=== PATIENT | male | born 1970 ===

== ENCOUNTER 2020-06-25 08:12 | Outpatient (REF) | payer BC, SELFPAY ==
[2020-06-25 11:54] LABS: Alanine Aminotransferase 58 U/L (0-40); Aspartate Amino Transferase 31 U/L (5-37); Cholesterol 139 mg/dL; HDL Cholesterol 31 mg/dL; LDL Cholesterol Calculated 43 mg/dl; Triglycerides 328 mg/dL
== END 2020-06-25 08:13 | disposition home or self-care (01) ==
LOC: HO.HMGCLDS 08:12
PROVIDERS: PCP Nurse Practitioner Family; Visit Provider Internal Medicine Cardiovascular Disease
DX: E78.5 Hyperlipidemia, unspecified (principal)
CPT/HCPCS: 80061; 84450; 84460

== ENCOUNTER 2020-07-03 09:24 | Emergency (ER) | payer BC, SELFPAY ==
[2020-07-03 10:01] VITALS: BP 148/92; PULSE 80; RESP 18; TEMP 36.5; O2SAT 97; BMI 28.5
--- NOTE | 2020-07-03 10:49 | PC.NURSE ---
SWABBED FOR COVID
--- NOTE | 2020-07-03 11:56 | ED.URI ---
HPI - URI/Sore Throat General Chief Complaint: Upper Respiratory Symptoms Stated Complaint: HEADACHE Time Seen by Provider: 07/03/20 10:54 History of Present Illness HPI Narrative: Patient complains of 1 day of mild upper respiratory symptoms of runny nose, mild cough, body aches, no fever no chills no shortness of breath no sputum no nausea or vomiting Related Data Allergies Allergy/AdvReac Type Severity Reaction Status Date / Time fenofibrate [From TRICOR] Allergy Unknown ITCHING Verified 07/03/20 10:04 Review of Systems Review of Systems: There is no fever no chills no dizziness no weakness no headache no neck pain no chest pain no shortness of breath no abdomen pain no nausea no vomiting no diarrhea no rash Yes all other systems are reviewed and are negative [facility] Past Medical History Attestation statement: The following information was validated with the patient. [facility] Narrative: Hypertension and hypercholesterolemia Source: nursing notes reviewed Medical History (Updated 07/03/20 @ 11:18 by SILVIA Moseley) Myocardial infarction Social History Social History Advance Directives: No Advance Directives Information Provided: Yes Physical Exam Vital Signs: Vital Signs: Last Vital Signs Temp 97.7 F 07/03/20 10:01 Pulse 80 07/03/20 10:01 Resp 18 07/03/20 10:01 BP 148/92 H 07/03/20 10:01 Pulse Ox 97 07/03/20 10:01 Body Mass Index 28.5 Patient is A&O x3, comfortable, no acute distress The eyes are clear no discharge no redness The pharynx is clear no redness no exudate no swelling, mucous membranes are moist and voice is normal The neck is supple no lymphadenopathy The chest is clear with full equal symmetrical breath sounds Abdomen soft nontender Extremities full range of motion x4 skin no rash Course Course Course Narrative: Comfortable well-appearing patient with mild upper respiratory symptoms is tested for COVID and discharged Discharge Plan Discharge Clinical Impression: Acute viral syndrome Patient Disposition: Home, Self-Care Additional Instructions: COVID test results will be back in 2-3 days But because the test miss is some cases the advice is do not return to work until symptoms are better and COVID test is negative Return any concerns or any worse condition Stand Alone Forms: Work/School Release Interventions: ED Discharge Assessment Last Done: 07/03/20 11:37 Discharge Date/Time: 07/03/20 11:39
== END 2020-07-03 11:39 | disposition home or self-care (01) ==
PROVIDERS: Physician Assistant Medical; Emergency Provider Emergency Medicine; PCP Nurse Practitioner Family
DX: B34.9 Viral infection, unspecified (principal); R51.9 Headache, unspecified; Z20.828 Contact with and (suspected) exposure to other viral communicable diseases
CPT/HCPCS: 99283; U0003

== ENCOUNTER 2020-10-04 09:27 | Outpatient (REF) | payer BC, SELFPAY ==
--- NOTE | ~2020-10-04 | CT_ITS ---
EXAMINATION: CT ABDOMEN AND PELVIS WITH CONTRAST CLINICAL INFORMATION: Left lower quadrant pain COMPARISON: Previous abdominal ultrasound November 2018, pelvic ultrasound November [address] February 2020 TECHNIQUE: Multidetector volumetric images were obtained from the superior aspect of the liver through the pubic symphysis following administration 85 mL of Omnipaque 350 intravenous contrast. Sagittal and coronal reformatted images were obtained on the technologist's workstation. Oral contrast: Yes This CT examination was performed using dose optimization techniques as appropriate, variously including the following: *Automated exposure control *Adjustment of mA and/or kV according to patient size (this includes techniques or standardized protocols for targeted exams where dose is matched to indication/reason for exam; i.e. extremities or head) *Use of iterative reconstruction technique DLP: 499 mGy-cm FINDINGS: LUNG BASES: The visualized lung bases are unremarkable. LIVER, GALLBLADDER, AND BILIARY TREE: The liver is slightly enlarged, right lobe measuring 20 cm in length. The liver is normal in shape and attenuation. No focal hepatic lesion or biliary ductal dilatation is present. The gallbladder is unremarkable with no evidence of radiopaque gallstones, gallbladder wall thickening, or obvious pericholecystic inflammatory changes. PANCREAS: Unremarkable. SPLEEN: The spleen is enlarged and measures 15.4 cm in length. ADRENAL GLANDS: Unremarkable. KIDNEYS AND URETERS: The kidneys are normal in size, shape, and attenuation. No hydronephrosis, hydroureter, or calculi seen. No perinephric stranding. BLADDER: Unremarkable. GASTROINTESTINAL TRACT: The small and large bowel are unremarkable. The appendix is unremarkable. ABDOMINAL WALL: There is a small right inguinal hernia containing fat. LYMPH NODES: Normal. VASCULAR: Unremarkable. PELVIC VISCERA: Unremarkable. OSSEOUS STRUCTURES: There are degenerative changes of the spine. CT/CT abdomen pelvis w con IMPRESSION: Mild hepatosplenomegaly otherwise unremarkable exam.
[2020-10-04] MEDS: iohexoL 350 MG/ML 100 ML INFUS..BTL 85 ML IV (09:51)
== END 2020-10-04 09:28 | disposition home or self-care (01) ==
LOC: HO.CT 09:27
PROVIDERS: PCP Nurse Practitioner Family; Visit Provider Nurse Practitioner Family
DX: R10.32 Left lower quadrant pain (principal)
CPT/HCPCS: 74177; Q9967

== ENCOUNTER 2020-10-05 09:11 | Outpatient (REF) | payer BC, SELFPAY ==
[2020-10-05 11:24] LABS: MANUAL DIFF FLAG NO
[2020-10-05 11:37] LABS: Basophils Percent Auto 0.5 % (0-2); Eosinophils Absolute Auto 0.1 X10*3/uL (0.0-0.4); Eosinophils Percent Auto 2.9 % (0-4); Hematocrit 44.3 % (42-52); Imm Gran Abs Auto 0.01 X10*3/uL (0.00-0.03); Imm Gran Pct Auto 0.2 % (0.0-0.4); Lymphocytes Absolute Auto 1.2 X10*3/uL (1.2-4.9); Lymphocytes Percent Auto 28.1 % (20-40); Mean Corpuscular HGB Conc 33.9 g/dl (31.0-36.0); Mean Corpuscular Hemoglobin 29.3 pg (27.0-33.0); Mean Corpuscular Volume 86.5 fL (80-98); Mean Platelet Volume 11.3 fL (9.4-12.4); Monocytes Absolute Auto 0.4 X10*3/uL (0.1-1.2); Monocytes Percent Auto 9.8 % (2-11); Neutrophils Absolute Auto 2.4 X10*3/uL (2.0-8.3); Neutrophils Percent Auto 58.5 % (45-73); Platelet Count 141 X10*3/uL (160-400); Red Blood Count 5.12 X10*6/uL (4.60-5.80); White Blood Count 4.2 X10*3/uL (4.8-10.8)
[2020-10-05 11:52] LABS: Alanine Aminotransferase 65 U/L (0-40); Albumin Level 4.5 g/dL (3.5-5.0); Alkaline Phosphatase 63 U/L (39-117); Anion Gap 13 (12-20); Aspartate Amino Transferase 27 U/L (5-37); Bilirubin Total 0.6 mg/dL (0.0-1.0); Blood Urea Nitrogen 24 mg/dL (9-16); Calcium 8.8 mg/dL (8.4-10.2); Carbon Dioxide 27 mmol/L (22-29); Chloride 106 mmol/L (96-108); Estimated Glomerular Filt Rate > 60; Glucose Random 84 mg/dL (60-115); Potassium 4.1 mmol/L (3.3-5.1); Sodium 142 mmol/L (135-145); Total Protein 7.3 g/dL (6.5-8.0)
[2020-10-05 12:03] LABS: Alanine Aminotransferase 65 U/L (0-40); Albumin Level 4.5 g/dL (3.5-5.0); Alkaline Phosphatase 63 U/L (39-117); Aspartate Amino Transferase 29 U/L (5-37); Bilirubin Direct 0.2 mg/dL (0.0-0.5); Bilirubin Total 0.6 mg/dL (0.0-1.0); Total Protein 7.3 g/dL (6.5-8.0)
[2020-10-06 08:17] LABS: Hepatitis A Antibody IgG Nonreactive (Nonreactive); ~Hepatitis A Antibody IgG 0.45 S/CO (0.00-0.99)
== END 2020-10-05 09:12 | disposition home or self-care (01) ==
LOC: HO.HMGCLDS 09:11
PROVIDERS: PCP Nurse Practitioner Family; Visit Provider Internal Medicine Gastroenterology
DX: R94.5 Abnormal results of liver function studies (principal); K59.00 Constipation, unspecified; R10.32 Left lower quadrant pain
CPT/HCPCS: 36415; 80053; 80076; 82248; 85025; 86708

== ENCOUNTER → 2020-10-26 08:02 | Outpatient (BNV) | payer BC, SELFPAY | PROVIDERS: PCP Nurse Practitioner Family; Referring Provider Nurse Practitioner Family; Visit Provider Internal Medicine Medical Oncology | DX: I82.513 Chronic embolism and thrombosis of femoral vein, bilateral (principal); I82.533 Chronic embolism and thrombosis of popliteal vein, bilateral; Z79.01 Long term (current) use of anticoagulants | CPT/HCPCS: 99204; 99213; 99214 ==

== ENCOUNTER 2020-11-29 13:20 | Outpatient (REF) | payer BC, SELFPAY ==
--- NOTE | ~2020-11-29 | MR_ITS ---
EXAMINATION: MR KNEE WITHOUT CONTRAST, LEFT CLINICAL INFORMATION: Left knee pain. COMPARISON: None TECHNIQUE: MRI of the knee without contrast was performed using routine sequences on a high-field scanner. FINDINGS: MENISCI: Medial Meniscus: Intact Lateral Meniscus: Intact LIGAMENTS: Cruciate: Intact Collateral: Intact EXTENSOR MECHANISM: Intact quadriceps and patellar tendons. Mildly prominent medial patellar plica without associated edema/inflammatory change. ARTICULAR CARTILAGE/BONE: Patellofemoral Compartment: Medial patellar facet articular cartilage signal heterogeneity. Tiny marginal osteophytes. Medial Compartment: Focal fissuring/delamination at the lateral aspect of the weightbearing medial femoral condyle measuring 1.0 x 0.7 cm. Tiny marginal osteophytes. Lateral Compartment: Normal JOINT FLUID AND BURSAE: Trace joint effusion and trace Pike's cyst. MR/MR knee LT wo con IMPRESSION: 1. Minimal patellofemoral and medial compartment osteoarthritis. 2. Trace joint effusion and trace Pike's cyst. 3. No acute meniscal or ligamentous injury.
== END 2020-11-29 13:21 | disposition home or self-care (01) ==
LOC: HO.MRI 13:20
PROVIDERS: Visit Provider Nurse Practitioner Family
DX: M25.562 Pain in left knee (principal)
CPT/HCPCS: 73721

== ENCOUNTER 2021-01-28 06:09 | Outpatient (REF) | payer BC, SELFPAY ==
[2021-01-28 11:24] LABS: MANUAL DIFF FLAG NO
[2021-01-28 11:40] LABS: Basophils Percent Auto 0.6 % (0-2); Eosinophils Absolute Auto 0.2 X10*3/uL (0.0-0.4); Eosinophils Percent Auto 3.1 % (0-4); Hematocrit 46.1 % (42-52); Hemoglobin 15.4 g/dl (14.0-18.0); Imm Gran Abs Auto 0.01 X10*3/uL (0.00-0.03); Imm Gran Pct Auto 0.2 % (0.0-0.4); Lymphocytes Absolute Auto 1.5 X10*3/uL (1.2-4.9); Lymphocytes Percent Auto 29.2 % (20-40); Mean Corpuscular HGB Conc 33.4 g/dl (31.0-36.0); Mean Corpuscular Hemoglobin 29.2 pg (27.0-33.0); Mean Corpuscular Volume 87.5 fL (80-98); Mean Platelet Volume 10.7 fL (9.4-12.4); Monocytes Absolute Auto 0.5 X10*3/uL (0.1-1.2); Monocytes Percent Auto 10.1 % (2-11); Neutrophils Absolute Auto 2.9 X10*3/uL (2.0-8.3); Neutrophils Percent Auto 56.8 % (45-73); Platelet Count 133 X10*3/uL (160-400); Red Blood Count 5.27 X10*6/uL (4.60-5.80); Red Cell Distribution Width 12.5 % (11.0-16.0); White Blood Count 5.1 X10*3/uL (4.8-10.8)
[2021-01-28 12:02] LABS: Alanine Aminotransferase 54 U/L (0-40); Albumin Level 4.6 g/dL (3.5-5.0); Alkaline Phosphatase 59 U/L (39-117); Anion Gap 15 (12-20); Aspartate Amino Transferase 25 U/L (5-37); Bilirubin Total 0.4 mg/dL (0.0-1.0); Blood Urea Nitrogen 19 mg/dL (9-16); Calcium 9.2 mg/dL (8.4-10.2); Carbon Dioxide 27 mmol/L (22-29); Chloride 104 mmol/L (96-108); Estimated Glomerular Filt Rate > 60; Glucose Random 83 mg/dL (60-115); Potassium 4.4 mmol/L (3.3-5.1); Sodium 142 mmol/L (135-145); Total Protein 7.2 g/dL (6.5-8.0)
== END 2021-01-28 06:10 | disposition home or self-care (01) ==
LOC: HO.HMGCLDS 06:09
PROVIDERS: PCP Nurse Practitioner Family; Visit Provider Internal Medicine Medical Oncology
DX: D69.6 Thrombocytopenia, unspecified (principal)
CPT/HCPCS: 36415; 80053; 85025

== ENCOUNTER 2021-04-25 07:43 | Outpatient (REF) | payer BC, SELFPAY ==
[2021-04-25 11:25] LABS: MANUAL DIFF FLAG NO
[2021-04-25 11:37] LABS: Basophils Percent Auto 0.4 % (0-2); Eosinophils Absolute Auto 0.1 X10*3/uL (0.0-0.4); Eosinophils Percent Auto 2.9 % (0-4); Hematocrit 42.7 % (42-52); Hemoglobin 14.7 g/dl (14.0-18.0); Lymphocytes Absolute Auto 1.2 X10*3/uL (1.2-4.9); Lymphocytes Percent Auto 26.6 % (20-40); Mean Corpuscular HGB Conc 34.4 g/dl (31.0-36.0); Mean Corpuscular Hemoglobin 29.6 pg (27.0-33.0); Mean Corpuscular Volume 86.1 fL (80-98); Mean Platelet Volume 10.8 fL (9.4-12.4); Monocytes Absolute Auto 0.4 X10*3/uL (0.1-1.2); Monocytes Percent Auto 9.2 % (2-11); Neutrophils Absolute Auto 2.7 X10*3/uL (2.0-8.3); Neutrophils Percent Auto 60.9 % (45-73); Platelet Count 145 X10*3/uL (160-400); Red Blood Count 4.96 X10*6/uL (4.60-5.80); Red Cell Distribution Width 12.1 % (11.0-16.0); White Blood Count 4.5 X10*3/uL (4.8-10.8)
[2021-04-25 11:59] LABS: Alanine Aminotransferase 51 U/L (0-40); Albumin Level 4.3 g/dL (3.5-5.0); Alkaline Phosphatase 59 U/L (39-117); Anion Gap 14 (12-20); Aspartate Amino Transferase 29 U/L (5-37); Blood Urea Nitrogen 27 mg/dL (9-16); Calcium 9.1 mg/dL (8.4-10.2); Carbon Dioxide 24 mmol/L (22-29); Chloride 106 mmol/L (96-108); Cholesterol 124 mg/dL; Estimated Glomerular Filt Rate > 60; Glucose Fasting 93 mg/dL (60-99); HDL Cholesterol 28 mg/dL; LDL Cholesterol Calculated 41 mg/dl; Potassium 4.2 mmol/L (3.3-5.1); Sodium 140 mmol/L (135-145); Total Protein 6.9 g/dL (6.5-8.0); Triglycerides 279 mg/dL
[2021-04-25 12:00] LABS: TSH reflex Free T4 0.62 uIU/mL (0.32-4.0)
[2021-04-25 12:13] LABS: Bilirubin Total 0.7 mg/dL (0.0-1.0)
== END 2021-04-25 07:44 | disposition home or self-care (01) ==
LOC: HO.HMGCLDS 07:43
PROVIDERS: PCP Nurse Practitioner Family; Visit Provider Internal Medicine Cardiovascular Disease
DX: Z00.00 Encounter for general adult medical examination without abnormal findings (principal); D69.6 Thrombocytopenia, unspecified; E78.5 Hyperlipidemia, unspecified
CPT/HCPCS: 36415; 80053; 80061; 84443; 85025

== ENCOUNTER 2021-04-26 10:22 | Outpatient (REF) | payer BC, SELFPAY ==
[2021-04-26 11:32] LABS: Appearance Urine CLEAR; Color Urine YELLOW; Glucose Urine UA NEG (NEG); Leukocyte Esterase Urine NEG (NEG); Nitrite Urine NEG (NEG); PH 5.5 (5.0-8.0); Specific Gravity - Urine >= 1.030 (1.005-1.025); Urine Blood NEG (NEG); Urine Ketones NEG (NEG); Urine Protein NEG (NEG-TRACE)
[2021-04-26 11:50] LABS: RBC Urine 0 /HPF (0); WBC Urine 0-2 /HPF (0-4)
== END 2021-04-26 10:23 | disposition home or self-care (01) ==
LOC: HO.HMGCLNP 10:22
PROVIDERS: Visit Provider Nurse Practitioner Family
DX: Z00.00 Encounter for general adult medical examination without abnormal findings (principal)
CPT/HCPCS: 81001

== ENCOUNTER 2021-05-16 15:31 | Outpatient (REF) | payer BC, SELFPAY ==
--- NOTE | ~2021-05-16 | FL_ITS ---
EXAMINATION: MODIFIED BARIUM SWALLOW CLINICAL INFORMATION: Dysphagia. COMPARISON: None. TECHNIQUE: Routine barium swallow was performed in lateral projection with patient on stretcher in the presence of speech therapist. FINDINGS: Following oral administration of various consistencies of thin, paste, semisolid and solid food-coated with barium, there is normal propagation of bolus from the oral cavity through the pharynx into the esophagus. No laryngeal penetration or obstruction seen. There is no retention of barium in the valleculae or the piriform sinuses. FLUOROSCOPY TIME: 0.7 minutes. DOSE AREA PRODUCT: 0.726 uGy-m2 (microgray-meter squared). FL/FL barium swallow modified IMPRESSION: Unremarkable modified barium swallow exam. Recommend correlation with speech therapy results.
--- NOTE | 2021-05-16 17:21 | MHC.SL.IMP ---
Date of Plan of Treatment: 05/16/21 Onset of Symptoms/Illness: 04/25/21 Date Treatment Started: 05/16/21 Admitting Diagnosis: ADHD Bilateral inguinal hernia Fatty liver Myocardial infarction non-STEMI Primary Speech & Language Diagnosis: R13.12 Oropharyngeal Phase Dysphagia Reason for Today's Visit: 32461 Modified Barium Swallow Study Pre-evaluation Dietary Consistencies: Regular Pre-evaluation Liquid Consistency: Thin Pre-evaluation Medication Administration: Whole with Liquid Medical History: Modified Barium Swallow Study Fluoroscopic Evaluation of Swallowing Function CPT Code 17666 Evaluation Year: 2020 Reason for Study: Patient reports ?throat tightness.? Referring Physician: Marlon Hirsch DAMPENER-BC Evaluating Clinician: Lucia Hernández M.A., CCC-PUBLIC HEALTH ADMINISTRATOR Study Number: 1 Patient Name: Jeff Clifford Status: Outpatient, Ambulatory Age: 50 Gender: Male MEDICAL HISTORY: Year of Onset or Diagnosis: 2020 Comorbidities: ADHD Bilateral inguinal hernia Fatty liver Myocardial infarction non-STEMI SURGICAL: Coronary angiogram Heart artery stent Umbilical hernia Current (pre-evaluation) Intake/Diet: Route: PO Diet Grade: Regular Liquid Consistencies: Thin Pre-Study Functional Oral Intake Scale (FOIS): 7- Total oral intake with no restrictions Pain: None reported at time of study SUBJECTIVE: Patient is a 50 year old male who was seen in the emergency room on 04/25/21 for ?throat tightness and difficulty swallowing saliva.? Per MD note, patient?s blood work and EKG in the ER came back normal and patient was recommended to follow up with his primary care physician. Patient was thereafter ordered a modified barium swallow study (MBSS). Patient reports intermittent difficulty swallowing saliva and the same sensation of ?throat tightness? which occurs ?on and off? for the past 2 weeks. Patient denies pain when swallowing. Patient denies globus sensation. Patient reports that he has not needed to modify his diet, and that he does not experience these difficulties when eating or drinking. Oral Motor Exam Facial Symmetry: Symmetrical Mouth Occlusion: Normal Oral-Facial Teeth Characteristics: Intact/Normal Oral-Facial Teeth Miscellaneous Observation: Oral-Facial Lip Pucker Description: Normal Oral-Facial Smile (Lips) Description: Normal Oral-Facial Puff Cheeks Description: Normal Tongue Size: Normal Tongue Frenum Length: Normal Is patient able to manage secretions?: Yes Food and Liquid Trials: Oral Impairment: Lip Closure: 0=No labial escape Oral Impairment: Tongue Control During Bolus Hold: 1=Escape to lateral buccal cavity/floor of mouth (FOM) Oral Impairment: Bolus Preparation/Mastication: 0=Timely and efficient chewing and mashing Oral Impairment: Bolus Transport/Lingual Motion: 0=Brisk tongue motion Oral Impairment: Oral Residue: 1=Trace residue lining oral structures Oral Impairment:Initiation of Pharyngeal Swallow: 0=Bolus head at posterior angle of ramus (first hyoid excursion) Pharyngeal Impairment: Soft Palate Elevation: 0=No bolus between soft palate (SP)/pharyngeal wall (PW) Pharyngeal Impairment: Laryngeal Elevation: 0=Complete superior movement of thyroid cartilage (see description) Pharyngeal Impairment: Anterior Hyoid Excursion: 0=Complete anterior movement Pharyngeal Impairment: Epiglottic Movement: 0=Complete inversion Pharyngeal Impairment: Laryngeal Vestibular Closure:: 0=Complete: no air/contrast in laryngeal vestibule Pharyngeal Impairment: Pharyngeal Stripping Wave: 0=Present: complete Pharyngeal Impairment: Pharyngeal Contraction: Did not test Pharyngeal Impairment: Pharyngoesophageal Segment Openin=Partial distention/partial duration: partial obstruction of flow Pharyngeal Impairment: Tongue Base (TB) Retraction: 2=Narrow column of contrast/air between TB and posterior PW Pharyngeal Impairment: Pharyngeal Residue: 1=Trace residue within or on pharyngeal structures Pharyngeal Impairment: Esophageal Clearance Upright Position: Did not test Impressions and Recommendations Clinical Observations: OBJECTIVE: Time-out: performed at 3:45 Evaluation Start: 3:30; Stop: 3:35 Patient Positioning: Seated 70-90 degrees Viewing Planes: LATERAL ONLY Contrast: MBSImP? Standardized Protocol using commercially prepared, standardized Barium viscosities, including: Varibar? THIN LIQUID (40% w/v, <15 cps) , 1/2 Shortbread Cookie (1 x1 x.25 ) MBSImP ID: [id number] MBSImP Results: Lip closure for intraoral bolus containment resulted in no labial escape. Tongue control during bolus hold allowed bolus escape to the lateral buccal cavity/floor of mouth. Bolus preparation and mastication resulted in timely and efficient chewing and mashing. Bolus transport/lingual motion was with brisk tongue motion. Oral residue was a trace, lining oral structures. Initiation of the pharyngeal swallow occurred as the bolus head reached the posterior angle of the mandibular ramus. Soft palate elevation resulted in no bolus between the soft palate and the pharyngeal wall. Laryngeal elevation demonstrated complete superior movement of the thyroid cartilage with complete approximation of the arytenoids to the epiglottic petiole. Anterior hyoid excursion demonstrated complete anterior movement. Epiglottic movement resulted in complete inversion. Laryngeal vestibular closure was complete, as indicated by no air or contrast within the laryngeal vestibule at the height of the swallow. Pharyngeal stripping wave was present and complete. Pharyngeal contraction could not be determined due to logistical reasons not related to physiologic impairment. Pharyngoesophageal segment opening demonstrated partial distension/partial duration, with partial obstruction of bolus flow. Tongue base retraction allowed a narrow column of contrast or air between the retracted tongue base and the posterior pharyngeal wall. Pharyngeal residue was a trace within or on pharyngeal structures. Esophageal clearance in the upright position could not be assessed due to logistical reasons not related to physiologic impairment. Oral Impairment Score: 1 Pharyngeal Impairment Score: 3 (absence of score, component 13) Esophageal Impairment Score: --- (absence of score, component 17) Laryngeal Penetration and Aspiration: Neither penetration nor aspiration was observed in today's study with Cookie, Thin. ASSESSMENT: Patient was unaccompanied to this exam. This exam was conducted by a multidisciplinary team, which included a radiologist, radiology technicians, and speech language pathologist. Patient was able to feed himself without difficulty. Patient trialed the following liquid and solid consistencies: -5 mL thin liquid barium -individual cup sip with bolus hold thin liquid barium -consecutive cup sip thin liquid barium -pureed solid (mixture applesauce with barium paste) -ground solid (mixture chicken salad with barium paste) -regular solid (Natalya Doone cookie coated with barium paste) No evidence of aspiration or penetration during this exam. Timely and efficient mastication with brisk posterior tongue movement. Trace lingual residue deemed to be within normal limits. Initiation of pharyngeal swallow trigger was timely and occurred when bolus head reached posterior angle of ramus. Complete superior movement of thyroid cartilage with complete approximation of arytenoids to epiglottic petiole. Complete anterior hyoid excursion and complete epiglottic inversion. Noted partial distention/partial duration through pharyngoesophageal segment opening. Trace residue in valleculae, in pyriform sinuses, and on posterior pharyngeal wall. Liquid Intake Recommendation: Thin Liquid Intake Strategies: Unrestricted Dietary Recommendations: Regular Medication Administration: Whole with Liquid Compensatory Strategies Recommended: Sitting Upright (90 deg) Supervision during eating and or drinking: None Needed Recommendation for Speech Therapy: NA:Typical Evaluation PLAN: Intake Recommendations: Route: PO Diet Grade: Regular Liquid Consistencies: Thin Post-Study Functional Oral Intake Scale (FOIS): 7- Total oral intake with no restrictions ST intervention is not warranted. Recommend continue unmodified diet REGULAR solids and THIN liquids with pills WHOLE in LIQUID. Patient is recommended consultation with G.I. specialist / ENT for complaint of ?throat tightness.? Therapy Recommendations: Therapy will be discontinued Prognosis for Improvement: The prognosis for the patient to meet nutritional needs by mouth is excellent based on degree of impairment. Clinician - Supplemental, Miscellaneous Communication: It is important to note MBSS objective studies are snapshots in time and Patient function might vary with factors such as time of day or concomitant medical conditions. For this reason, the final treatment plan for this patient should rest with their medical care team. Additional recommendations should be considered with the totality of the Patient in mind. Thank for the opportunity to participate in the care of this patient. If you have any questions about the content of this report, please contact the [facility] at [facility]. Finisher Card Tender Clinician/Clinical Fellow: No Supervisory Statement: N/A Speech Language Pathologist: Lucia Hernández M.A., CCC-PUBLIC HEALTH ADMINISTRATOR
== END 2021-05-16 15:32 | disposition home or self-care (01) ==
LOC: HO.XRAY 15:31
PROVIDERS: Visit Provider Nurse Practitioner Family
DX: R13.10 Dysphagia, unspecified (principal)
CPT/HCPCS: 74230; 92611

== ENCOUNTER 2021-06-07 09:35 | Outpatient (REF) | payer BC, SELFPAY ==
[2021-06-07 11:37] LABS: Hematocrit 45.6 % (42-52); Hemoglobin 15.3 g/dl (14.0-18.0); INTERNATIONAL NORM RATIO 0.9 (0.9-1.1); Mean Corpuscular HGB Conc 33.6 g/dl (31.0-36.0); Mean Corpuscular Volume 86.4 fL (80-98); Mean Platelet Volume 10.5 fL (9.4-12.4); Platelet Count 144 X10*3/uL (160-400); Prothrombin Time 10.7 SEC (9.9-13.0); Red Blood Count 5.28 X10*6/uL (4.60-5.80); Red Cell Distribution Width 12.3 % (11.0-16.0); White Blood Count 4.8 X10*3/uL (4.8-10.8)
[2021-06-07 12:07] LABS: Anion Gap 11 (12-20); Blood Urea Nitrogen 25 mg/dL (9-16); Calcium 9.5 mg/dL (8.4-10.2); Carbon Dioxide 27 mmol/L (22-29); Chloride 106 mmol/L (96-108); Estimated Glomerular Filt Rate > 60; Glucose Random 112 mg/dL (60-115); Potassium 4.3 mmol/L (3.3-5.1); Sodium 140 mmol/L (135-145)
== END 2021-06-07 09:36 | disposition home or self-care (01) ==
LOC: HO.HMGCLDS 09:35
PROVIDERS: PCP Nurse Practitioner Family; Visit Provider Internal Medicine Cardiovascular Disease
DX: I25.10 Atherosclerotic heart disease of native coronary artery without angina pectoris (principal)
CPT/HCPCS: 36415; 80048; 85027; 85610

== ENCOUNTER 2021-08-15 12:13 | Outpatient (REF) | payer BC, SELFPAY | END 2021-08-15 12:14 | disposition home or self-care (01) | LOC: HO.WFDLDS 12:13 | PROVIDERS: Visit Provider Internal Medicine | DX: Z20.822 Contact with and (suspected) exposure to COVID-19 (principal) | CPT/HCPCS: C9803; U0003; U0005 ==

== ENCOUNTER → 2021-08-22 08:53 | Outpatient (BNVA) | payer BC, SELFPAY | PROVIDERS: PCP Nurse Practitioner Family; Visit Provider Orthopaedic Surgery ==

== ENCOUNTER 2021-09-01 06:12 | Outpatient (REF) | payer BC, SELFPAY ==
[2021-09-01 12:01] LABS: Alanine Aminotransferase 82 U/L (0-40); Albumin Level 4.3 g/dL (3.5-5.0); Alkaline Phosphatase 63 U/L (39-117); Anion Gap 12 (12-20); Aspartate Amino Transferase 29 U/L (5-37); Bilirubin Total 0.6 mg/dL (0.0-1.0); Blood Urea Nitrogen 22 mg/dL (9-16); Calcium 9.3 mg/dL (8.4-10.2); Carbon Dioxide 28 mmol/L (22-29); Chloride 104 mmol/L (96-108); Estimated Glomerular Filt Rate > 60; Glucose Random 97 mg/dL (60-115); Sodium 140 mmol/L (135-145); Total Protein 7.1 g/dL (6.5-8.0)
== END 2021-09-01 06:13 | disposition home or self-care (01) ==
LOC: HO.HMGCLDS 06:12
PROVIDERS: Absent Provider Nurse Practitioner Family; Visit Provider Internal Medicine Gastroenterology
DX: R07.89 Other chest pain (principal); K21.9 Gastro-esophageal reflux disease without esophagitis; R94.5 Abnormal results of liver function studies
CPT/HCPCS: 36415; 80053

== ENCOUNTER 2021-09-21 06:24 | Outpatient (REF) | payer BC, SELFPAY ==
[2021-09-21 14:19] LABS: Alanine Aminotransferase 99 U/L (0-40); Albumin Level 4.6 g/dL (3.5-5.0); Alkaline Phosphatase 67 U/L (39-117); Anion Gap 10 (12-20); Aspartate Amino Transferase 38 U/L (5-37); Bilirubin Total 0.7 mg/dL (0.0-1.0); Carbon Dioxide 27 mmol/L (22-29); Chloride 107 mmol/L (96-108); Cholesterol 147 mg/dL; Estimated Glomerular Filt Rate > 60; Glucose Fasting 99 mg/dL (60-99); HDL Cholesterol 28 mg/dL; Iron 85 mcg/dL (45-160); LDL Cholesterol Calculated 50 mg/dl; Percent Iron Saturation 21 % (15-50); Potassium 4.3 mmol/L (3.3-5.1); Sodium 140 mmol/L (135-145); Total Iron Binding Capacity 410 mcg/dL (228-428); Total Protein 7.5 g/dL (6.5-8.0); Triglycerides 347 mg/dL; Unsaturated Iron Binding 325 ug/dL
[2021-09-21 14:22] LABS: Ferritin 69 ng/mL (20-250); TSH reflex Free T4 2.82 uIU/mL (0.32-4.0)
[2021-09-21 15:08] LABS: Blood Urea Nitrogen 24 mg/dL (9-16); Calcium 9.6 mg/dL (8.4-10.2)
[2021-09-21 23:33] LABS: Folate 16.6 ng/mL (> or = 4.0); Vitamin B12 464 pg/mL (200-900)
[2021-09-23 11:51] LABS: Anti Nuclear Antibody Screen NEGATIVE (NEGATIVE)
== END 2021-09-21 06:25 | disposition home or self-care (01) ==
LOC: HO.HMGCLDS 06:24
PROVIDERS: Visit Provider Nurse Practitioner Family
DX: R53.83 Other fatigue (principal)
CPT/HCPCS: 36415; 80053; 80061; 82607; 82728; 82746; 83540; 84443; 86038; 86039

== ENCOUNTER 2021-09-23 07:20 | Outpatient (REF) | payer BC, SELFPAY ==
[2021-09-23 11:41] LABS: Appearance Urine CLEAR; Color Urine YELLOW; Glucose Urine UA NEG (NEG); Leukocyte Esterase Urine NEG (NEG); Nitrite Urine NEG (NEG); PH 5.5 (5.0-8.0); Specific Gravity - Urine >= 1.030 (1.005-1.025); Urine Blood NEG (NEG); Urine Ketones NEG (NEG); Urine Protein NEG (NEG-TRACE)
== END 2021-09-23 07:21 | disposition home or self-care (01) ==
LOC: HO.HMGCLNP 07:20
PROVIDERS: Visit Provider Nurse Practitioner Family
DX: R53.83 Other fatigue (principal)
CPT/HCPCS: 81003

== ENCOUNTER 2021-10-20 06:16 | Outpatient (REF) | payer BC, SELFPAY ==
[2021-10-20 12:19] LABS: HIV AB/AG Nonreactive (Nonreactive); HIV Num 1 0.06 S/CO (0.00-0.99)
[2021-10-20 12:51] LABS: Syphilis Screen Nonreactive (Nonreactive)
[2021-10-20 13:47] LABS: CT PCR NOT DETECTED (Not Detect.); NG PCR NOT DETECTED (Not Detect.)
[2021-10-21 08:57] LABS: Herpes Simplex Type 2 IgG <0.90 index
== END 2021-10-20 06:17 | disposition home or self-care (01) ==
LOC: HO.HMGCLDS 06:16
PROVIDERS: Visit Provider Nurse Practitioner Family
DX: Z11.4 Encounter for screening for human immunodeficiency virus [HIV] (principal); Z11.3 Encounter for screening for infections with a predominantly sexual mode of transmission
CPT/HCPCS: 36415; 86695; 86696; 86780; 87389; 87491; 87591

== ENCOUNTER 2021-10-22 10:37 | Outpatient (REF) | payer BC, SELFPAY ==
--- NOTE | ~2021-10-22 | XR_ITS ---
EXAMINATION: XR CERVICAL SPINE CLINICAL INFORMATION: Disease of spinal cord. Unspecified. COMPARISON: MRI cervical spine 10/14/2019. TECHNIQUE: AP, bilateral oblique, lateral and open-mouth radiographs of the cervical spine. FINDINGS: Spine is visualized from the craniocervical junction to the level of C7-T1. Visualized vertebral body height and alignment are within normal limits. The spinous process of C7 demonstrates an ununited segment with dense sclerotic margins unchanged compared with 10/14/2019. Oblique views demonstrate no facet arthropathic changes or no appreciable foraminal stenoses. Minimal uncovertebral joint osteophytosis is present at C4-C5 and C5-C6. XR/XR cervical spine 4V IMPRESSION: *Minimal bilateral uncovertebral joint osteophytosis C4-C5 and C5-C6. 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
== END 2021-10-22 10:38 | disposition home or self-care (01) ==
LOC: HO.HMGCX 10:37
PROVIDERS: Visit Provider Physician Assistant
DX: G95.9 Disease of spinal cord, unspecified (principal)
CPT/HCPCS: 72050

== ENCOUNTER → 2021-11-14 08:51 | Outpatient (REF) | payer BC, SELFPAY | LOC: HO.SL 08:51 | PROVIDERS: PCP Nurse Practitioner Family; Visit Provider Nurse Practitioner Family | DX: G47.33 Obstructive sleep apnea (adult) (pediatric) (principal); G47.30 Sleep apnea, unspecified; R40.0 Somnolence; R06.83 Snoring; R53.83 Other fatigue | CPT/HCPCS: 95806 ==

== ENCOUNTER 2022-01-31 09:50 | Outpatient (REF) | payer BC, SELFPAY ==
[2022-01-31 11:29] LABS: MANUAL DIFF FLAG NO
[2022-01-31 11:46] LABS: Basophils Percent Auto 0.2 % (0-2); Eosinophils Absolute Auto 0.1 X10*3/uL (0.0-0.4); Eosinophils Percent Auto 1.1 % (0-4); Hematocrit 44.2 % (42.0-52.0); Hemoglobin 15.1 g/dl (14.0-18.0); Imm Gran Abs Auto 0.01 X10*3/uL (0.00-0.03); Imm Gran Pct Auto 0.2 % (0.0-0.4); Lymphocytes Absolute Auto 0.9 X10*3/uL (1.2-4.9); Lymphocytes Percent Auto 19.7 % (20-40); Mean Corpuscular HGB Conc 34.2 g/dl (31.0-36.0); Mean Corpuscular Hemoglobin 29.3 pg (27.0-33.0); Mean Corpuscular Volume 85.8 fL (80.0-98.0); Mean Platelet Volume 10.9 fL (9.4-12.4); Monocytes Absolute Auto 0.5 X10*3/uL (0.1-1.2); Monocytes Percent Auto 10.5 % (2-11); Neutrophils Absolute Auto 3.2 x10*3/uL (2.0-8.3); Neutrophils Percent Auto 68.3 % (45-73); Platelet Count 157 X10*3/uL (160-400); Red Blood Count 5.15 X10*6/uL (4.60-5.80); White Blood Count 4.7 X10*3/uL (4.8-10.8)
[2022-01-31 12:24] LABS: TSH reflex Free T4 4.17 uIU/mL (0.32-4.0)
[2022-01-31 13:10] LABS: Alanine Aminotransferase 69 U/L (0-40); Albumin Level 4.8 g/dL (3.5-5.0); Alkaline Phosphatase 72 U/L (39-117); Anion Gap 14 (12-20); Aspartate Amino Transferase 36 U/L (5-37); Bilirubin Total 0.6 mg/dL (0.0-1.0); Blood Urea Nitrogen 26 mg/dL (9-16); Calcium 9.2 mg/dL (8.4-10.2); Carbon Dioxide 25 mmol/L (22-29); Chloride 107 mmol/L (96-108); Cholesterol 115 mg/dL; Estimated Glomerular Filt Rate 59; Glucose Fasting 100 mg/dL (60-99); HDL Cholesterol 32 mg/dL; LDL Cholesterol Calculated 62 mg/dl; Potassium 4.6 mmol/L (3.3-5.1); Sodium 141 mmol/L (135-145); Total Protein 7.9 g/dL (6.5-8.0); Triglycerides 106 mg/dL
[2022-01-31 14:12] LABS: Free T4 (Free Thyroxine) 0.97 ng/dL (0.71-1.85)
[2022-01-31 16:35] LABS: Appearance Urine TURBID; Color Urine YELLOW; Glucose Urine UA NEG (NEG); Leukocyte Esterase Urine NEG (NEG); Nitrite Urine NEG (NEG); PH 5.5 (5.0-8.0); Specific Gravity - Urine >= 1.030 (1.005-1.025); Urine Blood NEG (NEG); Urine Ketones NEG (NEG); Urine Protein NEG (NEG-TRACE)
== END 2022-01-31 09:51 | disposition home or self-care (01) ==
LOC: HO.HMGCLDS 09:50
PROVIDERS: PCP Nurse Practitioner Family; Visit Provider Nurse Practitioner Family
DX: Z00.00 Encounter for general adult medical examination without abnormal findings (principal)
CPT/HCPCS: 36415; 80053; 80061; 81003; 84439; 84443; 85025

== ENCOUNTER 2022-02-19 07:45 | Emergency (ER) | payer BC, SELFPAY ==
--- NOTE | ~2022-02-19 | XR_ITS ---
EXAMINATION: XR SHOULDER, RIGHT CLINICAL INFORMATION: History of pain after fall COMPARISON: None TECHNIQUE: Three views of the right shoulder. FINDINGS: The humeral head is well positioned over the intact glenoid. Glenohumeral joint space is maintained. No arthritic deformity, fracture or subluxation at the glenohumeral joint. Acromioclavicular joint is unremarkable. The acromiohumeral and coracoclavicular distances are normal. Scapula is unremarkable. No calcium deposition within rotator cuff tendons. The visualized portion of the right lung is normal. XR/XR shoulder RT min 2V IMPRESSION: Normal right shoulder. No acute fracture or subluxation.
[2022-02-19 08:01] VITALS: BP 126/87; PULSE 78; RESP 18; TEMP 36.7; O2SAT 98; BMI 27.8
--- NOTE | 2022-02-19 08:19 | ED_ITS ---
HPI - Extremity Problem General Chief complaint: Extremity Problem Stated complaint: r shoulder inj home Time Seen by Provider: 02/19/22 08:08 Source: patient Mode of arrival: ambulatory Limitations: no limitations History of Present Illness HPI Narrative: c/o rt shoulder pain fell on Sunday (2 days ago),Yesterday felt pop moving furniture Complaint: other (Rt shoulder) Onset (ago): day(s) (2) Pain Consistency: constant Location: right Quality: aching and sharp Radiation: none Relieving factors: immobilization Exacerbating factors: nothing Associated symptoms: denies other symptoms Related Data Home Medications Medication Instructions Recorded Confirmed icosapent ethyl 1 gram capsule 2 g PO BID 08/02/20 01/31/22 (Vascepa) metoprolol succinate 25 mg 25 mg PO DAILY 08/02/20 01/31/22 tablet,extended release 24 hr omeprazole 20 mg capsule,delayed 20 mg PO BID 08/02/20 01/31/22 release rosuvastatin 20 mg tablet 20 mg PO BEDTIME 08/02/20 01/31/22 nitroglycerin 0.3 mg sublingual 0.3 mg sublingual NEEDED PRN 10/28/20 01/31/22 tablet (Nitrostat) Chest Pain amlodipine 5 mg tablet 5 mg PO DAILY 08/02/21 01/31/22 ticagrelor 90 mg tablet (Brilinta) 90 mg PO BID 12/26/21 01/31/22 montelukast 10 mg tablet 10 mg PO DAILY 01/31/22 01/31/22 (Singulair) bupropion HCl 300 mg 24 hr tablet, 450 mg PO DAILY 02/15/22 extended release loratadine 10 mg tablet 10 mg PO DAILY 02/15/22 multivitamin 1 tab PO DAILY 02/15/22 Previous Rx's Medication Instructions Recorded cyclobenzaprine 10 mg tablet 10 mg PO BEDTIME PRN muscle spasm 12/26/21 30 days #30 tabs Allergies Allergy/AdvReac Type Severity Reaction Status Date / Time fenofibrate [From TRICOR] Allergy Unknown ITCHING Verified 02/15/22 14:42 Review of Systems Review of Systems: Yes all other systems are reviewed and are negative Constitutional: Constitutional: Reports no additional constitutional complaints Eyes: Eyes: Reports no additional eye complaints Cardiovascular: Cardiovascular: Reports no additional cardiovascular complaints Respiratory: Respiratory: Reports no additional respiratory complaints Integumentary/Breasts: Skin/Breast: Reports system reviewed and no additional complaints, except as docu Neurologic: Reports system reviewed and no additional complaints, except as documented [facility] Past Medical History Medical History ADHD Bilateral inguinal hernia Fatty liver Myocardial infarction Non-STEMI (non-ST elevated myocardial infarction) Surgical History History of coronary angiogram History of heart artery stent History of umbilical hernia Family History Family History Father CVD (cardiovascular disease) Myocardial infarction Unknown family medical history HTN (hypertension) Mother CVD (cardiovascular disease) Maternal Grandmother Stroke Paternal Grandfather Diabetes mellitus Paternal Aunt Aneurysm Paternal Aunt Aneurysm Social History Social History Household Members: None Housing: House Are you a primary emergency care attendant to a significant other at home: No Do you presently have visiting nurse or other home services: No Alcohol intake: current Alcohol intake frequency: does not drink Patient Tobacco Use Status: Never used Tobacco e-Cigarette/Vaping Use: Never Used Use of substances other than those prescribed or required for medical reasons: No Advance Directives: No Advance Directives Information Provided: No service: No Current occupational status: employed Cognitive needs: No Hearing needs: No Vision needs: Yes Physical Exam Vital Signs: Vital Signs: Last Vital Signs Temp 98.6 F 02/19/22 09:02 Pulse 88 02/19/22 09:02 Resp 18 02/19/22 09:02 BP 130/82 02/19/22 09:02 Pulse Ox 99 02/19/22 09:02 O2 Del Method 02/19/22 09:02 BMI result Body Mass Index 27.8 Const: General: cooperative Nutritional Appearance: average body habitus Orientation/consciousness: patient oriented x3 HEENT: Head: Yes normal to inspection Ears: hearing grossly normal bilaterally General nose exam: Normal external nose present Face and sinus: Yes normal facial exam Mouth: Normal oral and palatal mucosa present Neck: Neck: Yes normal visual inspection, Yes full ROM and Yes no lymphadenop athy Chest: Chest palpation & inspection: normal inspection of the chest Breast/axilla inspection: normal inspection of the breasts Breast/axilla palpation: normal palpation of the breasts Resp: Effort & Inspection: normal respiratory effort Auscultation: clear to auscultation bilaterally Percussion: percussion normal Cardio: Jugular venous distension: no JVD Rate: regular rate Rhythm: regular rhythm GI: Inspection: Yes normal to inspection Palpation (GI): Soft to palpation, not firm, nontender and no guarding Auscultation: normal bowel sounds Skin: General skin exam: no rashes or lesions noted Lesions: no lesions Rashes: no rashes Neuro: General: patient oriented x3 Extrem: Other: tenderness rt shoulder,decrease ROM,no deformity General: Yes capillary refill normal MDM - Extremity (Nontraumatic) Imaging Data rt shoulder: Radiologist's impression: CLINICAL INFORMATION: History of pain after fall? COMPARISON: None? TECHNIQUE: Three views of the right shoulder. FINDINGS: The humeral head is well positioned over the intact glenoid. Glenohumeral joint space is maintained. No arthritic deformity, fracture or subluxation at the glenohumeral joint.? Acromioclavicular joint is unremarkable. The acromiohumeral and coracoclavicular distances are normal. Scapula is unremarkable. No calcium deposition within rotator cuff tendons. The visualized portion of the right lung is normal. XR/XR shoulder RT min 2V IMPRESSION: Normal right shoulder. No acute fracture or subluxation. Dictated By: Deyvi Solorzano MD Signed By: <Electronically signed by Deyvi Solorzano MD in OV> 02/19/2203 DD/ 0835 Discharge Plan Discharge Clinical Impression: Shoulder contusion Patient Disposition: Home, Self-Care Instructions: Shoulder Sprain (ED) Prescriptions: No Action amlodipine 5 mg Tablet 5 mg PO DAILY montelukast [Singulair] 10 mg tablet 10 mg PO DAILY rosuvastatin 20 mg tablet 20 mg PO BEDTIME metoprolol succinate 25 mg tablet extended release 24 hr 25 mg PO DAILY omeprazole 20 mg capsule,delayed release(DR/EC) 20 mg PO BID icosapent ethyl [Vascepa] 1 gram capsule 2 g PO BID bupropion HCl 300 mg tablet extended release 24 hr 450 mg PO DAILY nitroglycerin [Nitrostat] 0.3 mg tablet, sublingual 0.3 mg sublingual NEEDED PRN (Reason: Chest Pain) Brilinta 90 mg tablet 90 mg PO BID cyclobenzaprine 10 mg tablet 10 mg PO BEDTIME PRN (Reason: muscle spasm) 30 Days Qty: 30 0RF multivitamin Tablet 1 tab PO DAILY loratadine 10 mg tablet 10 mg PO DAILY Referrals: Clementine Mccrary MD [Physician] - 2 days Interventions: ED Discharge Assessment Last Done: 02/19/22 09:22 Discharge Date/Time: 02/19/22 09:23
[2022-02-19 09:02] VITALS: BP 130/82; PULSE 88; RESP 18; TEMP 37; O2SAT 99
== END 2022-02-19 09:23 | disposition home or self-care (01) ==
PROVIDERS: Emergency Provider Emergency Medicine; PCP Nurse Practitioner Family
DX: S40.011A Contusion of right shoulder, initial encounter (principal); W19.XXXA Unspecified fall, initial encounter; Y93.9 Activity, unspecified; Y92.9 Unspecified place or not applicable; Y99.9 Unspecified external cause status
CPT/HCPCS: 73030; 99283; 99284

== ENCOUNTER 2022-04-12 08:52 | Outpatient (REF) | payer BC, SELFPAY ==
[2022-04-12 11:49] LABS: TSH reflex Free T4 3.08 uIU/mL (0.32-4.0)
[2022-04-13 16:57] LABS: Thyroid Peroxidase Antibodies 97 IU/mL (<9)
== END 2022-04-12 08:53 | disposition home or self-care (01) ==
LOC: HO.HMGCLDS 08:52
PROVIDERS: PCP Nurse Practitioner Family; Visit Provider Nurse Practitioner Family
DX: R79.89 Other specified abnormal findings of blood chemistry (principal)
CPT/HCPCS: 36415; 84443; 86376

== ENCOUNTER 2022-05-22 08:54 | Outpatient (REF) | payer BC, SELFPAY ==
[2022-05-22 11:14] LABS: MANUAL DIFF FLAG NO
[2022-05-22 11:24] LABS: Basophils Percent Auto 0.4 % (0-2); Eosinophils Absolute Auto 0.1 X10*3/uL (0.0-0.4); Eosinophils Percent Auto 2.2 % (0-4); Hematocrit 43.8 % (42.0-52.0); Imm Gran Abs Auto 0.01 X10*3/uL (0.00-0.03); Imm Gran Pct Auto 0.2 % (0.0-0.4); Lymphocytes Absolute Auto 1.1 X10*3/uL (1.2-4.9); Lymphocytes Percent Auto 21.1 % (20-40); Mean Corpuscular HGB Conc 34.2 g/dl (31.0-36.0); Mean Corpuscular Hemoglobin 29.6 pg (27.0-33.0); Mean Corpuscular Volume 86.6 fL (80.0-98.0); Mean Platelet Volume 10.5 fL (9.4-12.4); Monocytes Absolute Auto 0.5 X10*3/uL (0.1-1.2); Monocytes Percent Auto 9.6 % (2-11); Neutrophils Absolute Auto 3.4 x10*3/uL (2.0-8.3); Neutrophils Percent Auto 66.5 % (45-73); Platelet Count 153 X10*3/uL (160-400); Red Blood Count 5.06 X10*6/uL (4.60-5.80); Red Cell Distribution Width 12.6 % (11.0-16.0); White Blood Count 5.1 X10*3/uL (4.8-10.8)
[2022-05-22 11:41] LABS: Alanine Aminotransferase 61 U/L (0-40); Albumin Level 4.6 g/dL (3.5-5.0); Alkaline Phosphatase 59 U/L (39-117); Anion Gap 13 (12-20); Aspartate Amino Transferase 26 U/L (5-37); Bilirubin Total 0.8 mg/dL (0.0-1.0); Blood Urea Nitrogen 19 mg/dL (9-16); Carbon Dioxide 27 mmol/L (22-29); Chloride 105 mmol/L (96-108); Estimated Glomerular Filt Rate > 60; Glucose Random 93 mg/dL (60-115); Potassium 4.2 mmol/L (3.3-5.1); Sodium 141 mmol/L (135-145); Total Protein 7.3 g/dL (6.5-8.0)
[2022-05-22 12:04] LABS: TSH reflex Free T4 1.73 uIU/mL (0.32-4.0)
[2022-05-23 13:18] LABS: Lyme Abs Screen <0.90 index
[2022-05-25 16:47] LABS: CK-BB None Detected (None Detected); CK-MB 0 % (<5); CK-MM 100 % (95-100); Creatine Kinase,Total,Serum 150 U/L (44-196)
== END 2022-05-22 08:55 | disposition home or self-care (01) ==
LOC: HO.HMGCLDS 08:54
PROVIDERS: PCP Nurse Practitioner Family; Visit Provider Nurse Practitioner Family
DX: G72.9 Myopathy, unspecified (principal)
CPT/HCPCS: 36415; 80053; 82552; 84443; 85025; 86617; 86618

== ENCOUNTER 2022-05-23 11:04 | Outpatient (REF) | payer BC, SELFPAY ==
[2022-05-30 19:02] LABS: Acetylcholine Receptor Binding <0.30 nmol/L
[2022-05-31 22:18] LABS: Acetylcholine Recept. Blocking <15 (<15)
[2022-06-01 21:52] LABS: Acetylcholine Recep Modulating 24
== END 2022-05-23 11:05 | disposition home or self-care (01) ==
LOC: HO.HMGCLDS 11:04
PROVIDERS: PCP Nurse Practitioner Family; Visit Provider Emergency Medicine
DX: M62.81 Muscle weakness (generalized) (principal)
CPT/HCPCS: 36415; 83519

== ENCOUNTER 2022-08-29 15:33 | Outpatient (REF) | payer BC, SELFPAY ==
--- NOTE | ~2022-08-29 | US_ITS ---
EXAMINATION: US VENOUS ULTRASOUND WITH DOPPLER LOWER EXTREMITY, RIGHT CLINICAL INFORMATION: Pain COMPARISON: None TECHNIQUE: Ultrasound of the deep veins is performed from the hip to the calf with compression sonography and color and pulse Doppler assessment. Spectral analysis with color-flow imaging is performed. FINDINGS: There is normal venous compression and respiratory variation and augmented flow. The visualized common femoral vein, superficial femoral vein, profunda femoral vein, popliteal vein, and the trifurcation region shows no evidence of deep venous thrombosis. There is no significant popliteal fossa cyst. If the patient's symptoms persist, followup ultrasound in 5 days 7 days might be of value to exclude proximal propagation from a non-visualized calf vein. US/US venous duplex LE RT IMPRESSION: No DVT demonstrated in the right lower extremity.
== END 2022-08-29 15:34 | disposition home or self-care (01) ==
LOC: HO.US 15:33
PROVIDERS: Visit Provider Nurse Practitioner Family
DX: M79.661 Pain in right lower leg (principal)
CPT/HCPCS: 93971

== ENCOUNTER 2022-10-10 08:11 | Outpatient (REF) | payer BC, SELFPAY ==
--- NOTE | ~2022-10-10 | US_ITS ---
EXAMINATION: US LOWER EXTREMITY DUPLEX, RIGHT CLINICAL INFORMATION: Patient in right lower leg TECHNIQUE: Real-time ultrasound and Doppler techniques (integrating B-mode 2-D vascular images, Doppler spectral analysis and color flow Doppler imaging) were utilized to interrogate the lower extremities. COMPARISON: None FINDINGS: RIGHT LEG: Common femoral artery: 62.7 cm/s, Triphasic Profunda femoris artery: 36.7 cm/s, Triphasic Superficial femoral artery (proximal): 73.3 cm/s, Triphasic Superficial femoral artery (mid): 69.2 cm/s, Triphasic Superficial femoral artery (distal): 54.2 cm/s, Triphasic Popliteal artery: 47.5 cm/s, Triphasic Posterior tibial artery: 69.2 cm/s, Triphasic Peroneal artery: 43.2 cm/s, Triphasic US/US arterial duplex LE RT IMPRESSION: There is no evidence of any hemodynamically significant right lower extremity arterial disease by waveform or duplex Doppler criteria at rest.
[2022-10-10 08:56] LABS: MANUAL DIFF FLAG NO
[2022-10-10 08:59] LABS: Basophils Percent Auto 0.5 % (0-2); Eosinophils Absolute Auto 0.1 X10*3/uL (0.0-0.4); Eosinophils Percent Auto 1.7 % (0-4); Hematocrit 44.8 % (42.0-52.0); Hemoglobin 15.5 g/dl (14.0-18.0); Imm Gran Abs Auto 0.02 X10*3/uL (0.00-0.03); Imm Gran Pct Auto 0.5 % (0.0-0.4); Lymphocytes Absolute Auto 0.9 X10*3/uL (1.2-4.9); Lymphocytes Percent Auto 23.2 % (20-40); Mean Corpuscular HGB Conc 34.6 g/dl (31.0-36.0); Mean Corpuscular Hemoglobin 29.3 pg (27.0-33.0); Mean Corpuscular Volume 84.7 fL (80.0-98.0); Mean Platelet Volume 9.9 fL (9.4-12.4); Monocytes Absolute Auto 0.3 X10*3/uL (0.1-1.2); Monocytes Percent Auto 8.1 % (2-11); Neutrophils Absolute Auto 2.7 x10*3/uL (2.0-8.3); Platelet Count 150 X10*3/uL (160-400); Red Blood Count 5.29 X10*6/uL (4.60-5.80); Red Cell Distribution Width 12.1 % (11.0-16.0); White Blood Count 4.1 X10*3/uL (4.8-10.8)
[2022-10-10 09:11] LABS: Lactic Acid 1.7 mmol/L (0.5-2.0)
[2022-10-10 09:26] LABS: Alanine Aminotransferase 65 U/L (0-40); Albumin Level 4.6 g/dL (3.5-5.0); Alkaline Phosphatase 66 U/L (39-117); Anion Gap 16 (12-20); Aspartate Amino Transferase 27 U/L (5-37); Bilirubin Total 0.6 mg/dL (0.0-1.0); Blood Urea Nitrogen 21 mg/dL (9-16); C Reactive Protein < 0.10 mg/dL (< or = 0.50); Calcium 9.5 mg/dL (8.4-10.2); Carbon Dioxide 26 mmol/L (22-29); Chloride 108 mmol/L (96-108); Estimated Glomerular Filt Rate > 60; Glucose Random 98 mg/dL (60-115); Potassium 5.1 mmol/L (3.3-5.1); Sodium 145 mmol/L (135-145); Total Protein 7.6 g/dL (6.5-8.0)
[2022-10-10 09:40] LABS: Erythrocyte Sedimentation Rate 7 MM/HR (0-15)
[2022-10-10 09:54] LABS: Folate 15.3 ng/mL (> or = 4.0); TSH reflex Free T4 2.88 uIU/mL (0.32-4.0); Vitamin B12 490 pg/mL (200-900)
[2022-10-10 14:25] LABS: Syphilis Screen Nonreactive (Nonreactive)
[2022-10-12 05:39] LABS: Lyme Abs Screen <0.90 index
[2022-10-13 08:53] LABS: Anti Nuclear Antibody Screen NEGATIVE (NEGATIVE)
[2022-10-13 17:08] LABS: Myoglobin,Serum 33 mcg/L (<=95)
[2022-10-13 21:19] LABS: CK-BB None Detected (None Detected); CK-MB 0 % (<5); CK-MM 100 % (95-100); Creatine Kinase,Total,Serum 120 U/L (44-196)
[2022-10-14 13:53] LABS: Vitamin B6 21.9 ng/mL (2.1-21.7)
[2022-10-20 19:33] LABS: Acetylcholine Receptor Binding <0.30 nmol/L
== END 2022-10-10 08:12 | disposition home or self-care (01) ==
LOC: HO.US 08:11
PROVIDERS: PCP Nurse Practitioner Family; Visit Provider Nurse Practitioner Family
DX: M62.81 Muscle weakness (generalized) (principal); R25.3 Fasciculation; M79.661 Pain in right lower leg
CPT/HCPCS: 36415; 80053; 82552; 82607; 82746; 83519; 83605; 83735; 83874; 84207; 84443; 85025; 85652; 86038; 86039; 86140; 86617; 86618; 86780; 93926

== ENCOUNTER 2022-10-23 08:53 | Outpatient (REF) | payer BC, SELFPAY ==
[2022-10-23 12:33] LABS: Amylase 32 U/L (28-100); Lipase 26 U/L (8-78)
== END 2022-10-23 08:54 | disposition home or self-care (01) ==
LOC: HO.HMGCLDS 08:53
PROVIDERS: PCP Nurse Practitioner Family; Visit Provider Internal Medicine Gastroenterology
DX: R94.5 Abnormal results of liver function studies (principal); K75.81 Nonalcoholic steatohepatitis (NASH); R19.4 Change in bowel habit
CPT/HCPCS: 36415; 82150; 83690

== ENCOUNTER → 2022-11-13 08:51 | Outpatient (BNVA) | payer BC, SELFPAY | PROVIDERS: PCP Nurse Practitioner Family; Visit Provider Psychiatry & Neurology Neurology | DX: Z13.89 Encounter for screening for other disorder (principal) ==

== ENCOUNTER → 2022-11-28 11:30 | Outpatient (BNVA) | payer BC, SELFPAY | PROVIDERS: PCP Nurse Practitioner Family; Visit Provider Nurse Practitioner Family | DX: Z13.89 Encounter for screening for other disorder (principal) ==

== ENCOUNTER 2023-02-01 07:52 | Outpatient (REF) | payer BC, SELFPAY ==
--- NOTE | 2023-02-01 07:56 | EMG_ITS ---
Bilateral tibial and peroneal motor studies were performed. Bilateral superficial, peroneal, and sural sensory studies were performed. Tibial H reflexes were obtained and paraspinal muscles were tested with a needle. 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 MD JUANA Duque/SHANIQUA / [id number]
== END 2023-02-01 07:53 | disposition home or self-care (01) ==
LOC: HO.NEURO 07:52
PROVIDERS: PCP Nurse Practitioner Family; Visit Provider Nurse Practitioner Family
DX: G72.9 Myopathy, unspecified (principal); G62.9 Polyneuropathy, unspecified; M79.604 Pain in right leg; M79.605 Pain in left leg
CPT/HCPCS: 95886; 95911

== ENCOUNTER 2023-02-05 07:42 | Outpatient (REF) | payer BC, SELFPAY ==
[2023-02-05 11:31] LABS: MANUAL DIFF FLAG NO
[2023-02-05 11:48] LABS: Basophils Percent Auto 0.4 % (0-2); Eosinophils Absolute Auto 0.1 X10*3/uL (0.0-0.4); Eosinophils Percent Auto 2.4 % (0-4); Hematocrit 44.5 % (42.0-52.0); Hemoglobin 15.3 g/dl (14.0-18.0); Imm Gran Abs Auto 0.01 X10*3/uL (0.00-0.03); Imm Gran Pct Auto 0.2 % (0.0-0.4); Lymphocytes Absolute Auto 1.1 X10*3/uL (1.2-4.9); Lymphocytes Percent Auto 22.6 % (20-40); Mean Corpuscular HGB Conc 34.4 g/dl (31.0-36.0); Mean Corpuscular Hemoglobin 29.4 pg (27.0-33.0); Mean Corpuscular Volume 85.4 fL (80.0-98.0); Mean Platelet Volume 10.7 fL (9.4-12.4); Monocytes Absolute Auto 0.5 X10*3/uL (0.1-1.2); Monocytes Percent Auto 9.4 % (2-11); Neutrophils Absolute Auto 3.2 x10*3/uL (2.0-8.3); Platelet Count 166 X10*3/uL (160-400); Red Blood Count 5.21 X10*6/uL (4.60-5.80); Red Cell Distribution Width 12.4 % (11.0-16.0); White Blood Count 4.9 X10*3/uL (4.8-10.8)
[2023-02-05 11:50] LABS: Estimated Average Glucose 103 mg/dL; Hemoglobin A1c % 5.2 %
[2023-02-05 11:58] LABS: Alanine Aminotransferase 57 U/L (0-40); Albumin Level 4.4 g/dL (3.5-5.0); Alkaline Phosphatase 59 U/L (39-117); Anion Gap 15 (12-20); Aspartate Amino Transferase 30 U/L (5-37); Bilirubin Total 0.7 mg/dL (0.0-1.0); Blood Urea Nitrogen 23 mg/dL (9-16); Calcium 9.8 mg/dL (8.4-10.2); Carbon Dioxide 24 mmol/L (22-29); Chloride 106 mmol/L (96-108); Estimated Glomerular Filt Rate > 60; Glucose Random 99 mg/dL (60-115); Potassium 4.3 mmol/L (3.3-5.1); Sodium 141 mmol/L (135-145); Total Protein 7.4 g/dL (6.5-8.0)
[2023-02-05 12:08] LABS: Rheumatoid Factor < 13.0 IU/mL (<15.0)
[2023-02-05 12:22] LABS: Erythrocyte Sedimentation Rate 4 MM/HR (0-15)
[2023-02-05 12:42] LABS: Folate 14.8 ng/mL (> or = 4.0); Vitamin B12 426 pg/mL (200-900)
[2023-02-05 12:43] LABS: HBS Num1 4.21 mIU/mL (0-7.99); HBc Num1 0.09 S/CO (0.00-0.79); HBsAGNum1 0.34 S/CO (0.00-0.99); HIV AB/AG Nonreactive (Nonreactive); HIV Num 1 0.12 S/CO (0.00-0.99); Hepatitis A Antibody IgM 0.33 Index (0-0.79); Hepatitis B Core Antibody Nonreactive (Nonreactive); Hepatitis B Surface Antigen Negative (Negative); ~HepC Num1 0.12 S/CO (0.00-0.79); ~Hepatitis A Antibody IgM Nonreactive (Nonreactive); ~Hepatitis B Surface Antibody NONREACTIVE (Nonreactive); ~Hepatitis C Antibody Nonreactive (Nonreactive)
[2023-02-07 05:58] LABS: Lyme Abs Screen <0.90 index
[2023-02-07 13:13] LABS: Prot Elec - Albumin 4.4 g/dL (3.8-4.8); Prot Elec - Alpha1 0.3 g/dL (0.2-0.3); Prot Elec - Alpha2 0.6 g/dL (0.5-0.9); Prot Elec - Beta 1 0.5 g/dL (0.4-0.6); Prot Elec - Beta 2 0.4 g/dL (0.2-0.5); Prot Elec - Gamma 1.1 g/dL (0.8-1.7); Prot Elec - Total Protein 7.1 g/dL (6.1-8.1)
[2023-02-07 18:18] LABS: Anti Nuclear Antibody Screen NEGATIVE (NEGATIVE)
[2023-02-08 01:14] LABS: CRP High Sensitivity 0.5 mg/L
[2023-02-09 14:48] LABS: Vitamin B1 17 nmol/L (8-30)
== END 2023-02-05 07:43 | disposition home or self-care (01) ==
LOC: HO.HMGCLDS 07:42
PROVIDERS: PCP Nurse Practitioner Family; Visit Provider Nurse Practitioner Family
DX: Z11.4 Encounter for screening for human immunodeficiency virus [HIV] (principal); G62.89 Other specified polyneuropathies; G72.9 Myopathy, unspecified; R53.83 Other fatigue; R79.89 Other specified abnormal findings of blood chemistry; M62.81 Muscle weakness (generalized)
CPT/HCPCS: 80053; 82607; 82746; 83036; 83520; 84165; 84425; 85025; 85652; 86038; 86141; 86431; 86617; 86618; 86704; 86706; 86709; 86803; 87340; 87389

== ENCOUNTER 2023-02-14 06:54 | Outpatient (REF) | payer BC, SELFPAY ==
[2023-02-14 11:07] LABS: MANUAL DIFF FLAG NO
[2023-02-14 11:24] LABS: Basophils Percent Auto 0.6 % (0-2); Eosinophils Absolute Auto 0.1 X10*3/uL (0.0-0.4); Eosinophils Percent Auto 2.7 % (0-4); Hematocrit 43.7 % (42.0-52.0); Imm Gran Abs Auto 0.01 X10*3/uL (0.00-0.03); Imm Gran Pct Auto 0.2 % (0.0-0.4); Lymphocytes Absolute Auto 1.2 X10*3/uL (1.2-4.9); Lymphocytes Percent Auto 25.2 % (20-40); Mean Corpuscular HGB Conc 34.3 g/dl (31.0-36.0); Mean Corpuscular Hemoglobin 29.9 pg (27.0-33.0); Mean Corpuscular Volume 87.2 fL (80.0-98.0); Mean Platelet Volume 10.7 fL (9.4-12.4); Monocytes Absolute Auto 0.5 X10*3/uL (0.1-1.2); Monocytes Percent Auto 10.7 % (2-11); Neutrophils Percent Auto 60.6 % (45-73); Platelet Count 153 X10*3/uL (160-400); Red Blood Count 5.01 X10*6/uL (4.60-5.80); Red Cell Distribution Width 12.5 % (11.0-16.0); White Blood Count 4.9 X10*3/uL (4.8-10.8)
[2023-02-14 12:47] LABS: Alanine Aminotransferase 46 U/L (0-40); Albumin Level 4.3 g/dL (3.5-5.0); Alkaline Phosphatase 55 U/L (39-117); Anion Gap 13 (12-20); Aspartate Amino Transferase 28 U/L (5-37); Bilirubin Total 0.8 mg/dL (0.0-1.0); Blood Urea Nitrogen 22 mg/dL (9-16); Calcium 9.7 mg/dL (8.4-10.2); Carbon Dioxide 29 mmol/L (22-29); Chloride 105 mmol/L (96-108); Cholesterol 108 mg/dL; Estimated Glomerular Filt Rate > 60; Glucose Fasting 93 mg/dL (60-99); HDL Cholesterol 32 mg/dL; LDL Cholesterol Calculated 32 mg/dl; Potassium 4.8 mmol/L (3.3-5.1); Sodium 142 mmol/L (135-145); Total Protein 7.4 g/dL (6.5-8.0); Triglycerides 224 mg/dL
[2023-02-14 13:06] LABS: TSH reflex Free T4 2.45 uIU/mL (0.32-4.0)
== END 2023-02-14 06:55 | disposition home or self-care (01) ==
LOC: HO.HMGCLDS 06:54
PROVIDERS: PCP Nurse Practitioner Family; Visit Provider Nurse Practitioner Family
DX: Z00.00 Encounter for general adult medical examination without abnormal findings (principal); Z12.5 Encounter for screening for malignant neoplasm of prostate; Z20.2 Contact with and (suspected) exposure to infections with a predominantly sexual mode of transmission; R94.6 Abnormal results of thyroid function studies; Z13.220 Encounter for screening for lipoid disorders
CPT/HCPCS: 36415; 80053; 80061; 84153; 84443; 85025

== ENCOUNTER 2023-02-20 08:00 | Outpatient (REF) | payer BC, SELFPAY ==
[2023-02-20 11:23] LABS: Appearance Urine Turbid; Color Urine Yellow; Glucose Urine UA Negative (Negative); Leukocyte Esterase Urine Negative (Negative); Nitrite Urine Negative (Negative); PH 5.5 (5.0-9.0); Specific Gravity - Urine >= 1.030 (1.005-1.025); Urine Blood Negative (Negative); Urine Ketones Negative (Negative); Urine Protein Negative (Neg-Trace)
== END 2023-02-20 08:01 | disposition home or self-care (01) ==
LOC: HO.HMGCLNP 08:00
PROVIDERS: Nurse Practitioner Family; Visit Provider Nurse Practitioner Family
DX: Z00.00 Encounter for general adult medical examination without abnormal findings (principal); G62.89 Other specified polyneuropathies
CPT/HCPCS: 81003

== ENCOUNTER 2023-02-20 15:12 | Outpatient (AMB) | payer BC, SELFPAY ==
[2023-02-20 15:25] VITALS: BP 132/78; PULSE 92; O2SAT 94; BMI 31.3
--- NOTE | 2023-02-20 15:25 | A.OFFVIS_ITS ---
Intake Vital Signs 02/20/23 15:25 Height 5 ft 11 in Weight 224 lb 6 oz BMI 31.3 BP 132/78 Blood Pressure Location Lt brachial Position Sitting Pulse 92 Pulse Source Pulse Oximeter Pulse Oximetry (%) 94 Oxygen Delivery Method Room Air Intake Visit Reasons: Appt to discuss EMG/Labs per K.[facility] - LVM Intake Note: Pt presents for an appt to discuss EMG/labs. [employer] Machine Operator Required: No Allergies fenofibrate [From TRICOR] Allergy (Unknown, Verified 02/20/23 15:30) ITCHING HPI HPI Comments History of Present Illness Details 52-yr-old right-handed male presents for f/u visit. BLE EMG/NCS: IMPRESSION:? Jjyh-qh-cxpsdgfc sensory and motor peripheral neuropathy with features of demyelination and axonal loss. Pt reports that for years, he has waves of feeling like weak over his body into his thighs. He has had about 6 episodes of word finding difficulties. Was having headaches in the left upper parietal region which would be f/b that wave of weakness sensation and tingling into his cheek- but these resolved. The headaches have decreased and the waves of weakness have resolved. Then last year, he took a trip to [place]. He was walking around- felt like his right calf was tightening up- he tried to stretch it out, but that did not seem to help. A few months alter, he started having right calf twitching, and then eventually left calf twitching. He also started noticing in the shower, he would find himself standing with his knees slightly bent. Since the BLE EMG/NCS- he has had frequent twitching in his quads, arms, hands, groin, cheek- less so in the chest and back- more so on the right. His finger tips and toes- can feel like they are on fire. Left calf may feel like a slight burn. At the end of the day, his right foot will feel like it is sloshing. He feels weak but does not think he is actually weak- has been doing leg exercises at the gym- his legs feel better the next day. He does not usually have xtsf-lhae-ht soreness. Right middle toe- can feel like it will curl in. Right arm and leg may feel like it wants to tighten up. After a time of sitting with his feet in the pool, afterwards it felt like loose socks where rubbing on his calf- but was not wearing socks- just shorts. Vision is a bit more blurry in the morning. He also notes that his stools have been greasy - earlier this year he feels that he had more difficulty having BM but not constipation per se. As a child talked, talked in his sleep. Denies any recent parasomnias. He has been feeling clammy overall. Prior to the onset- had soem half yawns. He works for [employer] [facility] Medical History ADHD Bilateral inguinal hernia Fatty liver Muscle weakness Myocardial infarction Non-STEMI (non-ST elevated myocardial infarction) MELISSA on CPAP Surgical History History of coronary angiogram History of heart artery stent History of umbilical hernia Family History Father CVD (cardiovascular disease) Myocardial infarction Unknown family medical history HTN (hypertension) Mother CVD (cardiovascular disease) Maternal Grandmother Stroke Paternal Grandfather Diabetes mellitus Paternal Aunt Aneurysm Social History (Updated 02/20/23 @ 15:31 by Jeanie Gaitan CMA) Household Members: None Housing: House Are you a primary healthcare project manager to a significant other at home: No Do you presently have visiting nurse or other home services: No Alcohol intake: current Alcohol intake frequency: does not drink Patient Tobacco Use Status: Never used Tobacco e-Cigarette/Vaping Use: Never Used Second Hand Smoke Exposure: No service: No Current occupational status: employed Cognitive needs: No Hearing needs: No Vision needs: Yes Review of Systems Const All systems reviewed & are unremarkable except as noted in HPI and below Physical Exam Vital Signs: Last Vital Signs Pulse 92 02/20/23 15:25 BP 132/78 02/20/23 15:25 Pulse Ox 94 02/20/23 15:25 Oxygen Delivery Method Room Air 02/20/23 15:25 BMI result Body Mass Index 31.3 Const General: cooperative and no acute distress Orientation/consciousness: patient oriented x3 HEENT Head: Yes normocephalic Resp Effort & Inspection: normal respiratory effort and able to speak in complete sentences Neuro Other: MS 5/5 throughout: Able to walk > 10ft on toes and heels, able to briefly perform 1 leg heel raises. BLE vibration, position, light and sharp sensation- intact. BLE PP +, CMS + Skin diffuse cool, clammy BLE anles tight, hyperextending right ankle elicits right calf/quad discomfort. General: patient oriented x3, gait normal and CN's II-XI intact bilaterally Cognition (Neuro): normal cognition Psych Appearance: grossly normal Mental Status: mental status grossly normal Speech and movement: Normal speech and movement present Affect: normal affect Attitude: cooperative Thought process: Normal thought process present Thought content: Normal thought content present Insight: Good insight present (Psych) Judgement: Good judgement present (Psych) Results Reviewed Results Reviewed: Laboratory Result Units Range Interpretation Provider Comments White Blood Count 4.9 X10*3/uL (4.8-10.8) ? ? Red Blood Count 5.21 X10*6/uL (4.60-5.80) ? ? Hemoglobin 15.3 g/dl (14.0-18.0) ? ? Hematocrit 44.5 % (42.0-52.0) ? ? Mean Corpuscular Volume 85.4 fL (80.0-98.0) ? ? Mean Corpuscular Hemoglobin 29.4 pg (27.0-33.0) ? ? Mean Corpuscular Hemoglobin Concent 34.4 g/dl (31.0-36.0) ? ? Red Cell Distribution Width 12.4 % (11.0-16.0) ? ? Platelet Count 166 X10*3/uL (160-400) ? ? Mean Platelet Volume 10.7 fL (9.4-12.4) ? ? Immature Granulocyte % (Auto) 0.2 % (0.0-0.4) ? ? Neutrophils (%) (Auto) 65.0 % (45-73) ? ? Lymphocytes (%) (Auto) 22.6 % (20-40)B ? ? Monocytes (%) (Auto) 9.4 % (2-11) ? ? Eosinophils (%) (Auto) 2.4 % (0-4) ? ? Basophils (%) (Auto) 0.4 % (0-2) ? ? Lymphocytes # (Auto) 1.1 X10*3/uL (1.2-4.9) Low ? Monocytes # (Auto) 0.5 X10*3/uL (0.1-1.2) ? ? Eosinophils # (Auto) 0.1 X10*3/uL (0.0-0.4) ? ? Basophils # (Auto) 0.0 X10*3/uL (0.0-0.2) ?C ? Absolute Immature Granulocyte (auto 0.01 X10*3/uL (0.00-0.03) ? ? Absolute Neutrophils (auto) 3.2 x10*3/uL (2.0-8.3) ? ? Nucleated RBC Absolute Count (auto) 0.000 X10*3/uL (0.0-0.012) ? ? Nucleated Red Blood Cells % (auto) 0.0 /100WBC (0.0-0.2) ? ? Erythrocyte Sedimentation Rate 4 MM/HR (0-15) ? ? Sodium Level 141 mmol/L (135-145) ? ? Potassium Level 4.3 mmol/L (3.3-5.1) ? ? Chloride Level 106 mmol/L (96-108) ? ? Carbon Dioxide Level 24 mmol/L (22-29) ? ? Anion Gap 15 ? (12-20) ? ? Blood Urea Nitrogen 23 mg/dL (9-16) High ? E Creatinine 0.86 mg/dL (0.5-1.4) ? ? Estimated Creatinine Clearance Calc Not Reportable ? Estimat Glomerular Filtration Rate > 60 ? Random Glucose 99 mg/dL (60-115) ? ? Estimated Average Glucose 103 mg/dL ? ? ? Hemoglobin A1c Percent 5.2 % ? ? ? Calcium Level 9.8 mg/dL (8.4-10.2) ? ? Total BilirubinB 0.7 mg/dL (0.0-1.0) ? ? Aspartate Amino Transf (AST/SGOT) 30 U/L (5-37) ? ? Alanine Aminotransferase (ALT/SGPT) 57 U/L (0-40) High ? Alkaline Phosphatase 59 U/L (39-117) ? ? C-Reactive Protein High Sensitivity 0.5 mg/L ?B ? ? Total Protein 7.4 g/dL (6.5-8.0) ? ? Total Protein (PEP) 7.1 g/dL (6.1-8.1) ? ? Albumin 4.4 g/dL (3.5-5.0) ? ? Albumin (PEP) 4.4 g/dL (3.8-4.8) ? ? Znsqr-5-Kohtkqgbg 0.3 g/dL (0.2-0.3) ? ? Girvh-3-Boexhkshe 0.6 g/dL (0.5-0.9) ? ? Qjdw-5-Pwudcfqz 0.5 g/dL (0.4-0.6) ? ? Znjs-4-Srasnzqm 0.4 g/dL (0.2-0.5) ? ? Gamma Globulins 1.1 g/dL (0.8-1.7) ? ? PEP Abnormal Protein Band 1 TNP ? PEP Abnormal Protein Band 2 TNP ? PEP Abnormal Protein Band 3 TNP ? Protein Electrophoresis Interpret SEE NOTE ? Vitamin B1 Level 17 nmol/L (8-30) ? ? Vitamin B12 Level 426 pg/mL (200-900) ? ? E Folate 14.8 ng/mL (> or = 4.0) ? ? Rheumatoid Factor < 13.0 IU/mL (<15.0) ? ? Anti-Nuclear Antibody ScreenB NEGATIVE ? (NEGATIVE) ? ? Anti-Nuclear Antibody Titer TNP ? Anti-Nuclear Antibody Titer 2 TNP ? Anti-Nuclear Antibody Titer 3 TNP ? Anti-Nuclear Antibody Pattern TNP ? Anti-Nuclear Antibody Pattern 2 TNP ? Anti-Nuclear Antibody Pattern 3 TNP ? Lyme Disease Screen IgG & IgM Ab <0.90 index ? ? ? Lyme Disease Progressive Testing TNP ? Hepatitis A IgM Antibody Nonreactive ? (Nonreactive) ? ? Hepatitis B Surface Antigen Negative ? (Negative) ? ? Hepatitis B Surface Antibody NONREACTIVE ? (Nonreactive) ? ? Hepatitis B Core Total Antibody Nonreactive ? (Nonreactive) ? ? Hepatitis C Antibody (EIA) Nonreactive ? (Nonreactive) ? ? HIV (1&2) Ab and P24 Ag, 4th Gener Nonreactive ? (Nonreactive) ? ? Assessment & Plan Assessment & Plan (1) Mixed axonal-demyelinating polyneuropathy: Code(s): G62.89 - Other specified polyneuropathies (2) MELISSA on CPAP: Code(s): G47.33 - Obstructive sleep apnea (adult) (pediatric); Z99.89 - Dependence on other enabling machines and devices (3) Muscle twitching: Comment: unclear etiology, following up with neurology currently Code(s): R25.3 - Fasciculation Plan Reviewed BLE EMG/NCS results in detail- mild-mod sensory motor axonal and demyelinating peripheral neuropathy. Pt has no obvious weaknee, in fact perceived weakness has improved w/ increased physical exercise. Initial lab work-up- unremarkable, including testing for Lyme, Thyroid, PAULINA, ACHr AB- normal Previous brain MRI w/wo, 08/03- mild chronic microangiopathy. Pt to do 24 hr for heavy metal screen and UPEP. Pt is scheduled for upper endoscopy- requested pt to discuss checking him for celiac sprue w/ GI. Upon review, consider further blod work, muscle bx, nerve bx. f/u w/ results and in clinic in 3 months or sooner prn. Coding Level of Care Code Est Pt Level 4 (77530) Diagnoses Mixed axonal-demyelinating polyneuropathy G62.89 MELISSA on CPAP G47.33; Z99.89 Muscle twitching R25.3 Time Spent (min) 45
== END 2023-02-20 16:40 | disposition home or self-care (01) ==
LOC: HO.HSMS 15:12
PROVIDERS: PCP Nurse Practitioner Family; Visit Provider Nurse Practitioner Family
DX: G62.89 Other specified polyneuropathies (principal); G47.33 Obstructive sleep apnea (adult) (pediatric); Z99.89 Dependence on other enabling machines and devices; R25.3 Fasciculation
CPT/HCPCS: 99214

== ENCOUNTER 2023-02-26 | Outpatient (REF) | payer BC, SELFPAY ==
[2023-03-05 12:13] LABS: Creatinine, 24Hr Urine 2.71 (H)
[2023-03-05 12:14] LABS: PEU24-Beta Globulin 0; PEU24-Gamma Globulin 0
[2023-03-05 12:15] LABS: PEU24-Albumin Urine 100; PEU24-Alpha 1 Globulin 0; PEU24-Alpha 2 Globulin 0
[2023-03-05 12:16] LABS: Total Protein 24Hr Urine 119; Total Protein/Creat Ratio 24h 44
[2023-03-05 12:18] LABS: PEU-PROT/CRE Ratio mg/mg 0.044; PEU24-Interpretation NORMAL PATTERN
== END 2023-02-26 00:01 | disposition home or self-care (01) ==
LOC: HO.LNP
PROVIDERS: Visit Provider Nurse Practitioner Family
DX: G62.89 Other specified polyneuropathies (principal); M62.81 Muscle weakness (generalized); G72.9 Myopathy, unspecified; R79.89 Other specified abnormal findings of blood chemistry; R53.83 Other fatigue
CPT/HCPCS: 82570; 84156; 84166

== ENCOUNTER 2023-03-05 07:30 | Outpatient (REF) | payer BC, SELFPAY ==
[2023-03-09 02:33] LABS: Arsenic, 24H Urine <10 mcg/L (<=80); Cadmium, 24H Urine <0.5 mcg/L (<=5.0); Lead, 24H Urine <10 mcg/L (<80); Mercury, 24H Urine <4 mcg/L (<=20)
== END 2023-03-05 07:31 | disposition home or self-care (01) ==
LOC: HO.HMGCLNP 07:30
PROVIDERS: PCP Nurse Practitioner Family; Visit Provider Nurse Practitioner Family
DX: G62.89 Other specified polyneuropathies (principal); M62.81 Muscle weakness (generalized); R53.83 Other fatigue; R25.3 Fasciculation; G72.9 Myopathy, unspecified
CPT/HCPCS: 82175; 82300; 83655; 83825

== ENCOUNTER 2023-03-13 14:53 | Outpatient (REF) | payer BC, SELFPAY | END 2023-03-13 14:54 | disposition home or self-care (01) | LOC: HO.LAB 14:53 | PROVIDERS: PCP Nurse Practitioner Family; Visit Provider Nurse Practitioner Family | DX: G62.89 Other specified polyneuropathies (principal); M79.661 Pain in right lower leg; R25.3 Fasciculation | CPT/HCPCS: 36415; 82550 ==

== ENCOUNTER 2023-04-02 09:24 | Day surgery (SDC) | payer BC, SELFPAY ==
--- NOTE | ~2023-04-02 | FL_ITS ---
EXAMINATION: FL LUMBAR PUNCTURE CLINICAL INFORMATION: Peripheral neuropathy. Question demyelination. COMPARISON: None available. TECHNIQUE: Following explaining fluoroscopy-guided lumbar puncture procedure, benefits and risks, a written consent was obtained. Patient was placed prone on fluoroscopy table and marker was placed over the L4-L5 disc level. The area marked was cleaned and draped in usual sterile manner. 1% local Xylocaine was injected at puncture site. Through a small skin incision a 5 Azeri Yueh catheter was advanced from the skin intrathecally at the L4-L5 disc level. The stylet was removed and after observing CSF return, patient was quickly placed in left lateral decubitus view and opening CSF pressure was obtained. Subsequently fluid was collected in 4 test tubes. Stylet was reintroduced and needle withdrawn. Complete hemostasis achieved at puncture site. Sterile Band-Aid applied postprocedure. Patient tolerated procedure extremely well. FINDINGS: On visualized images, the vertebral heights, alignment and disc heights are normal. Opening CSF pressure measures 12 cm of water. Approximately 10 mL of clear CSF fluid was collected in 4 test tubes and sent to lab. FLUOROSCOPY TIME: 0.6 minutes DOSE AREA PRODUCT: 41.231 uGy-m2 (microgray-meter squared) FL/FL guided lumbar puncture LP IMPRESSION: Successful fluoroscopy-guided lumbar puncture performed at L4-L5 disc level.
[2023-04-02 09:50] VITALS: BMI 30.7
[2023-04-02 10:18] LABS: MANUAL DIFF FLAG NO
[2023-04-02 10:34] LABS: Prothrombin Time 11.8 SEC (11.1-13.3)
[2023-04-02 10:35] LABS: Basophils Percent Auto 0.4 % (0-2); Eosinophils Absolute Auto 0.1 X10*3/uL (0.0-0.4); Hematocrit 42.7 % (42.0-52.0); Hemoglobin 14.7 g/dl (14.0-18.0); Imm Gran Abs Auto 0.02 X10*3/uL (0.00-0.03); Imm Gran Pct Auto 0.4 % (0.0-0.4); Lymphocytes Absolute Auto 0.9 X10*3/uL (1.2-4.9); Lymphocytes Percent Auto 18.8 % (20-40); Mean Corpuscular HGB Conc 34.4 g/dl (31.0-36.0); Mean Corpuscular Hemoglobin 29.4 pg (27.0-33.0); Mean Corpuscular Volume 85.4 fL (80.0-98.0); Mean Platelet Volume 10.2 fL (9.4-12.4); Monocytes Absolute Auto 0.4 X10*3/uL (0.1-1.2); Monocytes Percent Auto 9.1 % (2-11); Neutrophils Absolute Auto 3.1 x10*3/uL (2.0-8.3); Neutrophils Percent Auto 69.3 % (45-73); Platelet Count 126 X10*3/uL (160-400); Red Cell Distribution Width 12.5 % (11.0-16.0); White Blood Count 4.5 X10*3/uL (4.8-10.8)
[2023-04-02 12:00] VITALS: BP 130/86; PULSE 89; RESP 17; TEMP 37.3; O2SAT 96
[2023-04-02 12:15] VITALS: BP 127/86; PULSE 94; RESP 16; O2SAT 96
[2023-04-02 12:30] VITALS: BP 133/89; PULSE 94; RESP 16; O2SAT 99
[2023-04-02 12:53] LABS: CSF Appearance Clear, Colorless; CSF Tube # 1
[2023-04-02 13:00] VITALS: BP 135/73; PULSE 97; RESP 16; O2SAT 98
[2023-04-02 13:04] LABS: Glucose CSF 64 mg/dL; Total Protein CSF 66.1 mg/dL (15-45)
[2023-04-02 13:30] VITALS: BP 134/87; PULSE 94; RESP 16; O2SAT 95
[2023-04-02 13:45] LABS: Appearance CSF CLEAR; CSF Tube # 4; Color CSF COLORLESS
[2023-04-02 13:48] VITALS: BP 139/82; PULSE 92; RESP 18; TEMP 37.2; O2SAT 96
[2023-04-02 14:02] LABS: Oligoclonal Serum Yes
[2023-04-02 14:27] LABS: CSF Monos 10 %; Lymphocytes CSF 90 %; Red Blood Cell CSF 5 MM*3; White Blood Cell CSF 1 MM*3
[2023-04-06 01:44] LABS: Albumin 3.8 g/dL (3.6-5.1); IgG 931 mg/dL (600-1640); IgG Synthesis Rate -2.7 mg/24 h (-9.9-3.3); IgG, CSF 5.2 mg/dL (0.8-7.7)
[2023-04-07 19:28] LABS: Acetylcholine Recept. Blocking <15 (<15)
[2023-04-09 12:48] LABS: Oligoclonal Banding Absent (Absent)
[2023-04-10 20:38] LABS: Acetylcholine Receptor Binding <0.30 nmol/L
[2023-04-23 20:43] LABS: Acetylcholine Recep Modulating 22
== END 2023-04-02 13:54 | disposition home or self-care (01) ==
PROVIDERS: Nurse Practitioner Family; Radiology Diagnostic Radiology; PCP Nurse Practitioner Family; Visit Provider Psychiatry & Neurology Neurology
PROC: 009U3ZZ Drainage of Spinal Canal, Percutaneous Approach (ICD-10-PCS; CPT 62270; principal; 2023-04-02 11:00)
DX: G62.9 Polyneuropathy, unspecified (principal); R25.1 Tremor, unspecified; M79.669 Pain in unspecified lower leg; M79.672 Pain in left foot; M79.671 Pain in right foot; R25.3 Fasciculation; R20.0 Anesthesia of skin; F41.9 Anxiety disorder, unspecified; F90.9 Attention-deficit hyperactivity disorder, unspecified type; I25.2 Old myocardial infarction; K76.0 Fatty (change of) liver, not elsewhere classified; G47.33 Obstructive sleep apnea (adult) (pediatric); Z99.89 Dependence on other enabling machines and devices; Z88.8 Allergy status to other drugs, medicaments and biological substances
CPT/HCPCS: 36415; 62328; 82042; 82945; 83519; 83520; 83916; 84157; 85025; 85610; 85730; 87015; 87070; 87205; 89051

== ENCOUNTER → 2023-04-02 11:14 | Outpatient (BNV) | payer BC, SELFPAY | PROVIDERS: PCP Nurse Practitioner Family; Visit Provider Radiology Diagnostic Radiology | DX: G90.09 Other idiopathic peripheral autonomic neuropathy (principal) | CPT/HCPCS: 62328 ==

== ENCOUNTER 2023-04-06 13:53 | Outpatient (AMB) | payer BC, SELFPAY ==
--- NOTE | 2023-04-06 13:54 | MHC.OFFWIV ---
Intake Vital Signs 04/06/23 13:56 Weight 220 lb BP 124/80 Blood Pressure Location Rt brachial Position Sitting Pulse 88 Pulse Source Pulse Oximeter Temp 98.3 F Temp Source Temporal Artery Scan Pulse Oximetry (%) 96 Oxygen Delivery Method Room Air Intake Visit Reasons: EP, Left leg pain Intake Note: Patient here because he had a lumbar puncture on sunday and had some soreness in that area and has not had any issues until this morning when he got out of his car and the pain started. pain is very intense and he is having a hard time taking more then a few steps at a time, he mentiones that the pain sort of starts at the puncture site and travels into groin area. Patient Tobacco Use Status: Never used Tobacco Allergies fenofibrate [From TRICOR] Allergy (Unknown, Verified 04/06/23 13:59) ITCHING Do you need a note to return to daycare/school/sports/work: No HPI HPI Comments History of Present Illness Details This is a 52-year-old male who presents to the office today for sick visit. Patient complaining of left-sided low back and groin pain beginning this morning. Patient states he had a lumbar puncture performed 4 days ago. He had some minor pain at the puncture site and some back stiffness but otherwise felt well. This morning, he was able to get out of bed and get into his car without difficulty. However, he developed sharp shooting pain from his left low back to his left groin when getting out of his car. He denies any fevers or chills, urinary/bowel incontinence/retention, or new/worsening numbness/weakness/paresthesias of his extremities. [facility] Medical History ADHD Bilateral inguinal hernia Fatty liver Muscle weakness Myocardial infarction Non-STEMI (non-ST elevated myocardial infarction) MELISSA on CPAP Surgical History History of coronary angiogram History of heart artery stent History of umbilical hernia Family History Father CVD (cardiovascular disease) Myocardial infarction Unknown family medical history HTN (hypertension) Mother CVD (cardiovascular disease) Maternal Grandmother Stroke Paternal Grandfather Diabetes mellitus Paternal Aunt Aneurysm Social History (Updated 02/20/23 @ 15:31 by Jeanie Gaitan CMA) Household Members: None Housing: House Are you a primary patient care provider to a significant other at home: No Do you presently have visiting nurse or other home services: No Alcohol intake: current Alcohol intake frequency: does not drink Patient Tobacco Use Status: Never used Tobacco e-Cigarette/Vaping Use: Never Used Second Hand Smoke Exposure: No service: No Current occupational status: employed Cognitive needs: No Hearing needs: No Vision needs: Yes Review of Systems Const All systems reviewed & are unremarkable except as noted in HPI and below Reports no additional complaints Eyes Reports no additional complaints ENT Reports no additional complaints Card Reports no additional complaints Resp Reports no additional complaints GI Reports no additional complaints Reports no additional complaints Musc Reports no additional complaints Skin/Breast Reports system reviewed and no additional complaints, except as documented Neuro Reports no additional complaints Psych Reports no additional complaints Endo Reports no additional complaints Shorty/Lymph Reports no additional complaints Aller/Immun Reports no additional complaints Physical Exam Vital Signs: Last Vital Signs Temp 98.3 F 04/06/23 13:56 Pulse 88 04/06/23 13:56 BP 124/80 04/06/23 13:56 Pulse Ox 96 04/06/23 13:56 Oxygen Delivery Method Room Air 04/06/23 13:56 Const General: cooperative, healthy appearing, no acute distress and well developed Orientation/consciousness: patient oriented x3 HEENT Head: Yes normal to inspection Ears: hearing grossly normal bilaterally General nose exam: Normal external nose present Face and sinus: Yes normal facial exam Mouth: Normal oral and palatal mucosa present Eyes General: appearance normal, both eyes and all related structures Pupils: Equal, round and reactive pupils present EOM: EOMs intact bilaterally Resp Effort & Inspection: normal respiratory effort and no respiratory distress Auscultation: clear to auscultation bilaterally Cardio Rate: regular rate Rhythm: regular rhythm Heart sounds: no gallops, no murmurs and no rubs Peripheral pulses: Peripheral pulses 2+ throughout GI Inspection: No distended Palpation (GI): Soft to palpation and nontender Auscultation: normal bowel sounds Back/Spine/Pelvis Other: Mild tenderness to palpation of the right paraspinal musculature of the lumbar spine, no midline spinous process tenderness to palpation. Negative straight leg raise bilaterally. Skin General skin exam: no rashes or lesions noted Neuro General: patient oriented x3 Cranial nerves: Yes CN's II-XII intact bilaterally and Yes Equal, round and reactive pupils present Gait exam (Neuro): Normal gait present Motor exam (neuro): 5/5 motor strength present throughout Extrem General: Yes normal to inspection, Yes full ROM and Yes no clubbing, cyanosis or edema Psych Appearance: grossly normal Mental Status: mental status grossly normal Assessment & Plan Assessment & Plan (1) Lumbar radiculopathy: Code(s): M54.16 - Radiculopathy, lumbar region Plan: This is a 52-year-old male presenting with left-sided low back pain radiating into his left groin that began this morning. Patient has no red flag symptoms including fever/chills, bowel/bladder incontinence/retention, or new/worsening numbness/weakness/paresthesias of his extremities. History and physical most consistent with an acute lumbar radiculopathy possibly in the setting of recent lumbar puncture. Patient advised to utilize PO ibuprofen 800 mg 3 times daily with food to help with inflammation (as long as he has no medical contraindications), PO cyclobenzaprine 5-10 mg 3 times daily as needed, and hot compresses. Patient was advised to proceed directly to the emergency room if he were to develop any red flag symptoms or persistent/worsening symptoms for further imaging including possible CT or MRI of lumbar spine. Patient verbalizes understanding and he is in agreement with the plan. Patient's vital signs are stable and his physical exam is otherwise benign. He is safe for discharge home. Medications: New cyclobenzaprine 5 mg PO TID PRN 14 tabs 0RF muscle spasm cyclobenzaprine 10 mg PO TID PRN 14 tabs 0RF muscle spasm Coding Level of Care Code Est Pt Level 3 (36344) Diagnoses Lumbar radiculopathy M54.16
[2023-04-06 13:56] VITALS: BP 124/80; PULSE 88; TEMP 36.8; O2SAT 96
== END 2023-04-06 14:55 | disposition home or self-care (01) ==
PROVIDERS: PCP Nurse Practitioner Family; Visit Provider Physician Assistant Medical
DX: M54.16 Radiculopathy, lumbar region (principal)
CPT/HCPCS: 99213

== ENCOUNTER 2023-04-06 20:33 | Emergency (ER) | payer BC, SELFPAY ==
--- NOTE | ~2023-04-06 | CT_ITS ---
EXAMINATION: CT LUMBAR SPINE CLINICAL INFORMATION: Status post LP with new onset severe radiating pain COMPARISON: CT abdomen/pelvis 10/04/2020 TECHNIQUE: 85 mL Omnipaque 350 intravenous contrast was utilized. Multidetector helical imaging was performed through the lumbar spine. Coronal and sagittal reformatted images were created. This CT examination was performed using dose optimization techniques as appropriate, variously including the following: *Automated exposure control *Adjustment of mA and/or kV according to patient size (this includes techniques or standardized protocols for targeted exams where dose is matched to indication/reason for exam; i.e. extremities or head) *Use of iterative reconstruction technique DLP: 519 mGy-cm FINDINGS: There is anatomic alignment of the lumbar vertebral bodies and posterior elements. Vertebral body heights are maintained. L1 limbus vertebra again demonstrated. There are multilevel endplate osteophytes, most prominently at L1 and L2. There is mild disc space narrowing at L1-L2 with surrounding degenerative endplate change/sclerosis which has worsened from prior. Slight disc space narrowing also noted at L2-L3 with mild vacuum disc phenomenon. Remaining lumbar intervertebral disc heights appear relatively well-preserved. There is facet arthropathy of the lower lumbar spine. No acute fracture is seen. Visualized sacroiliac joints are intact. Mild central stenosis is suspected at L4-L5 along with bilateral neural foraminal narrowing. No additional significant soft tissue abnormality is seen. CT/CT lumbar spine w IV con IMPRESSION: Suspected mild central stenosis along with bilateral neural foraminal narrowing at L4-L5, which may be better assessed with MRI. Otherwise no acute findings identified. Degenerative changes as noted above.
[2023-04-06 20:58] VITALS: BP 142/76; BP 150/100; PULSE 70; PULSE 90; RESP 16; TEMP 36.9; O2SAT 97; BMI 31.7
[2023-04-06 21:05] VITALS: BP 142/76; PULSE 90; RESP 16; TEMP 36.9; O2SAT 97
--- NOTE | 2023-04-06 21:38 | ED.GENADULT ---
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 Patient reports several years of waves of feeling like he has had weakness in his whole body sometimes in his thighs. He has had episodes of word-finding difficulties. Last year, patient had a trip to [place] where he was walking around in felt like his right calf was tightening up. Eventually started noticing twitching in multiple extremities which is progressed significantly. Since then he has had EMG due to his symptoms which diagnosed a demyelinating condition. On Sunday, patient had a lumbar puncture to determine an etiology his symptoms and condition. The following day start developed soreness and tightness in his lower back. This has progressed in gotten severely pain in the left low back radiating to his buttock and groin down to his knee. Symptoms are worse with movement. They are better with rest. He has had no fevers or chills. He has tried Tylenol, ibuprofen and Flexeril without any significant improvement in his symptoms. He reports some weakness which has resolved but has a severe difficulty moving due to the pain. Related Data Home Medications Medication Instructions Recorded Confirmed icosapent ethyl 1 gram capsule 2 g PO BID 08/02/20 04/02/23 (Vascepa) metoprolol succinate 25 mg 25 mg PO DAILY 08/02/20 04/02/23 tablet,extended release 24 hr rosuvastatin 20 mg tablet 20 mg PO BEDTIME 08/02/20 04/02/23 amlodipine 5 mg tablet 5 mg PO DAILY 08/02/21 04/02/23 bupropion HCl 150 mg 24 hr tablet, 150 mg PO QAM 02/15/23 04/02/23 extended release omeprazole 20 mg capsule,delayed 20 mg PO DAILY 02/20/23 04/02/23 release aspirin 1 tab PO DAILY 04/02/23 04/02/23 Previous Rx's Medication Instructions Recorded cyclobenzaprine 5 mg tablet 5 mg PO BEDTIME muscle spasm 30 01/18/23 days #30 tabs montelukast 10 mg tablet 10 mg PO DAILY 90 days #90 tabs 04/05/23 cyclobenzaprine 10 mg tablet 10 mg PO TID PRN muscle spasm #14 04/06/23 tabs cyclobenzaprine 5 mg tablet 5 mg PO TID PRN muscle spasm #14 04/06/23 tabs cyclobenzaprine 10 mg tablet 10 mg PO TID PRN muscle spasm #10 04/07/23 tabs gabapentin 300 mg capsule 300 mg PO TID #20 caps 04/07/23 meloxicam 15 mg tablet 15 mg PO DAILY #14 tabs 04/07/23 oxycodone 5 mg tablet 5 mg PO Q8H PRN pain #10 tabs 04/07/23 Allergies Allergy/AdvReac Type Severity Reaction Status Date / Time fenofibrate [From TRICOR] Allergy Unknown ITCHING Verified 04/06/23 13:59 Review of Systems Review of Systems: CONSTITUTIONAL: Denies weight loss, fever and chills. HEENT: Denies changes in vision and hearing. RESPIRATORY: Denies SOB and cough. CV: Denies palpitations no CP. GI: Denies abdominal pain, nausea, vomiting and diarrhea. : Denies dysuria and urinary frequency. MSK: + myalgia and joint pain. SKIN: Denies rash and pruritus. NEUROLOGICAL: Denies headache and syncope. PSYCHIATRIC: Denies recent changes in mood. Denies anxiety and depression. All other ROS are negative unless in HPI PMFSH Past Medical History Medical History ADHD Bilateral inguinal hernia Fatty liver Muscle weakness Myocardial infarction Non-STEMI (non-ST elevated myocardial infarction) MELISSA on CPAP Surgical History History of coronary angiogram History of heart artery stent History of umbilical hernia Family History Family History Father CVD (cardiovascular disease) Myocardial infarction Unknown family medical history HTN (hypertension) Mother CVD (cardiovascular disease) Maternal Grandmother Stroke Paternal Grandfather Diabetes mellitus Paternal Aunt Aneurysm Social History Social History Household Members: None Housing: House Are you a primary ambulatory care to a significant other at home: No Do you presently have visiting nurse or other home services: No Alcohol intake: current Alcohol intake frequency: does not drink Patient Tobacco Use Status: Never used Tobacco Smoked in Last 30 Days: No e-Cigarette/Vaping Use: Never Used Second Hand Smoke Exposure: No Use of substances other than those prescribed or required for medical reasons: No Advance Directives: No Advance Directives Information Provided: No service: No Current occupational status: employed Cognitive needs: No Hearing needs: No Vision needs: Yes Physical Exam ED Vital Signs: Vital Signs - 24 hr 04/06/23 20:58 04/06/23 21:05 04/06/23 22:19 Temperature 98.4 F 98.4 F Pulse Rate 90 90 Respiratory Rate 16 16 19 Blood Pressure 142/76 H 142/76 H Pulse Oximetry 97 97 Oxygen Delivery Method Room Air Room Air 04/06/23 23:42 04/06/23 22:50 04/07/23 02:28 Temperature Pulse Rate 80 Respiratory Rate 16 14 16 Blood Pressure 121/84 Pulse Oximetry 97 Oxygen Delivery Method Room Air BMI result Body Mass Index 31.7 GEN: Well developed, no acute distress, alert, oriented HEENT: Normocephalic, atraumatic, normal external ears, nose appears normal, no oropharyngeal edema or exudates Eyes: Normal to appearance Neck: Supple, no lymphadenopathy Respiratory: Talks in complete sentences, no respiratory distress, clear to auscultation bilaterally Cardiovascular: Regular rate and rhythm, no murmurs rubs or gallops Abdomen: Soft, nontender, nondistended, no guarding, no rebound Back: No CVA tenderness Extremities: No clubbing cyanosis or edema Neurologic: No focal neurologic deficits, cranial nerves 2-12 intact, strength is 5/5 bilaterally Skin: No rash Course Reevaluation(s) Reevaluation #1: Patient is still experiences significant amount of pain. I did review the results with the patient. There is no evidence of significant inflammatory change markers in his laboratory results. The CT scan does not demonstrate any fluid collections or obvious inflammation in the area of the LP site. Does show spinal stenosis with some neuroforaminal narrowing. Will treat this as a radicular pain with steroids, analgesics and re-evaluate the patient. Time: 02:22 Reevaluation #2: Patient been provided with additional analgesia, dexamethasone. I will discharge the patient to follow-up with Neurosurgery. However, should his symptoms progress or, uncontrolled, he may return for re-evaluation. Time: 03:33 Medications Administered Discontinued Medications Generic Name Dose Route Start Last Admin Trade Name Howard PRN Reason Stop Dose Admin Dexamethasone Sodium Phosphate 10 mg 04/07/23 02:19 04/07/23 02:27 Dexamethasone Sod Phosphate 10 Mg/Ml Vial IVPUSH 04/07/23 02:20 10 mg ONCE ONE Administration Gabapentin 300 mg 04/07/23 02:19 04/07/23 02:27 Gabapentin 300 Mg Capsule PO 04/07/23 02:20 300 mg ONCE ONE Administration Hydromorphone HCl 1 mg 04/06/23 21:38 04/06/23 22:19 Hydromorphone Hcl 1 Mg/Ml Syringe IVPUSH 04/06/23 21:39 1 mg ONCE ONE Administration Protocol Hydromorphone HCl 1 mg 04/07/23 02:19 04/07/23 02:28 Hydromorphone Hcl 1 Mg/Ml Syringe IVPUSH 04/07/23 02:20 1 mg ONCE ONE Administration Protocol Iohexol 85 ml 04/07/23 00:29 04/07/23 00:29 Iohexol 350 Mg/Ml 100 Ml Infus..Btl IV 04/07/23 00:30 85 ml ONCE ONE Administration Ketorolac Tromethamine 15 mg 04/07/23 02:19 04/07/23 02:27 Ketorolac Tromethamine 15 Mg/Ml Vial IVPUSH 04/07/23 02:20 15 mg ONCE ONE Administration Medical Decision Making Medical Decision Making MDM Narrative: 52-year-old male presents with severe radicular type pain of the lumbar spine status post LP. He is afebrile. Is no evidence of cellulitis or abscess formation. He does have strength intact however, he has severe pain. Differential diagnosis could include post lumbar puncture pain, seroma, hematoma, cellulitis, abscess or could certainly be a deeper symptom a of the disc impingement, acute nerve compression. At this time, we do not have MRI available. I do not see any evidence of acute cauda equina syndrome and there is no definite epidural abscess symptoms at this time. At this point I will order a CT scan with and without IV contrast of the lumbar spine. Will order CBC, ESR and CRP. Should these be markedly at abnormal and imaging studies here be abnormal, would certainly consider transferring to a higher level of care where an acute neuro surgical intervention could be performed. Differential Diagnosis Differential Diagnoses: The differential diagnosis associated with the presentation includes (See above) Admission/Observation Consideration of admission/observation: Escalation of care including admission/observation considered Lab Data MDM Lab Attestation statement: I reviewed the patient's lab results. 04/06/23 23:39 04/06/23 23:39 Labs: Lab Results 04/06/23 04/06/23 04/06/23 Range/Units 23:39 23:39 23:39 WBC 4.7 L (4.8-10.8) X10*3/uL RBC 4.81 (4.60-5.80) X10*6/uL Hgb 14.4 (14.0-18.0) g/dl Hct 41.2 L (42.0-52.0) % MCV 85.7 (80.0-98.0) fL MCH 29.9 (27.0-33.0) pg MCHC 35.0 (31.0-36.0) g/dl RDW 12.1 (11.0-16.0) % Plt Count 158 L D (160-400) X10*3/uL MPV 9.7 (9.4-12.4) fL Immature Gran % (Auto) 0.2 (0.0-0.4) % Neut % (Auto) 54.1 (45-73) % Lymph % (Auto) 31.9 (20-40) % [place] % (Auto) 10.6 (2-11) % Eos % (Auto) 2.8 (0-4) % Baso % (Auto) 0.4 (0-2) % Lymph # (Auto) 1.5 (1.2-4.9) X10*3/uL [place] # (Auto) 0.5 (0.1-1.2) X10*3/uL Eos # (Auto) 0.1 (0.0-0.4) X10*3/uL Baso # (Auto) 0.0 (0.0-0.2) X10*3/uL Abs Immat Gran (auto) 0.01 (0.00-0.03) X10*3/uL Absolute Neuts (auto) 2.5 (2.0-8.3) x10*3/uL Absolute Nucleated RBC 0.000 (0.0-0.012) X10*3/uL Nucleated RBC % (auto) 0.0 (0.0-0.2) /100WBC ESR 5 (0-15) MM/HR Sodium 141 (135-145) mmol/L Potassium 4.3 (3.3-5.1) mmol/L Chloride 108 (96-108) mmol/L Carbon Dioxide 25 (22-29) mmol/L Anion Gap 12 (12-20) BUN 20 H (9-16) mg/dL Creatinine 0.87 (0.5-1.4) mg/dL Estim Creat Clear Calc 124.1 Estimated GFR > 60 Random Glucose 101 (60-115) mg/dL Lactic Acid (0.5-2.0) mmol/L Calcium 8.9 D (8.4-10.2) mg/dL Total Bilirubin 0.5 (0.0-1.0) mg/dL AST 23 (5-37) U/L ALT 55 H (0-40) U/L Alkaline Phosphatase 56 (39-117) U/L C-Reactive Protein < 0.10 (< or = 0.50) mg/dL Total Protein 7.0 (6.5-8.0) g/dL Albumin 4.0 (3.5-5.0) g/dL Urine Color Urine Appearance Urine pH (5.0-9.0) Ur Specific [place] (1.005-1.025) Urine Protein (Neg-Trace) mg/dL Urine Glucose (UA) (Negative) mg/dL Urine Ketones (Negative) mg/dL Urine Blood (Negative) Urine Nitrite (Negative) Ur Leukocyte Esterase (Negative) 04/06/23 04/06/23 Range/Units 23:39 23:54 WBC (4.8-10.8) X10*3/uL RBC (4.60-5.80) X10*6/uL Hgb (14.0-18.0) g/dl Hct (42.0-52.0) % MCV (80.0-98.0) fL MCH (27.0-33.0) pg MCHC (31.0-36.0) g/dl RDW (11.0-16.0) % Plt Count (160-400) X10*3/uL MPV (9.4-12.4) fL Immature Gran % (Auto) (0.0-0.4) % Neut % (Auto) (45-73) % Lymph % (Auto) (20-40) % [place] % (Auto) (2-11) % Eos % (Auto) (0-4) % Baso % (Auto) (0-2) % Lymph # (Auto) (1.2-4.9) X10*3/uL [place] # (Auto) (0.1-1.2) X10*3/uL Eos # (Auto) (0.0-0.4) X10*3/uL Baso # (Auto) (0.0-0.2) X10*3/uL Abs Immat Gran (auto) (0.00-0.03) X10*3/uL Absolute Neuts (auto) (2.0-8.3) x10*3/uL Absolute Nucleated RBC (0.0-0.012) X10*3/uL Nucleated RBC % (auto) (0.0-0.2) /100WBC ESR (0-15) MM/HR Sodium (135-145) mmol/L Potassium (3.3-5.1) mmol/L Chloride (96-108) mmol/L Carbon Dioxide (22-29) mmol/L Anion Gap (12-20) BUN (9-16) mg/dL Creatinine (0.5-1.4) mg/dL Estim Creat Clear Calc Estimated GFR Random Glucose (60-115) mg/dL Lactic Acid 1.7 (0.5-2.0) mmol/L Calcium (8.4-10.2) mg/dL Total Bilirubin (0.0-1.0) mg/dL AST (5-37) U/L ALT (0-40) U/L Alkaline Phosphatase (39-117) U/L C-Reactive Protein (< or = 0.50) mg/dL Total Protein (6.5-8.0) g/dL Albumin (3.5-5.0) g/dL Urine Color Yellow Urine Appearance Clear Urine pH 6.0 (5.0-9.0) Ur Specific [place] >= 1.030 H (1.005-1.025) Urine Protein Negative (Neg-Trace) mg/dL Urine Glucose (UA) Negative (Negative) mg/dL Urine Ketones Negative (Negative) mg/dL Urine Blood Negative (Negative) Urine Nitrite Negative (Negative) Ur Leukocyte Esterase Negative (Negative) Independent Interpretation I performed an independent interpretation of an: CT Scan (No acute abnormalities noted) Radiology Impression Discussion of test interpretation with radiology: I have reviewed the radiologist's reading. Radiologist Impression: CT/CT lumbar spine w IV con IMPRESSION: Suspected mild central stenosis along with bilateral neural foraminal narrowing at L4-L5, which may be better assessed with MRI. Otherwise no acute findings identified. Degenerative changes as noted above. ? Dictated By: Bradley Hein MD Signed By: <Electronically signed by Bradley Hein MD in OV> 04/07/23 0122 External Record Review External record reviewed: Office record and Outpatient record Prescription Management I considered prescription management with: Pain Medication and Antibiotic Discharge Plan Discharge Clinical Impression: Acute left lumbar radiculopathy, Mixed axonal-demyelinating polyneuropathy Patient Disposition: Home, Self-Care Instructions: Lumbar Radiculopathy (ED) Prescriptions: New oxycodone 5 mg tablet 5 mg PO Q8H PRN (Reason: pain) Qty: 10 0RF Rx Instructions: Partial Fill upon patient request. meloxicam 15 mg tablet 15 mg PO DAILY Qty: 14 0RF cyclobenzaprine 10 mg tablet 10 mg PO TID PRN (Reason: muscle spasm) Qty: 10 0RF gabapentin 300 mg capsule 300 mg PO TID Qty: 20 0RF No Action montelukast 10 mg tablet 10 mg PO DAILY 90 Days Qty: 90 1RF amlodipine 5 mg Tablet 5 mg PO DAILY aspirin 81 mg 1 tab PO DAILY rosuvastatin 20 mg tablet 20 mg PO BEDTIME metoprolol succinate 25 mg tablet extended release 24 hr 25 mg PO DAILY icosapent ethyl [Vascepa] 1 gram capsule 2 g PO BID omeprazole 20 mg capsule,delayed release(DR/EC) 20 mg PO DAILY cyclobenzaprine 5 mg tablet 5 mg PO BEDTIME 30 Days Qty: 30 3RF bupropion HCl 150 mg tablet extended release 24 hr 150 mg PO QAM cyclobenzaprine 5 mg tablet 5 mg PO TID PRN (Reason: muscle spasm) Qty: 14 0RF cyclobenzaprine 10 mg tablet 10 mg PO TID PRN (Reason: muscle spasm) Qty: 14 0RF Referrals: Bob Milton MD, PhD [Physician] - 1 week
[2023-04-06 22:19] VITALS: RESP 19
[2023-04-06] MEDS: HYDROmorphone HCl 1 MG/ML SYRINGE IVPUSH (22:19)
[2023-04-06 22:50] VITALS: RESP 14
[2023-04-06 23:42] VITALS: BP 121/84; PULSE 80; RESP 16; O2SAT 97
[2023-04-06 23:46] LABS: MANUAL DIFF FLAG NO
[2023-04-06 23:47] LABS: Basophils Percent Auto 0.4 % (0-2); Eosinophils Absolute Auto 0.1 X10*3/uL (0.0-0.4); Eosinophils Percent Auto 2.8 % (0-4); Hematocrit 41.2 % (42.0-52.0); Hemoglobin 14.4 g/dl (14.0-18.0); Imm Gran Abs Auto 0.01 X10*3/uL (0.00-0.03); Imm Gran Pct Auto 0.2 % (0.0-0.4); Lymphocytes Absolute Auto 1.5 X10*3/uL (1.2-4.9); Lymphocytes Percent Auto 31.9 % (20-40); Mean Corpuscular Hemoglobin 29.9 pg (27.0-33.0); Mean Corpuscular Volume 85.7 fL (80.0-98.0); Mean Platelet Volume 9.7 fL (9.4-12.4); Monocytes Absolute Auto 0.5 X10*3/uL (0.1-1.2); Monocytes Percent Auto 10.6 % (2-11); Neutrophils Absolute Auto 2.5 x10*3/uL (2.0-8.3); Neutrophils Percent Auto 54.1 % (45-73); Platelet Count 158 X10*3/uL (160-400); Red Blood Count 4.81 X10*6/uL (4.60-5.80); Red Cell Distribution Width 12.1 % (11.0-16.0); White Blood Count 4.7 X10*3/uL (4.8-10.8)
[2023-04-07] LABS: Lactic Acid 1.7 mmol/L (0.5-2.0)
[2023-04-07 00:03] LABS: Appearance Urine Clear; Color Urine Yellow; Glucose Urine UA Negative (Negative); Leukocyte Esterase Urine Negative (Negative); Nitrite Urine Negative (Negative); Specific Gravity - Urine >= 1.030 (1.005-1.025); Urine Blood Negative (Negative); Urine Ketones Negative (Negative); Urine Protein Negative (Neg-Trace)
[2023-04-07 00:05] LABS: Alanine Aminotransferase 55 U/L (0-40); Alkaline Phosphatase 56 U/L (39-117); Anion Gap 12 (12-20); Aspartate Amino Transferase 23 U/L (5-37); Bilirubin Total 0.5 mg/dL (0.0-1.0); Blood Urea Nitrogen 20 mg/dL (9-16); C Reactive Protein < 0.10 mg/dL (< or = 0.50); Calcium 8.9 mg/dL (8.4-10.2); Carbon Dioxide 25 mmol/L (22-29); Chloride 108 mmol/L (96-108); Creatinine Clr Calc Pharmacy 124.1; Estimated Glomerular Filt Rate > 60; Glucose Random 101 mg/dL (60-115); Potassium 4.3 mmol/L (3.3-5.1); Sodium 141 mmol/L (135-145)
[2023-04-07 00:24] LABS: Erythrocyte Sedimentation Rate 5 MM/HR (0-15)
[2023-04-07] MEDS: iohexoL 350 MG/ML 100 ML INFUS..BTL 85 ML IV (00:29)
[2023-04-07] MEDS: dexAMETHasone sod phosphate 10 MG/ML VIAL IVPUSH (02:27)
[2023-04-07] MEDS: Ketorolac Tromethamine 15 MG/ML VIAL IVPUSH (02:27)
[2023-04-07] MEDS: Gabapentin 300 MG CAPSULE PO (02:27)
[2023-04-07 02:28] VITALS: RESP 16
[2023-04-07] MEDS: HYDROmorphone HCl 1 MG/ML SYRINGE IVPUSH (02:28)
--- NOTE | 2023-04-07 02:35 | PC.NURSE ---
Pt ca&ox4, no signs of distress. Pt requested and given ice chips Pt medicated per mar. Plan of care ongoing.
[2023-04-07 03:34] VITALS: RESP 14
== END 2023-04-07 04:04 | disposition home or self-care (01) ==
PROVIDERS: Emergency Provider Emergency Medicine; PCP Nurse Practitioner Family
DX: M54.16 Radiculopathy, lumbar region (principal); G61.81 Chronic inflammatory demyelinating polyneuritis; Z79.899 Other long term (current) drug therapy
CPT/HCPCS: 36415; 72132; 80053; 81003; 83605; 85025; 85652; 86140; 96374; 96375; 99284; J1100; J1170; J1885; Q9967

== ENCOUNTER 2023-04-18 09:56 | Outpatient (AMB) | payer BC, SELFPAY ==
[2023-04-18 10:16] VITALS: BP 132/88; PULSE 94; O2SAT 95; BMI 31.8
--- NOTE | 2023-04-18 10:16 | A.OFFPC_ITS ---
Vital Signs 04/18/23 10:16 Height 5 ft 11 in Weight 228 lb 4 oz BMI 31.8 BP 132/88 Blood Pressure Location Lt brachial Position Sitting Pulse 94 Pulse Source Pulse Oximeter Pulse Oximetry (%) 95 Oxygen Delivery Method Room Air Intake Visit Reasons: Lower back/Legs pain Intake Note: pt is here for STD paper work for his back and legs and see what he should do next Allergies fenofibrate [From TRICOR] Allergy (Unknown, Verified 04/18/23 12:18) ITCHING Medication List - Last Reconciled 04/18/23 by Marlon Hirsch, SKIDDER DRIVER- amlodipine 5 mg PO DAILY [aspirin 1 tab PO DAILY] bupropion HCl 150 mg PO QAM cyclobenzaprine 10 mg PO TID PRN cyclobenzaprine 5 mg PO BEDTIME 30 days gabapentin 300 mg PO TID icosapent ethyl (Vascepa) 2 grams PO BID metoprolol succinate ER 25 mg PO DAILY montelukast 10 mg PO DAILY 90 days omeprazole 20 mg PO DAILY prednisone 50 mg PO DAILY 6 days rosuvastatin 20 mg PO BEDTIME Tobacco use date assessed: 04/18/23 Dental Screening Dental Screen Date: 04/18/23 Did you have a dental visit in the last 12 months?: Yes Did you have a dental problem in the last 6 months where you did not have access to dental care?: No Was dental information given to patient?: Patient has dentist HPI Lower back/Legs pain HPI Details Pt was seen in the walk-in on 04/06 left lower back and groin pain after a lumbar puncture 4 days prior. He was given cyclobenzaprine. Pt was later seen in the ER the same day with ongoing left lower back pain radiating to buttock, groin, and to left knee. Labs were WNL. CT of the lumbar spine did not demonstrate any fluid collections or obvious inflammation in the area of the LP site. Did show spinal stenosis with some neuroforaminal narrowing. It was recommended a MRI be ordered for better viewing, this will be ordered today. Pt was given gabapentin, toradol, and hydromorphone in the ER. He was then d/c with oxycodone, meloxicam, cyclobenzaprine, and gabapentin. Pt reports ongoing pain, especially to lower transverse back and down LLE. He reports that the medications he was given do not help at all. Pt is awaiting an appointment with neurosurgery. Will also send prednisone (pt informed to stop the meloxicam during this time). Denies any signs of cauda equina. Filled out short-term disability paperwork for pt today. [facility] Medical History ADHD Bilateral inguinal hernia Fatty liver Muscle weakness Myocardial infarction Non-STEMI (non-ST elevated myocardial infarction) MELISSA on CPAP Surgical History History of coronary angiogram History of heart artery stent History of umbilical hernia Family History Father CVD (cardiovascular disease) Myocardial infarction Unknown family medical history HTN (hypertension) Mother CVD (cardiovascular disease) Maternal Grandmother Stroke Paternal Grandfather Diabetes mellitus Paternal Aunt Aneurysm Social History Household Members: None Housing: House Are you a primary manager critical care unit to a significant other at home: No Do you presently have visiting nurse or other home services: No Alcohol intake: current Alcohol intake frequency: does not drink Patient Tobacco Use Status: Never used Tobacco e-Cigarette/Vaping Use: Never Used Second Hand Smoke Exposure: No service: No Current occupational status: employed Cognitive needs: No Hearing needs: No Vision needs: Yes Questionnaire Thrive Questionnaire Date Thrive assessed: 01/18/23 I am a: Patient What is your living situation today?: I have a steady place to live Within the past 12 months, did the food you bought not last and you didn't have the money to get more?: I choose not to answer this question Within the past 12 months, did you worry whether your food would run out before you got money to buy more?: I choose not to answer this question AUDIT C Alcohol Use Questionnaire (AUDIT-C) 1. How often do you have a drink containing alcohol?: Monthly or less 2. How many drinks containing alcohol do you have on a typical day when you are drinking?: 1 or 2 3. How often do you have six or more drinks on one occasion?: Never Total Score: 1 CHRIS-7 AMB Questionnaire CHRIS-7 Date CHRIS - 7 assessed: 01/18/23 Feeling nervous, anxious, or on edge: 1 = Several days Not being able to stop or control worryin = Not at all Worrying too much about different things: 0 = Not at all Trouble relaxin = Several days Being so restless that it is hard to sit still: 0 = Not at all Becoming easily annoyed or irritable: 1 = Several days Feeling afraid as if something awful might happen: 0 = Not at all Total CHRIS-7 score (0-4 normal; 5-9 mild; 10-14 moderate; 15-21 severe): 3 Source: Developed by Drs. Anoop Hackett, Francesca Fu, Eliceo Escobar and colleagues, with an educational josi from [employer]. Review of Systems Const Reports as per HPI Physical exam (Primary Care) Vital Signs: Last Vital Signs Pulse 94 04/18/23 10:16 BP 132/88 04/18/23 10:16 Pulse Ox 95 04/18/23 10:16 Oxygen Delivery Method Room Air 04/18/23 10:16 BMI result Body Mass Index 31.8 Tobacco/Smoking Status: Tobacco use Status Tobacco use date assessed 04/18/23 04/18/23 10:21 Patient Tobacco Use Status Never used Tobacco 04/18/23 10:21 e-Cigarette/Vaping Use Never Used 04/18/23 10:21 Thrive Assessment: Date of Thrive Assessment Date Thrive assessed 01/18/23 04/18/23 10:21 Const General: cooperative Nutritional Appearance: obese Orientation/consciousness: patient oriented x3 Resp Effort & Inspection: normal respiratory effort Auscultation: clear to auscultation bilaterally Cardio Rate: regular rate Rhythm: regular rhythm Heart sounds: S1 normal heart sound present and S2 normal heart sound present Back/Spine/Pelvis Other: radiculopathy noted with LLE raises (pt in supine position), able to heel and toe walk Neuro Other: + patellar reflexes General: patient oriented x3 Psych Appearance: grossly normal Mental Status: mental status grossly normal Speech and movement: Normal speech and movement present Affect: normal affect Attitude: cooperative Thought process: Normal thought process present Thought content: Normal thought content present Insight: Good insight present (Psych) Judgement: Good judgement present (Psych) Assessment and Plan Assessment & Plan (1) Spinal stenosis: Code(s): M48.00 - Spinal stenosis, site unspecified Plan The patient agreed to the use of a biomedical engineering supervisor for this encounter. Scribed for CAROLYN Hurst by Andree Zafar biomedical engineering supervisor, on 04/18/2023 at 10:25 EST. Orders: Orders MR lumbar spine wo con Today M48.00 - Spinal stenosis, site unspecified Medications: New prednisone 50 mg PO DAILY 6 days 6 tabs 0RF Coding Level of Care Code Est Pt Level 3 (38956) Diagnoses Spinal stenosis M48.00
== END 2023-04-18 11:38 | disposition home or self-care (01) ==
PROVIDERS: PCP Nurse Practitioner Family; Visit Provider Nurse Practitioner Family
DX: M48.00 Spinal stenosis, site unspecified (principal)
CPT/HCPCS: 99213

== ENCOUNTER 2023-04-24 12:49 | Outpatient (AMB) | payer BC, SELFPAY ==
--- NOTE | 2023-04-24 13:09 | A.SPINEOV_ITS ---
Intake Intake Visit Reasons: low back pain Intake Note: Mr. Clifford is here to f/u ED visit. CT scan done @ [facility] [place]. Meteorologist In Charge Required: No Allergies fenofibrate [From TRICOR] Allergy (Unknown, Verified 04/18/23 12:18) ITCHING Assessment & Plan Assessment & Plan (1) Lumbar radiculopathy: Code(s): M54.16 - Radiculopathy, lumbar region Plan Dear Marlon Thank you for referring Mr Clifford to our office today. 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 It started when he was getting out of his car and it was so severe initially that he was in the emergency room. They treated him with pain medications, anti-inflammatories. He was also started on a steroid taper at your office. Lumbar CT scan done in the emergency room showed diffuse arthritis in the lumbar spine. The patient is here to see us for evaluation of suspected herniated disc. He reports that his pain is significantly better on the prednisone but is not completely gone away. He is currently out of work until May. He has not yet had any physical therapy or injections. He does see a chiropractor who is reluctant to work on him until he saw our office. PMH: He has a history of OK with a stent placement in his circumflex in 2019 and has a known 70-80% blockage in LAD which is being treated medically. He has some kind of demyelination disease that gives him fasciculations in his muscles of his legs. He is being followed by Neurology for this. Social hx: He does not smoke Medications: Aspirin, Wellbutrin, Vescepa, Crestor, prednisone, cyclobenzaprine, amlodipine, omeprazole, Singulair, metoprolol Allergies: None Physical exam: He walks with a limp and antalgic gait but his strength is otherwise normal with intact reflexes Imaging review: Lumbar CT done at [facility] shows diffuse mild to moderate arthritic changes of the lumbar spine, the right L4-5 facet is severely arthritic. It is not mentioned on the report but I think I see a disc bulge/herniation in the lateral recess extending near the foramen on the left at L4-5 Impression: 52-year-old gentleman presents with what sounds like an L5 radiculopathy for 2 weeks, slightly better on prednisone but is still there and significantly intense. He has not yet done any dedicated conservative treatment. He has a lumbar CT which is being read with degenerative changes but I suspect there is a herniated disc at L4-5. He is currently waiting a lumbar MRI. Once this is completed he will call me and I will evaluate to see if this is something that raises the level of surgery. I did reassure him that 90% of these will go away on their own and should resolve without surgery. Thank you for allowing us to care for your patient. The total time spent with this visit with this patient was 45 minutes reviewing history, physical exam, lumbar imaging review, and implementation of treatment plan or further diagnostic testing Bhupendra Milton MD,PhD [facility] Coding Level of Care Code New Pt Level 4 (91350) Diagnoses Lumbar radiculopathy M54.16
== END 2023-04-24 13:32 | disposition home or self-care (01) ==
PROVIDERS: PCP Nurse Practitioner Family; Visit Provider Physician Assistant
DX: M54.16 Radiculopathy, lumbar region (principal)
CPT/HCPCS: 99204

== ENCOUNTER → 2023-04-24 12:49 | Outpatient (BNVA) | payer BC, SELFPAY | PROVIDERS: PCP Nurse Practitioner Family; Visit Provider Physician Assistant ==

== ENCOUNTER 2023-05-23 07:37 | Outpatient (AMB) | payer BC, SELFPAY ==
--- NOTE | 2023-05-23 07:33 | MHC.PC.OV ---
Intake Visit Reasons: follow up lower back pain Allergies fenofibrate [From TRICOR] Allergy (Unknown, Verified 04/18/23 12:18) ITCHING Tobacco use date assessed: 04/18/23 HPI follow up lower back pain HPI Details Pt reports weakness, twitching, and pain of his LLE. He does report ongoing lower back pain as well. Pt had an MRI of the lumbar spine which showed dextroconvex scoliosis with multilevel DDD most pronounced at L4-5. Pt has been seeing neurology and has a follow up on 06/19. Will refer to PT. Will also send prednisone. Denies any signs of cauda equina. Will keep pt out of work until 06/25. [facility] Medical History MELISSA on CPAP Muscle weakness Bilateral inguinal hernia Fatty liver Non-STEMI (non-ST elevated myocardial infarction) ADHD Myocardial infarction Surgical History History of heart artery stent History of coronary angiogram History of umbilical hernia Family History Father CVD (cardiovascular disease) Myocardial infarction Unknown family medical history HTN (hypertension) Mother CVD (cardiovascular disease) Maternal Grandmother Stroke Paternal Grandfather Diabetes mellitus Paternal Aunt Aneurysm Social History Household Members: None Housing: House Are you a primary adult live in caregiver to a significant other at home: No Do you presently have visiting nurse or other home services: No Alcohol intake: current Alcohol intake frequency: does not drink Patient Tobacco Use Status: Never used Tobacco e-Cigarette/Vaping Use: Never Used Second Hand Smoke Exposure: No service: No Current occupational status: employed Cognitive needs: No Hearing needs: No Vision needs: Yes Questionnaire Thrive Questionnaire Date Thrive assessed: 01/18/23 CHRIS-7 AMB Questionnaire CHRIS-7 Date CHRIS - 7 assessed: 01/18/23 Source: Developed by Drs. Anoop Hackett, Francesca Fu, Eliceo Escobar and colleagues, with an educational josi from [employer]. Review of Systems Const Reports as per HPI Physical exam (Primary Care) Tobacco/Smoking Status: Tobacco use Status Tobacco use date assessed 04/18/23 05/23/23 07:35 Patient Tobacco Use Status Never used Tobacco 05/23/23 07:35 e-Cigarette/Vaping Use Never Used 05/23/23 07:35 Thrive Assessment: Date of Thrive Assessment Date Thrive assessed 01/18/23 05/23/23 07:35 Const General: cooperative Orientation/consciousness: patient oriented x3 Neuro General: patient oriented x3 Psych Appearance: grossly normal Mental Status: mental status grossly normal Speech and movement: Clear speech present Affect: normal affect Attitude: cooperative Thought process: Normal thought process present Thought content: Normal thought content present Insight: Good insight present (Psych) Judgement: Good judgement present (Psych) Telehealth Telehealth Location of provider rendering services: practice address Location of patient: address on file Patient Identification confirmed using: Name, : Yes Telehealth method: video Patient verbally consented to treatment: Yes Patient verbally consented to billing insurance company: Yes Patient informed of any privacy concerns related to visit: Yes Minutes spent on Phone/Video with Pt.: 15 Assessment and Plan Assessment & Plan (1) Lumbar radiculopathy: Code(s): M54.16 - Radiculopathy, lumbar region (2) Peripheral neuropathy: Code(s): G62.9 - Polyneuropathy, unspecified Plan The patient agreed to the use of a medical certification specialist for this encounter. Scribed for CAROLYN Hurst by Andree Zafar medical certification specialist, on 05/23/2023 at 07:20 EST Orders: Orders PT Evaluation and Treatment Today M54.16 - Radiculopathy, lumbar region TSH reflex Free T4 Today G62.9 - Polyneuropathy, unspecified, M54.16 - Radiculopathy, lumbar region Comprehensive Met. Panel Today G62.9 - Polyneuropathy, unspecified, M54.16 - Radiculopathy, lumbar region Complete Blood Count Auto Diff Today G62.9 - Polyneuropathy, unspecified, M54.16 - Radiculopathy, lumbar region Medications: New prednisone 50 mg PO DAILY 6 days 6 tabs 0RF Coding Level of Care Code Tele Est Pt Level 3 (40931) Diagnoses Lumbar radiculopathy M54.16 Peripheral neuropathy G62.9
== END 2023-05-23 08:00 | disposition home or self-care (01) ==
PROVIDERS: PCP Nurse Practitioner Family; Visit Provider Nurse Practitioner Family
DX: M54.16 Radiculopathy, lumbar region (principal); G62.9 Polyneuropathy, unspecified
CPT/HCPCS: 99213

== ENCOUNTER 2023-05-23 08:06 | Outpatient (REF) | payer BC, SELFPAY ==
[2023-05-23 11:35] LABS: MANUAL DIFF FLAG NO
[2023-05-23 11:47] LABS: Basophils Percent Auto 0.6 % (0-2); Eosinophils Absolute Auto 0.1 X10*3/uL (0.0-0.4); Eosinophils Percent Auto 2.5 % (0-4); Hematocrit 45.6 % (42.0-52.0); Hemoglobin 15.6 g/dl (14.0-18.0); Imm Gran Abs Auto 0.01 X10*3/uL (0.00-0.03); Imm Gran Pct Auto 0.2 % (0.0-0.4); Lymphocytes Absolute Auto 1.3 X10*3/uL (1.2-4.9); Lymphocytes Percent Auto 27.1 % (20-40); Mean Corpuscular HGB Conc 34.2 g/dl (31.0-36.0); Mean Corpuscular Hemoglobin 29.5 pg (27.0-33.0); Mean Corpuscular Volume 86.4 fL (80.0-98.0); Mean Platelet Volume 10.7 fL (9.4-12.4); Monocytes Absolute Auto 0.5 X10*3/uL (0.1-1.2); Monocytes Percent Auto 11.3 % (2-11); Neutrophils Absolute Auto 2.8 x10*3/uL (2.0-8.3); Neutrophils Percent Auto 58.3 % (45-73); Platelet Count 177 X10*3/uL (160-400); Red Blood Count 5.28 X10*6/uL (4.60-5.80); Red Cell Distribution Width 12.7 % (11.0-16.0); White Blood Count 4.8 X10*3/uL (4.8-10.8)
[2023-05-23 12:22] LABS: Alanine Aminotransferase 67 U/L (0-40); Albumin Level 4.5 g/dL (3.5-5.0); Alkaline Phosphatase 62 U/L (39-117); Anion Gap 16 (12-20); Aspartate Amino Transferase 28 U/L (5-37); Bilirubin Total 0.6 mg/dL (0.0-1.0); Blood Urea Nitrogen 21 mg/dL (9-16); Calcium 9.8 mg/dL (8.4-10.2); Carbon Dioxide 23 mmol/L (22-29); Chloride 106 mmol/L (96-108); Estimated Glomerular Filt Rate > 60; Glucose Random 101 mg/dL (60-115); Potassium 3.9 mmol/L (3.3-5.1); Sodium 141 mmol/L (135-145); Total Protein 7.6 g/dL (6.5-8.0)
[2023-05-23 12:29] LABS: TSH reflex Free T4 3.19 uIU/mL (0.32-4.0)
== END 2023-05-23 08:07 | disposition home or self-care (01) ==
LOC: HO.HMGCLDS 08:06
PROVIDERS: PCP Nurse Practitioner Family; Visit Provider Nurse Practitioner Family
DX: M54.16 Radiculopathy, lumbar region (principal); G62.9 Polyneuropathy, unspecified; R94.6 Abnormal results of thyroid function studies
CPT/HCPCS: 36415; 80053; 84443; 85025

== ENCOUNTER 2023-06-09 15:12 | Emergency (ER) | payer BC, SELFPAY ==
--- NOTE | ~2023-06-09 | XR_ITS ---
EXAMINATION: XR LUMBOSACRAL SPINE CLINICAL INFORMATION: Back pain with lower extremity weakness status post fall CT of 04/07/2023 COMPARISON: CT lumbar spine of 04/07/2023 TECHNIQUE: Three views of the lumbosacral spine. FINDINGS: There are 5 [id number] lumbar vertebra. There is minimal scoliosis convex right which may be positional in nature. No acute fracture, spondylolisthesis, or spondylolysis is appreciated. Pedicles appear intact. Disc spaces are generally maintained. There is bilateral facet arthropathy at the L4-L5 and L5-S1 levels. L1 and L2 are seen to have anterior superior limbus vertebra. XR/XR lumbar spine 2-3V IMPRESSION: No acute fracture, spondylolisthesis, or spondylolysis of the lumbar spine. Lumbar spondylosis as described.
[2023-06-09 15:49] VITALS: BP 145/95; PULSE 96; RESP 16; TEMP 36.8; O2SAT 97; BMI 32.0
--- NOTE | 2023-06-09 15:50 | ED.BACK ---
HPI - Back Pain/Injury General Chief Complaint: Back Pain/Injury Stated Complaint: lower back and leg pain Time Seen by Provider: 06/09/23 16:52 Source: patient and RN notes reviewed Mode of arrival: ambulatory Limitations: no limitations History of Present Illness HPI Narrative: This is a 52-year-old male, with a past medical history of demyelinating polyneuropathy, presenting to the emergency department for evaluation of back pain and bilateral leg muscle cramping. Patient initially came to the emergency department 6 weeks ago for similar symptoms and was discharged on prednisone. He started to feel better until he slipped and fell into the shower 2 weeks ago. No headstrike or LOC. No CP or SOB. After his shower he was able to ambulate however reports that about 2 and half weeks ago his legs have become more weak and shaky when he climbs stairs. He had an MRI of his back initially prior to the fall which did show scoliosis with multilevel degenerative disc disease most pronounced at the L4-L5. Patient denies any saddle anethesia, no urinary or bowel incontinence or retention. No other complaints or concerns at this time. Related Data Home Medications Medication Instructions Recorded Confirmed icosapent ethyl 1 gram capsule 2 g PO BID 08/02/20 06/22/23 (Vascepa) metoprolol succinate 25 mg 25 mg PO DAILY 08/02/20 06/22/23 tablet,extended release 24 hr rosuvastatin 20 mg tablet 20 mg PO BEDTIME 08/02/20 06/22/23 amlodipine 5 mg tablet 5 mg PO DAILY 08/02/21 06/22/23 bupropion HCl 150 mg 24 hr tablet, 150 mg PO QAM 02/15/23 06/22/23 extended release omeprazole 20 mg capsule,delayed 20 mg PO DAILY 02/20/23 06/22/23 release aspirin 1 tab PO DAILY 04/02/23 06/22/23 Previous Rx's Medication Instructions Recorded cyclobenzaprine 5 mg tablet 5 mg PO BEDTIME muscle spasm 30 01/18/23 days #30 tabs montelukast 10 mg tablet 10 mg PO DAILY 90 days #90 tabs 04/05/23 gabapentin 300 mg capsule 300 mg PO TID #20 caps 04/07/23 prednisone 50 mg tablet 50 mg PO DAILY 6 days #6 tabs 04/18/23 prednisone 50 mg tablet 50 mg PO DAILY 6 days #6 tabs 05/23/23 immune glob,gamma (IgG) 10 See Rx Instructions IV .COMPLEX 3 06/22/23 %-gly-IgA over 50 mcg/mL injection months solution (Gammagard Liquid) Allergies Allergy/AdvReac Type Severity Reaction Status Date / Time fenofibrate [From TRICOR] Allergy Unknown ITCHING Verified 06/19/23 08:40 Review of Systems Review of Systems: Yes all other systems are reviewed and are negative Constitutional: Constitutional: Reports as per HPI [facility] Past Medical History Medical History MELISSA on CPAP Muscle weakness Bilateral inguinal hernia Fatty liver Non-STEMI (non-ST elevated myocardial infarction) ADHD Myocardial infarction Surgical History History of heart artery stent History of coronary angiogram History of umbilical hernia Family History Family History Father CVD (cardiovascular disease) Myocardial infarction Unknown family medical history HTN (hypertension) Mother CVD (cardiovascular disease) Maternal Grandmother Stroke Paternal Grandfather Diabetes mellitus Paternal Aunt Aneurysm Social History Social History Household Members: None Housing: House Are you a primary home health care provider to a significant other at home: No Do you presently have visiting nurse or other home services: No Alcohol intake: current Alcohol intake frequency: does not drink Patient Tobacco Use Status: Never used Tobacco e-Cigarette/Vaping Use: Never Used Second Hand Smoke Exposure: No service: No Current occupational status: employed Cognitive needs: No Hearing needs: No Vision needs: Yes Physical Exam Vital Signs: Vital Signs: Last Vital Signs Temp 97.9 F 06/09/23 17:22 Pulse 86 06/09/23 17:22 Resp 16 06/09/23 17:22 BP 140/90 H 06/09/23 17:22 Pulse Ox 98 06/09/23 17:22 O2 Del Method Room Air 06/09/23 17:22 BMI result Body Mass Index 32.0 Const: General: cooperative, comfortable and no acute distress Orientation/consciousness: patient oriented x3 Limitations: no limitations HEENT: Head: Yes normal to inspection, Yes normocephalic and Yes atraumatic Ears: hearing grossly normal bilaterally General nose exam: Normal external nose present Face and sinus: Yes normal facial exam Mouth: Normal oral and palatal mucosa present, oropharynx normal and moist mucous membranes Throat: Yes posterior oropharynx normal Eyes: General: appearance normal, both eyes and all related structures Eyelids: Yes eyelids normal Conjunctivae: conjunctivae normal Sclerae: sclerae normal Pupils: Equal, round and reactive pupils present EOM: EOMs intact bilaterally Neck: Neck: Yes normal visual inspection, Yes full ROM and Yes no lymphadenopathy Lymphatic: no lymphadenopathy noted Chest: Chest palpation & inspection: normal inspection of the chest Resp: Effort & Inspection: normal respiratory effort and able to speak in complete sentences Auscultation: clear to auscultation bilaterally, no crackles, no rales, no rhonchi and no wheezes Cardio: Rate: regular rate Rhythm: regular rhythm Heart sounds: S1 normal heart sound present and S2 normal heart sound present GI: Other: Abdomen is soft, nontender Rectal examination performed with tune up mechanic present, good rectal tone. sensation intact. Inspection: Yes normal to inspection Back/Spine/Pelvis: Other: Pt with 5/5 strength in lower extremities, distal sensation and circulation intact. Ambulatory with steady, slow gait. Mild ttp over the lower midline spine and paraaspinous muscles. Patellar reflexes 2+ Skin: General skin exam: no rashes or lesions noted Trauma: no lacerations or abrasions Wounds: no wounds Neuro: General: patient oriented x3 and moves all extremities Cranial nerves: Yes Equal, round and reactive pupils present Extrem: General: Yes normal to inspection Right upper extremity: normal to inspection Left upper extremity: normal to inspection Right lower extremity: normal to inspection Left lower extremity: normal to inspection Course Course Course Narrative: This is an RME: Additional HPI, ROS, PE not included below will be deferred to primary provider. Reports approximately 6 weeks ago he sustained an injury to his lower back when getting out of the vehicle, was evaluated in this emergency department and has outpatient follow-up with his consistent pain. Had an MRI obtained without any acute pathology. Approximately 3 weeks ago, after the MRI was obtained had a subsequent fall in the shower for past 2.5 weeks he has been experiencing increase pain into the lower back, tingling sensation to the feet, his predominant concern today is generalized weakness to the bilateral lower extremities that is progressively worsening. He continues to have some lower back pain but overall it is improving. Denies saddle paresthesia, bladder or bowel dysfunction. Medical Decision Making Medical Decision Making MDM Narrative: This is a 52-year-old male, with a past medical history of demyelinating polyneuropathy, presenting to the emergency department for evaluation of back pain and bilateral leg muscle cramping. On arrivval, pt ambulatory with slow, steady gait. BP mildly elevated at 145/95, all other VSS. Hx of chronic back pain and recently had a slip and fall in the shower. This patient presents with back pain most consistent with acute on chronicc backc pain. Differential diagnoses includes lumbago versus musculoskeletal spasm / strain versus sciatica. No back pain red flags on history or physical. Presentation not consistent with malignancy (lack of history of malignancy, lack of B symptoms), fracture (no trauma, no bony tenderness to palpation), cauda equina (no bowel or urinary incontinence/retention, no saddle anesthesia, no distal weakness), pyelonephritis (afebrile, no CVAT, no urinary symptoms). Given recent slip and fall. lumbar spine x-rays were performed revealing No acute fracture, spondylolisthesis, or spondylolysis of the lumbar spine. Lumbar spondylosis as described. Given pt is ambulatory with steady, slow gait, with good reflexes, good rectal tone, no hx of IVDA no red flag back symptoms, I had a long discussion with patient in regards to further treatment and follow up. I advised him to follow up with his PCP and neurologist for further evaluation. Given onset has been progressive over the last several months, I urged the importance of f/u with neurologist. Given strict return precautions. Pt understands and agrees with plan. [facility] for d/c. Differential Diagnosis Differential Diagnoses: The differential diagnosis associated with the presentation includes sciatica disc herniation Fx cauda equina syndrome Radiology Impression Discussion of test interpretation with radiology: I have reviewed the radiologist's reading. Radiologist Impression: Ordering Physician: Pinky Matias Date of Service: 06/09/23 Procedure(s): XR lumbar spine 2-3V Accession Number(s): [id number] cc: Marlon Hirsch SPECIAL INSPECTOR-; Pinky Matias~ EXAMINATION: XR LUMBOSACRAL SPINE CLINICAL INFORMATION: Back pain with lower extremity weakness status post fall CT of 04/07/2023 COMPARISON: CT lumbar spine of 04/07/2023 TECHNIQUE: Three views of the lumbosacral spine. FINDINGS: There are 5 [id number] lumbar vertebra. There is minimal scoliosis convex right which may be positional in nature. No acute fracture, spondylolisthesis, or spondylolysis is appreciated. Pedicles appear intact. Disc spaces are generally maintained. There is bilateral facet arthropathy at the L4-L5 and L5-S1 levels. L1 and L2 are seen to have anterior superior limbus vertebra. XR/XR lumbar spine 2-3V IMPRESSION: No acute fracture, spondylolisthesis, or spondylolysis of the lumbar spine. Lumbar spondylosis as described. Dictated By: Manuel Hartman MD Discharge Plan Discharge Clinical Impression: Chronic lumbar radiculopathy Patient Disposition: Home, Self-Care Instructions: Lumbar Radiculopathy (ED), Back Pain (ED), Lower Back Exercises (ED) Additional Instructions: Your lumbar x-ray did not show any new fractures. You need to follow-up with your primary care physician, and neurologist. It is unclear if your symptoms are attributed to your chronic demyelinating disorder or due to degenerative changes in your spine. You do not have any red flag warning signs on your examination today. If any new or worsening symptoms occur including but not limited to increased weakness in your lower extremities, urinary or bowel retention or incontinence, numbness into your groin, chest pain or shortness of breath, please return for re-evaluation. Prescriptions: No Action montelukast 10 mg tablet 10 mg PO DAILY 90 Days Qty: 90 1RF amlodipine 5 mg Tablet 5 mg PO DAILY aspirin 81 mg 1 tab PO DAILY gabapentin 300 mg capsule 300 mg PO TID Qty: 20 0RF rosuvastatin 20 mg tablet 20 mg PO BEDTIME metoprolol succinate 25 mg tablet extended release 24 hr 25 mg PO DAILY icosapent ethyl [Vascepa] 1 gram capsule 2 g PO BID omeprazole 20 mg capsule,delayed release(DR/EC) 20 mg PO DAILY cyclobenzaprine 5 mg tablet 5 mg PO BEDTIME 30 Days Qty: 30 3RF prednisone 50 mg tablet 50 mg PO DAILY 6 Days Qty: 6 0RF bupropion HCl 150 mg tablet extended release 24 hr 150 mg PO QAM prednisone 50 mg tablet 50 mg PO DAILY 6 Days Qty: 6 0RF Gammagard Liquid 10 % solution See Rx Instructions IV .COMPLEX 90 Days Rx Instructions: Loading dose: 42 grams qd x's 5 days (for total LD of 210 GM), then continuous dose: 20 grams qd x's 5 days (for total CD 100 grams q 3 wks)every 3 weeks x's 3 months intravenously .; Interventions: ED Discharge Assessment Last Done: 06/09/23 19:33 Discharge Date/Time: 06/09/23 19:34
[2023-06-09 17:22] VITALS: BP 140/90; PULSE 86; RESP 16; TEMP 36.6; O2SAT 98
== END 2023-06-09 19:34 | disposition home or self-care (01) ==
PROVIDERS: Emergency Provider Internal Medicine; PCP Nurse Practitioner Family
DX: M54.16 Radiculopathy, lumbar region (principal); G61.81 Chronic inflammatory demyelinating polyneuritis
CPT/HCPCS: 72100; 99283

== ENCOUNTER 2023-06-18 07:39 | Outpatient (REF) | payer BC, SELFPAY ==
[2023-06-18 11:15] LABS: MANUAL DIFF FLAG NO
[2023-06-18 11:34] LABS: Basophils Percent Auto 0.4 % (0-2); Eosinophils Absolute Auto 0.2 X10*3/uL (0.0-0.4); Eosinophils Percent Auto 3.3 % (0-4); Hematocrit 44.5 % (42.0-52.0); Hemoglobin 15.1 g/dl (14.0-18.0); Imm Gran Abs Auto 0.01 X10*3/uL (0.00-0.03); Imm Gran Pct Auto 0.2 % (0.0-0.4); Lymphocytes Absolute Auto 1.3 X10*3/uL (1.2-4.9); Lymphocytes Percent Auto 27.4 % (20-40); Mean Corpuscular HGB Conc 33.9 g/dl (31.0-36.0); Mean Corpuscular Hemoglobin 29.5 pg (27.0-33.0); Mean Corpuscular Volume 86.9 fL (80.0-98.0); Mean Platelet Volume 10.9 fL (9.4-12.4); Monocytes Absolute Auto 0.5 X10*3/uL (0.1-1.2); Monocytes Percent Auto 11.8 % (2-11); Neutrophils Absolute Auto 2.6 x10*3/uL (2.0-8.3); Neutrophils Percent Auto 56.9 % (45-73); Platelet Count 152 X10*3/uL (160-400); Red Blood Count 5.12 X10*6/uL (4.60-5.80); Red Cell Distribution Width 11.9 % (11.0-16.0); White Blood Count 4.6 X10*3/uL (4.8-10.8)
[2023-06-18 11:59] LABS: Alanine Aminotransferase 81 U/L (0-40); Albumin Level 4.4 g/dL (3.5-5.0); Alkaline Phosphatase 59 U/L (39-117); Anion Gap 11 (12-20); Aspartate Amino Transferase 31 U/L (5-37); Bilirubin Total 0.4 mg/dL (0.0-1.0); Blood Urea Nitrogen 20 mg/dL (9-16); Calcium 9.4 mg/dL (8.4-10.2); Carbon Dioxide 27 mmol/L (22-29); Chloride 107 mmol/L (96-108); Estimated Glomerular Filt Rate > 60; Glucose Random 98 mg/dL (60-115); Potassium 4.4 mmol/L (3.3-5.1); Sodium 141 mmol/L (135-145); Total Protein 7.3 g/dL (6.5-8.0)
[2023-06-18 12:14] LABS: Erythrocyte Sedimentation Rate 6 MM/HR (0-15)
[2023-06-19 16:39] LABS: CRP High Sensitivity 0.8 mg/L
[2023-06-21 23:33] LABS: Smooth Muscle Antibody <20 U (<20)
== END 2023-06-18 07:40 | disposition home or self-care (01) ==
LOC: HO.HMGCLDS 07:39
PROVIDERS: PCP Nurse Practitioner Family; Visit Provider Nurse Practitioner Family
DX: G62.9 Polyneuropathy, unspecified (principal); R25.3 Fasciculation; M62.81 Muscle weakness (generalized); G72.9 Myopathy, unspecified
CPT/HCPCS: 80053; 82550; 83519; 85025; 85652; 86015; 86141

== ENCOUNTER 2023-06-19 08:13 | Outpatient (AMB) | payer BC, SELFPAY ==
--- NOTE | 2023-06-19 08:38 | A.OFFVIS_ITS ---
Intake Vital Signs 06/19/23 08:39 Height 5 ft 11 in Weight 231 lb BMI 32.2 BP 118/78 Blood Pressure Location Rt brachial Position Sitting Pulse 82 Pulse Source Pulse Oximeter Pulse Oximetry (%) 98 Oxygen Delivery Method Room Air Intake Visit Reasons: Appt to discuss EMG/Labs per K.H-New prob-LVM Intake Note: Patient presents for follow up. patient states I've been communicating with her through the portal so she's aware. Allergies fenofibrate [From TRICOR] Allergy (Unknown, Verified 06/19/23 08:40) ITCHING Medication List - Last Reconciled 06/22/23 by Merle Davis, BERYL amlodipine 5 mg PO DAILY [aspirin 1 tab PO DAILY] bupropion HCl 150 mg PO QAM cyclobenzaprine 10 mg PO TID PRN cyclobenzaprine 5 mg PO BEDTIME 30 days gabapentin 300 mg PO TID icosapent ethyl (Vascepa) 2 grams PO BID metoprolol succinate ER 25 mg PO DAILY montelukast 10 mg PO DAILY 90 days omeprazole 20 mg PO DAILY prednisone 50 mg PO DAILY 6 days prednisone 50 mg PO DAILY 6 days rosuvastatin 20 mg PO BEDTIME HPI HPI Comments History of Present Illness Details 52-yr-old male presents for f/u visit. He reports he is having more episodes of dropping things from his hands. He is more prone to knock over glasses. He has been having more burning in the fingertips and hands feels swollen. May wake up with hand tingling- which subsided quickly. He reports increased leg weakness, more so on the left. He finds the weakness to worsen with sutained activity. He states that a few days after the LP in Mar, he did had an episode of shooting pain down from the left hip/buttock region down the leg after he had taken 2 steps after getting out of his car. He did go to the ER and had f/u w/ PCP and spine surgeon. MRI showed multilevel degenerative changes most at L4-5. He did PT- where he had decreased strength and endurance in BLE more so on the left. He had muscle twitching with LLE weight training. He feels he does not walk as well on the left leg. He is still feeling pinching in his hips. When he is walking up stairs, he feels he needs to hold onto the rail. His feet always feels weak, tingling. May feel decreased in the heels when in bed- say repositioning. Always has to walk with shoes on support. He was given a 6 day course of prednisone in May 2023- did not seem to help the back pain. He had an eye exam- He often has heaviness behind his eye. Sometimes he feels his blink is slow. He can feel disoriented in the left frontal region. Can have tingling in the left forehead/face. He has a h/o eye pain. [facility] Medical History MELISSA on CPAP Muscle weakness Bilateral inguinal hernia Fatty liver Non-STEMI (non-ST elevated myocardial infarction) ADHD Myocardial infarction Surgical History History of heart artery stent History of coronary angiogram History of umbilical hernia Family History Father CVD (cardiovascular disease) Myocardial infarction Unknown family medical history HTN (hypertension) Mother CVD (cardiovascular disease) Maternal Grandmother Stroke Paternal Grandfather Diabetes mellitus Paternal Aunt Aneurysm Social History Household Members: None Housing: House Are you a primary youth care worker to a significant other at home: No Do you presently have visiting nurse or other home services: No Alcohol intake: current Alcohol intake frequency: does not drink Patient Tobacco Use Status: Never used Tobacco e-Cigarette/Vaping Use: Never Used Second Hand Smoke Exposure: No service: No Current occupational status: employed Cognitive needs: No Hearing needs: No Vision needs: Yes Review of Systems Const All systems reviewed & are unremarkable except as noted in HPI and below Physical Exam Vital Signs: Last Vital Signs Pulse 82 06/19/23 08:39 BP 118/78 06/19/23 08:39 Pulse Ox 98 06/19/23 08:39 Oxygen Delivery Method Room Air 06/19/23 08:39 BMI result Body Mass Index 32.2 Const General: cooperative and no acute distress Orientation/consciousness: patient oriented x3 HEENT Head: Yes normocephalic Resp Effort & Inspection: normal respiratory effort and able to speak in complete sentences Neuro Other: Decreased BLE strength, worse on left- MS 5-/5 On toe walk and heel heel walk- LLE has decreased strength, worsens with sustained action General: patient oriented x3 and CN's II-XI intact bilaterally Cognition (Neuro): normal cognition Deep tendon reflexes (DTR's): Right triceps reflex intensity grade: 2+, Left triceps reflex intensity grade: 2+, Rt Biceps (C5, C6): 2+, Left biceps reflex intensity grade: 2+, Right brachioradialis reflex intensity grade: 2+, Left brachioradialis reflex intensity grade: 2+, Right patellar reflex intensity grade: 2+ and Left patellar reflex intensity grade: 2+ Psych Appearance: grossly normal Mental Status: mental status grossly normal Speech and movement: Normal speech and movement present Affect: normal affect Attitude: cooperative Thought process: Normal thought process present Thought content: Normal thought content present Insight: Good insight present (Psych) Judgement: Good judgement present (Psych) Results Reviewed Results Reviewed: 01/2023: BLE EMG/NCS: [id number] sensory and motor peripheral neuropathy with features of demyelination and axonal loss. Last Resulted Lab Tests 04/02/23 04/02/23 04/02/23 11:36 11:36 11:36 CSF Tube Number 4 CSF Volume 3.0 CSF Appearance CLEAR CSF Color COLORLESS CSF WBC 1 CSF RBC 5 CSF Lymphocytes 90 CSF Monocytes % 10 CSF Appearance (b) Clear, Colorless CSF Glucose 64 CSF Total Protein 66.1 H CSF Albumin CSF IgG Index CSF IgG Synthesis Rate CSF Oligoclonal Bands CSF/Serum IgG Index 04/02/23 04/02/23 13:20 13:20 CSF Tube Number CSF Volume CSF Appearance CSF Color CSF WBC CSF RBC CSF Lymphocytes CSF Monocytes % CSF Appearance (b) CSF Glucose CSF Total Protein CSF Albumin 47.0 H CSF IgG Index 0.45 CSF IgG Synthesis Rate -2.7 CSF Oligoclonal Bands Absent CSF/Serum IgG Index 5.2 Assessment & Plan Assessment & Plan (1) Chronic inflammatory demyelinating neuropathy: Code(s): G61.81 - Chronic inflammatory demyelinating polyneuritis (2) CSF abnormal: Code(s): R83.9 - Unspecified abnormal finding in cerebrospinal fluid (3) Muscle weakness: Code(s): M62.81 - Muscle weakness (generalized) Plan Pt now reports sensory and motor weakness. Motor weakness not present on exam. These symptoms, taken in setting of BLE EMG showing demyelinating changes and CSF studies showing elevated total protein w/ normal CSF WBC, are c/w a diagnosis of CIDP. Thus, pt is advised to start IVIG Loading dose: 42 grams qd x's 5 days (for total LD of 210 GM), then continuous dose: 20 grams qd x's 5 days (for total CD 100 grams q 3 wks) every 3 weeks x's 3 months Pt is advised to abstain from work through f/u here - to allow pt to start IVIG and determine tolerance/effectiveness. f/u in 3 months or sooner prn. Disregard IVIG orders below of: Loading dose: 210 grams qd x's 5 days, then continuous dose: 100 grams qd x's 5 days every 3 weeks x's 3 months. Order clarified and is as stated above. Medications: New immun glob G(IgG)-gly-IgA ov50 10 % (Gammagard Liquid) Loading dose: 210 grams qd x's 5 days, then continuous dose: 100 grams qd x's 5 days every 3 weeks x's 3 months intravenously .; 3 months 0RF G6.81 - Chronic inflammatory demyelinating polyneuritis immun glob G(IgG)-gly-IgA ov50 10 % (Gammagard Liquid) Loading dose: 42 grams qd x's 5 days (for total LD of 210 GM), then continuous dose: 20 grams qd x's 5 days (for total CD 100 grams q 3 wks)every 3 weeks x's 3 months intravenously .; 3 months 0RF G6. - Chronic inflammatory demyelinating polyneuritis immun glob G(IgG)-gly-IgA ov50 10 % (Gammagard Liquid) Loading dose: 210 grams qd x's 5 days, then continuous dose: 100 grams qd x's 5 days every 3 weeks x's 3 months intravenously .; 3 months 0RF G6. - Chronic inflammatory demyelinating polyneuritis Coding Level of Care Code Est Pt Level 4 (69096) Diagnoses Chronic inflammatory demyelinating neuropathy G6. CSF abnormal R83.9 Muscle weakness M62.81
[2023-06-19 08:39] VITALS: BP 118/78; PULSE 82; O2SAT 98; BMI 32.2
== END 2023-06-19 09:37 | disposition home or self-care (01) ==
PROVIDERS: PCP Nurse Practitioner Family; Visit Provider Nurse Practitioner Family
DX: G61.81 Chronic inflammatory demyelinating polyneuritis (principal); R83.9 Unspecified abnormal finding in cerebrospinal fluid; M62.81 Muscle weakness (generalized)
CPT/HCPCS: 99214

== ENCOUNTER → 2023-06-19 08:13 | Outpatient (BNVA) | payer BC, SELFPAY | PROVIDERS: PCP Nurse Practitioner Family; Visit Provider Nurse Practitioner Family ==

== ENCOUNTER 2023-06-26 14:19 | Outpatient (AMB) | payer BC, SELFPAY ==
--- NOTE | 2023-06-26 14:57 | A.SPINEOV_ITS ---
Intake Intake Visit Reasons: foot weakness and back pain Allergies fenofibrate [From TRICOR] Allergy (Unknown, Verified 06/19/23 08:40) ITCHING Assessment & Plan Assessment & Plan (1) Lumbar radiculopathy: Code(s): M54.16 - Radiculopathy, lumbar region Plan HPI: Jeff is a 52-year-old male who comes in today for a follow-up visit after being assessed in our office in April for a possible disc herniation. He had an MRI completed after his office visit which showed no significant disc herniation, but did show some stenosis of the exiting L4 nerve root on the left side. He reached out to our office and requested a follow-up appointment both to review his MRI and for a recent fall. He states that roughly 1 month after his MRI he in the shower and has had decreased sensation of his left medial calf and increased weakness with dorsiflexion of his left foot since the fall. It should be noted that he is being followed closely by Neurology who has ordered thoracic, cervical, and brain MRIs for the patient due to a chronic demyelinating disorder (polyneuropathy). He also is scheduled to begin undergoing IVIG trreatment for this disorder. Jeff feels as though his increased foot weakness is on related to his polyneuropathy, and was acute in onset directly after his fall in the shower last month. He states he has attempted eprn-vnc-keyomlk remediessince the fall to help alleviate the symptoms including Tylenol, ibuprofen, ice, heat, and cejb-xig-tydeegu pain patches without much alleviation. He states that walking exacerbates his symptoms. He states he has tried a home exercise program since the fall and did not feel it was helpful for him. Exam: On exam the patient ambulates well and rises from a seated position without difficulty. He does have noted weakness in his left foot with dorsiflexion, but is still able to exhibit 4/5 strength of his left foot. Left patellar reflex 1+, rest of reflexes 2+ intact. On exam he reports decreased sensation over the michael-medial calf. He has some tenderness of the L gluteal muscle with L sided straight leg raise but I would consider this weakly positive at best. (-) right sided straight leg raise. (-) clonus, (-) Babinski. Assessment /Plan: The physical exam that Jeff is exhibiting is classic for a L4 nerve root impingement on the left side, as evidenced by his decreased L sided patellar reflex, decreased sensation over the medial calf, and weakness with dorsiflexion. These reflect newer symptoms than he previously had when seen by SILVIA Triana in our office in April. Due to the patients disclosure of acute onset directly after a fall in the shower I will order a repeat lumbar MRI. I have a high enough clinical suspicion for a herniated disc to justify this, especially considering the symptomology fits the dermatomal distribution of L4 so well. Total amount of time spent in this visit was 38 minutes in discussion of symptoms, MRI imaging results and subsequent plan of care. James Milton MD,PhD [facility] Coding Level of Care Code Est Pt Level 4 (50791) Diagnoses Lumbar radiculopathy M54.16
== END 2023-06-26 14:56 | disposition home or self-care (01) ==
PROVIDERS: PCP Nurse Practitioner Family; Visit Provider Physician Assistant
DX: M54.16 Radiculopathy, lumbar region (principal)
CPT/HCPCS: 99214

== ENCOUNTER → 2023-06-26 14:19 | Outpatient (BNVA) | payer BC, SELFPAY | PROVIDERS: PCP Nurse Practitioner Family; Visit Provider Physician Assistant ==

== ENCOUNTER 2023-07-18 09:29 | Outpatient (AMB) | payer BC, SELFPAY ==
--- NOTE | 2023-07-18 09:30 | A.OFFVIS_ITS ---
Intake Vital Signs 07/18/23 09:31 Height 5 ft 11 in Intake Visit Reasons: Follow up/ LVM Intake Note: Patient presents for follow up. Allergies fenofibrate [From TRICOR] Allergy (Unknown, Verified 07/23/23 08:49) ITCHING Medication List - Last Reconciled 07/18/23 by BERYL [place] amlodipine 5 mg PO DAILY [aspirin 1 tab PO DAILY] bupropion HCl 150 mg PO QAM cyclobenzaprine 5 mg PO BEDTIME 30 days gabapentin 300 mg PO TID icosapent ethyl (Vascepa) 2 grams PO BID immun glob G(IgG)-gly-IgA ov50 10 % (Gammagard Liquid) Loading dose: 42 grams qd x's 5 days (for total LD of 210 GM), then continuous dose: 20 grams qd x's 5 days (for total CD 100 grams q 3 wks)every 3 weeks x's 3 months intravenously .; 3 months metoprolol succinate ER 25 mg PO DAILY montelukast 10 mg PO DAILY 90 days omeprazole 20 mg PO DAILY prednisone 50 mg PO DAILY 6 days prednisone 50 mg PO DAILY 6 days rosuvastatin 20 mg PO BEDTIME HPI HPI Comments History of Present Illness Details 52-yr-old male presents for f/u visit. Pt endorses the following interval medical history changes: Pt had a mild self- limited Covid-19 infection. Due to the Covid-19 infection, we advised pt to delay starting IV Gammaguard for tx of his CIDP. He does continue to have low back pain r/t his recent lumbar radiculopathy. He continues to have weakness in his legs, hips, and back. He has low endurance. He has difficulties w/ balance. At times, he has blurry vision. He is unable to squat frequently. He is unable to lift heavier items, especially for prolonged times. He cannot safely climb. Pt reports he is having episodes supraorbital and retroorbital pain, which will move up into his forehead. This is a/w photophobia, blurry vision, once vertical diplopia. His left eye can twitches, and upper left eyelid may feel heavy. Previous ACHR AB, anti-smooth muscle AB, MUSK AB- normal. [facility] Medical History MELISSA on CPAP Muscle weakness Bilateral inguinal hernia Fatty liver Non-STEMI (non-ST elevated myocardial infarction) ADHD Myocardial infarction Surgical History History of heart artery stent History of coronary angiogram History of umbilical hernia Family History Father CVD (cardiovascular disease) Myocardial infarction Unknown family medical history HTN (hypertension) Mother CVD (cardiovascular disease) Maternal Grandmother Stroke Paternal Grandfather Diabetes mellitus Paternal Aunt Aneurysm Social History Household Members: None Housing: House Are you a primary director of primary care to a significant other at home: No Do you presently have visiting nurse or other home services: No Alcohol intake: current Alcohol intake frequency: does not drink Patient Tobacco Use Status: Never used Tobacco e-Cigarette/Vaping Use: Never Used Second Hand Smoke Exposure: No service: No Current occupational status: employed Cognitive needs: No Hearing needs: No Vision needs: Yes Review of Systems Const All systems reviewed & are unremarkable except as noted in HPI and below Physical Exam Const General: cooperative and no acute distress Orientation/consciousness: patient oriented x3 HEENT Head: Yes normocephalic Resp Effort & Inspection: normal respiratory effort and able to speak in complete sentences Neuro Other: Decreased BLE strength, worse on left- MS 5-/5 On toe walk and heel heel walk- LLE has decreased strength, worsens with sustained action General: patient oriented x3 and CN's II-XI intact bilaterally Cognition (Neuro): normal cognition Gait exam (Neuro): Antalgic gait present Psych Appearance: grossly normal Mental Status: mental status grossly normal Affect: normal affect Attitude: cooperative Assessment & Plan Assessment & Plan (1) Chronic inflammatory demyelinating neuropathy: Code(s): G61.81 - Chronic inflammatory demyelinating polyneuritis (2) CSF abnormal: Code(s): R83.9 - Unspecified abnormal finding in cerebrospinal fluid (3) Muscle weakness: Code(s): M62.81 - Muscle weakness (generalized) (4) Migraine without aura: Code(s): G43.009 - Migraine without aura, not intractable, without status migrainosus Plan IVIG order was held d/t recent COVID-19 infection per our request. Reviewed that goal of IVIG tx is too reduce weakness and progression of chronic demyelinating inflammatory polyneuropathy. Pt may start IVIG on 07/30/23 as scheduled: IVIG Loading dose: 42 grams qd x's 5 days (for total LD of 210 GM), then continuous dose: 20 grams qd x's 5 days (for total CD 100 grams q 3 wks) every 3 weeks x's 3 months Pt advised that it may take several IVIG infusion cycles to see full response. Check CBC and CMP. Rheumatology consult as scheduled. Trial Ubrogepant (Ubrelvy) 100mg tab, 1/2 - 1 tab (50-100mg) at onset of headache, may repeat in 2 hours. Max of 2 tabs (200mg) per 24 hours. May adjunct with OTC Tylenol 650mg q 4 hours, Ibuprofen 600mg q 6 hours, or Naproxen 440mg q 12 hrs prn. Migraine tx contraindications- all triptans d/t h/o IL. Pt is advised to abstain from work through f/u here - to allow pt to start IVIG, determine tolerance/effectiveness, and begin rehabilitative tx. f/u in 3 months or sooner prn. Orders: Orders Comprehensive Met. Panel 07/18/23 G61.81 - Chronic inflammatory demyelinating polyneuritis, G72.9 - Myopathy, unspecified, M62.81 - Muscle weakness (generalized) Complete Blood Count Auto Diff 07/18/23 G61.81 - Chronic inflammatory demyelinating polyneuritis, G72.9 - Myopathy, unspecified, M62.81 - Muscle weakness (generalized) Medications: New ubrogepant (Ubrelvy) take at onset of migraine, may repeat in 2hrs (may take w/ Ibuprofen) 50 - 100 mg (0.5 - 1 x 100 mg) PO ONCE PRN 16 tabs 3RF migraine headache 30 days Coding Level of Care Code Est Pt Level 4 (51111) Diagnoses Chronic inflammatory demyelinating neuropathy G61.81 CSF abnormal R83.9 Muscle weakness M62.81 Migraine without aura G43.009
== END 2023-07-18 10:15 | disposition home or self-care (01) ==
PROVIDERS: PCP Nurse Practitioner Family; Visit Provider Nurse Practitioner Family
DX: G61.81 Chronic inflammatory demyelinating polyneuritis (principal); R83.9 Unspecified abnormal finding in cerebrospinal fluid; M62.81 Muscle weakness (generalized); G43.009 Migraine without aura, not intractable, without status migrainosus
CPT/HCPCS: 99214

== ENCOUNTER → 2023-07-18 09:29 | Outpatient (BNVA) | payer BC, SELFPAY | PROVIDERS: PCP Nurse Practitioner Family; Visit Provider Nurse Practitioner Family ==

== ENCOUNTER 2023-07-23 08:45 | Outpatient (AMB) | payer BC, SELFPAY ==
--- NOTE | 2023-07-23 08:46 | A.OFFPC_ITS ---
Vital Signs 07/23/23 08:48 Weight 239 lb BP 130/92 H Blood Pressure Location Rt brachial Position Sitting Pulse 86 Pulse Source Pulse Oximeter Pulse Oximetry (%) 97 Oxygen Delivery Method Room Air Intake Visit Reasons: 5 month Follow up Allergies fenofibrate [From TRICOR] Allergy (Unknown, Verified 07/23/23 08:49) ITCHING Medication List - Last Reconciled 07/23/23 by CAROLYN Mendieta amlodipine 5 mg PO DAILY [aspirin 1 tab PO DAILY] bupropion HCl 150 mg PO QAM cyclobenzaprine 5 mg PO BEDTIME 30 days icosapent ethyl (Vascepa) 2 grams PO BID immun glob G(IgG)-gly-IgA ov50 10 % (Gammagard Liquid) Loading dose: 42 grams qd x's 5 days (for total LD of 210 GM), then continuous dose: 20 grams qd x's 5 days (for total CD 100 grams q 3 wks)every 3 weeks x's 3 months intravenously .; 3 months metoprolol succinate ER 25 mg PO DAILY montelukast 10 mg PO DAILY 90 days omeprazole 20 mg PO DAILY rosuvastatin 20 mg PO BEDTIME ubrogepant (Ubrelvy) 50 - 100 mg (0.5 - 1 x 100 mg) PO ONCE PRN 30 days Tobacco use date assessed: 04/18/23 HPI 5 month Follow up HPI Details Pt is following up with neurology due to chronic inflammatory demyelinating polyneuritis. He is starting IVIG treatment starting next week. Pt also has a chronic lower back HX (DDD). He will be seeing [facility]. Denies any signs of cauda equina. [facility] Medical History MELISSA on CPAP Muscle weakness Bilateral inguinal hernia Fatty liver Non-STEMI (non-ST elevated myocardial infarction) ADHD Myocardial infarction Surgical History History of heart artery stent History of coronary angiogram History of umbilical hernia Family History Father CVD (cardiovascular disease) Myocardial infarction Unknown family medical history HTN (hypertension) Mother CVD (cardiovascular disease) Maternal Grandmother Stroke Paternal Grandfather Diabetes mellitus Paternal Aunt Aneurysm Social History Household Members: None Housing: House Are you a primary patient care director to a significant other at home: No Do you presently have visiting nurse or other home services: No Alcohol intake: current Alcohol intake frequency: does not drink Patient Tobacco Use Status: Never used Tobacco e-Cigarette/Vaping Use: Never Used Second Hand Smoke Exposure: No service: No Current occupational status: employed Cognitive needs: No Hearing needs: No Vision needs: Yes Questionnaire Thrive Questionnaire Date Thrive assessed: 01/18/23 I am a: Patient What is your living situation today?: I choose not to answer this question Within the past 12 months, did the food you bought not last and you didn't have the money to get more?: I choose not to answer this question Within the past 12 months, did you worry whether your food would run out before you got money to buy more?: I choose not to answer this question AUDIT C Alcohol Use Questionnaire (AUDIT-C) 1. How often do you have a drink containing alcohol?: Never 3. How often do you have six or more drinks on one occasion?: Never Total Score: 0 CHRIS-7 AMB Questionnaire CHRIS-7 Date CHRIS - 7 assessed: 01/18/23 Feeling nervous, anxious, or on edge: 1 = Several days Not being able to stop or control worryin = Several days Worrying too much about different things: 1 = Several days Trouble relaxin = Not at all Being so restless that it is hard to sit still: 0 = Not at all Becoming easily annoyed or irritable: 1 = Several days Feeling afraid as if something awful might happen: 0 = Not at all Total CHRIS-7 score (0-4 normal; 5-9 mild; 10-14 moderate; 15-21 severe): 4 Source: Developed by Drs. Anoop Hackett, Francesca Fu, Eliceo Escobar and colleagues, with an educational josi from [employer]. Physical exam (Primary Care) Vital Signs: Last Vital Signs Pulse 86 07/23/23 08:48 BP 130/92 H 07/23/23 08:48 Pulse Ox 97 07/23/23 08:48 Oxygen Delivery Method Room Air 07/23/23 08:48 Tobacco/Smoking Status: Tobacco use Status Tobacco use date assessed 04/18/23 07/23/23 08:51 Patient Tobacco Use Status Never used Tobacco 07/23/23 08:51 e-Cigarette/Vaping Use Never Used 07/23/23 08:51 Thrive Assessment: Date of Thrive Assessment Date Thrive assessed 01/18/23 07/23/23 08:51 Resp Effort & Inspection: normal respiratory effort Auscultation: clear to auscultation bilaterally Cardio Rate: regular rate Rhythm: regular rhythm Heart sounds: S1 normal heart sound present and S2 normal heart sound present Neuro General: CN's II-XI intact bilaterally Extrem Other: left foot: weakness noted with with dorsi flexion against resistance, positive strength with plantar flexion against resistance Assessment and Plan Assessment & Plan (1) Chronic inflammatory demyelinating neuropathy: Code(s): G61.81 - Chronic inflammatory demyelinating polyneuritis Plan: seeing Neuro, IVIG starting next week (2) Lumbar radiculopathy: Code(s): M54.16 - Radiculopathy, lumbar region [facility] Coding Level of Care Code Est Pt Level 3 (72461) Diagnoses Chronic inflammatory demyelinating neuropathy G61.81 Lumbar radiculopathy M54.16
[2023-07-23 08:48] VITALS: BP 130/92; PULSE 86; O2SAT 97
== END 2023-07-23 09:03 | disposition home or self-care (01) ==
PROVIDERS: PCP Nurse Practitioner Family; Visit Provider Nurse Practitioner Family
DX: G61.81 Chronic inflammatory demyelinating polyneuritis (principal); M54.16 Radiculopathy, lumbar region
CPT/HCPCS: 99213

== ENCOUNTER 2023-07-30 10:02 | Outpatient (REF) | payer BC, SELFPAY | END 2023-07-30 10:03 | disposition home or self-care (01) | LOC: HO.MDS 10:02 | PROVIDERS: PCP Nurse Practitioner Family; Visit Provider Nurse Practitioner Family | DX: G61.81 Chronic inflammatory demyelinating polyneuritis (principal); J15.69 Pneumonia due to other Gram-negative bacteria | CPT/HCPCS: 96365; 96366; J1569 ==

== ENCOUNTER 2023-07-31 10:00 | Outpatient (REF) | payer BC, SELFPAY | END 2023-07-31 10:01 | disposition home or self-care (01) | LOC: HO.MDS 10:00 | PROVIDERS: Visit Provider Nurse Practitioner Family | DX: G61.81 Chronic inflammatory demyelinating polyneuritis (principal); J15.69 Pneumonia due to other Gram-negative bacteria | CPT/HCPCS: 96365; 96366; J1569 ==

== ENCOUNTER 2023-08-01 09:46 | Outpatient (REF) | payer BC, SELFPAY | END 2023-08-01 09:47 | disposition home or self-care (01) | LOC: HO.MDS 09:46 | PROVIDERS: Visit Provider Nurse Practitioner Family | DX: G61.81 Chronic inflammatory demyelinating polyneuritis (principal); J15.69 Pneumonia due to other Gram-negative bacteria | CPT/HCPCS: 96365; 96366; J1569 ==

== ENCOUNTER 2023-08-02 09:58 | Outpatient (REF) | payer BC, SELFPAY | END 2023-08-02 09:59 | disposition home or self-care (01) | LOC: HO.MDS 09:58 | PROVIDERS: Visit Provider Nurse Practitioner Family | DX: G61.81 Chronic inflammatory demyelinating polyneuritis (principal); J15.69 Pneumonia due to other Gram-negative bacteria | CPT/HCPCS: 96365; 96366; J1569 ==

== ENCOUNTER 2023-08-03 06:32 | Outpatient (REF) | payer BC, SELFPAY ==
[2023-08-03 06:52] LABS: MANUAL DIFF FLAG NO
[2023-08-03 07:13] LABS: Basophils Percent Auto 0.7 % (0-2); Eosinophils Absolute Auto 0.1 X10*3/uL (0.0-0.4); Eosinophils Percent Auto 2.4 % (0-4); Hematocrit 44.8 % (42.0-52.0); Imm Gran Abs Auto 0.01 X10*3/uL (0.00-0.03); Imm Gran Pct Auto 0.2 % (0.0-0.4); Lymphocytes Percent Auto 22.9 % (20-40); Mean Corpuscular HGB Conc 33.5 g/dl (31.0-36.0); Mean Corpuscular Hemoglobin 29.8 pg (27.0-33.0); Mean Corpuscular Volume 88.9 fL (80.0-98.0); Mean Platelet Volume 10.3 fL (9.4-12.4); Monocytes Absolute Auto 0.7 X10*3/uL (0.1-1.2); Monocytes Percent Auto 17.6 % (2-11); Neutrophils Absolute Auto 2.3 x10*3/uL (2.0-8.3); Neutrophils Percent Auto 56.2 % (45-73); Platelet Count 188 X10*3/uL (160-400); Red Blood Count 5.04 X10*6/uL (4.60-5.80); Red Cell Distribution Width 13.3 % (11.0-16.0); White Blood Count 4.1 X10*3/uL (4.8-10.8)
[2023-08-03 07:39] LABS: Alanine Aminotransferase 78 U/L (0-40); Albumin Level 4.3 g/dL (3.5-5.0); Alkaline Phosphatase 65 U/L (39-117); Anion Gap 14 (12-20); Aspartate Amino Transferase 40 U/L (5-37); Bilirubin Total 0.7 mg/dL (0.0-1.0); Blood Urea Nitrogen 20 mg/dL (9-16); Calcium 9.7 mg/dL (8.4-10.2); Carbon Dioxide 26 mmol/L (22-29); Chloride 103 mmol/L (96-108); Estimated Glomerular Filt Rate > 60; Glucose Random 98 mg/dL (60-115); Potassium 4.5 mmol/L (3.3-5.1); Sodium 138 mmol/L (135-145); Total Protein 9.9 g/dL (6.5-8.0)
== END 2023-08-03 06:33 | disposition home or self-care (01) ==
LOC: HO.LAB 06:32
PROVIDERS: PCP Nurse Practitioner Family; Visit Provider Nurse Practitioner Family
DX: M62.81 Muscle weakness (generalized) (principal); G72.9 Myopathy, unspecified; G61.81 Chronic inflammatory demyelinating polyneuritis
CPT/HCPCS: 36415; 80053; 85025

== ENCOUNTER 2023-08-03 09:59 | Outpatient (REF) | payer BC, SELFPAY | END 2023-08-03 10:00 | disposition home or self-care (01) | LOC: HO.MDS 09:59 | PROVIDERS: Visit Provider Nurse Practitioner Family | DX: G61.81 Chronic inflammatory demyelinating polyneuritis (principal); J15.69 Pneumonia due to other Gram-negative bacteria | CPT/HCPCS: 96361; 96365; 96366; 96375; J1569; J2930 ==

== ENCOUNTER 2023-08-20 10:27 | Outpatient (REF) | payer BC, SELFPAY | END 2023-08-20 10:28 | disposition home or self-care (01) | LOC: HO.MDS 10:27 | PROVIDERS: Visit Provider Nurse Practitioner Family | DX: G61.81 Chronic inflammatory demyelinating polyneuritis (principal); J15.69 Pneumonia due to other Gram-negative bacteria | CPT/HCPCS: 96365; 96366; 96375; J1569; J2930 ==

== ENCOUNTER 2023-08-21 07:35 | Outpatient (REF) | payer BC, SELFPAY | END 2023-08-21 07:36 | disposition home or self-care (01) | LOC: HO.MDS 07:35 | PROVIDERS: Visit Provider Nurse Practitioner Family | DX: G61.81 Chronic inflammatory demyelinating polyneuritis (principal); J15.69 Pneumonia due to other Gram-negative bacteria | CPT/HCPCS: 96365; 96375; J1569; J2930 ==

== ENCOUNTER 2023-08-22 07:25 | Outpatient (REF) | payer BC, SELFPAY | END 2023-08-22 07:26 | disposition home or self-care (01) | LOC: HO.MDS 07:25 | PROVIDERS: Visit Provider Nurse Practitioner Family | DX: G61.81 Chronic inflammatory demyelinating polyneuritis (principal); J15.69 Pneumonia due to other Gram-negative bacteria | CPT/HCPCS: 96365; 96375; J1569; J2930 ==

== ENCOUNTER 2023-08-23 07:26 | Outpatient (REF) | payer BC, SELFPAY | END 2023-08-23 07:27 | disposition home or self-care (01) | LOC: HO.MDS 07:26 | PROVIDERS: Visit Provider Nurse Practitioner Family | DX: J15.69 Pneumonia due to other Gram-negative bacteria (principal); G61.81 Chronic inflammatory demyelinating polyneuritis; M62.81 Muscle weakness (generalized) | CPT/HCPCS: 96365; 96366; 96375; J1569; J2930 ==

== ENCOUNTER 2023-08-24 07:34 | Outpatient (REF) | payer BC, SELFPAY | END 2023-08-24 07:35 | disposition home or self-care (01) | LOC: HO.MDS 07:34 | PROVIDERS: Visit Provider Nurse Practitioner Family | DX: G61.81 Chronic inflammatory demyelinating polyneuritis (principal); J15.69 Pneumonia due to other Gram-negative bacteria | CPT/HCPCS: 96365; 96375; J1569; J2930 ==

== ENCOUNTER 2023-09-07 07:55 | Outpatient (REF) | payer BC, SELFPAY ==
[2023-09-07 11:30] LABS: Appearance Urine Clear; Color Urine Yellow; Glucose Urine UA Negative (Negative); Leukocyte Esterase Urine Negative (Negative); Nitrite Urine Negative (Negative); Urine Blood Negative (Negative); Urine Ketones Negative (Negative); Urine Protein Negative (Neg-Trace)
[2023-09-07 11:42] LABS: MANUAL DIFF FLAG NO
[2023-09-07 11:54] LABS: Basophils Percent Auto 0.2 % (0-2); Eosinophils Absolute Auto 0.1 X10*3/uL (0.0-0.4); Eosinophils Percent Auto 1.4 % (0-4); Hematocrit 43.6 % (42.0-52.0); Hemoglobin 14.6 g/dl (14.0-18.0); Imm Gran Abs Auto 0.02 X10*3/uL (0.00-0.03); Imm Gran Pct Auto 0.4 % (0.0-0.4); Lymphocytes Absolute Auto 1.4 X10*3/uL (1.2-4.9); Lymphocytes Percent Auto 27.3 % (20-40); Mean Corpuscular HGB Conc 33.5 g/dl (31.0-36.0); Mean Corpuscular Hemoglobin 29.9 pg (27.0-33.0); Mean Corpuscular Volume 89.2 fL (80.0-98.0); Mean Platelet Volume 10.4 fL (9.4-12.4); Monocytes Absolute Auto 0.5 X10*3/uL (0.1-1.2); Monocytes Percent Auto 9.3 % (2-11); Neutrophils Percent Auto 61.4 % (45-73); Platelet Count 196 X10*3/uL (160-400); Red Blood Count 4.89 X10*6/uL (4.60-5.80)
[2023-09-07 12:24] LABS: Alanine Aminotransferase 88 U/L (0-40); Albumin Level 4.3 g/dL (3.5-5.0); Alkaline Phosphatase 56 U/L (39-117); Anion Gap 15 (12-20); Aspartate Amino Transferase 38 U/L (5-37); Bilirubin Total 0.6 mg/dL (0.0-1.0); Blood Urea Nitrogen 18 mg/dL (9-16); Calcium 9.3 mg/dL (8.4-10.2); Carbon Dioxide 27 mmol/L (22-29); Chloride 105 mmol/L (96-108); Cholesterol 158 mg/dL (<200); Estimated Glomerular Filt Rate > 60; Glucose Fasting 95 mg/dL (60-99); HDL Cholesterol 33 mg/dL (>40); LDL Cholesterol Calculated 76 mg/dL (<100); Potassium 4.9 mmol/L (3.3-5.1); Sodium 142 mmol/L (135-145); Total Protein 8.1 g/dL (6.5-8.0); Triglycerides 247 mg/dL (<150)
[2023-09-07 12:43] LABS: TSH reflex Free T4 3.14 uIU/mL (0.32-4.0)
== END 2023-09-07 07:56 | disposition home or self-care (01) ==
LOC: HO.HMGCLDS 07:55
PROVIDERS: PCP Nurse Practitioner Family; Visit Provider Nurse Practitioner Family
DX: M62.81 Muscle weakness (generalized) (principal); E78.1 Pure hyperglyceridemia; R53.83 Other fatigue; R79.89 Other specified abnormal findings of blood chemistry
CPT/HCPCS: 36415; 80053; 80061; 81003; 84443; 85025

== ENCOUNTER 2023-09-10 07:37 | Outpatient (REF) | payer BC, SELFPAY | END 2023-09-10 07:38 | disposition home or self-care (01) | LOC: HO.MDS 07:37 | PROVIDERS: Visit Provider Nurse Practitioner Family | DX: G61.81 Chronic inflammatory demyelinating polyneuritis (principal); J15.69 Pneumonia due to other Gram-negative bacteria | CPT/HCPCS: 96365; 96366; 96375; J1200; J1569; J1720; J2930 ==

== ENCOUNTER 2023-09-10 12:59 | Outpatient (AMB) | payer BC, SELFPAY ==
[2023-09-10 13:05] VITALS: BP 126/74; PULSE 113; TEMP 36.2; O2SAT 93; BMI 33.6
--- NOTE | 2023-09-10 13:05 | MHC.OFFVIS ---
Intake Vital Signs 09/10/23 13:05 Height 5 ft 11 in Weight 240 lb 11.916 oz BMI 33.6 BP 126/74 Blood Pressure Location Lt brachial Position Sitting Pulse 113 H Pulse Source Pulse Oximeter Temp 97.1 F Temp Source Skin Pulse Oximetry (%) 93 Oxygen Delivery Method Room Air Intake Visit Reasons: Joint Pain Intake Note: New patient presents today for consult. C/o increasing joint, muscle pains. 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 Accompanied by: Self / Same As Patient Allergies fenofibrate [From TRICOR] Allergy (Unknown, Verified 09/10/23 13:10) ITCHING Medication List - Last Reconciled 09/10/23 by Raghu Damian MD amlodipine 5 mg PO DAILY [aspirin 1 tab PO DAILY] bupropion HCl 150 mg PO QAM cyclobenzaprine 5 mg PO BEDTIME PRN icosapent ethyl (Vascepa) 2 grams PO BID immun glob G(IgG)-gly-IgA ov50 10 % (Gammagard Liquid) Loading dose: 42 grams qd x's 5 days (for total LD of 210 GM), then continuous dose: 20 grams qd x's 5 days (for total CD 100 grams q 3 wks)every 3 weeks x's 3 months intravenously .; 3 months metoprolol succinate ER 25 mg PO DAILY montelukast 10 mg PO DAILY 90 days omeprazole 20 mg PO DAILY rosuvastatin 20 mg PO BEDTIME ubrogepant (Ubrelvy) 50 - 100 mg (0.5 - 1 x 100 mg) PO ONCE PRN 30 days HPI HPI Comments History of Present Illness Details This is a 52-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 He states that his symptoms started back in April of 2022 when he started noticing her his right calf twitching then it progressed to involve all his extremities. Last year also patientm injured himself while working out at the gym was having lower back and left hip pain. He was referred for physical therapy with some improvement. Patient was evaluated by Neurology and had CSF studies which showed increased protein, bilateral lower extremity EMG showed demyelinating and axonal neuropathy. He was evaluated by Ophthalmology for an episode of bilateral eye pain and twitching behind his left eye and per Ophthalmology patient has presumed left optic neuritis. He was eventually diagnosed with CIDP and was recently started on IVIG treatment. Concomitantly he has been having L-spine MRI to evaluate for herniated disc/radiculopathy. He is following up with [facility]. And had an epidural injection 2 weeks ago with some relief. Has also been doing PT for his lower back and hip with improvement. He states that 1-2 months ago he had 4-5 day history of bilateral hand pain and weakness. He could not make a fist. Did not notice any visible swelling. He also had COVID around that time. He denies any skin rashes. Denies any cough or shortness of breath. Denies any fevers or weight loss. Patient has history of CAD s/p stenting. No history of DVT/PE. He is unaware of any family history of an autoimmune rheumatic disease [facility] Medical History MELISSA on CPAP Muscle weakness Bilateral inguinal hernia Fatty liver Non-STEMI (non-ST elevated myocardial infarction) ADHD Myocardial infarction Surgical History History of heart artery stent History of coronary angiogram History of umbilical hernia Family History Father CVD (cardiovascular disease) Myocardial infarction Unknown family medical history HTN (hypertension) Mother CVD (cardiovascular disease) Maternal Grandmother Stroke Paternal Grandfather Diabetes mellitus Paternal Aunt Aneurysm Social History Household Members: None Housing: House Are you a primary physician assistant primary care to a significant other at home: No Do you presently have visiting nurse or other home services: No Alcohol intake: current Alcohol intake frequency: does not drink Patient Tobacco Use Status: Never used Tobacco e-Cigarette/Vaping Use: Never Used Second Hand Smoke Exposure: No service: No Current occupational status: employed Cognitive needs: No Hearing needs: No Vision needs: Yes Review of Systems Const Denies fever(s), Reports weakness and Denies weight loss Card Denies dyspnea and Denies dyspnea on exertion Resp Denies cough, Denies dyspnea and Denies dyspnea on exertion Musc Reports back pain, Reports radiating pain into limb and Reports tingling Skin/Breast Denies rash Neuro Reports tingling and Reports weakness Physical Exam Vital Signs: Last Vital Signs Temp 97.1 F 09/10/23 13:05 Pulse 113 H 09/10/23 13:05 BP 126/74 09/10/23 13:05 Pulse Ox 93 09/10/23 13:05 Oxygen Delivery Method Room Air 09/10/23 13:05 BMI result Body Mass Index 33.6 Const General: cooperative, healthy appearing and comfortable Nutritional Appearance: obese Orientation/consciousness: patient oriented x3 Limitations: no limitations HEENT Head: Yes normocephalic and Yes atraumatic Mouth: moist mucous membranes Resp Effort & Inspection: normal respiratory effort and able to speak in complete sentences Auscultation: clear to auscultation bilaterally Cardio Rate: regular rate Rhythm: regular rhythm Skin General skin exam: no rashes or lesions noted Neuro Other: Normal sensation to light touch all 4 extremities General: patient oriented x3 Extrem Other: No Active synovitis Normal nailfold capillaroscopy Negative straight leg raise test bilaterally Not trochanteric bursa area tenderness bilaterally Assessment & Plan Assessment & Plan (1) Chronic inflammatory demyelinating neuropathy: Code(s): G61.81 - Chronic inflammatory demyelinating polyneuritis Plan: This is a 52-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 Recently diagnosed with CIDP and started on IVIG 2 months ago. Upon evaluation I do not see any signs suggestive of an autoimmune rheumatic disease. Discussed with patient's symptoms and signs that are suggestive of an autoimmune rheumatic disease. Advised patient to call and make a follow-up appointment Plan I spent 47 minutes reviewing patient's chart (reviewing outside records from Ophthalmology, [facility] spine [facility] sports, different imaging studies from outside imaging Centers), evaluating patient, counseling patient and documenting in the chart Medications: Changed From cyclobenzaprine 5 mg PO BEDTIME 30 days 30 tabs 3RF muscle spasm To cyclobenzaprine 5 mg PO BEDTIME PRN muscle spasm Coding Level of Care Code New Pt Level 4 (16102) Diagnoses Chronic inflammatory demyelinating neuropathy G61.81
== END 2023-09-10 13:44 | disposition home or self-care (01) ==
PROVIDERS: PCP Nurse Practitioner Family; Visit Provider Student in an Organized Health Care Education/Training Program
DX: G61.81 Chronic inflammatory demyelinating polyneuritis (principal)
CPT/HCPCS: 99204

== ENCOUNTER 2023-09-11 07:17 | Outpatient (REF) | payer BC, SELFPAY | END 2023-09-11 07:18 | disposition home or self-care (01) | LOC: HO.MDS 07:17 | PROVIDERS: Visit Provider Nurse Practitioner Family | DX: G61.81 Chronic inflammatory demyelinating polyneuritis (principal); J15.69 Pneumonia due to other Gram-negative bacteria | CPT/HCPCS: 96365; 96366; 96375; J1569; J2930 ==

== ENCOUNTER 2023-09-12 11:00 | Outpatient (REF) | payer BC, SELFPAY | END 2023-09-12 11:01 | disposition home or self-care (01) | LOC: HO.MDS 11:00 | PROVIDERS: Visit Provider Nurse Practitioner Family | DX: G61.81 Chronic inflammatory demyelinating polyneuritis (principal); J15.69 Pneumonia due to other Gram-negative bacteria | CPT/HCPCS: 96365; 96366; 96375; J1569; J2930 ==

== ENCOUNTER 2023-09-13 07:12 | Outpatient (REF) | payer BC, SELFPAY | END 2023-09-13 07:13 | disposition home or self-care (01) | LOC: HO.MDS 07:12 | PROVIDERS: Visit Provider Nurse Practitioner Family | DX: G61.81 Chronic inflammatory demyelinating polyneuritis (principal); J15.69 Pneumonia due to other Gram-negative bacteria | CPT/HCPCS: 96361; 96365; 96375; J1569; J2930 ==

== ENCOUNTER 2023-09-14 07:13 | Outpatient (REF) | payer BC, SELFPAY | END 2023-09-14 07:14 | disposition home or self-care (01) | LOC: HO.MDS 07:13 | PROVIDERS: Visit Provider Nurse Practitioner Family | DX: G61.81 Chronic inflammatory demyelinating polyneuritis (principal); J15.69 Pneumonia due to other Gram-negative bacteria | CPT/HCPCS: 96365; 96366; 96375; J1569; J2930 ==

== ENCOUNTER 2023-10-02 07:35 | Outpatient (REF) | payer BC, SELFPAY | END 2023-10-02 07:36 | disposition home or self-care (01) | LOC: HO.MDS 07:35 | PROVIDERS: Visit Provider Nurse Practitioner Family | DX: G61.81 Chronic inflammatory demyelinating polyneuritis (principal) | CPT/HCPCS: 96365; 96366; 96375; J1569; J2930 ==

== ENCOUNTER 2023-10-03 07:50 | Outpatient (REF) | payer BC, SELFPAY | END 2023-10-03 07:51 | disposition home or self-care (01) | LOC: HO.MDS 07:50 | PROVIDERS: Visit Provider Nurse Practitioner Family | DX: G61.81 Chronic inflammatory demyelinating polyneuritis (principal); J15.69 Pneumonia due to other Gram-negative bacteria | CPT/HCPCS: 96365; 96366; 96375; J1569; J2930 ==

== ENCOUNTER 2023-10-04 07:32 | Outpatient (REF) | payer BC, SELFPAY | END 2023-10-04 07:33 | disposition home or self-care (01) | LOC: HO.MDS 07:32 | PROVIDERS: Visit Provider Nurse Practitioner Family | DX: G61.89 Other inflammatory polyneuropathies (principal); J15.69 Pneumonia due to other Gram-negative bacteria | CPT/HCPCS: 96365; 96366; 96375; J1569; J2930 ==

== ENCOUNTER 2023-10-05 07:23 | Outpatient (REF) | payer BC, SELFPAY | END 2023-10-05 07:24 | disposition home or self-care (01) | LOC: HO.MDS 07:23 | PROVIDERS: Visit Provider Nurse Practitioner Family | DX: G61.81 Chronic inflammatory demyelinating polyneuritis (principal); J15.69 Pneumonia due to other Gram-negative bacteria | CPT/HCPCS: 96365; 96366; 96375; J1569; J2930 ==

== ENCOUNTER 2023-10-10 10:19 | Outpatient (AMB) | payer BC, SELFPAY ==
--- NOTE | 2023-10-10 10:20 | MHC.OFFVIS ---
Intake Intake Visit Reasons: 3 mntsf/u for Neuropathy - Cofirmed Intake Note: Patient following up on concerns he still having. pain in back and legs. Allergies fenofibrate [From TRICOR] Allergy (Unknown, Verified 10/10/23 10:21) ITCHING HPI HPI Comments History of Present Illness Details 52-yr-old male presents for f/u televideo visit via [employer]. Pt has started IVIG, which has had some benefit. He has 1 IVIG cycle left. He had an occasional day where he feels almost normal, but this is not consistent. He is still f/b PS&S- who recently gave pt a lower lumbar/sacral injection. Had a recent vision exam- pt states he had a very slight decrease in vision, but not enough to change the prescription. He notes that he can feel a non-visible eye twitch and it can seem like he is looking through a film. His arms do feel better- some occasional tingling. He can still feel clammy, can wake up at night sweaty. Has had 3 episodes where he feels that his words just won't come out- this has happened at the end of the IVIG cycle. Has lower lumbar region tightness. Has a quick shock pain from bilateral groin- not all the way done the leg. This is similar but less than the previous RLE sciatica symptoms. He can still have Left hip muscle intense muscle twitching/spasm. He is doing a Tiger machine- which he feels is helping his hip mobility and back tightness. He has noticed decreased cramping with physical activity. He has been trying to eat better- and has had some weight loss. He is trying to use the Cyclobenzaprine more sparingly. Last weekend, he did drink 2 hard ciders while out and was standing for a while. The next morning he woke up feeling increased tightness. twitching. He denies family history of polyneuropathy. His mother had only crapal tunnel syndrome. [facility] Medical History MELISSA on CPAP Muscle weakness Bilateral inguinal hernia Fatty liver Non-STEMI (non-ST elevated myocardial infarction) ADHD Myocardial infarction Surgical History History of heart artery stent History of coronary angiogram History of umbilical hernia Family History Father CVD (cardiovascular disease) Myocardial infarction Unknown family medical history HTN (hypertension) Mother CVD (cardiovascular disease) Maternal Grandmother Stroke Paternal Grandfather Diabetes mellitus Paternal Aunt Aneurysm Social History Household Members: None Housing: House Are you a primary healthcare administration intern to a significant other at home: No Do you presently have visiting nurse or other home services: No Alcohol intake: current Alcohol intake frequency: does not drink Patient Tobacco Use Status: Never used Tobacco e-Cigarette/Vaping Use: Never Used Second Hand Smoke Exposure: No service: No Current occupational status: employed Cognitive needs: No Hearing needs: No Vision needs: Yes Physical Exam Const General: cooperative and no acute distress Orientation/consciousness: patient oriented x3 Resp Effort & Inspection: normal respiratory effort and able to speak in complete sentences Neuro General: patient oriented x3 Cognition (Neuro): normal cognition Psych Appearance: grossly normal Mental Status: mental status grossly normal Speech and movement: Normal speech and movement present Affect: normal affect Attitude: cooperative Results Reviewed Results Reviewed: Results Reviewed: 01/2023: BLE EMG/NCS: [id number] sensory and motor peripheral neuropathy with features of demyelination and axonal loss. 02/05/23 08:02 Hemoglobin A1c % 5.2 10/10/22 02/05/23 02/26/23 08:55 08:02 Unknown Ur Creatinine 24 Hour 2.71 (H) Ur Albumin 24 Hour 100 Ur Total Protein 24 Hr 119 Ur Total Protein Interp NORMAL PATTERN Protein/Creat Ratio 24h 44 Ur Protein/Creat Ratio mg/mg 0.044 U Piach-9-Hxamroyo 0 U Poyql-5-Dwbjcwiu 0 U Beta Globulin 0 U Gamma Globulin 0 Rheumatoid Factor < 13.0 PAULINA Screen NEGATIVE T.pallidum Ab (EIA) Nonreactive Lyme Screen IgG & IgM <0.90 <0.90 Hepatitis A IgM Ab Nonreactive Hep Bs Antigen Negative Hep Bs Antibody NONREACTIVE Hep B Core Total Ab Nonreactive Hepatitis C Ab (EIA) Nonreactive HIV 1&2 Ab/P24 Ag 4thGn Nonreactive 03/05/23 04/02/23 04/02/23 07:30 11:36 13:20 CSF Tube Number 4 CSF Volume 3.0 CSF Appearance CLEAR CSF Color COLORLESS CSF WBC 1 CSF RBC 5 CSF Lymphocytes 90 CSF Monocytes % 10 CSF Appearance (b) Clear, Colorless CSF Glucose 64 CSF Total Protein 66.1 H CSF Albumin 47.0 H CSF IgG Index 0.45 CSF IgG Synthesis Rate -2.7 CSF Oligoclonal Bands Absent CSF/Serum IgG Index 5.2 Ur Arsenic 24 Hour <10 Urine Cadmium 24 Hour <0.5 Urine Lead 24 Hour <10 Urine Mercury 24 Hour <4 IgG Index 931 04/02/23 06/18/23 09/07/23 14:19 07:50 08:00 WBC 5.0 RBC 4.89 Hgb 14.6 Hct 43.6 MCV 89.2 MCH 29.9 ESR 6 Sodium 142 Potassium 4.9 Chloride 105 Carbon Dioxide 27 Anion Gap 15 BUN 18 H Creatinine 1.20 Fasting Glucose 95 Calcium 9.3 Total Bilirubin 0.6 AST 38 H ALT 88 H Alkaline Phosphatase 56 Total Creatine Kinase 119 Total Protein 8.1 H Albumin 4.3 Triglycerides 247 H Cholesterol 158 LDL Cholesterol, Calc 76 HDL Cholesterol 33 L TSH 3.14 Anti-Smooth Muscle Ab <20 Acetylchol Rcpt Block Ab <15 Acetylchol Rcpt Bind Ab <0.30 Acetylchol Rcpt Modu Ab 22 Assessment & Plan Assessment & Plan (1) Chronic inflammatory demyelinating neuropathy: Code(s): G61.81 - Chronic inflammatory demyelinating polyneuritis (2) Migraine without aura: Code(s): G43.009 - Migraine without aura, not intractable, without status migrainosus Plan CIDP: Pt has reported sensory and motor weakness. LE motor weakness has been observed on previous in-person exam. Work-up has not revealed alternate etiology for pt's axonal and demyelinating neuropathy w/ motor weakness. Specifically, there is no evidence of diabetes or hypergylcemia, UPEP did not reveal any abnormalities- specifically no M proteins were observed, and pt denies any family h/o polyneuropathy. Patients symptoms of paresthesias and weakness in setting of BLE EMG showing demyelinating changes and CSF studies showing elevated total protein w/ normal CSF WBC, are c/w a diagnosis of CIDP. Continue IVIG to complete initial IVIG 12 week cycle: IVIG Loading dose: 42 grams qd x's 5 days (for total LD of 210 GM), then continuous dose: 20 grams qd x's 5 days (for total CD 100 grams q 3 wks) every 3 weeks x's 3 months Pt again advised that it may take several IVIG infusion cycles to see full response. Upon completion of upcoming IVIG cycle, pt may return to work with the restriction of no climbing d/t residual leg weakness through 10/28/22, and then, assuming no significant meidcal changes, pt may return to work w/o restriction effective 10/29/23. For migarine: Ubrogepant (Ubrelvy) 100mg tab, 1/2 - 1 tab (50-100mg) at onset of headache, may repeat in 2 hours. Max of 2 tabs (200mg) per 24 hours. May adjunct with OTC Tylenol 650mg q 4 hours, Ibuprofen 600mg q 6 hours, or Naproxen 440mg q 12 hrs prn. Migraine tx contraindications- all triptans d/t h/o UT. Telehealth Telehealth Location of provider rendering services: practice address Location of patient: address on file Patient Identification confirmed using: Name, : Yes Telehealth method: video Patient verbally consented to treatment: Yes Patient verbally consented to billing insurance company: Yes Patient informed of any privacy concerns related to visit: Yes Minutes spent on Phone/Video with Pt.: 61 Coding Level of Care Code Tele Est Pt Level 5 (90841) Diagnoses Chronic inflammatory demyelinating neuropathy G61.81 Migraine without aura G43.009
== END 2023-10-10 13:59 | disposition home or self-care (01) ==
LOC: HO.HSMS 10:19
PROVIDERS: PCP Nurse Practitioner Family; Visit Provider Nurse Practitioner Family
DX: G61.81 Chronic inflammatory demyelinating polyneuritis (principal); G43.009 Migraine without aura, not intractable, without status migrainosus
CPT/HCPCS: 99215

== ENCOUNTER → 2023-10-10 10:19 | Outpatient (BNVA) | payer BC, SELFPAY | PROVIDERS: PCP Nurse Practitioner Family; Visit Provider Nurse Practitioner Family ==

== ENCOUNTER 2023-10-22 07:58 | Outpatient (REF) | payer BC, SELFPAY ==
[2023-10-22] MEDS: 0.9 % Sodium Chloride 500 ML 999 ML IV (07:40)
[2023-10-22] MEDS: Immun Glob G(IgG)/Gly/IGA Ov50 200 ML IV (08:45)
[2023-10-22] MEDS: methylPREDNISolone Sod Succ 125 MG/2 ML VIAL 100 MG IVPUSH (08:49)
[2023-10-22] MEDS: diphenhydrAMINE HCL 25 MG TABLET PO (08:49)
[2023-10-22 08:52] VITALS: BP 116/70; PULSE 70; RESP 18; TEMP 36.9; O2SAT 96
[2023-10-22 09:00] VITALS: BP 107/71; PULSE 69; RESP 18; O2SAT 98
[2023-10-22 09:20] VITALS: BP 117/65; PULSE 69; RESP 18; O2SAT 96
[2023-10-22 09:30] VITALS: BP 110/73; PULSE 61; RESP 18; O2SAT 96
[2023-10-22 09:45] VITALS: BP 105/67; PULSE 69; RESP 18; O2SAT 18
[2023-10-22 10:30] VITALS: BP 124/73; PULSE 78; RESP 18; O2SAT 96
== END 2023-10-22 07:59 | disposition home or self-care (01) ==
LOC: HO.MDS 07:58
PROVIDERS: Visit Provider Nurse Practitioner Family
DX: G61.81 Chronic inflammatory demyelinating polyneuritis (principal); J15.69 Pneumonia due to other Gram-negative bacteria
CPT/HCPCS: 96361; 96365; 96366; 96375; J1569; J2930

== ENCOUNTER 2023-10-23 07:57 | Outpatient (REF) | payer BC, SELFPAY ==
[2023-10-23] VITALS (7 sets, daily range): BP systolic 111–132; BP diastolic 71–79; PULSE 57–73; RESP 16–18; TEMP 36.9; O2SAT 99
[2023-10-23] MEDS: methylPREDNISolone Sod Succ 125 MG/2 ML VIAL 100 MG IVPUSH (08:15)
[2023-10-23] MEDS: 0.9 % Sodium Chloride 500 ML 999 ML IV (08:16)
[2023-10-23] MEDS: Immun Glob G(IgG)/Gly/IGA Ov50 200 ML IV (08:24)
[2023-10-23] MEDS: diphenhydrAMINE HCL 25 MG TABLET PO (08:25)
== END 2023-10-23 07:58 | disposition home or self-care (01) ==
LOC: HO.MDS 07:57
PROVIDERS: Visit Provider Nurse Practitioner Family
DX: G61.81 Chronic inflammatory demyelinating polyneuritis (principal); J15.69 Pneumonia due to other Gram-negative bacteria
CPT/HCPCS: 96365; 96366; 96375; J1569; J2920; J2930

== ENCOUNTER 2023-10-24 07:42 | Outpatient (REF) | payer BC, SELFPAY ==
[2023-10-24 07:47] VITALS: BP 131/78; PULSE 88; RESP 18; TEMP 36.9; O2SAT 98
[2023-10-24 07:54] VITALS: BMI 30.7
[2023-10-24] MEDS: methylPREDNISolone Sod Succ 125 MG/2 ML VIAL 100 MG IVPUSH (08:00)
[2023-10-24] MEDS: diphenhydrAMINE HCL 25 MG CAPSULE PO (08:00)
[2023-10-24] MEDS: 0.9 % Sodium Chloride 500 ML 999 ML IV (08:01)
[2023-10-24] MEDS: Immun Glob G(IgG)/Gly/IGA Ov50 200 ML IV (08:10)
[2023-10-24 08:25] VITALS: BP 134/83; PULSE 88
[2023-10-24 08:40] VITALS: BP 125/77; PULSE 85
[2023-10-24 08:55] VITALS: BP 128/82; PULSE 78
[2023-10-24 09:10] VITALS: BP 110/88; PULSE 82
[2023-10-24 09:40] VITALS: BP 129/80; PULSE 71
== END 2023-10-24 07:43 | disposition home or self-care (01) ==
LOC: HO.MDS 07:42
PROVIDERS: Visit Provider Nurse Practitioner Family
DX: G61.81 Chronic inflammatory demyelinating polyneuritis (principal); J15.69 Pneumonia due to other Gram-negative bacteria
CPT/HCPCS: 96365; 96366; 96375; J1200; J1569; J2930

== ENCOUNTER 2023-10-25 07:42 | Outpatient (REF) | payer BC, SELFPAY ==
[2023-10-25] VITALS (7 sets, daily range): BP systolic 114–141; BP diastolic 73–94; PULSE 75–90; RESP 16–18; TEMP 37.2; O2SAT 99
[2023-10-25] MEDS: 0.9 % Sodium Chloride 500 ML 999 ML IV (07:56)
[2023-10-25] MEDS: methylPREDNISolone Sod Succ 125 MG/2 ML VIAL 100 MG IVPUSH (07:56)
[2023-10-25] MEDS: diphenhydrAMINE HCL 25 MG CAPSULE PO (07:56)
[2023-10-25] MEDS: Immun Glob G(IgG)/Gly/IGA Ov50 200 ML IV (08:05)
== END 2023-10-25 07:43 | disposition home or self-care (01) ==
LOC: HO.MDS 07:42
PROVIDERS: Visit Provider Nurse Practitioner Family
DX: G61.81 Chronic inflammatory demyelinating polyneuritis (principal); J15.69 Pneumonia due to other Gram-negative bacteria
CPT/HCPCS: 96365; 96366; 96375; J1569; J2930

== ENCOUNTER 2023-10-26 07:50 | Outpatient (REF) | payer BC, SELFPAY ==
[2023-10-26 07:55] VITALS: BP 133/84; PULSE 74; RESP 18; TEMP 37; O2SAT 100
[2023-10-26 07:56] VITALS: BMI 30.7
[2023-10-26] MEDS: 0.9 % Sodium Chloride 500 ML 999 ML IV (08:08)
[2023-10-26] MEDS: diphenhydrAMINE HCL 25 MG CAPSULE PO (08:08)
[2023-10-26] MEDS: methylPREDNISolone Sod Succ 125 MG/2 ML VIAL 100 MG IVPUSH (08:08)
[2023-10-26] MEDS: Immun Glob G(IgG)/Gly/IGA Ov50 200 ML IV (08:21)
[2023-10-26 08:40] VITALS: BP 145/87; PULSE 75
[2023-10-26 08:55] VITALS: BP 148/85; PULSE 74
[2023-10-26 09:11] VITALS: BP 126/83; PULSE 62
[2023-10-26 09:25] VITALS: BP 129/83; PULSE 68
[2023-10-26 09:53] VITALS: BP 136/78; PULSE 71
== END 2023-10-26 07:51 | disposition home or self-care (01) ==
LOC: HO.MDS 07:50
PROVIDERS: Visit Provider Nurse Practitioner Family
DX: G61.81 Chronic inflammatory demyelinating polyneuritis (principal); J15.69 Pneumonia due to other Gram-negative bacteria
CPT/HCPCS: 96365; 96366; 96375; J1569; J2930

== ENCOUNTER 2024-01-04 11:15 | Outpatient (AMB) | payer BC, SELFPAY ==
--- NOTE | 2024-01-04 11:32 | MHC.OFFVIS ---
Vital Signs 01/04/24 11:34 Height 5 ft 11 in Weight 226 lb BMI 31.5 BP 142/82 H Blood Pressure Location Rt brachial Position Sitting Pulse 73 Pulse Source Pulse Oximeter Pulse Oximetry (%) 95 Oxygen Delivery Method Room Air Intake Visit Reasons: follow up Neuropathy-CONF Intake Note: Patient presents for follow up neuropathy. patient continually declining with everything he's had to deal with. Allergies fenofibrate [From TRICOR] Allergy (Unknown, Verified 01/04/24 11:35) ITCHING Medication List - Last Reconciled 01/04/24 by BERYL [place] amlodipine 5 mg PO DAILY [aspirin 1 tab PO DAILY] bupropion HCl XL 150 mg PO QAM cyclobenzaprine 5 mg PO BEDTIME PRN icosapent ethyl (Vascepa) 2 grams PO BID immun glob G(IgG)-gly-IgA ov50 10 % (Gammagard Liquid) Loading dose: 42 grams qd x's 5 days (for total LD of 210 GM), then continuous dose: 20 grams qd x's 5 days (for total CD 100 grams q 3 wks)every 3 weeks x's 3 months intravenously .; 3 months immun glob G(IgG)-gly-IgA ov50 10 % (Gammagard Liquid) continuous dose: 40 grams qd x's 1 day then 20mg qd x's 3 days intravenously then resume 20mg qd x's 5 days every 3 weeks; metoprolol succinate ER 25 mg PO DAILY montelukast 10 mg PO DAILY 90 days omeprazole 20 mg PO DAILY rosuvastatin 20 mg PO BEDTIME ubrogepant (Ubrelvy) 50 - 100 mg (0.5 - 1 x 100 mg) PO ONCE PRN 30 days HPI Comments Details: 53-yr-old male presents for f/u visit for CIDP and MELISSA. Pt has a number of issues he would like to address today. Pt reports that he was at his worse in the fall/winter prior to starting IVIG. Could barely walk due LE pain and weakness. As he completed the IVIG in October, his legs felt better- stronger and less achy pain. However, he did start to develop BUE soreness, achiness, stiffness, tingling, some decreased strength/coordination. IVIG was held after initial 3 month course pending insurance authorization. Pt did have rheumatology consult- they did not feel pt had s/s suggestive of an autoimmune process. Since completing IVIG in October, pt reports: He has been noticing twitching above his eyes, and having more episodes of visual episodes- has tried using tear gtts- not sure if it has helped. He states these visual episodes started in Summer 2021, he started having episodes of feeling like when he looks at something- it seems distant, blotchy, difficult to see. This would start in the morning and clear by the end of the day. This may/may not be a/w headache. He is prone to photophobia. He is f/b ophthalmology- recent exam NL. Brain MRI w/wo, 06/04, few nonspecific foci of T2 prolongation in white matter (largest near the frontal horn)- unchanged from previous study in 2021. Generally he feels worse in the morning- wakes up feeling like a truck hit him, feels better once he is up and moving. He has hand aching pain, fuzzy feeling in his forearms, hand stiffness, some difficulty writing or opening up bottles. He has foot pain and stiffness if sitting for longer period. He continues to have cisco thigh pain. He is having pain around his knees- feels like the knee will blow up -like a shooting pain, triggered by flexing his knees, especially if trying to squat on his toes. He feels the weakness and pain is better when moving, though the thigh weakness can make it difficult to complete his exercise regimen as he fatigues. The legs fatigue easier than the arms. Generally he feels more joint pain. He is exercising- strength training in upper body, more body weight exercises for lower body. He still needs to use his hands to lift the left leg in hip flexion. His left foot still does not hyperextend well. He still feels thigh weakness- degree fluctuates some. Continues to have bilateral foot burning and numbness. Has some heel pain. Feet feel better when he is wearing his shoes. He does feel twitching all over his body. He has random hiccups. Sometimes his voice will cut off- these were not present prior to IVIG. Is having a swallowing study- for occasional difficulty swallowing. His bowel movements were better on IVIG- less greasy, but since off, this is worse again. He is following w/ GI. He has more urinary urgency. He is feeling more saliva production when talking. He is waking up more frequently at night, wakes up unrefreshed. He is compliant w/ his APAP 6-20 cmH2O and residual AHI 0.3/hr. [facility] Medical History MELISSA on CPAP Muscle weakness Bilateral inguinal hernia Fatty liver Non-STEMI (non-ST elevated myocardial infarction) ADHD Myocardial infarction Surgical History History of heart artery stent History of coronary angiogram History of umbilical hernia Family History Father CVD (cardiovascular disease) Myocardial infarction Unknown family medical history HTN (hypertension) Mother CVD (cardiovascular disease) Maternal Grandmother Stroke Paternal Grandfather Diabetes mellitus Paternal Aunt Aneurysm Social History Household Members: None Housing: House Are you a primary career specialist to a significant other at home: No Do you presently have visiting nurse or other home services: No Alcohol intake: current Alcohol intake frequency: does not drink Patient Tobacco Use Status: Never used Tobacco e-Cigarette/Vaping Use: Never Used Second Hand Smoke Exposure: No service: No Current occupational status: employed Cognitive needs: No Hearing needs: No Vision needs: Yes Review of Systems Const All systems reviewed & are unremarkable except as noted in HPI and below Physical Exam Vital Signs: Last Vital Signs Pulse 73 01/04/24 11:34 BP 142/82 H 01/04/24 11:34 Pulse Ox 95 01/04/24 11:34 Oxygen Delivery Method Room Air 01/04/24 11:34 BMI result Body Mass Index 31.5 Const General: cooperative and no acute distress Orientation/consciousness: patient oriented x3 HEENT Head: Yes normocephalic Resp Effort & Inspection: normal respiratory effort and able to speak in complete sentences Neuro Other: BUE MS 5/5 RLE MS 5/5 LLE MS 5-/5 in hip flexion and foot/ankle extension Slight stoop, mils antalgic gait w/ steps w/ low floor clearance. General: patient oriented x3 and CN's II-XI intact bilaterally Cognition (Neuro): normal cognition Deep tendon reflexes (DTR's): Right triceps reflex intensity grade: 2+, Left triceps reflex intensity grade: 2+, Rt Biceps (C5, C6): 2+, Left biceps reflex intensity grade: 2+, Right brachioradialis reflex intensity grade: 2+, Left brachioradialis reflex intensity grade: 2+, Right patellar reflex intensity grade: 1+ and Left patellar reflex intensity grade: 0 Psych Appearance: grossly normal Mental Status: mental status grossly normal Affect: normal affect Attitude: cooperative Thought process: Normal thought process present Assessment & Plan Assessment & Plan (1) Chronic inflammatory demyelinating neuropathy: Code(s): G61.81 - Chronic inflammatory demyelinating polyneuritis Category: Medical (2) Migraine without aura: Code(s): G43.009 - Migraine without aura, not intractable, without status migrainosus Category: Medical (3) Vision changes: Code(s): H53.9 - Unspecified visual disturbance Category: Medical Plan For chronic demyelinating inflammatory polyneuropathy: Resume IVIG as pt had clinical benefit from IVIG in terms of increased muscle strength and endurance, and decreased paresthesias, which have returned since IVIG was stopped in October. Will reinitiate with loading dose as pt's last tx was almost 3 months ago. Note dose is decreased slightly as pt has had an intentional wt loss: IVIG Loading dose: 40 grams qd x's 5 days (for total LD of 200 GM), then continuous dose: 20 grams qd x's 5 days (for total CD 100 grams q 3 wks) every 3 weeks x's 3 months. Pt requests home infusion if possible. Will take the liberty of referring [place] [facility] [place]- pt may benefit from a comprehensive care center. Continue paced exercise. For back pain: Follow-up w/ PS&S For GI s/s: F/u w/ GI as scheduled. For vision changes, blurry vision, photophobia: Will schedule pt for Visual Evoked Potential. Again, trial Ubrogepant (Ubrelvy)- to see if these s/s are CGRP responsive. Ubrogepant 100mg tab instructions: 1/2 - 1 tab (50-100mg) at onset of headache, may repeat in 2 hours. Max of 2 tabs (200mg) per 24 hours. May adjunct with OTC Tylenol 650mg q 4 hours, Ibuprofen 600mg q 6 hours, or Naproxen 440mg q 12 hrs prn. Migraine tx contraindications- all triptans d/t h/o NE. For MELISSA: Continue APAP 6-20 cmH2O nightly > 4 hrs. Case discussed w/ Dr Ann Jacobo. f/u in 3 months or sooner prn. Orders: Orders Visual evoked potential 01/04/24 G43.009 - Migraine without aura, not intractable, without status migrainosus, G6.81 - Chronic inflammatory demyelinating polyneuritis, H53.9 - Unspecified visual disturbance Referrals Neurology Referral G6.81 - Chronic inflammatory demyelinating polyneuritis Medications: Changed From immun glob G(IgG)-gly-IgA ov50 10 % (Gammagard Liquid) Loading dose: 42 grams qd x's 5 days (for total LD of 210 GM), then continuous dose: 20 grams qd x's 5 days (for total CD 100 grams q 3 wks)every 3 weeks x's 3 months intravenously .; 3 months 0RF G6.81 - Chronic inflammatory demyelinating polyneuritis To immun glob G(IgG)-gly-IgA ov50 10 % (Gammagard Liquid) Loading dose: 40 grams qd x's 5 days (for total LD of 200 GM), then continuous dose: 20 grams qd x's 5 days (for total CD 100 grams q 3 wks)every 3 weeks x's 3 months intravenously. 3 months 0RF G6.81 - Chronic inflammatory demyelinating polyneuritis Coding Level of Care Code Est Pt Level 5 (03451) Diagnoses Chronic inflammatory demyelinating neuropathy G6.81 Migraine without aura G43.009 Vision changes H53.9 Time Spent (min) 65 Comment > 60 min spent directly w/ pt, 20 min spent in documentation and coordination of care.
[2024-01-04 11:34] VITALS: BP 142/82; PULSE 73; O2SAT 95; BMI 31.5
== END 2024-01-04 13:11 | disposition home or self-care (01) ==
PROVIDERS: PCP Nurse Practitioner Family; Visit Provider Nurse Practitioner Family
DX: G61.81 Chronic inflammatory demyelinating polyneuritis (principal); G43.009 Migraine without aura, not intractable, without status migrainosus; H53.9 Unspecified visual disturbance
CPT/HCPCS: 99215

== ENCOUNTER → 2024-01-04 11:15 | Outpatient (BNVA) | payer BC, SELFPAY | PROVIDERS: PCP Nurse Practitioner Family; Visit Provider Nurse Practitioner Family ==

== ENCOUNTER 2024-02-26 07:32 | Outpatient (AMB) | payer BC, SELFPAY ==
[2024-02-26 07:36] VITALS: BP 118/80; PULSE 82; O2SAT 96; BMI 32.8
--- NOTE | 2024-02-26 07:36 | MHC.PC.OV ---
Vital Signs 02/26/24 07:36 Height 5 ft 11 in Weight 235 lb BMI 32.8 BP 118/80 Blood Pressure Location Lt brachial Position Sitting Pulse 82 Pulse Source Pulse Oximeter Pulse Oximetry (%) 96 Oxygen Delivery Method Room Air Intake Visit Reasons: Physical exam Intake Note: Pt is here today for his PE Allergies fenofibrate [From TRICOR] Allergy (Unknown, Verified 02/26/24 07:38) ITCHING Medication List - Last Reconciled 02/26/24 by CAROLYN Mendieta amlodipine 5 mg PO DAILY [aspirin 1 tab PO DAILY] bupropion HCl XL 150 mg PO QAM cyclobenzaprine 5 mg PO BEDTIME PRN 30 days icosapent ethyl (Vascepa) 2 grams PO BID metoprolol succinate ER 25 mg PO DAILY montelukast 10 mg PO DAILY 90 days omeprazole 20 mg PO DAILY rosuvastatin 20 mg PO BEDTIME Tobacco use date assessed: 02/26/24 Dental Screening Dental Screen Date: 02/26/24 Did you have a dental visit in the last 12 months?: Yes Did you have a dental problem in the last 6 months where you did not have access to dental care?: No Was dental information given to patient?: Patient has dentist HPI Physical exam HPI Details pt is here for a PE. Pt is seeing neurology (CIDP-diagnosed and currently being treated), PSSP, cardiology, urology, and gastro. [facility] Medical History BPH (benign prostatic hyperplasia) MELISSA on CPAP Muscle weakness Bilateral inguinal hernia Fatty liver Non-STEMI (non-ST elevated myocardial infarction) ADHD Myocardial infarction Surgical History History of heart artery stent History of coronary angiogram History of umbilical hernia Family History Father CVD (cardiovascular disease) Myocardial infarction Unknown family medical history HTN (hypertension) Mother CVD (cardiovascular disease) Maternal Grandmother Stroke Paternal Grandfather Diabetes mellitus Paternal Aunt Aneurysm Social History Household Members: None Housing: House Are you a primary health care attorney to a significant other at home: No Do you presently have visiting nurse or other home services: No Alcohol intake: current Alcohol intake frequency: does not drink Patient Tobacco Use Status: Never used Tobacco e-Cigarette/Vaping Use: Never Used Second Hand Smoke Exposure: No service: No Current occupational status: employed Cognitive needs: No Hearing needs: No Vision needs: Yes Questionnaire PHQ-9 Over the last 2 weeks, how often have you been bothered by any of the following problems? [address]408 - PHQ-9 Billing: Patient declined-do not bill Source: Developed by Drs. Anoop Hackett, Francesca Fu, Eliceo Escobar and colleagues, with an educational josi from [employer]. Thrive Questionnaire Date Thrive assessed: 02/25/24 I am a: Patient What is your living situation today?: I choose not to answer this question Within the past 12 months, did the food you bought not last and you didn't have the money to get more?: I choose not to answer this question Within the past 12 months, did you worry whether your food would run out before you got money to buy more?: I choose not to answer this question Do you have trouble paying for medicines?: I choose not to answer this question Do you have trouble getting transportation to medical appointments?: I choose not to answer this question Do you have trouble paying your heating and electricity bill?: I choose not to answer this question Do you have trouble taking care of your child, family member or friend?: I choose not to answer this question Do you have trouble with day-to-day activities such as bathing, preparing meals, shopping, managing finances, etc.?: I choose not to answer this question Are you currently unemployed and looking for a job?: I choose not to answer this question Are you interested in more education?: I choose not to answer this question Please select the resources that you would like help with: Housing/Fpc Currently or been in a relationship where the following occur: I choose not to answer THRIVE Score: 0 AUDIT C Alcohol Use Questionnaire (AUDIT-C) 1. How often do you have a drink containing alcohol?: Never Total Score: 0 CHRIS-7 AMB Questionnaire CHRIS-7 Date CHRIS - 7 assessed: 01/18/23 Feeling nervous, anxious, or on edge: 1 = Several days Not being able to stop or control worryin = Several days Worrying too much about different things: 1 = Several days Trouble relaxin = Several days Being so restless that it is hard to sit still: 0 = Not at all Becoming easily annoyed or irritable: 1 = Several days Feeling afraid as if something awful might happen: 0 = Not at all Total CHRIS-7 score (0-4 normal; 5-9 mild; 10-14 moderate; 15-21 severe): 5 Source: Developed by Drs. Anoop Hackett, Francesca Fu, Eliceo Escobar and colleagues, with an educational josi from [employer]. CHRIS-7 Assessment Billing CHRIS-7 Assessment Tool: CHRIS-7 Assessment 18655 Review of Systems Const Denies chills and Denies fever(s) Eyes Denies blurry vision ENT Denies vertigo, Denies dizziness and Denies sore throat Card Denies chest pain at rest, Denies chest pain with activity, Denies diaphoresis, Denies dyspnea and Denies dyspnea on exertion Resp Denies cough, Denies dyspnea, Denies dyspnea on exertion and Denies wheezing GI Denies abdominal pain, Denies melena, Denies hematochezia, Denies constipation, Denies diarrhea and Denies loose stools Denies hematuria Musc Details: symptoms to extremities Reports muscle weakness, Reports numbness and Reports tingling Skin/Breast Denies lesions Neuro Denies vertigo, Denies dizziness, Reports numbness and Reports tingling Psych Denies anxiety, Denies depression, Denies homicidal ideation, Denies suicidal ideation and Denies other (substance abuse) Aller/Immun Denies wheezing Physical exam (Primary Care) Vital Signs: Last Vital Signs Pulse 82 02/26/24 07:36 BP 118/80 02/26/24 07:36 Pulse Ox 96 02/26/24 07:36 Oxygen Delivery Method Room Air 02/26/24 07:36 BMI result Body Mass Index 32.8 Tobacco/Smoking Status: Tobacco use Status Tobacco use date assessed 02/26/24 02/26/24 07:40 Patient Tobacco Use Status Never used Tobacco 02/26/24 07:40 e-Cigarette/Vaping Use Never Used 02/26/24 07:40 Thrive Assessment: Date of Thrive Assessment Date Thrive assessed 02/25/24 02/26/24 07:40 Currently or been in a relationship where the following occur: I choose not to answer Const General: cooperative Nutritional Appearance: well nourished Orientation/consciousness: patient oriented x3 HENMT Head: Yes normal to inspection, Yes normocephalic and Yes atraumatic Ears: TM normal on the right and TM normal on the left Eyes General: appearance normal, both eyes and all related structures Alignment and Position: alignment normal and position normal Neck Neck: Yes normal visual inspection and Yes no lymphadenopathy Resp Effort & Inspection: normal respiratory effort Auscultation: clear to auscultation bilaterally Cardio Rate: regular rate Rhythm: regular rhythm Heart sounds: S1 normal heart sound present, S2 normal heart sound present and no murmurs GI Palpation (GI): Soft to palpation and nontender Auscultation: normal bowel sounds Male General Exam: Yes normal external exam Penis: normal penis Scrotum: scrotum normal, testes descended bilaterally and no inguinal hernias Testes: no testicular mass Skin Rashes: no rashes Neuro General: patient oriented x3, moves all extremities and CN's II-XI intact bilaterally Romberg Test: Negative Extrem Right lower extremity: no edema Left lower extremity: no edema Psych Affect: normal affect Attitude: cooperative Thought process: Normal thought process present Assessment and Plan Assessment & Plan (1) Encounter for routine adult physical exam with abnormal findings: Code(s): Z00. - Encounter for general adult medical examination with abnormal findings (2) Screening for prostate cancer: Code(s): Z12.5 - Encounter for screening for malignant neoplasm of prostate Orders: Orders Complete Blood Count Auto Diff Today Z00. - Encounter for general adult medical examination with abnormal findings Comprehensive Sandy. Panel Fast Today Z00. - Encounter for general adult medical examination with abnormal findings UA CC w/rflx Micro + Cult Today Z00. - Encounter for general adult medical examination with abnormal findings Lipid Panel Today Z00. - Encounter for general adult medical examination with abnormal findings Prostate Specific Antigen Scr Today Z12.5 - Encounter for screening for malignant neoplasm of prostate TSH reflex Free T4 Today Z00. - Encounter for general adult medical examination with abnormal findings Medications: New cyclobenzaprine 5 mg PO BEDTIME 30 days PRN 30 tabs 1RF muscle spasm Coding Level of Care Code Est Pt Prev Care 40-64y(02168) Diagnoses Encounter for routine adult physical exam with abnormal findings Z00.01 Screening for prostate cancer Z12.5 Additional Codes CHRIS-7 Assessment Billing - CHRIS-7 Assessment Tool: CHRIS-7 Assessment [id number] ([id number])
== END 2024-02-26 10:45 | disposition home or self-care (01) ==
PROVIDERS: PCP Nurse Practitioner Family; Visit Provider Nurse Practitioner Family
DX: Z00.00 Encounter for general adult medical examination without abnormal findings (principal); Z12.5 Encounter for screening for malignant neoplasm of prostate
CPT/HCPCS: 99396

== ENCOUNTER 2024-04-25 07:34 | Outpatient (AMB) | payer BC, SELFPAY ==
--- NOTE | 2024-04-25 07:35 | MHC.OFFVIS ---
Intake Visit Reasons: Follow up Intake Note: Patient presents for follow up Allergies fenofibrate [From TRICOR] Allergy (Unknown, Verified 02/26/24 07:38) ITCHING Medication List - Last Reconciled 04/25/24 by BERYL Phoenix amlodipine 5 mg PO DAILY [aspirin 1 tab PO DAILY] bupropion HCl XL 150 mg PO QAM cyclobenzaprine 5 mg PO BEDTIME PRN 30 days icosapent ethyl (Vascepa) 2 grams PO BID immun glob G(IgG)-gly-IgA ov50 10 % (Gammagard Liquid) Loading dose: 40 grams qd x's 5 days (for total LD of 200 GM), then continuous dose: 20 grams qd x's 5 days (for total CD 100 grams q 3 wks)every 3 weeks x's 3 months intravenously. 3 months metoprolol succinate ER 25 mg PO DAILY montelukast 10 mg PO DAILY 90 days omeprazole 20 mg PO DAILY oxcarbazepine 150 mg PO BID prednisone 60mg x's 3 days, 50mg qd x's 3 days, 40mg qd x's 3 days, 30mg qd x's , 20mg qd x's 3 dyas, then 10mg qd x;s 3 days, then stop orally daily; 21 days rosuvastatin 20 mg PO BEDTIME HPI Comments Details: 53-yr-old male presents for f/u visit of f/u neuropathy.CIDP Pt has recent [facility] neuro consult for second opinion we requested for neuropathy/CIDP, twitching, muscle spasms, stiffness. [facility] has proposed that may have a peripheral nerve hyperexcitability syndrome rather than CIDP. Their suggestion was to hold IVIG, trial oxcarbazapine 150mg bid- which he has started and is due for a f/u BMP, repeat EMG/NCS at [facility]- scheduled for 05/23/24. Pt reports that overall that he has been having fatigue, tightness, stiffness. He has jsuted completed 1 week course of IVIG, and f/u IVIG is due next week. Pt today clarifies that maybe what he meant by weakness in the legs may actually be more tightness, stiffness, fatigue which comes after he has episodes of muscle twitching. The muscle twitching is present more so at rest. Recently had a week long period were he had back/trunk muscle spasms, and movement triggered muscle spasms. He states that he typically does not have episodes of muscle cramps triggered by activity. He states he has more difficulty with some fine motor skills and hand strength- for instance states he has more difficulty holding onto a glass than a 50 lb dumbbell. He does continue have episodes of excess sweating. He typically feels better when exercising regulalry. However, he has been having episodes after working out of left retro-orbital eye discomfort / pressure x's a few minutes- like it wants to close- this is a new symptom. This feels different than more typical migraine. Today, pt reports on prednisone, he has felt significantly better- including his hip and shoulder pain (more recently has had- has right shoulder pain when moving his arm backwards). [facility] Medical History Esophageal dysmotility BPH (benign prostatic hyperplasia) MELISSA on CPAP Muscle weakness Bilateral inguinal hernia Fatty liver Non-STEMI (non-ST elevated myocardial infarction) ADHD Myocardial infarction Surgical History History of heart artery stent History of coronary angiogram History of umbilical hernia Family History Father CVD (cardiovascular disease) Myocardial infarction Unknown family medical history HTN (hypertension) Mother CVD (cardiovascular disease) Maternal Grandmother Stroke Paternal Grandfather Diabetes mellitus Paternal Aunt Aneurysm Social History Household Members: None Housing: House Are you a primary health care social worker to a significant other at home: No Do you presently have visiting nurse or other home services: No Alcohol intake: current Alcohol intake frequency: does not drink Patient Tobacco Use Status: Never used Tobacco e-Cigarette/Vaping Use: Never Used Second Hand Smoke Exposure: No service: No Current occupational status: employed Cognitive needs: No Hearing needs: No Vision needs: Yes Physical Exam Const General: cooperative and no acute distress Orientation/consciousness: patient oriented x3 Resp Effort & Inspection: normal respiratory effort and able to speak in complete sentences Neuro General: patient oriented x3 Cranial nerves: Yes CN's II-XII intact bilaterally Cognition (Neuro): normal cognition Psych Appearance: grossly normal Mental Status: mental status grossly normal Speech and movement: Normal speech and movement present Affect: normal affect Attitude: cooperative Telehealth Telehealth Telehealth Platform: [employer] Location of provider rendering services: practice address Location of patient: address on file Patient Identification confirmed using: Name, : Yes Telehealth method: video Patient verbally consented to treatment: Yes Patient verbally consented to billing insurance company: Yes Patient informed of any privacy concerns related to visit: Yes Minutes spent on Phone/Video with Pt.: 40 Assessment & Plan Assessment & Plan (1) Chronic inflammatory demyelinating neuropathy: Code(s): G61.81 - Chronic inflammatory demyelinating polyneuritis Category: Medical (2) Vision changes: Code(s): H53.9 - Unspecified visual disturbance Category: Medical (3) Blurry vision: Code(s): H53.8 - Other visual disturbances Category: Medical (4) Migraine without aura: Code(s): G43.009 - Migraine without aura, not intractable, without status migrainosus Category: Medical (5) Mixed axonal-demyelinating polyneuropathy: Code(s): G62.89 - Other specified polyneuropathies Category: Medical (6) MELISSA (obstructive sleep apnea): Code(s): G47.33 - Obstructive sleep apnea (adult) (pediatric) Category: Medical Plan For muscle twitching: Concur w/ Oxcarbazepine trial. Check CBC, BMP. Monitor twitches. For chronic demyelinating inflammatory polyneuropathy: We will hold IVIG pending [facility] work-up. Monitor muscle strength and endurance, paresthesias, which have returned since IVIG was stopped in October. F/u w/ [facility] CDIP clinic as scheduled. F/u EMG/NCS at [facility] as scheduled Continue paced exercise. ? For back pain: Cuclobenzaprine 5mg prn. Follow-up w/ [facility] ? For GI s/s: F/u w/ GI as scheduled. ? For vision changes, blurry vision, photophobia: Visual Evoked Potential- normal Pt advised to undergo Brain MRI w/wo and Brain MRA w/o to assss for secondary etiologies of atypical vision changes triggered by physical exertion. For migraine: Ubrogepant (Ubrelvy)- to see if these s/s are CGRP responsive. Ubrogepant 100mg tab instructions: 1/2 - 1 tab (50-100mg) at onset of headache, may repeat in 2 hours. Max of 2 tabs (200mg) per 24 hours. May adjunct with OTC Tylenol 650mg q 4 hours, Ibuprofen 600mg q 6 hours, or Naproxen 440mg q 12 hrs prn. Migraine tx contraindications- all triptans d/t h/o RI. ? For MELISSA: Continue APAP 6-20 cmH2O nightly > 4 hrs. Will request PAP compliance report. ? ? f/u in 3 months or sooner prn. Orders: Orders MR angio head wo con 04/25/24 H53.8 - Other visual disturbances, H53.9 - Unspecified visual disturbance, I25.2 - Old myocardial infarction MR head/brain wo/w con 04/25/24 H53.8 - Other visual disturbances, H53.9 - Unspecified visual disturbance, I25.2 - Old myocardial infarction Medications: Refilled cyclobenzaprine 5 mg PO BEDTIME PRN 30 tabs 1RF muscle spasm 30 days On Hold immun glob G(IgG)-gly-IgA ov50 10 % (Gammagard Liquid) Hold Comment: Doctor's Order Loading dose: 40 grams qd x's 5 days (for total LD of 200 GM), then continuous dose: 20 grams qd x's 5 days (for total CD 100 grams q 3 wks)every 3 weeks x's 3 months intravenously. 3 months 0RF G61.81 - Chronic inflammatory demyelinating polyneuritis Coding Level of Care Code Tele Est Pt Level 4 (39952) Diagnoses Chronic inflammatory demyelinating neuropathy G61.81 Vision changes H53.9 Blurry vision H53.8 Migraine without aura G43.009 Mixed axonal-demyelinating polyneuropathy G62.89 MELISSA (obstructive sleep apnea) G47.33
== END 2024-04-25 13:40 | disposition home or self-care (01) ==
LOC: HO.HSMS 07:34
PROVIDERS: PCP Nurse Practitioner Family; Visit Provider Nurse Practitioner Family
DX: G61.81 Chronic inflammatory demyelinating polyneuritis (principal); H53.9 Unspecified visual disturbance; H53.8 Other visual disturbances; G43.009 Migraine without aura, not intractable, without status migrainosus; G62.89 Other specified polyneuropathies; G47.33 Obstructive sleep apnea (adult) (pediatric)
CPT/HCPCS: 99214

== ENCOUNTER → 2024-04-25 07:34 | Outpatient (BNVA) | payer BC, SELFPAY | PROVIDERS: PCP Nurse Practitioner Family; Visit Provider Nurse Practitioner Family ==

== ENCOUNTER 2024-04-28 09:14 | Outpatient (REF) | payer BC, SELFPAY ==
[2024-04-28 10:17] LABS: MANUAL DIFF FLAG NO
[2024-04-28 10:26] LABS: Basophils Percent Auto 0.6 % (0-2); Eosinophils Absolute Auto 0.1 X10*3/uL (0.0-0.4); Eosinophils Percent Auto 1.9 % (0-4); Hematocrit 40.8 % (42.0-52.0); Hemoglobin 14.3 g/dl (14.0-18.0); Imm Gran Abs Auto 0.02 X10*3/uL (0.00-0.03); Imm Gran Pct Auto 0.4 % (0.0-0.4); Lymphocytes Absolute Auto 1.2 X10*3/uL (1.2-4.9); Lymphocytes Percent Auto 24.9 % (20-40); Mean Corpuscular Hemoglobin 30.4 pg (27.0-33.0); Mean Corpuscular Volume 86.8 fL (80.0-98.0); Mean Platelet Volume 10.1 fL (9.4-12.4); Monocytes Absolute Auto 0.5 X10*3/uL (0.1-1.2); Monocytes Percent Auto 9.8 % (2-11); Neutrophils Absolute Auto 2.9 x10*3/uL (2.0-8.3); Neutrophils Percent Auto 62.4 % (45-73); Platelet Count 224 X10*3/uL (160-400); Red Cell Distribution Width 14.6 % (11.0-16.0); White Blood Count 4.7 X10*3/uL (4.8-10.8)
[2024-04-28 10:53] LABS: Alanine Aminotransferase 98 U/L (0-40); Albumin Level 4.2 g/dL (3.5-5.0); Alkaline Phosphatase 69 U/L (39-117); Anion Gap 12 (12-20); Aspartate Amino Transferase 50 U/L (5-37); Bilirubin Total 0.7 mg/dL (0.0-1.0); Blood Urea Nitrogen 19 mg/dL (9-16); Calcium 9.6 mg/dL (8.4-10.2); Carbon Dioxide 28 mmol/L (22-29); Chloride 103 mmol/L (96-108); Cholesterol 123 mg/dL (<200); Estimated Glomerular Filt Rate > 60; Glucose Fasting 96 mg/dL (60-99); HDL Cholesterol 29 mg/dL (>40); LDL Cholesterol Calculated 22 mg/dL (<100); Potassium 4.6 mmol/L (3.3-5.1); Sodium 138 mmol/L (135-145); Total Protein 7.9 g/dL (6.5-8.0); Triglycerides 363 mg/dL (<150)
[2024-04-28 10:54] LABS: Appearance Urine Clear; Color Urine Yellow; Glucose Urine UA Negative (Negative); Leukocyte Esterase Urine Negative (Negative); Nitrite Urine Negative (Negative); PH 5.5 (5.0-9.0); Urine Blood Negative (Negative); Urine Ketones Negative (Negative); Urine Protein Negative (Neg-Trace)
[2024-04-28 11:07] LABS: TSH reflex Free T4 2.52 uIU/mL (0.32-4.0)
[2024-04-28 11:16] LABS: Prostate Specific Antigen Scr 0.22 ng/mL (<0.05-4.0)
== END 2024-04-28 09:15 | disposition home or self-care (01) ==
LOC: HO.HMGCLDS 09:14
PROVIDERS: PCP Nurse Practitioner Family; Visit Provider Nurse Practitioner Family
DX: Z00.01 Encounter for general adult medical examination with abnormal findings (principal); Z12.5 Encounter for screening for malignant neoplasm of prostate; R25.3 Fasciculation
CPT/HCPCS: 36415; 80053; 80061; 81003; 84153; 84443; 85025

== ENCOUNTER 2024-05-12 10:42 | Outpatient (REF) | payer BC, SELFPAY ==
[2024-05-12 13:39] LABS: Estimated Average Glucose 91 mg/dL; Hemoglobin A1c % 4.8 % (<6.0)
== END 2024-05-12 10:43 | disposition home or self-care (01) ==
LOC: HO.HMGCLDS 10:42
PROVIDERS: PCP Nurse Practitioner Family; Visit Provider Nurse Practitioner Family
DX: R76.8 Other specified abnormal immunological findings in serum (principal); Z13.1 Encounter for screening for diabetes mellitus
CPT/HCPCS: 36415; 83036

== ENCOUNTER 2024-08-05 06:35 | Outpatient (REF) | payer BC, SELFPAY ==
[2024-08-05 09:59] LABS: MANUAL DIFF FLAG NO
[2024-08-05 10:09] LABS: Basophils Percent Auto 0.3 % (0-2); Eosinophils Absolute Auto 0.2 X10*3/uL (0.0-0.4); Eosinophils Percent Auto 3.4 % (0-4); Hematocrit 42.4 % (42.0-52.0); Hemoglobin 14.7 g/dl (14.0-18.0); Imm Gran Abs Auto 0.01 X10*3/uL (0.00-0.03); Imm Gran Pct Auto 0.2 % (0.0-0.4); Lymphocytes Absolute Auto 1.4 X10*3/uL (1.2-4.9); Lymphocytes Percent Auto 22.9 % (20-40); Mean Corpuscular HGB Conc 34.7 g/dl (31.0-36.0); Mean Corpuscular Hemoglobin 29.5 pg (27.0-33.0); Mean Corpuscular Volume 85.1 fL (80.0-98.0); Mean Platelet Volume 10.7 fL (9.4-12.4); Monocytes Absolute Auto 0.7 X10*3/uL (0.1-1.2); Monocytes Percent Auto 11.9 % (2-11); Neutrophils Absolute Auto 3.6 x10*3/uL (2.0-8.3); Neutrophils Percent Auto 61.3 % (45-73); Platelet Count 154 X10*3/uL (160-400); Red Blood Count 4.98 X10*6/uL (4.60-5.80); Red Cell Distribution Width 12.4 % (11.0-16.0); White Blood Count 5.9 X10*3/uL (4.8-10.8)
[2024-08-05 10:28] LABS: Albumin Level 4.4 g/dL (3.5-5.0); Anion Gap 13 (12-20); Bilirubin Total 0.4 mg/dL (0.0-1.0); Blood Urea Nitrogen 26 mg/dL (9-16); Calcium 9.4 mg/dL (8.4-10.2); Carbon Dioxide 28 mmol/L (22-29); Chloride 104 mmol/L (96-108); Estimated Glomerular Filt Rate > 60; Glucose Random 93 mg/dL (60-115); Potassium 4.8 mmol/L (3.3-5.1); Sodium 140 mmol/L (135-145); Total Protein 7.5 g/dL (6.5-8.0)
[2024-08-05 10:29] LABS: Alkaline Phosphatase 69 U/L (39-117); Aspartate Amino Transferase 37 U/L (5-37); C Reactive Protein 0.19 mg/dL (< or = 0.50)
[2024-08-05 11:12] LABS: Alanine Aminotransferase 69 U/L (0-40)
[2024-08-05 11:46] LABS: TSH reflex Free T4 4.92 uIU/mL (0.32-4.0)
[2024-08-05 12:26] LABS: Free T4 (Free Thyroxine) 0.75 ng/dL (0.71-1.85)
[2024-08-07 14:11] LABS: HIV AB/AG Nonreactive (Nonreactive); HIV Num 1 0.07 S/CO (0.00-0.99)
[2024-08-07 21:59] LABS: A. Phagocytphilium DNA,RT-PCR NOT DETECTED (NOT DETECTED); Babesia Microti DNA, RT-PCR NOT DETECTED (NOT DETECTED); Borrelia Miyamotoi,DNA RT-PCR NOT DETECTED (NOT DETECTED); E.Chaffeensis DNA RT-PCR NOT DETECTED (NOT DETECTED); Lyme(Borrelia ssp)DNA RT-PCR NOT DETECTED (NOT DETECTED)
[2024-08-07 22:53] LABS: TS Negative Control Passed; TS Panel A 0; TS Panel B 0; TS Positive Control Passed; TSpotTB Negative (Negative)
== END 2024-08-05 06:36 | disposition home or self-care (01) ==
LOC: HO.HMGCLDS 06:35
PROVIDERS: PCP Nurse Practitioner Family; Referring Provider Internal Medicine Cardiovascular Disease; Visit Provider Nurse Practitioner Family
DX: R61 Generalized hyperhidrosis (principal)
CPT/HCPCS: 36415; 80053; 84439; 84443; 85025; 86140; 86481; 87389; 87468; 87469; 87478; 87484; 87798

== ENCOUNTER 2024-08-16 09:10 | Outpatient (REF) | payer BC, SELFPAY ==
--- OUTSIDE RECORDS SUMMARY | 2024-08-16 09:12 | XMS_ITS ---
Author Organization [facility] Address [address] [place] [address] Care Team Providers Care Automatic Operator Name Role Phone Marlon Giang Primary Care Provider Unav ailable Brent Irizarry Unavailable [phone] REASON FOR VISIT MRI results Encounters Encounter Location Date Provider Diagnosis [address] [address] 01/23/2024 Brent Irizarry Plan Of Treatment No Information Progress Notes * Jeff CLIFFORD JaquelinDOB: [birth year] (53 yo M)Acc No.[id number]:01/23/2024 Patient:?Jeff Clifford Jaquelin :1970???Age:53 Y???Sex:Male Address:[address] [place] [phone] * true * Date:? Generated for Printi ng/Fajesusg/eTransmitting on:?08/16/2024 09:12 AM EST
--- OUTSIDE RECORDS SUMMARY | 2024-08-16 09:12 | XMS_ITS | Patient Health Record ---
[facility] Address [address] [facility] [place] [address] Care Team Providers Care Lingo Cleaner Name Role Phone Marlon Giang Primary Care Provider Unav tuyet IrizarryBrent Unavailable [phone] Allergies No Known Allergies Reason For Referral No Information Medications Medication SIG (Take, Route, Frequency, Duration) Notes Start Date End Date Status Night Splint AFO - L1930 as directed Not-Taking Physical Therapy . . . 2-3x/week for 3- 4 weeks Not-Taking Brilinta 90 MG 1 tablet Orally Twic e a day for 30 day(s) Not-Taking Omeprazole 20 MG as directed Orally Active Lopid Unknown Ciclopirox Olamine 0.77% external Apply to effected areas twice a day for 30 days 12/03/2015 Unknown amLODIPine Besylate 5 MG 1 tablet Orally Once a day for 30 day(s) Active Concerta Unknown Crestor 20 MG 1 tablet Orally Once a day for 30 day(s) Active Ibuprofen & Diet Manage Prod 600 MG Orally 01/22/2014 Unknown Wellbutrin XL 300 MG 1 tablet in the mor ross Orally Once a day for 30 day(s) Active Vascepa Active Metoprolol Succinate 25 MG 1 capsule Orally Once a day for 30 day(s) Active Singulair 10 MG 1 tablet Orally Once a day for 30 day(s) Active Keflex 500 MG 1 capsule Orally preeti ry 12 hrs for 10 day(s) Active Immunizations Vaccine Route Administration Date Status Comme nts COVID-19 Pfizer BioNTech Vaccine Unknown 05/14/2021 Administered First Dose: 09/30/2020 Second Dose: 10/20/2020 Social History Tobacco Use: Social History Observation Description Date Details (start date - stop date) Never Smoker NA - NA Tobacco Use/Smoking Question Answer Notes Are you a: nonsmoker Additional Findings: Tobacco Non-User Current no n-smoker Alcohol Screen Question Answer Notes Did you have a drink containing alcohol in the p ast year? No Points 0 Interpretation Negative Tobacco use other than smoking: Question Answer Notes Are you an other tobacco user? No Problems Problem Type SNOMED Code ICD Code Onset Dates Problem Status W/U Status Risk Notes Problem [id number] Tarsal tunnel syndrome of right side (G57.51) Active confirmed Vital Signs Blood pressure diastolic 80 mm Hg 01/28/2024 Height 5ft 11 in in 01/28/2024 Blood pressure systolic 120 mm Hg 01/28/2024 Weight 220 lbs 01/28/2024 BMI 30.68 kg/m2 01/28/2024 Encounters Encounter Location Date Provider Diagnosis [address] [address] 11/26/2023 Brent Irizarry Ingrowing nail L60.0 ; Plantar fascial fibromatosis M72.2 ; Pain in left foot M79.672 and Pain in right foot M79.[address] [address] 12/04/2023 Brent Irizarry Ingrowing nail L60.0 ; Plantar fascial fibromatosis M72.2 ; Pain in left foot M79.672 ; Pain in right foot M79.671 ; Neuritis M79.2 and Localized edema R60.[address] [address] 01/28/2024 Brent Irizarry Ingrowing nail L60.0 ; Plantar fascial fibromatosis M72.2 ; Pain in left foot M79.672 ; Pain in right foot M79.671 ; Neuritis M79.2 ; Localized edema R60.0 ; Ganglion cyst M67.40 and Tarsal tunnel syndrome of right side G57.[address] [address] 12/04/[address] [facility] [place] [address] [facility] [address] [place] [address] 01/09/[address] [facility] [place] [address] [place] [address] [facility] Date Diagnosis (ICD Code) Assessment Notes Treatment Notes Treatment Clinical Notes Section Notes 11/26/2023 Plantar fascial fibromatosis (ICD-10 - M72.2) 11/26/2023 Ingrowing nail (ICD-10 - L60.0) 12/04/2023 Plantar fascial fibromatosis (ICD-10 - M72.2) 12/04/2023 Ingrowing nail (ICD-10 - L60.0) 01/28/2024 Plantar fascial fibromatosis (ICD-10 - M72.2) 01/28/2024 Ingrowing nail (ICD-10 - L60.0) 01/28/2024 Pain in left foot (ICD-10 - M79.672) 12/04/2023 Pain in left foot (ICD-10 - M79.672) 11/26/2023 Pain in left foot (ICD-10 - M79.672) 11/26/2023 Pain in right foot (ICD-10 - M79.671) 12/04/2023 Pain in right foot (ICD-10 - M79.671) 01/28/2024 Pain in right foot (ICD-10 - M79.671) 01/28/2024 Neuritis (ICD-10 - M79.2) 12/04/2023 Neuritis (ICD-10 - M79.2) 01/28/2024 Localized edema (ICD-10 - R60.0) 12/04/2023 Localized edema (ICD-10 - R60.0) 01/28/2024 Ganglion cyst (ICD-10 - M67.40) 01/28/2024 Tarsal tunnel syndrome of right side (ICD-10 - G57.51) Plan Of Treatment Pending Test Test Name Order Date *Liver Function Test (LFT) 02/20/2014 X ray : Foot, left 3V 11/08/2022 X ray : Foot, left 3V 12/04/2023 X ray : Foot, right 3V 12/04/2023 X ray : Foot, right 3V 11/08/2022 12103-TJVHLMP NAIL, 6 OR MORE 02/20/2014 40554-SZJHTLL NAIL, 6 OR MORE 09/18/2014 52738-FQDDZBZ NAIL, 6 OR MORE 11/27/2014 37707-PLFOUGX NAIL, 1-5 12/03/2015 96755-Khtiedww Plate 12/09/2014 51872-Fpxxebfl Plate 03/17/2015 93076-Iyigzypm Plate 07/01/2015 25480-Iiiwuntl Plate Each Additional 30918- Debride <25 sq cm 12/24/2014 78431 I&D ABSCESS- SIMPLE,SINGLE 015 58257 I&D ABSCESS- SIMPLE,SINGLE 015 06703 I&D ABSCESS- SIMPLE,SINGLE 022 Insurance Providers Payer Name Payer Address Payer Phone Subscriber Number Group Number Insured Name Patient Relationship to Insured Coverage Start Date Coverage End Date [facility] [employer] [address] [place] [address] [phone] [id number] Jeff Clifford Self - patient is the insured Medical (General) History Medical History History ICD Code Attention deficit hyperactivity disorder Back,Hip,and Knee pain Chicken pox Angina Diverticulosis Heart disease Peripheral Demilination Surgical History Surgery Date(Month/Year) umbilical hernia repair 2009 Stent Surgery 11/29
--- OUTSIDE RECORDS SUMMARY | 2024-08-16 09:12 | XMS_ITS ---
Author Organization [facility] Address [address] [place] [address] Care Team Providers Care Comic Illustrator Name Role Phone Marlon Giang Primary Care Provider Unav ailable Brent Irizarry [facility] [phone] Encounters Encounter Location Date Provider Diagnosis [address] [address] 01/14/2024 Brent Irizarry Plan Of Treatment No Information Progress Notes * Jeff CLIFFORD JaquelinDOB: [birth year] (53 yo M)Acc No.[id number]:01/14/2024 Progress Note Patient:Jeff SERRANO Provider:?Brent Irizarry DPM :1970???Age:53 Y???Sex:Male Rashawn e:01/14/2024 Address:[address] [place], [place] [id number] Pcp:YEISON Hurst Subjective: * Chief Complaints: * ??? * Medical History:? Objective: * Vitals:? Assessment: Plan: * Treatment: * Images: * The named appointment provid er may or may not be the originator of this progress note, and it is not deemed complete until electronically signed by the appointment provider. Sign off status: Pending * Provider:Yessenia Irizarry DPM Date:? 024 Generated for Edin canchola/Erica/José Antonioitting on:?08/16/2024 09:12 AM EST
--- OUTSIDE RECORDS SUMMARY | 2024-08-16 09:12 | XMS_ITS ---
Author Organization [facility] [place] Address [address] [facility] [place] [address] Care Team Providers Care Business Rules Analyst Name Role Phone Marlon Giang Primary Care Provider Unav ailable Brent Irizarry Unavailable [phone] Allergies No Known Allergies Medications Medication SIG (Take, Route, Frequency, Duration) Notes Start Date End Date Status Night Splint AFO - L1930 as directed Not-Taking Physical Therapy . . . 2-3x/week for 3- 4 weeks Not-Taking Brilinta 90 MG 1 tablet Orally Twic e a day for 30 day(s) Not-Taking Keflex 500 MG 1 capsule Orally preeti ry 12 hrs for 10 day(s) Active Vascepa Active Omeprazole 20 MG as directed Orally Active Crestor 20 MG 1 tablet Orally Once a day for 30 day(s) Active Wellbutrin XL 300 MG 1 tablet in the mor ross Orally Once a day for 30 day(s) Active Metoprolol Succinate 25 MG 1 capsule Orally Once a day for 30 day(s) Active Singulair 10 MG 1 tablet Orally Once a day for 30 day(s) Active Lopid Unknown Ciclopirox Olamine 0.77% external Apply to effected areas twice a day for 30 days 12/03/2015 Unknown amLODIPine Besylate 5 MG 1 tablet Orally Once a day for 30 day(s) Active Concerta Unknown Ibuprofen & Diet Manage Prod 600 MG Orally 01/22/2014 Unknown Social History Tobacco Use: Social History Observation [...] Problem Status W/U Status Risk Notes Problem [id number] Tarsal tunnel syndrome of right side (G57.51) Active confirmed Vital Signs Height 5ft 11 in in 01/28/2024 Weight 220 lbs 01/28/2024 BMI 30.68 kg/m2 01/28/2024 Blood pressure systolic 120 mm Hg 01/28/20 24 Blood pressure diastolic 80 mm Hg 024 Encounters Encounter Location Date Provider Diagnosis [facility] [place] [address] [place] [address] 01/28/2024 Brent Irizarry Ingrowing nail L60.0 ; Plantar fascial fibromatosis M72.2 ; Pain in left foot M79.672 ; Pain in right foot M79.671 ; Neuritis M79.2 ; Localized edema R60.0 ; Ganglion cyst M67.40 and Tarsal tunnel syndrome of right side G57.51 Assessments Encounter Date Diagnosis (ICD Code) Assessment Notes Treatment Notes Treatment Clinical Notes Section Notes 01/28/2024 Ingrowing nail (ICD-10 - L60.0) 01/28/2024 Plantar fascial fibromatosis (ICD-10 - M72.2) 01/28/2024 Pain in left foot (ICD-10 - M79.672) 01/28/2024 Pain in right foot (ICD-10 - M79.671) 01/28/2024 Neuritis (ICD-10 - M79.2) 01/28/2024 Localized edema (ICD-10 - R60.0) 01/28/2024 Ganglion cyst (ICD-10 - M67.40) 01/28/2024 Tarsal tunnel syndrome of right side (ICD-10 - G57.51) Plan Of Treatment Medication Medication Name Sig Start Date Stop Date Notes Keflex 500 MG 1 capsule Orally preeti ry 12 hrs for 10 day(s) Next Appt Details Follow Up: prn, Reason: Progress Notes * Jeff CLIFFORDDOB: [birth year] (53 yo M)Acc No.[id number]:01/28/2024 Progress Notes Patient:?Jeff Clifford Provider:?Brent Irizarry DPM :1970???Age:53 Y???Sex:Male Rashawn e:01/28/2024 Address:[address] [place] [address], [id number] Pcp:YEISON Hurst Subjective: * Chief Complaints: * ??? 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 * ROS:?General/Constitutional:?Nausea?denies.?Vomiting?denies.?Hunger Thirst?denies.?Loss appetite?denies.?Chills?denies.?Fatigue?denies.?Fever?denies.?Night Sweats?denies.?Unexplained weight loss?denies.?Unexplained weight gain?denies.?HEENTM:?Dentures?denies.?Dizziness?denies.?Glasses/contacts?admits.?Retinopathy?de nies.?Blurred/double vision?denies.?TMJ?denies.?Discharge/drainage?denies.?Implants?denies.?Sore throat?denies.?Dental implants?denies.?Hard of hearing ?denies.?Difficulty chewing/swallowing/speaking?denies.?Nose bleeds?denies.?Sore mouth?denies.?Respiratory:?On Oxygen?denies.?Pneumonia/pleurisy?denies.?Bronchitis?denies.?Emphysema?denies.?C oughing?denies.?Cough blood?denies.?Shortness of breath?denies.?Wheezing?denies.?Cardiovascular:?Pacemaker?denies.?MVP?denies.?WPW?denies.?CHF?denies.?Heart attack?denies.?Septal defect?denies.?Rapid beat?denies.?Chest pain ?denies.?Atrial Fib.?denies.?Murmur/Palpitations?denies.?Gastrointestinal:?Hemorrhoids?denies.?Stomach/Abdominal pain?denies.?Dark blood stool?denies.?Irritable bowel ?denies.?Constipation?denies.?Diarrhea?denies.?Hematology:?Swelling?denies.?Clots?denies.?Varicose Veins?denies.?Bruising?denies.?Bleeding problem?denies.?Genitourinary:?Blood urine?denies.?Frequent/Painfu/urination/bladder control?denies.?Kidney stones?denies.?Infection (UTI)?denies.?Nephropathy?denies.?sex trans dis (STD)?denies.?Prostate?denies.?Musculoskeletal:?Hammertoes?denies.?Bunions?denies.?Back Pain?admits.?Muscle Cramps/ Resting?denies.?Muscle cramps / walking?denies.?Generalized aches and pains?admits.?Weakness?denies.?Integ.:?Peña?denies.?Scars?denies.?Corns/calluses?denies.?Ingrown nails?admits.?Painful nails?denies.?Open Sores?denies.?Rashes?denies.?Neurologic:?Difficulty sleeping?denies.?Brain disorder?denies.?Numbness?admits.?Balance trouble?denies.?Confusion?denies.?Fainting/blackouts?denies.?Tingling?denies.?Tr emors?denies.? * Medical History:? * Surgical History:?umbilical hernia repair 2009Stent Surgery 11/29 * Hospitalization/Major Diagno stic Procedure:?Denies Past Hospitalization * Family History:?Mother: jose simon?Father: alive, diagnosed with Unspecified essential hypertension.?Paternal Grand Mother: , diabetes.?Paternal Grand Father: , diagnosed with Diabetic - NIDDM.?1 brother(s) . .? No children. * Social History:?Tobacco Use:?Tobacco Use/Smoking?Are you a:?nonsmoker ?Additional Findings: Tobacco Non-User?Current non-smoker ?Tobacco use other than smoking?Are you an other tobacco user??No ???Drugs/Alcohol:?Drugs?Have you used drugs other than those for medical reasons in the past 12 months??No ?Alcohol Screen?Did you have a drink containing alcohol in the past year??No ?Points?0 ?Interpretation?Negative ???Miscellaneous:?Caffeine: yes, frequency: 1-2 cups per day. ?no Children, none. ?Exercise: yes, walking, treadmill. ?Marital status: . ?Occupation: [employer]. * Medications:?TakingamLODIPin e Besylate 5 MG Tablet 1 tablet Orally Once a dayCrestor 20 MG Tablet 1 tablet Orally Once a dayOmeprazole 20 MG Capsule Delayed Release as directed Orally Metoprolol Succinate 25 MG Capsule ER 24 Hour Sprinkle 1 capsule Orally Once a daySingulair 10 MG Tablet 1 tablet Orally Once a dayWellbutrin XL 300 MG Tablet Extended Release 24 Hour 1 tablet in the morning Orally Once a dayVascepa Keflex 500 MG Capsule 1 capsule Orally every 12 hrsTaking amLODIPine Besylate 5 MG Tablet 1 tablet Orally Once a dayTaking Crestor 20 MG Tablet 1 tablet Orally Once a dayTaking Omeprazole 20 MG Capsule Delayed Release as directed Orally Taking Metoprolol Succinate 25 MG Capsule ER 24 Hour Sprinkle 1 capsule Orally Once a dayTaking Singulair 10 MG Tablet 1 tablet Orally Once a dayTaking Wellbutrin XL 300 MG Tablet Extended Release 24 Hour 1 tablet in the morning Orally Once a dayTaking Vascepa Taking Keflex 500 MG Capsule 1 capsule Orally every 12 hrsNot-Taking/PRNBrilinta 90 MG Tablet 1 tablet Orally Twice a dayNight Splint AFO - L1930 as directed Physical Therapy . . . . 2-3x/weekNot-Taking/PRN Brilinta 90 MG Tablet 1 tablet Orally Twice a dayNot-Taking/PRN Night Splint AFO - L1930 as directed Not-Taking/PRN Physical Therapy . . . . 2-3x/weekUnknownConcerta Ibuprofen & Diet Manage Prod 600 MG Miscellaneous Orally Lopid Ciclopirox Olamine 0.77% Cream external Apply to effected areas twice a dayMedication List reviewed and reconciled with the patientUnknown Concerta Unknown Ibuprofen & Diet Manage Prod 600 MG Miscellaneous Orally Unknown Lopid Unknown Ciclopirox Olamine 0.77% Cream external Apply to effected areas twice a dayMedication List reviewed and reconciled with the patient * Allergies:?N.K.D.A.yes[Aller gies Verified] Objective: * Vitals:?Ht: 5ft 11 in, Wt:22 0, BMI:30.68, Shoe size:11, BP:120/80 mm Hg. * Examination: ???Dermatologic: ?SKIN FINDINGS:?Skin exam reveals normal texture, elasticity, and tugor. There are no masses. The interspaces are clear.?Ingrown Nail: ?INSPECTION:? Reveals nail incurvation, pain on palpation, groove hypertrophy, groove ischemia, Medial nail border, T5.?General Examination: ?GENERAL APPEARANCE:?pleasant, alert, well nourished, well developed, well hydrated, with good attention to hygene/body habitus, and in no acute distress.?ORIENTED:?person,place, and time.?Neurological: ?SENSORY:?Neurological exam reveals intact sensorium, pain sensation normal, vibration sensation intact, pinprick sensation is normal in the lower extremities, pt denies, anesthesia, burning, paresthesia, tingling, B/L.?TINEL'S COMPRESSION:?Negative tarsal tunnel, guerda pedis, and medial calcaneal nerves, B/L.?BABINSKI REFLEX:?Absent, B/L.?Vascular: ?DP PULSES:?2/4, B/L.?PT PULSES:?2/4, B/L.?CAPILLARY FILL TIME:?3 secs. per digit, B/L.?SKIN TEMPERTURE GRADIENT OF THE LOWER EXTERMITIES:?warm to cool, proximal to distal, B/L.?HAIR GROWTH/TEXTURE/ELASTICITY/TURGOR:?normal, B/L.?EDEMA:? 2/4, B/L plantar-medial cisco heels.?Heel Pain: ?INSPECTION REVEALS:? Pain on Palpation to Plantar Fascia med. and central bands, intrinsic musc., infracalcaneal bursa, and med calc tubercle , B/L--plm--mild.?Orthopedic: ?MUSCLE STRENGTH:?5/5 all groups in a symmetrical fashion B/L.?GAIT ABNORMALITY:?pronated, abducted, B/L.? Assessment: * Assessment: 1.?Plantar fascial fibromato sis - M72.2?2.?Ingrowing nail - L60.0 (Primary)?3.?Pain in left foot - M79.672?4.?Pain in right foot - M79.671?5.?Neuritis - M79.2?6.?Localized edema - R60.0?7.?Ganglion cyst - M67.40?8.?Tarsal tunnel syndrome of right side - G57.51? Plan: * Treatment: * Procedure Codes:? * Preventive Medicine:? ??Counseling:?Discussion:?-13: Office or other outpatient visit for the evaluation and management of an established patient, which required a medically appropriate history and/or examination and LOW level of DECISION MAKING for: 1 STABLE ACUTE UNCOMPLICATED PROBLEM, 2 OR MORE MINOR PROBLEMS, OR 1 STABLE CHRONIC PROBLEM, THAT POSE(S) A LOW RISK FOR MORBIDITY/MORTALITY. The visit on the day of the encounter encompassed interpreting the data and educating the patient as to the nature of their condition, treatment options available according to their individual PMH, meds, allergies, and overall health/living conditions, as well as any potential risks or complications that may occur from a failure to adhere to, and participate in, the recommended course of therapy. The discussion included a complete verbal, and/or written explanation of the examination results, any x-rays taken, the proposed diagnosis, and outline of the treatment plan. A schedule for future care needs was also explained. The patient verbalized an understanding of the instructions at this time and agreed to be an active participant in their treatment. If the patient should think of any questions or concerns after the visit, I have encouraged the patient to call the office--pt to use orthoses for PF and consider sx tx for tts and ganglion right.? * Follow Up:?prn * Images: * Sign off status: Completed true * Provider:?Brent Irizarry DPM Date:? 024 Generated for Edin canchola/Erica/Vivien on:?08/16/2024 09:12 AM EST History and Physical Notes * HPI (History of Present Illness) Category Sub-Category Detail Notes Category Not es Heel pain Duration: several months Nature: numbness and feels l keaton walking on a blister Severity/Quality: moderate, mild Location: B/L, RIGHT greater t rodriguez Left Onset/Cause: demylenating nerve d isease Aggravated: walking first thing in the morning/after rest Course: intermittent Treatments: immunoglobin tx, pre -fabricated orthoses Ingrown toenail Nature: tenderness, sharp Location: Great toe, Right jeramy t Course: improved Examination Category Sub-Category Detail Notes Category Not es Ingrown Nail INSPECTION: Reveals nail inc urvation, pain on palpation, groove hypertrophy, groove ischemia, Medial nail border, T5 Heel Pain INSPECTION REVEALS: Pain on Palp ation to Plantar Fascia med. and central bands, intrinsic musc., infracalcaneal bursa, and med calc tubercle , B/L--plm--mild Neurological SENSORY: Neurological exa m reveals intact sensorium, pain sensation normal, vibration sensation intact, pinprick sensation is normal in the lower extremities, pt denies, anesthesia, burning, paresthesia, tingling, B/L BABINSKI REFLEX: Absent, B/L TINEL'S COMPRESSION: Negative tarsal moy ivonne, guerda pedis, and medial calcaneal nerves, B/L Dermatologic SKIN FINDINGS: Skin exam reveal s normal texture, elasticity, and tugor. There are no masses. The interspaces are clear Orthopedic GAIT ABNORMALITY: pronated, abducted, B/L MUSCLE STRENGTH: 5/5 all groups in a symmetrical fashion B/L General Examination GENERAL APPEARANCE: pleasant , alert, well nourished, well developed, well hydrated, with good attention to hygene/body habitus, and in no acute distress ORIENTED: person,place, and ti me Vascular DP PULSES (B): 2/4, B/L PT PULSES (B): 2/4, B/L CAPILLARY FILL TIME: 3 secs. per digit, B/L TEMPERTURE GRADIENT (C): warm to cool, p roximal to distal, B/L TROPHIC CONDITION-TEXTURE/ELASTICITY/TURGOR/HAIR GROWTH (B): normal, B/L EDEMA (C): 2/4, B/L plantar-med ial cisco heels
[2024-08-16 09:25] LABS: Appearance Urine Clear; Color Urine Yellow; Glucose Urine UA Negative (Negative); Leukocyte Esterase Urine Negative (Negative); Nitrite Urine Negative (Negative); Urine Blood Negative (Negative); Urine Ketones Negative (Negative); Urine Protein Negative (Neg-Trace)
== END 2024-08-16 09:11 | disposition home or self-care (01) ==
LOC: HO.LNP 09:10
PROVIDERS: Visit Provider Nurse Practitioner Family
DX: R61 Generalized hyperhidrosis (principal)
CPT/HCPCS: 81003

== ENCOUNTER 2024-08-26 13:52 | Outpatient (AMB) | payer BC, SELFPAY ==
[2024-08-26 13:54] VITALS: BP 122/80; PULSE 80; O2SAT 98; BMI 33.1
--- NOTE | 2024-08-26 13:54 | A.OFFPC_ITS ---
Vital Signs 08/26/24 13:54 Height 5 ft 11 in Weight 237 lb BMI 33.1 BP 122/80 Blood Pressure Location Lt brachial Position Sitting Pulse 80 Pulse Source Pulse Oximeter Pulse Oximetry (%) 98 Intake Visit Reasons: 6 sun f/u Intake Note: pt is here for 6 sun f/up Lumber Grader Required: No Accompanied by: Self / Same As Patient Allergies fenofibrate [From TRICOR] Allergy (Unknown, Verified 08/26/24 14:53) ITCHING Medication List - Last Reconciled 08/26/24 by Marlon Hirsch, BERYL-BC [aspirin 1 tab PO DAILY] cyclobenzaprine 5 mg PO BEDTIME PRN 30 days dextroamphetamine-amphetamine 10 mg ER 1 cap PO QAM icosapent ethyl (Vascepa) 2 grams PO BID immun glob G(IgG)-gly-IgA ov50 10 % (Gammagard Liquid) Loading dose: 40 grams qd x's 5 days (for total LD of 200 GM), then continuous dose: 20 grams qd x's 5 days (for total CD 100 grams q 3 wks)every 3 weeks x's 3 months intravenously. 3 months metoprolol succinate ER 25 mg PO DAILY omeprazole 20 mg PO DAILY oxcarbazepine 300 mg PO BID rosuvastatin 20 mg PO BEDTIME Tobacco use date assessed: 08/26/24 Dental Screening Dental Screen Date: 08/26/24 Did you have a dental visit in the last 12 months?: Yes Did you have a dental problem in the last 6 months where you did not have access to dental care?: No Was dental information given to patient?: Patient has dentist HPI Sun f/u HPI0 Details Chief Complaint Follow-up of neurological symptoms and thyroid dysfunction. History of Present Illness The patient is a 53-year-old male presenting with intermittent peripheral neuropathies and a history of muscle cramping. He recently underwent EMG and nerve conduction testing at two different facilities; initial tests indicated some demyelination, but after an extensive second opinion in [place], Chronic Inflammatory Demyelinating Polyneuropathy (CIDP) was ruled out. The patient's symptoms include muscle twitches and cramping, which are managed with muscle relaxers and stretching exercises. Furthermore, the patient reports episodes of hyperhidrosis, occurring spontaneously without physical exertion. Past evaluation revealed a slight thyroid dysfunction. Neurological examination results were unremarkable post-evaluation. The patient denies fever or chills accompanying these symptoms. Social History - No social determinants of health were discussed in the conversation. Health Maintenance - Labs were ordered to re-evaluate thyro id function. Review of Systems - Neurological: Reports muscle twitches and cramping - Integumentary: Reports hyperhidrosis - Constitutional: Denies fever or chills Physical Exam General: Cooperative, healthy appearing, comfortable, no acute distress and well developed Orientation: Patient oriented x3 Limitations: No limitations Head: Normal to inspection Ears: Hearing grossly normal bilaterally Nose: Normal external nose present Face and sinus: Normal facial exam Eyes: Appearance normal, both eyes and all related structures Neck: Normal visual inspection and Yes full ROM Respiratory: Normal respiratory effort and able to speak in complete sentences. Clear to auscultation bilaterally Cardiovascular: Regular rate and rhythm. Normal S1 and S2 GI: Normal to inspection. Soft to palpation and nontender Skin: No rashes or lesions noted Neuro: Patient oriented x3, CN2 through 12 intact, Negative heel to desai test, Negative finger to thumb test, Negative Romberg Extremities: Normal to inspection Results - Labs: EMG testing showing demyelinatio n; Subsequent EMG ruled out CIDP Plan - Schedule follow-up appointments with r heumatology for further evaluation of neurological symptoms. - Repeat thyroid function labs to assess current thyroid status. - Consider possible referral to a dermat ologist for management of hyperhidrosis. - Evaluate the necessity of an endocrino logist referral based on thyroid lab results. Patient was informed and verbally consented to the use of an ambient scribe for clinic note documentation during this visit. Discussion Notes During today's visit, we reviewed the recent neurological assessments with the patient and confirmed that CIDP has been ruled out. The current plan includes continued management of muscle symptoms with relaxers and stretching, further evaluation of thyroid function considering its slight abnormality, and potential specialty referrals depending on further assessment. We discussed the potential need for a truck rental clerk consultation for hyperhidrosis and the criteria for an director of industrial relations referral. Patient Instructions - Follow up with rheumatology as sched ed for further evaluation. - Complete thyroid lab tests as ordered. - Continue muscle stretching exercises a nd use muscle relaxers as prescribed. - Monitor for symptoms of excessive swea ting and follow up with your truck rental clerk if necessary. - Watch for any new symptoms or changes and report them during the next visit. COUNT INCLUDES THE [facility] Medical History CAD (coronary artery disease) Pulmonary HTN Esophageal dysmotility BPH (benign prostatic hyperplasia) MELISSA on CPAP Muscle weakness Bilateral inguinal hernia Fatty liver Non-STEMI (non-ST elevated myocardial infarction) ADHD Myocardial infarction Surgical History History of heart artery stent History of coronary angiogram History of umbilical hernia Family History Father CVD (cardiovascular disease) Myocardial infarction Unknown family medical history HTN (hypertension) Mother CVD (cardiovascular disease) Maternal Grandmother Stroke Paternal Grandfather Diabetes mellitus Paternal Aunt Aneurysm Social History Household Members: None Housing: House Are you a primary career based intervention coordinator to a significant other at home: No Do you presently have visiting nurse or other home services: No Alcohol intake: current Alcohol intake frequency: does not drink Patient Tobacco Use Status: Never used Tobacco e-Cigarette/Vaping Use: Never Used Second Hand Smoke Exposure: No service: No Current occupational status: employed Cognitive needs: No Hearing needs: No Vision needs: Yes Questionnaire PHQ-9 Over the last 2 weeks, how often have you been bothered by any of the following problems? 91148 - PHQ-9 Billing: Patient declined-do not bill Source: Developed by Drs. Anoop Hackett, Francesca Fu, Eliceo Escobar and colleagues, with an educational josi from [employer]. Thrive Questionnaire Date Thrive assessed: 08/26/24 I am a: Patient What is your living situation today?: I choose not to answer this question Within the past 12 months, did the food you bought not last and you didn't have the money to get more?: I choose not to answer this question Within the past 12 months, did you worry whether your food would run out before you got money to buy more?: I choose not to answer this question Do you have trouble paying for medicines?: I choose not to answer this question Do you have trouble getting transportation to medical appointments?: I choose not to answer this question Do you have trouble paying your heating and electricity bill?: I choose not to answer this question Do you have trouble taking care of your child, family member or friend?: I choose not to answer this question Do you have trouble with day-to-day activities such as bathing, preparing meals, shopping, managing finances, etc.?: I choose not to answer this question Are you currently unemployed and looking for a job?: I choose not to answer this question Are you interested in more education?: I choose not to answer this question Please select the resources that you would like help with: None Currently or been in a relationship where the following occur: I choose not to answer THRIVE Score: 0 AUDIT C Alcohol Use Questionnaire (AUDIT-C) 1. How often do you have a drink containing alcohol?: Never 3. How often do you have six or more drinks on one occasion?: Never Total Score: 0 Score Reviewed/Action Taken: Yes CHRIS-7 AMB Questionnaire CHRIS-7 Date CHRIS - 7 assessed: 08/26/24 Feeling nervous, anxious, or on edge: 1 = Several days Not being able to stop or control worryin = Several days Worrying too much about different things: 1 = Several days Trouble relaxin = Several days Being so restless that it is hard to sit still: 1 = Several days Becoming easily annoyed or irritable: 1 = Several days Feeling afraid as if something awful might happen: 1 = Several days Total CHRIS-7 score (0-4 normal; 5-9 mild; 10-14 moderate; 15-21 severe): 7 Source: Developed by Drs. Anoop Hackett, Francesca Fu, Eliceo Escobar and colleagues, with an educational josi from [employer]. CHRIS-7 Assessment Billing CHRIS-7 Assessment Tool: CHRIS-7 Assessment 65093 Physical exam (Primary Care) Vital Signs: Last Vital Signs Pulse 80 08/26/24 13:54 BP 122/80 08/26/24 13:54 Pulse Ox 98 08/26/24 13:54 BMI result Body Mass Index 33.1 Tobacco/Smoking Status: Tobacco use Status Tobacco use date assessed 08/26/24 08/26/24 13:57 Patient Tobacco Use Status Never used Tobacco 08/26/24 13:57 e-Cigarette/Vaping Use Never Used 08/26/24 13:57 Thrive Assessment: Date of Thrive Assessment Date Thrive assessed 08/26/24 08/26/24 13:57 Currently or been in a relationship where the following occur: I choose not to answer Coding Level of Care Code Est Pt Level 3 (31783) Diagnoses Elevated TSH R79.89 Excessive sweating R61 Peripheral neuropathy G62.9 Muscle twitching R25.3 Additional Codes CHRIS-7 Assessment Billing - CHRIS-7 Assessment Tool: CHRIS-7 Assessment 89606 ([id number]) Assessment & Plan Assessment & Plan (1) Elevated TSH: Code(s): R79.89 - Other specified abnormal findings of blood chemistry Category: Medical (2) Excessive sweating: Code(s): R61 - Generalized hyperhidrosis Category: Medical (3) Peripheral neuropathy: Code(s): G62.9 - Polyneuropathy, unspecified Category: Medical (4) Muscle twitching: Comment: cleared by neuro. follow up with rheumatology Code(s): R25.3 - Fasciculation Category: Medical Plan . Orders: Orders Complete Blood Count Auto Diff Today - Other specified abnormal findings of blood chemistry TSH reflex Free T4 Today - Other specified abnormal findings of blood chemistry Lipid Panel Today - Other specified abnormal findings of blood chemistry Comprehensive [place]. Panel Fast Today - Other specified abnormal findings of blood chemistry UA CC w/rflx Micro + Cult Today - Other specified abnormal findings of blood chemistry Medications: Refilled cyclobenzaprine 5 mg PO BEDTIME PRN 30 tabs 1RF muscle spasm 30 days
--- OUTSIDE RECORDS SUMMARY | 2024-08-26 16:19 | XMS_ITS ---
Author Organization [facility] Address [address] [place] [address] Care Team Providers Care Template Reproduction Technician Name Role Phone Marlon Giang Primary Care Provider Unav ailable Brent Irizarry Unavailable [phone] REASON FOR VISIT MRI results Encounters Encounter Location Date Provider Diagnosis [address] [address] 01/23/2024 Brent Irizarry Plan Of Treatment No Information Progress Notes * Jeff CLIFFORD JaquelinDOB: [birth year] (53 yo M)Acc No.[id number]:01/23/2024 Patient:?Jeff Clifford Jaquelin :1970???Age:53 Y???Sex:Male Address:[address] [place] [address] * true * Date:? Generated for Printi ng/Fajesusg/eTransmitting on:?08/26/2024 04:18 PM EST
--- OUTSIDE RECORDS SUMMARY | 2024-08-26 16:19 | XMS_ITS ---
Author Organization [facility] [place] Address [address] [place] [address] Care Team Providers Care Mergers And Acquisitions Manager Name Role Phone Marlon Giang Primary Care Provider Unav ailable Brent Irizarry Unavailable [phone] Allergies No Known Allergies Medications Medication SIG [...] Problem Status W/U Status Risk Notes Problem [id number] Tarsal tunnel syndrome of right side (G57.51) Active confirmed Vital Signs Height 5ft 11 in in 01/28/2024 Weight 220 lbs 01/28/2024 BMI 30.68 kg/m2 01/28/2024 Blood pressure systolic 120 mm Hg 01/28/20 24 Blood pressure diastolic 80 mm Hg 024 Encounters Encounter Location Date Provider Diagnosis [facility] [place] [address] [place] [address] 01/28/2024 Brent Irizarry Ingrowing nail L60.0 ; [...] * Jeff CLIFFORDDOB: [birth year] (53 yo M)Acc No.[id number]:01/28/2024 Progress Notes Patient:?Jeff Clifford Provider:?Brent Irizarry DPM :1970???Age:53 Y???Sex:Male Rashawn e:01/28/2024 Address:[address] [place] [address], [place], [id number] Pcp:YEISON Hurst Subjective: * Chief Complaints: * [...] yes, walking, treadmill. ?Marital status: . ?Occupation: [email or web address]. * Medications:?TakingamLODIPin e Besylate 5 MG [...] DPM Date:? 024 Generated for Edin canchola/Erica/Vivien on:?08/26/2024 04:18 PM EST History and Physical Notes * HPI [...] REFLEX: Absent, B/L TINEL'S COMPRESSION: Negative tarsal omy ivonne, guerda pedis, and medial calcaneal nerves, [...]
--- OUTSIDE RECORDS SUMMARY | 2024-08-26 16:19 | XMS_ITS ---
Author Organization [facility] Address [address] [place] [address] Care Team Providers Care Sign Installer Name Role Phone Marlon Giang Primary Care Provider Unav ailable Brent Irizarry [facility] [phone] Encounters Encounter Location Date Provider Diagnosis [address] [address] 01/14/2024 Brent Irizarry Plan Of Treatment No Information Progress Notes * Jeff CLIFFORD JaquelinDOB: [birth year] (53 yo M)Acc No.[id number]:01/14/2024 Progress Note Patient:Jeff SERRANO Provider:?Brent Irizarry DPM :1970???Age:53 Y???Sex:Male Rashawn e:01/14/2024 Address:[address] [place], [place] [id number] Pcp:YEISON Hurst Subjective: * Chief Complaints: * [...] Date:? 024 Generated for Edin canchola/Erica/José Antonioitting on:?08/26/2024 04:18 PM EST
--- OUTSIDE RECORDS SUMMARY | 2024-08-26 16:19 | XMS_ITS | Patient Health Record ---
[facility] Address [address] [facility] [place] [address] Care Team Providers Care Bus Monitor Name Role Phone Marlon Giang Primary Care Provider Unav tuyet IrizarryBrent Unavailable [phone] Allergies No Known Allergies Reason For Referral [...] Problem Status W/U Status Risk Notes Problem [id number] Tarsal tunnel syndrome of right side (G57.51) Active confirmed Vital Signs Blood pressure diastolic 80 mm Hg 01/28/2024 Height 5ft 11 in in 01/28/2024 Blood pressure systolic 120 mm Hg 01/28/2024 Weight 220 lbs 01/28/2024 BMI 30.68 kg/m2 01/28/2024 Encounters Encounter Location Date Provider Diagnosis [address] [address] 11/26/2023 Brent Irizarry Ingrowing nail L60.0 ; Plantar fascial fibromatosis M72.2 ; Pain in left foot M79.672 and Pain in right foot M79.[address] [address] 12/04/2023 Brent Irizarry Ingrowing nail L60.0 ; Plantar fascial fibromatosis M72.2 ; Pain in left foot M79.672 ; Pain in right foot M79.671 ; Neuritis M79.2 and Localized edema R60.[address] [address] 01/28/2024 Brent Irizarry Ingrowing nail L60.0 ; Plantar fascial fibromatosis M72.2 ; Pain in left foot M79.672 ; Pain in right foot M79.671 ; Neuritis M79.2 ; Localized edema R60.0 ; Ganglion cyst M67.40 and Tarsal tunnel syndrome of right side G57.[address] [address] 12/04/2023 [facility] [place] [address] [place] [address] 01/09/2024 [facility] [place] [address] [place] [address] [facility] En[facility] Date Diagnosis (ICD [...] X ray : Foot, right 3V 11/08/2022 08102-CULJFWX NAIL, 6 OR MORE 02/20/2014 74901-NYHBMWC NAIL, 6 OR MORE 09/18/2014 38363-FOIQZYF NAIL, 6 OR MORE 11/27/2014 24627-LJNCLWI NAIL, 1-5 12/03/2015 69783-Nxcuegfr Plate 12/09/2014 14210-Akzablqm Plate 03/17/2015 29610-Avcilzta Plate 07/01/2015 46536-Sfudfnkx Plate Each Additional 68164- Debride <25 sq cm 12/24/2014 49193 I&D ABSCESS- SIMPLE,SINGLE 015 70015 I&D ABSCESS- SIMPLE,SINGLE 015 38406 I&D ABSCESS- SIMPLE,SINGLE 022 Insurance Providers Payer Name Payer Address Payer Phone Subscriber Number Group Number Insured Name Patient Relationship to Insured Coverage Start Date Coverage End Date [facility] [employer] [address] [place] [address] [phone] [id number] Jeff Clifford Self - patient is the insured Medical (General) History Medical History History ICD Code Attention deficit hyperactivity disorder Back,Hip,and Knee pain Chicken pox Angina Diverticulosis Heart disease Peripheral Demilination Surgical History Surgery Date(Month/Year) umbilical hernia repair 2009 Stent Surgery 11/29
== END 2024-08-26 14:51 | disposition home or self-care (01) ==
PROVIDERS: PCP Nurse Practitioner Family; Visit Provider Nurse Practitioner Family
DX: R79.89 Other specified abnormal findings of blood chemistry (principal); R61 Generalized hyperhidrosis; G62.9 Polyneuropathy, unspecified; R25.3 Fasciculation

== ENCOUNTER → 2024-08-26 13:52 | Outpatient (BNVA) | payer BC, SELFPAY | PROVIDERS: PCP Nurse Practitioner Family; Visit Provider Nurse Practitioner Family | DX: R94.6 Abnormal results of thyroid function studies (principal); R61 Generalized hyperhidrosis; G62.9 Polyneuropathy, unspecified; R25.3 Fasciculation | CPT/HCPCS: 96127 ==

== ENCOUNTER 2024-09-01 08:23 | Outpatient (REF) | payer BC, SELFPAY ==
[2024-09-01 10:00] LABS: MANUAL DIFF FLAG NO
[2024-09-01 10:06] LABS: Basophils Percent Auto 0.8 % (0-2); Eosinophils Absolute Auto 0.1 X10*3/uL (0.0-0.4); Eosinophils Percent Auto 3.2 % (0-4); Hematocrit 46.3 % (42.0-52.0); Hemoglobin 15.6 g/dl (14.0-18.0); Imm Gran Abs Auto 0.01 X10*3/uL (0.00-0.03); Imm Gran Pct Auto 0.3 % (0.0-0.4); Lymphocytes Percent Auto 25.7 % (20-40); Mean Corpuscular HGB Conc 33.7 g/dl (31.0-36.0); Mean Corpuscular Hemoglobin 28.9 pg (27.0-33.0); Mean Corpuscular Volume 85.7 fL (80.0-98.0); Mean Platelet Volume 11.2 fL (9.4-12.4); Monocytes Absolute Auto 0.5 X10*3/uL (0.1-1.2); Monocytes Percent Auto 12.1 % (2-11); Neutrophils Absolute Auto 2.2 x10*3/uL (2.0-8.3); Neutrophils Percent Auto 57.9 % (45-73); Platelet Count 165 X10*3/uL (160-400); Red Cell Distribution Width 12.6 % (11.0-16.0); White Blood Count 3.7 X10*3/uL (4.8-10.8)
[2024-09-01 10:24] LABS: Alanine Aminotransferase 82 U/L (0-40); Albumin Level 4.7 g/dL (3.5-5.0); Alkaline Phosphatase 80 U/L (39-117); Anion Gap 11 (12-20); Aspartate Amino Transferase 46 U/L (5-37); Bilirubin Total 0.7 mg/dL (0.0-1.0); Blood Urea Nitrogen 23 mg/dL (9-16); Calcium 9.4 mg/dL (8.4-10.2); Carbon Dioxide 29 mmol/L (22-29); Chloride 105 mmol/L (96-108); Cholesterol 117 mg/dL (<200); Estimated Glomerular Filt Rate > 60; Glucose Fasting 76 mg/dL (60-99); HDL Cholesterol 28 mg/dL (>40); LDL Cholesterol Calculated 64 mg/dL (<100); Potassium 4.9 mmol/L (3.3-5.1); Sodium 140 mmol/L (135-145); Triglycerides 129 mg/dL (<150)
[2024-09-01 10:41] LABS: TSH reflex Free T4 2.79 uIU/mL (0.32-4.0)
[2024-09-02 09:20] LABS: Thyroid Peroxidase Antibodies 78 IU/mL (<9)
== END 2024-09-01 08:24 | disposition home or self-care (01) ==
LOC: HO.HMGCLDS 08:23
PROVIDERS: PCP Nurse Practitioner Family; Visit Provider Nurse Practitioner Family
DX: R79.89 Other specified abnormal findings of blood chemistry (principal)
CPT/HCPCS: 36415; 80053; 80061; 84443; 85025; 86376

== ENCOUNTER 2024-11-10 07:56 | Outpatient (AMB) | payer BC, SELFPAY ==
[2024-11-10 07:59] VITALS: BP 140/88; PULSE 78; O2SAT 99; BMI 31.4
--- NOTE | 2024-11-10 07:59 | MHC.OFFVIS ---
Vital Signs 11/10/24 07:59 Height 5 ft 11 in Weight 225 lb BMI 31.4 BP 140/88 H Blood Pressure Location Rt brachial Position Sitting Pulse 78 Pulse Source Pulse Oximeter Pulse Oximetry (%) 99 Oxygen Delivery Method Room Air Intake Visit Reasons: 6mo F/U Intake Note: Patient presents follow up Migraine. MRI/MRA in chart Allergies fenofibrate [From TRICOR] Allergy (Unknown, Verified 11/10/24 08:01) ITCHING Medication List - Last Reconciled 11/10/24 by BERYL Phoenix [aspirin 1 tab PO DAILY] cyclobenzaprine 5 mg PO BEDTIME PRN 30 days dextroamphetamine-amphetamine 10 mg ER 1 cap PO QAM icosapent ethyl (Vascepa) 2 grams PO BID metoprolol succinate ER 25 mg PO DAILY omeprazole 20 mg PO DAILY oxcarbazepine 300 mg PO BID rosuvastatin 20 mg PO BEDTIME ubrogepant (Ubrelvy) 50 - 100 mg (0.5 - 1 x 100 mg) PO ONCE PRN 30 days HPI Comments Details: History of Present Illness The patient is a 53-year-old male presenting with follow-up for neuropathy, migraine, and obstructive sleep apnea. Since the last visit, patient has had follow-up at [facility]. Per patient, the follow-up nerve conduction studies did not show any demyelination though did possibly show left lumbar radiculopathy, thus it is no longer felt that patient has a diagnosis of Chronic Inflammatory Demyelinating Polyneuropathy (CIDP) previously suspected with negative confirmatory nerve studies. Recently seen at [facility] rheumatology and workup has been inconclusive. He is being referred to an [facility] thoracic medicine specialist, as he does continue to have episodes of low back pain, lower extremity symptoms including fatigue, tightness, stiffness , tingling. He states that he has not been able to be as physically active as of late owing to recent loss of a parent, is about to move, and is still recovering from the flu he had about a month ago. He does note that generally when he is eating healthier diet, he feels slightly better overall. He is curious about local physiatry and/or PT locations other than [facility]- as he would like an alternate opinion. Sleep apnea is managed with CPAP, yet reports dry mouth and gastrointestinal discomfort possibly tied to the machine's use- feels significant gas and bloating. he did adjust the humidification settings, however that did not help the dry mouth. He also feels that the machine is blowing stronger pressure unusual. However, overall he states he can not sleep without his CPAP and is curious about alternate treatment options. He has received a new CPAP machine, as his old 1 malfunctioned- thus I can not access his [employer] CPAP compliance portal at this time. He continues to have episodes of eye discomfort, visual changes, photophobia- user typically worse when everything else is feeling worse. The symptoms can come on for 7 days and then not have symptoms for couple of weeks. migraine days is brighter than 7 days per month. Interval brain MRI and MRA were normal. Past migraine management was suggested but not initiated. He continues to have episodes of excessive sweating, patient states his PCP is considering an endocrinology referral. Results - MRI of the brain: Unremarkable. - MR Angiogram: Normal. - Electrodiagnostic studies (EMG & Nerve Conduction): No evidence of demyelination consistent with CIDP. - Positive CHRIS antibody: Previous finding- slightly elevated- [facility] does not feel that this is concerning. - Blood Glucose levels with fluctuating readings: 70s to 99s range. [facility] Medical History (Updated 11/10/24 @ 14:34 by BERYL Phoenix) CAD (coronary artery disease) Pulmonary HTN Esophageal dysmotility BPH (benign prostatic hyperplasia) MELISSA on CPAP Muscle weakness Bilateral inguinal hernia Fatty liver Non-STEMI (non-ST elevated myocardial infarction) ADHD Myocardial infarction Surgical History History of heart artery stent History of coronary angiogram History of umbilical hernia Family History Father CVD (cardiovascular disease) Myocardial infarction Unknown family medical history HTN (hypertension) Mother CVD (cardiovascular disease) Maternal Grandmother Stroke Paternal Grandfather Diabetes mellitus Paternal Aunt Aneurysm Social History Household Members: None Housing: House Are you a primary child day care center worker to a significant other at home: No Do you presently have visiting nurse or other home services: No Alcohol intake: current Alcohol intake frequency: does not drink Patient Tobacco Use Status: Never used Tobacco e-Cigarette/Vaping Use: Never Used Second Hand Smoke Exposure: No service: No Current occupational status: employed Cognitive needs: No Hearing needs: No Vision needs: Yes Physical Exam Vital Signs: Last Vital Signs Pulse 78 11/10/24 07:59 BP 140/88 H 11/10/24 07:59 Pulse Ox 99 11/10/24 07:59 Oxygen Delivery Method Room Air 11/10/24 07:59 BMI result Body Mass Index 31.4 Const General: cooperative and no acute distress Orientation/consciousness: patient oriented x3 Resp Effort & Inspection: normal respiratory effort and able to speak in complete sentences Neuro General: patient oriented x3 Cranial nerves: Yes CN's II-XII intact bilaterally Cognition (Neuro): normal cognition Psych Appearance: grossly normal Mental Status: mental status grossly normal Speech and movement: Normal speech and movement present Affect: normal affect Attitude: cooperative Assessment & Plan Assessment & Plan (1) Myopathy: Code(s): G72.9 - Myopathy, unspecified Category: Medical (2) Muscle weakness: Code(s): M62.81 - Muscle weakness (generalized) Category: Medical (3) Muscle twitching: Comment: cleared by neuro. follow up with rheumatology Code(s): R25.3 - Fasciculation Category: Medical (4) MELISSA on CPAP: Code(s): G47.33 - Obstructive sleep apnea (adult) (pediatric); Z99.89 - Dependence on other enabling machines and devices Category: Medical (5) Migraine without aura: Code(s): G43.009 - Migraine without aura, not intractable, without status migrainosus Category: Medical (6) MELISSA (obstructive sleep apnea): Code(s): G47.33 - Obstructive sleep apnea (adult) (pediatric) Category: Medical Plan Discussion Notes We discussed the current findings, including the lack of evidence for CIDP from diagnostic studies and the redirection to pursue alternative explanations for peripheral neuropathy, including further spine evaluations. The patient is advised to remain compliant with his CPAP therapy while monitoring for any gastroenteric side effects. Sleep apnea management and the potential for an alternative like Inspire were also considered. Due to his symptoms of excessive sweating, an endocrinology referral does seem appropriate. We explored possible triggers for his headaches, noting the absence of prescribed migraine medication. Discussed dietary effects- . She had an overall healthy diet comprising fruits, vegetables.Encouraged patient to follow-up with his forensic scientist as scheduled, and ask if he has been previously tested for celiac disease.. Patient was informed and verbally consented to the use of an ambient scribe for clinic note documentation during this visit. Plan and Patient Instructions For chronic so twitching, musculoskeletal and back pain symptoms: Will remove chronic demyelinating inflammatory polyneuropathy diagnosis- follow-up workup at [facility] do not worthless diagnosis.. Discontinue all previous IVIG orders. Concur with [facility] spine clinic evaluation. Future considerations referral to local PT, wastewater process engineer, process trainer. Monitor muscle twitching, musculoskeletal and back pain symptoms Continue we a well-balanced healthy diet, including the hurts and vegetables, lean protein. Follow-up with gastroenterology as scheduled- Confirm if previous celiac diagnosis testing has been completed. For migraines, vision changes, blurry vision, photophobia: For acute therapy: Trial Ubrogepant (Ubrelvy)- to see if these s/s are CGRP responsive.Ubrogepant 100mg tab instructions: 1/2 - 1 tab (50-100mg) at onset of headache, may repeat in 2 hours. Max of 2 tabs (200mg) per 24 hours. May adjunct with OTC Tylenol 650mg q 4 hours, Ibuprofen 600mg q 6 hours, or Naproxen 440mg q 12 hrs prn. Migraine tx contraindications- all triptans d/t h/o RI.? For preventative migraine therapy: Continue metoprolol ER 25 mg daily- fully order setting of status post RI tx. For MELISSA: Will request ENT consultation for alternate MELISSA treatment options, including inspire therapy. For now,,continue APAP 6-20 cmH2O nightly > 4 hrs. patient to update us with new CPAP serial number, so we can review his most recent PAP compliance data. - Contact the office immediately if symptoms worsen or new concerns arise. - Follow-up in 6 months or sooner as needed. Orders: Referrals Ear/Nose/Throat Referral G47.33 - Obstructive sleep apnea (adult) (pediatric), Z99.89 - Dependence on other enabling machines and devices Medications: New ubrogepant (Ubrelvy) take at onset of migraine, may repeat in 2hrs (may take w/ Ibuprofen) 50 - 100 mg (0.5 - 1 x 100 mg) PO ONCE 30 days PRN 16 tabs 3RF migraine headache Coding Level of Care Code Est Pt Level 4 (98813) Complex EM visit Add On G2211 Diagnoses Myopathy G72.9 Muscle weakness M62.81 Muscle twitching R25.3 MELISSA on CPAP G47.33; Z99.89 Migraine without aura G43.009 MELISSA (obstructive sleep apnea) G47.33
== END 2024-11-10 08:48 | disposition home or self-care (01) ==
LOC: HO.HSMS 07:56
PROVIDERS: PCP Nurse Practitioner Family; Visit Provider Nurse Practitioner Family
DX: G72.9 Myopathy, unspecified (principal); M62.81 Muscle weakness (generalized); R25.3 Fasciculation; G47.33 Obstructive sleep apnea (adult) (pediatric); Z99.89 Dependence on other enabling machines and devices; G43.009 Migraine without aura, not intractable, without status migrainosus
CPT/HCPCS: 99214

== ENCOUNTER → 2024-11-10 07:56 | Outpatient (BNVA) | payer BC, SELFPAY | PROVIDERS: PCP Nurse Practitioner Family; Visit Provider Nurse Practitioner Family ==

== ENCOUNTER 2025-02-23 16:07 | Outpatient (AMB) | payer BC, SELFPAY ==
--- OUTSIDE RECORDS SUMMARY | 2025-02-22 23:59 | XMS_ITS | Continuity of Care Document ---
Author Organization [facility] Address [address] [place] [address]- Care Team Providers Care Agricultural Appraiser Name Role Phone Torrey PETERS, Marlon Hammer Primary Care Physician Encounter [facility] Date(s): 01/23/25 - 02/22/25 [facility] [address] [place], [place] [address] Encounter Type: Triage Allergies, Adverse Reactions, Alerts Substance Criticality Severity Reaction Reaction Severity Status fenofibrate Low criticality Mild Itching Ac tive Medications Adderall 20 mg oral tablet 1 tablet = 20 mg, By Mouth, 2 times a day, 0 Refills, Maintenance, 12/23/24 9:08:00 AM EDT, Partial fill upon patient request if the prescription is for a schedule II opioid drug. Start Date: 12/23/24 Status: Ordered Repeat number: 1 amLODIPine 5 mg oral tablet 5 mg, 1, tablet, By Mouth, Daily, Refills 0, Maintenance, 06/13/21 7:46:00 AM EDT, Partial fill uponpatient request if the prescription is for a schedule II opioid drug. Start Date: 06/13/21 Status: Ordered Repeat number: 1 Crestor 20 mg oral tablet 1 tablet = 20 mg, By Mouth, Daily, # 30 tablet, 0 Refills, Maintenance, 11/12/18 11:00:18 AM EDT, Tablet, [facility] 3 Start Date: 11/12/18 Stop Date: 12/12/18 Status: Ordered Quantity: 30.0 Unit: tablet Repeat number: 1 dexamethasone 1 mg oral tablet 1 tablet = 1 mg, By Mouth, Once, to be taken at 11pm then go for labs at 8 AM the next morning., # 1 tablet, 0 Refills, Soft Stop, 01/26/25 10:03:00 PM EDT, [facility], Partial fill uponpatient request if the prescription is for a schedule II opioid drug., 180, cm, 12/23/24 9:09:00 EDT, Height Start Date: 01/26/25 Status: Ordered Quantity: 1.0 Unit: tablet Repeat number: 1 metoprolol 25 mg oral tablet, extended release 25 mg, 1, tablet, By Mouth, Daily, # 30 tablet, Refills 0, Tot. Refills 0, Maintenance, 11/12/18 10:59:41 AM EDT, Route to Pharmacy Electronically, [facility] 3 Start Date: 11/12/18 Stop Date: 12/12/18 Status: Ordered Quantity: 30.0 Unit: tablet Repeat number: 1 Multivitamin Daily, 0 Refills, Maintenance, 06/13/21 7:45:00 AM EDT, Partial fill upon patient request if the prescription is for a schedule II opioid drug. Start Date: 06/13/21 Status: Ordered Repeat number: 1 omeprazole 20 mg oral delayed release tablet 1 tablet = 20 mg, By Mouth, Daily, 0 Refills, Maintenance, 12/23/24 9:09:00 AM EDT, Partial fill upon patient request if the prescription is for a schedule II opioid drug. Start Date: 12/23/24 Status: Ordered Repeat number: 1 omeprazole 20 mg oral delayed release tablet 2 tablet = 40 mg, By Mouth, 2 times a day, 0 Refills, Maintenance, 11/11/18 6:03:13 AM EDT Start Date: 11/11/18 Status: Ordered Repeat number: 1 OXcarbazepine 300 mg oral tablet 300 mg, 1, tablet, By Mouth, 2 times a day, Refills 0, Maintenance, 12/23/24 9:08:00 AM EDT, Partialfill upon patient request if the prescription is for a schedule II opioid drug. Start Date: 12/23/24 Status: Ordered Repeat number: 1 ticagrelor 90 mg oral tablet 1 tablet = 90 mg, By Mouth, 2 times a day, # 60 tablet, 0 Refills, Maintenance, 11/12/18 10:58:57 AM EDT, Tablet, [facility] 3 Start Date: 11/12/18 Stop Date: 12/12/18 Status: Ordered Quantity: 60.0 Unit: tablet Repeat number: 1 Vascepa 0.5 g oral capsule 4 capsule = 2 Gm, By Mouth, 2 times a day, # 240 capsule, 0 Refills, Maintenance, 11/12/18 11:00:49 AM EDT, Capsule, [facility] Start Date: 11/12/18 Stop Date: 12/12/18 Status: Ordered Quantity: 240.0 Unit: capsule Repeat number: 1 Problem List Condition Confirmation Course Effective Dates Status H ealth Status Informant CAD in [place] artery Confirmed Active Hyperlipidemia Confirmed Active Obese class I Confirmed Active Social History Social History Type Response Smoking Status Never (less than 100 in lifetime) entered on: 12/05/18 Sex Sex Representation Male (finding) Patient Care team information Care Team Personnel Name: Effie Yeung RN Position: Sonia MORA RN Member Role: Primary Care Nurse Name: Marlon Hirsch NP Position: Reference Physician Member Role: PCP Address: [address] [place] [address] Telecom: Care Team Related Persons Name: JOE MOON Name: ROBIN MOON Name: ROBIN SHEPHERD Insurance Providers Guarantor name: MARIZA MOON Health Plan Information #: 1 Payer: [employer] O Payer Identifier: ROHIT Member Number: [id number] Group Number: [id number] Subscriber Identifier: [id number] Relationship to Subscriber: self Coverage Type: NA Coverage Verification Date: NA Telecom: NA Address:
--- OUTSIDE RECORDS SUMMARY | 2025-02-22 23:59 | XMS_ITS | Continuity of Care Document ---
Author Organization [facility] Address [address] [place] [id number]- Care Team Providers Care High School Mathematics Teacher Name Role Phone Torrey PETERS, Marlon Hammer Primary Care Physician Encounter [facility] Date(s): 01/23/25 - 02/22/25 [facility] [address] [place] [id number] Attending Physician: Arsh Madrigal Admitting Physician: AdmtrArsh Referring Physician: Admtr, Ar8 Encounter Type: Triage Allergies, Adverse Reactions, Alerts [...] AM EDT, Tablet, [facility] Start Date: 11/12/18 Stop Date: 12/12/18 Status: Ordered Quantity: 30.0 Unit: tablet Repeat number: 1 dexamethasone 1 mg oral tablet 1 tablet = 1 mg, By Mouth, Once, to be taken at 11pm then go for labs at 8 AM the next morning., # 1 tablet, 0 Refills, Soft Stop, 01/26/25 10:03:00 PM EDT, [facility] 3, Partial fill uponpatient request if the [...] 10:59:41 AM EDT, Route to Pharmacy Electronically, [facility] 3 Start Date: 11/12/18 Stop Date: 12/12/18 [...] Refills, Maintenance, 11/12/18 10:58:57 AM EDT, Tablet, [facility] Start Date: 11/12/18 Stop Date: 12/12/18 Status: Ordered Quantity: 60.0 Unit: tablet Repeat number: 1 Vascepa 0.5 g oral capsule 4 capsule = 2 Gm, By Mouth, 2 times a day, # 240 capsule, 0 Refills, Maintenance, 11/12/18 11:00:49 AM EDT, Capsule, [facility] Start Date: 11/12/18 Stop Date: 12/12/18 Status: Ordered Quantity: 240.0 Unit: capsule Repeat number: 1 Problem List Condition Confirmation Course Effective Dates Status H ealth Status Informant CAD in [place] artery Confirmed Active Hyperlipidemia Confirmed Active Obese [...] Position: Reference Physician Member Role: PCP Address: [address] [place] [address] Telecom: Care Team Related Persons Name: JOE MOON Name: ROBIN MOON Name: ROBIN SHEPHERD Insurance Providers Guarantor name: MARIZA MOON Health Plan Information #: 1 Payer: [employer] O Payer Identifier: NA Member Number: [id number] Group Number: [id number] Subscriber Identifier: [id number] Relationship to Subscriber: self Coverage Type: NA Coverage Verification Date: NA Telecom: NA Address:
[2025-02-23 16:08] VITALS: BP 115/70; PULSE 80; TEMP 36.6; O2SAT 97; BMI 32.7
--- NOTE | 2025-02-23 16:08 | AM.OFFWIN_ITS ---
Intake Vital Signs 02/23/25 16:08 Height 5 ft 11 in Weight 234 lb 2 oz BMI 32.7 BP 115/70 Blood Pressure Location Rt brachial Position Sitting Pulse 80 Pulse Source Pulse Oximeter Temp 97.8 F Temp Source Oral Pulse Oximetry (%) 97 Oxygen Delivery Method Room Air Intake Visit Reasons: EP RT shoulder pain Intake Note: Patient present with right shoulder pain times 1 month Patient Tobacco Use Status: Never used Tobacco Allergies fenofibrate (From TRICOR) Allergy (Unknown, Verified 11/10/24 08:01) ITCHING HPI HPI Comments History of Present Illness Details History - The patient is a 54-year-old male pres enting with right shoulder pain. - The shoulder pain has been worsening o romeo time, initially starting as a minor discomfort. - The pain exacerbates with lifting the elbow or performing overhead activities. - Patient went to wave to someone today and the pain came on suddenly which prompted him to get it evaluated today. - No history of trauma or surgery to the shoulder. - Temporary relief is achieved with ibup rofen and rest. - The patient has a history of osteoarth ritis, but rheumatoid arthritis has been ruled out. Physical Exam General: Cooperative, healthy appearing, comfortable, no acute distress and well developed Orientation: Patient oriented x3 Limitations: No limitations Head: Normal to inspection Ears: Hearing grossly normal bilaterally Nose: Normal External nose present Face and sinus: Normal facial exam Mouth: normal, moist oral mucosa Eyes: Appearance normal, both eyes and all related structures Neck: Normal visual inspection and Yes full ROM Respiratory: Normal respiratory effort and able to speak in complete sentences. Skin: no rashes or lesions noted Neuro: Patient oriented x3 Extremities: Right shoulder pain, worse with lifting elbow to 90 degrees, + [place], can raise overhead, negative lift off, negative empty can. [facility] Medical History (Updated 02/23/25 @ 16:24 by Elana Last PA-C) CAD (coronary artery disease) Pulmonary HTN Esophageal dysmotility BPH (benign prostatic hyperplasia) MELISSA on CPAP Muscle weakness Bilateral inguinal hernia Fatty liver Non-STEMI (non-ST elevated myocardial infarction) ADHD Myocardial infarction Surgical History History of heart artery stent History of coronary angiogram History of umbilical hernia Family History Father CVD (cardiovascular disease) Myocardial infarction Unknown family medical history HTN (hypertension) Mother CVD (cardiovascular disease) Maternal Grandmother Stroke Paternal Grandfather Diabetes mellitus Paternal Aunt Aneurysm Social History Household Members: None Housing: House Are you a primary daycare provider to a significant other at home: No Do you presently have visiting nurse or other home services: No Alcohol intake: current Alcohol intake frequency: does not drink Patient Tobacco Use Status: Never used Tobacco e-Cigarette/Vaping Use: Never Used Second Hand Smoke Exposure: No service: No Current occupational status: employed Cognitive needs: No Hearing needs: No Vision needs: Yes Review of Systems Const All systems reviewed & are unremarkable except as noted in HPI and below Physical Exam Vital Signs: Last Vital Signs Temp 97.8 F 02/23/25 16:08 Pulse 80 02/23/25 16:08 BP 115/70 02/23/25 16:08 Pulse Ox 97 02/23/25 16:08 Oxygen Delivery Method Room Air 02/23/25 16:08 BMI result Body Mass Index 32.7 Assessment & Plan Assessment & Plan (1) Right shoulder pain: Code(s): M25.511 - Pain in right shoulder Qualifiers: Chronicity: acute Qualified Code(s): M25.511 - Pain in right shoulder Plan: Plan Patient was informed and verbally consented to the use of an ambient scribe for clinic note documentation during this visit Right Shoulder Pain - An x-ray of the shoulder is planned to assess for any structural abnormalities. - Referral to orthopedics for further evaluation and management. - Conservative management includes rest, ice, use of a sling (pt declined for now), and NSAIDs like Aleve ATC for 3-4 days. Orders: Orders XR shoulder RT min 2V Today M25.511 - Pain in right shoulder Referrals Orthopedics Referral M25.511 - Pain in right shoulder Coding Level of Care Code Est Pt Level 4 (99777) Diagnoses Acute pain of right shoulder M25.511 Chronicity: acute
--- OUTSIDE RECORDS SUMMARY | 2025-02-23 16:58 | XMS_ITS | Clinical Summary ---
Author Organization [facility] [address] [facility] Address [address] [place] [address] Phone Care Team Providers Care Circuit Board Inspector Name Role Phone Marlon Hirsch GLOVE SEWER Primary Care Provider Allergies No known active allergies Medications cyclobenzaprine (FLEXERIL) 5 mg tablet TAKE 1 TABLET BY MOUTH BEDTIME NEEDED FOR MUSCLE SPASM FOR 30 DAYS 04/25/2024 Active ibuprofen (ADVIL,MOTRIN) 800 mg tablet Take 1 tablet (800 mg total) by mouth. 02/25/2024 Active icosapent ethyL (VASCEPA) 1 gram capsule 06/03/2024 Active metoprolol succinate (TOPROL-XL) 25 mg 24 hr tablet 06/03/2024 Act sudeep OXcarbazepine (TRILEPTAL) 150 mg tablet 06/06/2024 Active rosuvastatin (CRESTOR) 20 mg tablet 06/03/2024 Active omeprazole (PriLOSEC) [address] germanIndicati ons:gastroesoph ageal reflux disease Take 1 capsule (20 mg total) by mouth 2 (two) times a day. Do not crush or chew. 180 each 2 12/16/2024 Active Active Problems Problem Noted Date Diagnosed Date Other constipation 11/12/2024 Fatty liver 06/16/2024 Overview (06/16/2024): Liver biopsy 02/2024: Mild macrosteatosis; minimal inflammation; rare fibrosis. GERD (gastroesophageal reflux disease) Esophageal dysmotility 06/16/2024 Social History Tobacco Use Types Packs/Day Years Used Date Smoking Tobacco: Never Assessed Sex and Gender Information Value Date Recorded Sex Assigned at Male 06/23/2024 11:52 AM EST Legal Sex Male 3:48 PM EST Gender Identity Male 06/23/2024 11:52 AM EST Sexual Orientation Straight 06/23/2024 11 :52 AM EST Obstetrics History Last Filed Vital Signs Vital Sign Reading Time Taken Comments Blood Pressure - - Pulse - - Temperature - - Respiratory Rate - - Oxygen Saturation - - Inhaled Oxygen Concentration - - Weight 103 kg (226 lb) 11/12/2024 8:04 AM EDT Height 180.3 cm (5' 11 ) 11/12/2024 8:04 AM EDT Body Mass Index 31.52 11/12/2024 8:04 AM EDT Plan of Treatment Health Maintenance Due Date Last Done Comments Cholesterol Screening (Lipid Panel) 07/12/2022 Colorectal Cancer Screening: Colonoscopy 07/12/2022 Depression Screening 07/12/2022 HIV Screening 07/12/2022 Hepatitis C Screening 07/12/2022 Social Influencers of Health Screening 07/12/2022 Pneumococcal Vaccine: 50+ Years (2 of 2 - PCV) 12/26/2022 12/26/2021 Zoster Vaccines (1 of 2) 2022 COVID-19 Vaccine ( - season) 2024 05/23/2022, 05/14/2021, 10/20/2020, Additional history exists Hypertension/CHF/CAD Annual BMP Blood Test 06/16/2024 Influenza Vaccine (#1) 2025 2, 06/14/2021, 07/27/2020 DTaP,Tdap,and Td Vaccines (3 - Td or Tdap) 04/05/2027 04/05/2017, 04/05/2017 Hepatitis B Vaccines Completed 03/30/2020, 11/28/2019, 10/29/2019 Hepatitis A Vaccines Aged Out 06/06/2021, 12/06/19 23 No longer eligible based on patient's age to complete this topic HIB Vaccines Aged Out No longer eligi ble based on patient's age to complete this topic HPV Vaccines Aged Out No longer eligi ble based on patient's age to complete this topic IPV Vaccines Aged Out No longer eligi ble based on patient's age to complete this topic MMR Vaccines Aged Out No longer eligi ble based on patient's age to complete this topic Meningococcal ACWY Vaccine Aged Out N o longer eligible based on patient's age to complete this topic Meningococcal B Vaccine Aged Out No l onger eligible based on patient's age to complete this topic RSV Immunization Patients Under 20 months Aged Out No longer eligible based on patient's age to complete this topic Varicella Vaccines Aged Out No longer eligible based on patient's age to complete this topic Insurance [facility]) Care Teams Circuit Board Inspector Relationship Specialty Start Date End Date Marlon Hirsch NP [address] [facility] [place] PCP - General Family Medicine 06/09/24
--- OUTSIDE RECORDS SUMMARY | 2025-02-23 16:58 | XMS_ITS | Patient Health Record ---
[facility] Address [address] [place] [address] Care Team Providers Care Construction Area Manager Name Role Phone Marlon Giang Primary Care Provider Unav tuyet IrizarryBrent Unavailable [phone] Allergies No Known Allergies Reason For Referral No Information Medications Medication SIG (Take, Route, Frequency, Duration) Notes Start Date End Date Status Night Splint AFO - L1930 as directed Not-Taking Physical Therapy . . . 2-3x/week; Durat ion: 3-4 weeks Not-Taking Brilinta 90 MG 1 tablet Orally Twic e a day; Duration: 30 day(s) Not-Dagoberto ing Omeprazole 20 MG as directed Orally Active Lopid Unknown Ciclopirox Olamine 0.77% external Apply to effected areas twice a day; Duration: 30 days 12/03/2015 Unknown amLODIPine Besylate 5 MG 1 tablet Orally Once a day; Duration: 30 day(s) Active Concerta Unknown Crestor 20 MG 1 tablet Orally Once a day; Duration: 30 day(s) Active Ibuprofen & Diet Manage Prod 600 MG Orally 01/22/2014 Unknown Wellbutrin XL 300 MG 1 tablet in the mor ross Orally Once a day; Duration: 30 day(s) Active Vascepa Active Metoprolol Succinate 25 MG 1 capsule Orally Once a day; Duration: 30 day(s) Active Singulair 10 MG 1 tablet Orally Once a day; Duration: 30 day(s) Active Keflex 500 MG 1 capsule Orally preeti ry 12 hrs; Duration: 10 day(s) Active Immunizations Vaccine Route Administration [...] Problem Status W/U Status Risk Notes Problem Tarsal tunnel syndrome (46697627) Tarsal tunnel syndrome of right side (G57.51) Active confirmed Plan Of Treatment Pending Test Test Name Order Date *Liver Function Test (LFT) 02/20/2014 X ray : Foot, left 3V 11/08/2022 X ray : Foot, left 3V 12/04/2023 X ray : Foot, right 3V 12/04/2023 X ray : Foot, right 3V 11/08/2022 [id number] NAIL, 6 OR MORE 02/20/2014 [id number] NAIL, 6 OR MORE 09/18/2014 [id number] NAIL, 6 OR MORE 11/27/2014 [id number] NAIL, 1-5 12/03/2015 [id number] Plate 12/09/2014 [id number] Plate 03/17/2015 [id number] Plate 07/01/2015 [id number] Plate Each Additional 71939- Debride <25 sq cm 12/24/2014 56397 I&D ABSCESS- SIMPLE,SINGLE 015 [id number] I&D ABSCESS- SIMPLE,SINGLE 015 66035 I&D ABSCESS- SIMPLE,SINGLE 022 Insurance Providers Payer Name Payer Address Payer Phone Subscriber Number Group Number Insured Name Patient Relationship to Insured Coverage Start Date Coverage End Date [facility] [address] [place] [address] [phone] [id number] Jeff Clifford Self - patient is the insured Medical (General) History Medical History History ICD Code Attention deficit hyperactivity disorder Back,Hip,and Knee pain Chicken pox Angina Diverticulosis Heart disease Peripheral Demilination Surgical History Surgery Date(Month/Year) umbilical hernia repair 2009 Stent Surgery 11/29
== END 2025-02-23 16:36 | disposition home or self-care (01) ==
PROVIDERS: PCP Nurse Practitioner Family; Visit Provider Physician Assistant
DX: M25.511 Pain in right shoulder (principal)

== ENCOUNTER 2025-02-23 16:26 | Outpatient (REF) | payer BC, SELFPAY ==
--- NOTE | ~2025-02-23 | XR_ITS ---
EXAMINATION: XR SHOULDER, RIGHT CLINICAL INFORMATION: M25.511 - Pain in right shoulder COMPARISON: 02/19/2022. TECHNIQUE: AP external rotation, Grashey, scapular Y, and axillary views of the right shoulder. FINDINGS: Normal bone mineralization. No fracture, dislocation, or suspicious bone lesion. Normal alignment. The glenohumeral joint is normal. The AC joint demonstrates mild to moderate superior spurring. There is a type II acromion. No undersurface spurring. The subacromial space is preserved. Remainder of the soft tissue and bony structures appear normal. XR/XR shoulder RT min 2V IMPRESSION: No acute bony abnormalities right shoulder. Mild to moderate superior surface spurring of the AC joint. Electronically signed by: Gonzalo Peck MD 02/23/2025 04:39 PM EDT
== END 2025-02-23 16:27 | disposition home or self-care (01) ==
LOC: HO.HMGCX 16:26
PROVIDERS: PCP Nurse Practitioner Family; Visit Provider Physician Assistant
DX: M25.511 Pain in right shoulder (principal)
CPT/HCPCS: 73030

== ENCOUNTER → 2025-02-23 16:29 | Outpatient (BNV) | payer BC, SELFPAY | PROVIDERS: PCP Nurse Practitioner Family; Visit Provider Radiology Diagnostic Radiology | DX: M19.011 Primary osteoarthritis, right shoulder (principal) | CPT/HCPCS: 73030 ==

== ENCOUNTER 2025-03-21 08:09 | Outpatient (REF) | payer BC, SELFPAY ==
[2025-03-21 11:42] LABS: MANUAL DIFF FLAG NO
[2025-03-21 11:57] LABS: Hematocrit 44.4 % (42.0-52.0); Hemoglobin 15.4 g/dl (14.0-18.0); Imm Gran Abs Auto 0.01 X10*3/uL (0.00-0.03); Imm Gran Pct Auto 0.2 % (0.0-0.4); Lymphocytes Absolute Auto 1.1 X10*3/uL (1.2-4.9); Mean Corpuscular HGB Conc 34.7 g/dl (31.0-36.0); Mean Corpuscular Hemoglobin 30.1 pg (27.0-33.0); Mean Corpuscular Volume 86.7 fL (80.0-98.0); NRBC Abs Auto 0.000 X10*3/uL (0.0-0.012); NRBC Pct Auto 0.0 /100WBC (0.0-0.2); Platelet Count 156 X10*3/uL (160-400); Red Blood Count 5.12 X10*6/uL (4.60-5.80); White Blood Count 4.3 X10*3/uL (4.8-10.8)
[2025-03-21 12:14] LABS: Appearance Urine Turbid; Glucose Urine UA Negative (Negative); PH 5.5 (5.0-9.0); Specific Gravity - Urine >= 1.030 (1.005-1.025)
[2025-03-21 12:44] LABS: Alanine Aminotransferase 73 U/L (0-40); Albumin Level 5.0 g/dL (3.5-5.0); Alkaline Phosphatase 67 U/L (39-117); Anion Gap 15 (12-20); Aspartate Amino Transferase 40 U/L (5-37); Blood Urea Nitrogen 31 mg/dL (9-16); Calcium 9.6 mg/dL (8.4-10.2); Carbon Dioxide 26 mmol/L (22-29); Chloride 107 mmol/L (96-108); Cholesterol 154 mg/dL (<200); Estimated Glomerular Filt Rate > 60; HDL Cholesterol 37 mg/dL (>40); Potassium 4.5 mmol/L (3.3-5.1); Sodium 143 mmol/L (135-145); Total Protein 7.8 g/dL (6.5-8.0); Triglycerides 224 mg/dL (<150)
[2025-03-21 12:52] LABS: Prostate Specific Antigen 0.23 ng/mL (<0.05-4.0)
[2025-03-22 20:39] LABS: Follicle Stimulating Hormone 10.7 mIU/mL (1.4-12.8)
[2025-03-26 12:43] LABS: IGF-1 (Somatomedin C) 232 ng/mL (50-317); IGF-1 Z Score (Male) 1.1 SD (-2.0 - +2.0)
[2025-03-27 14:38] LABS: Testosterone, Free 46.1 pg/mL (35.0-155.0)
== END 2025-03-21 08:10 | disposition home or self-care (01) ==
LOC: HO.HMGCLDS 08:09
PROVIDERS: Student in an Organized Health Care Education/Training Program; PCP Nurse Practitioner Family; Referring Provider Physician Assistant Surgical; Visit Provider Nurse Practitioner Family
DX: Z00.01 Encounter for general adult medical examination with abnormal findings (principal); Z12.5 Encounter for screening for malignant neoplasm of prostate; N40.1 Benign prostatic hyperplasia with lower urinary tract symptoms; R61 Generalized hyperhidrosis; D72.819 Decreased white blood cell count, unspecified; R79.89 Other specified abnormal findings of blood chemistry
CPT/HCPCS: 36415; 80053; 80061; 81003; 83001; 83002; 84153; 84270; 84305; 84402; 84403; 84443; 85025

== ENCOUNTER 2025-03-25 07:56 | Outpatient (AMB) | payer BC, SELFPAY ==
--- OUTSIDE RECORDS SUMMARY | 2024-01-14 04:00 | XMS_ITS ---
Author Organization [facility] Address [address] [place] [id number] Care Team Providers Care Military Logistics Specialist Name Role Phone Marlon Giang Primary Care Provider Unav ailBrent Aguillon [facility] [phone] Encounters Encounter Location Date Provider Diagnosis [address] [address] 01/14/2024 Brent Irizarry Plan Of Treatment No Information Progress Notes * Jeff CLIFFORD JaquelinDOB: [birth year] (54 yo M)Acc No.[id number]:01/14/2024 Progress Note Patient: Jeff CANNON Provider: Michael Irizarry DPM :1970 A ge:53 Y S ex:Male Date:01/14/2024 Address:[address] [place], [place] [id number] Pcp:YEISON Hurst Subjective: * Chief Complaints: * * Medical History: Objective: * Vitals: Assessment: Plan: * Treatment: * Images: * The named appointment provid er may or may not be the originator of this progress note, and it is not deemed complete until electronically signed by the appointment provider. Sign off status: Pending * Provider: Michael Irizarry DPM Date: 0 01/14/2024 Generated for Edin canchola/Erica/Elizabethransmitting on: 0 03/25/2025 07:59 AM EDT
--- OUTSIDE RECORDS SUMMARY | 2025-03-25 07:59 | XMS_ITS | Clinical Summary ---
Author Organization [facility] [address] [facility] Address [address] [place] [address] Phone Care Team Providers Care Comic Book Artist Name Role Phone Marlon Hirsch FERMENTING CELLAR DROPPER Primary Care Provider Allergies No known active [...] 06/03/2024 Active omeprazole (PriLOSEC) [address] capsuleIndicati ons:gastroesoph ageal reflux disease Take 1 capsule (20 mg total) by mouth 2 (two) times a day. Do not crush or chew. 180 each 2 12/16/2024 6 Active Active Problems Problem Noted Date Diagnosed [...] Panel) 07/12/2022 Colorectal Cancer Screening: Colonoscopy 07/12/2022 HIV Screening 07/12/2022 Hepatitis C Screening 07/12/2022 Social Influencers of Health Screening 07/12/2022 Pneumococcal Vaccine: 50+ Years (2 of 2 - PCV) 12/26/2022 12/26/2021 Zoster Vaccines (1 of 2) 2022 COVID-19 Vaccine ( season) 2024 05/23/2022, 05/14/2021, 10/20/2020, Additional history exists Hypertension/CHF/CAD Annual BMP Blood Test 06/16/2024 Depression Screening 08/13/2024 Influenza Vaccine (#1) 2025 2, 06/14/2021, 07/27/2020 [...] patient's age to complete this topic Insurance [facility]) Care Teams Comic Book Artist Relationship Specialty Start Date End Date Marlon Hirsch NP [address] [place], [place] PCP - General Family Medicine 06/09/24
--- OUTSIDE RECORDS SUMMARY | 2025-03-25 07:59 | XMS_ITS | Encounter Summary ---
Author Organization [facility] Address [address] [place] [phone] Phone Care Team Providers Care Nail Specialist Name Role Phone Unknown, Unknown Primary Care Provider Marlon Shields NP Primary Care Provider + Marlon Hirsch NP Primary Care Provider + Reason for Referral * MRI/CAT Scan - Canceled Specialty Diagnoses / Procedures Referred By Raissa boston Referred To Contact Radiology Diagnoses Coronary artery disease involving [place] coronary artery of [place] heart without angina pectoris Procedures NC Myocardial Perfusion Pharmacologic Stress Multiple Dasia Wood MD Phone: tel: fax: [email or web address] Mobile Referral ID Status Reason Start Date Expiration Date V isits Requested Visits Authorized [id number] Canceled 12/27/2018 1 1 Encounter Details Date Type Department Care Team (Latest Contact Info) Description 12/27/2018 Transcribe Orders [facility] [address] [facility] [address], [address] [place] [address] Dasia Wood MD [address] [place] [phone] [email or web address] Coronary artery disease involving k[place] coronary artery of [place] heart without angina pectoris (Primary Dx) Social History Tobacco Use Types Packs/Day Years Used Date Smoking Tobacco: Never Smokeless Tobacco: Never Alcohol Use Standard Drinks/Week Comments Not Currently 0 (1 standard drink = 0.6 oz pur e alcohol) RARE Sex and Gender Information Value Date Recorded Sex Assigned at Male 11/10/2018 10:01 PM EDT Legal Sex Male 9:32 PM EDT Gender Identity Male 11/10/2018 10:01 PM EDT Sexual Orientation Straight 11/10/2018 10 :01 PM EDT documented as of this encounter Plan of Treatment Upcoming Encounters Date Type Department Care Team (Late st Contact Info) Description 04/20/2025 11:20 AM EDT Office Visit [address] [address] Stacy Smith PA-C [address] [place] [address] [email or web address] 09/22/2025 11:00 AM EST Office Visit [facility] [address] [place] [address] Luis Negrete MD [address] [facility]. BTM - Department [place] [address] [email or web address] Scheduled Orders Name Type Priority Associated Diagnoses Order Schedule NC Myocardial Perfusion Pharmacologic Stress Multiple Nuclear Cardiology Routine Coronary artery disease involving [place] coronary artery of [place] heart without angina pectoris Ordered: 12/27/2018 documented as of this encounter Visit Diagnoses Diagnosis Coronary artery disease involving [place] coronary artery of [place] heart without angina pectoris- Primary documented in this encounter Care Teams Nail Specialist Relationship Specialty Start Date End Date Unknown, Unknown, PCP - General 11/10/18 03/05/19 Marlon Hirsch NP [address] [place] [address] PCP - General Family Medicine 03/06/19 03/20/22 Marlon Hirsch NP [address] [place] [address] PCP - General Family Medicine 03/21/22 documented as of this encounter Additional Source Comments The information contained in this document represents components of the legal health record. It is not the complete legal health record.[facility]
[2025-03-25 08:05] VITALS: BP 126/82; PULSE 78; RESP 16; O2SAT 96; BMI 33.1
--- NOTE | 2025-03-25 08:05 | A.OFFPC_ITS ---
Vital Signs 03/25/25 08:05 Height 5 ft 11 in Weight 237 lb BMI 33.1 BP 126/82 Blood Pressure Location Rt brachial Position Sitting Respiration 16 Pulse 78 Pulse Source Pulse Oximeter Pulse Oximetry (%) 96 Oxygen Delivery Method Room Air Intake Visit Reasons: PE Early Breastfeeding Care Specialist Required: No Accompanied by: Self / Same As Patient Allergies fenofibrate (From TRICOR) Allergy (Unknown, Verified 03/25/25 08:23) ITCHING Medication List - Last Reconciled 03/25/25 by RIA MendietaBC [aspirin 1 tab PO DAILY] cyclobenzaprine 5 mg PO BEDTIME PRN 30 days dextroamphetamine-amphetamine 10 mg ER 1 cap PO QAM icosapent ethyl (Vascepa) 2 grams PO BID metoprolol succinate ER 25 mg PO DAILY omeprazole 20 mg PO DAILY oxcarbazepine 300 mg PO BID rosuvastatin 20 mg PO BEDTIME ubrogepant (Ubrelvy) 50 - 100 mg (0.5 - 1 x 100 mg) PO ONCE PRN 30 days Tobacco use date assessed: 03/25/25 Dental Screening Dental Screen Date: 03/25/25 Did you have a dental visit in the last 12 months?: Yes Did you have a dental problem in the last 6 months where you did not have access to dental care?: No Was dental information given to patient?: Patient has dentist HPI PE HPI Details History of Present Illness The patient is a 54-year-old male presenting for a physical examination. He reports neuropathy, which is being managed by a neurologist, and it appears to be related to his lower back issues. He is scheduled to start physical therapy soon, which is expected to aid in alleviating his symptoms. The patient also experiences right shoulder pain and is under the care of an junk removal specialist. Physical therapy is anticipated for this condition as well. He has been diagnosed with hyperhidrosis and is consulting an poolroom/poolhall manager for management. The patient has a history of elevated liver enzymes and fatty liver, for which he has been seeing a ultimate hoops scoreboard operator. Will cont to monitor Sees cardiology on a regular basis Preventative care measures include an annual dermatology visit and a colon cancer screening conducted in 2021, which was normal. Health Maintenance - Annual dermatology visit - Colon cancer screening in 2021 Social History Review of Systems - Cardiovascular: Denies chest pain - Respiratory: Denies dyspnea - Gastrointestinal: Denies abdominal ceferino n, blood in stool, constipation, diarrhea - Neurological: Reports neuropathy - Musculoskeletal: Reports right shoulde r pain - Psychiatric: Denies suicidal ideation, homicidal ideation Physical Exam General: Cooperative, healthy appearing, comfortable, no acute distress and well developed Orientation: Patient oriented x3 Limitations: No limitations Head: Normal to inspection Ears: Hearing grossly normal bilaterally Nose: Normal external nose present Face and sinus: Normal facial exam Eyes: Appearance normal, both eyes and all related structures Neck: Normal visual inspection and Yes full ROM Respiratory: Normal respiratory effort and able to speak in complete sentences. Clear to auscultation bilaterally Cardiovascular: Regular rate and rhythm. Normal S1 and S2, no carotid bruits noted GI: Normal to inspection. Soft to palpation and nontender : Testicles without masses/lesions and no hernias appreciated Skin: No rashes or lesions noted Neuro: Patient oriented x3, +1 left patellar reflex. Extremities: Normal to inspection, reports some right shoulder pain, seeing ortho for this. Results - Labs: PSA within normal limits at 0.23 - Screening: Colon cancer screening in , results normal Plan The patient is advised to continue consultations with his neurologist for neuropathy management, with physical therapy recommended to address symptoms related to his lower back issues. He should also follow up with his junk removal specialist regarding his right shoulder pain, with physical therapy anticipated as part of the treatment plan. Management of hyperhidrosis should continue under the guidance of an poolroom/poolhall manager. For elevated liver enzymes and fatty liver, ongoing care with a ultimate hoops scoreboard operator is recommended. Preventative care includes maintaining annual dermatology visits and ensuring regular colon cancer screenings, with the last screening in 2021 showing normal results. Patient Instructions - Follow up with neurologist for neuropa thy management. - Begin physical therapy as recommended. - Continue consultations with junk removal specialist for shoulder pain. - Maintain regular poolroom/poolhall manager visit s for hyperhidrosis management. - Continue care with ultimate hoops scoreboard operator for liver health. - Keep up with annual dermatology visits and regular colon cancer screenings. REPLACED BY [facility] Medical History CAD (coronary artery disease) Pulmonary HTN Esophageal dysmotility BPH (benign prostatic hyperplasia) MELISSA on CPAP Muscle weakness Bilateral inguinal hernia Fatty liver Non-STEMI (non-ST elevated myocardial infarction) ADHD Myocardial infarction Surgical History History of heart artery stent History of coronary angiogram History of umbilical hernia Family History Father CVD (cardiovascular disease) Myocardial infarction Unknown family medical history HTN (hypertension) Mother CVD (cardiovascular disease) Maternal Grandmother Stroke Paternal Grandfather Diabetes mellitus Paternal Aunt Aneurysm Social History Household Members: None Housing: House Are you a primary acute care occupational therapist to a significant other at home: No Do you presently have visiting nurse or other home services: No Alcohol intake: current Alcohol intake frequency: does not drink Patient Tobacco Use Status: Never used Tobacco e-Cigarette/Vaping Use: Never Used Second Hand Smoke Exposure: No service: No Current occupational status: employed Cognitive needs: No Hearing needs: No Vision needs: Yes Questionnaire PHQ-9 Over the last 2 weeks, how often have you been bothered by any of the following problems? [address] - PHQ-9 Billing: Patient declined-do not bill Source: Developed by Drs. Anoop Hackett, Francesca Fu, Eliceo Escobar and colleagues, with an educational josi from [employer]. Thrive Questionnaire Date Thrive assessed: 08/26/24 I am a: Patient What is your living situation today?: I choose not to answer this question Within the past 12 months, did the food you bought not last and you didn't have the money to get more?: I choose not to answer this question Within the past 12 months, did you worry whether your food would run out before you got money to buy more?: I choose not to answer this question Do you have trouble paying for medicines?: I choose not to answer this question Do you have trouble getting transportation to medical appointments?: I choose not to answer this question Do you have trouble paying your heating and electricity bill?: I choose not to answer this question Do you have trouble taking care of your child, family member or friend?: I choose not to answer this question Do you have trouble with day-to-day activities such as bathing, preparing meals, shopping, managing finances, etc.?: I choose not to answer this question Are you currently unemployed and looking for a job?: I choose not to answer this question Are you interested in more education?: I choose not to answer this question Please select the resources that you would like help with: None Currently or been in a relationship where the following occur: I choose not to answer THRIVE Score: 0 CHRIS-7 AMB Questionnaire CHRIS-7 Date CHRIS - 7 assessed: 03/25/25 (Patient declined to complete. ) Source: Developed by Drs. Anoop Hackett, Francesca Fu, Eliceo Escobar and colleagues, with an educational josi from [employer]. Physical exam (Primary Care) Vital Signs: Last Vital Signs Pulse 78 03/25/25 08:05 Resp 16 03/25/25 08:05 BP 126/82 03/25/25 08:05 Pulse Ox 96 03/25/25 08:05 Oxygen Delivery Method Room Air 03/25/25 08:05 BMI result Body Mass Index 33.1 Tobacco/Smoking Status: Tobacco use Status Tobacco use date assessed 03/25/25 03/25/25 08:13 Patient Tobacco Use Status Never used Tobacco 03/25/25 08:13 e-Cigarette/Vaping Use Never Used 03/25/25 08:13 Thrive Assessment: Date of Thrive Assessment Date Thrive assessed 08/26/24 03/25/25 08:13 Currently or been in a relationship where the following occur: I choose not to answer Coding Level of Care Code Est Pt Prev Care 40-64y(95410) Diagnoses Encounter for routine adult physical exam with abnormal findings Z00.01 Assessment & Plan Assessment & Plan (1) Encounter for routine adult physical exam with abnormal findings: Code(s): Z00.01 - Encounter for general adult medical examination with abnormal findings Category: Medical Plan .
== END 2025-03-25 08:45 | disposition home or self-care (01) ==
LOC: HO.HMCC 07:57
PROVIDERS: PCP Nurse Practitioner Family; Visit Provider Nurse Practitioner Family
DX: Z00.01 Encounter for general adult medical examination with abnormal findings (principal)

== ENCOUNTER 2025-05-04 13:15 | Outpatient (AMB) | payer BC, SELFPAY ==
[2025-05-04 13:36] VITALS: BP 120/76; PULSE 96; O2SAT 94; BMI 33.2
--- NOTE | 2025-05-04 13:36 | A.OFFVIS_ITS ---
Vital Signs 05/04/25 13:36 Height 5 ft 11 in Weight 238 lb BMI 33.2 BP 120/76 Blood Pressure Location Rt brachial Position Sitting Pulse 96 Pulse Source Pulse Oximeter Pulse Oximetry (%) 94 Oxygen Delivery Method Room Air Intake Visit Reasons: 6 MO FU Intake Note: Patient presents follow up Migraine. MRI/MRA in chart County Health Officer Required: No Accompanied by: Self / Same As Patient Allergies fenofibrate (From TRICOR) Allergy (Unknown, Verified 05/04/25 13:40) ITCHING Medication List - Last Reconciled 05/04/25 by BERYL Phoenix [aspirin 1 tab PO DAILY] cyclobenzaprine 5 mg PO BEDTIME PRN 30 days icosapent ethyl (Vascepa) 2 grams PO BID metoprolol succinate ER 25 mg PO DAILY omeprazole 20 mg PO DAILY rosuvastatin 20 mg PO BEDTIME ubrogepant (Ubrelvy) 50 - 100 mg (0.5 - 1 x 100 mg) PO ONCE PRN 30 days HPI Comments Details: 54-year-old male presents for follow-up of MELISSA and neuropathy. Pt reports he is doing overall better. He has had follow-up lumbar and SI injections, is doing PT, and plans for another SI joint injection. Still has episodes of foot/heel numbness. He can now slowly squat. 04/29/25- L-spine MRI at [facility], ordered by [facility]- showed slight multilevel spondylosis progression, more so at L4-5. He states that the twitching has improved, though it is still present in the LLE. He may also have right medial eyebrow region twitching, shooting sensation into the right medial maxillary cheek region. He states it is not actually pain. He has been thinking that his headaches are not exactly migraine. He notes that before he started experiencing a sensation of hand swelling, if he had eaten a large quantity of salt the night before. He states his interval inflammatory markers have been normal. He has also been seeing [facility] endocrinology to evaluate for episodes of excessive sweating; they are working up reported variable testosterone and growth hormone levels. His last TSH was 2.67. He has been using his CPAP nightly- worried to sleep without it. Has appt w/ ENT in possibly Jul. Compliance Report Usage 02/02/2025 - 05/02/2025 Usage days 90/90 days (100%) >= 4 hours 90 days (100%) Average usage (days used) 7 hours 44 minutes G3 Auto-CPAP [id number] Mode: Auto-CPAP 6-20 cmH2O w/ EPR 2 Avg Pressure (cmH2O) 6.3 Avg P95 (cmH2O) 7.4 Avg Leak (L/min) 8.9 Avg High Leak Minutes 0 Avg AHI 0.5 Avg KAVEH 0 Avg AI 0.4 Avg HI 0.1 11/10/2024, previous HPI: The patient is a 53-year-old male presenting with follow-up for neuropathy, migraine, and obstructive sleep apnea. Since the last visit, patient has had follow-up at [facility]. Per patient, the follow-up nerve conduction studies did not show any demyelination though did possibly show left lumbar radiculopathy, thus it is no longer felt that patient has a diagnosis of Chronic Inflammatory Demyelinating Polyneuropathy (CIDP) previously suspected with negative confirmatory nerve studies. Recently seen at [facility] rheumatology and workup has been inconclusive. He is being referred to an [facility] social media specialist, as he does continue to have episodes of low back pain, lower extremity symptoms including fatigue, tightness, stiffness , tingling. He states that he has not been able to be as physically active as of late owing to recent loss of a parent, is about to move, and is still recovering from the flu he had about a month ago. He does note that generally when he is eating healthier diet, he feels slightly better overall. He is curious about local physiatry and/or PT locations other than [facility]- as he would like an alternate opinion. Sleep apnea is managed with CPAP, yet reports dry mouth and gastrointestinal discomfort possibly tied to the machine's use- feels significant gas and bloating. he did adjust the humidification settings, however that did not help the dry mouth. He also feels that the machine is blowing stronger pressure unusual. However, overall he states he can not sleep without his CPAP and is curious about alternate treatment options. He has received a new CPAP machine, as his old 1 malfunctioned- thus I can not access his LVL6 CPAP compliance portal at this time. He continues to have episodes of eye discomfort, visual changes, photophobia- user typically worse when everything else is feeling worse. The symptoms can come on for 7 days and then not have symptoms for couple of weeks. migraine days is brighter than 7 days per month. Interval brain MRI and MRA were normal. Past migraine management was suggested but not initiated. He continues to have episodes of excessive sweating, patient states his PCP is considering an endocrinology referral. Results - MRI of the brain: Unremarkable. - MR Angiogram: Normal. - Electrodiagnostic studies (EMG & Nerve Conduction): No evidence of demyelination consistent with CIDP. - Positive CHRIS antibody: Previous finding- slightly elevated- [facility] does not feel that this is concerning. - Blood Glucose levels with fluctuating readings: 70s to 99s range. [facility] Medical History CAD (coronary artery disease) Pulmonary HTN Esophageal dysmotility BPH (benign prostatic hyperplasia) MELISSA on CPAP Muscle weakness Bilateral inguinal hernia Fatty liver Non-STEMI (non-ST elevated myocardial infarction) ADHD Myocardial infarction Surgical History History of heart artery stent History of coronary angiogram History of umbilical hernia Family History Father CVD (cardiovascular disease) Myocardial infarction Unknown family medical history HTN (hypertension) Mother CVD (cardiovascular disease) Maternal Grandmother Stroke Paternal Grandfather Diabetes mellitus Paternal Aunt Aneurysm Social History Household Members: None Housing: House Are you a primary school child care attendant to a significant other at home: No Do you presently have visiting nurse or other home services: No Alcohol intake: current Alcohol intake frequency: does not drink Patient Tobacco Use Status: Never used Tobacco e-Cigarette/Vaping Use: Never Used Second Hand Smoke Exposure: No service: No Current occupational status: employed Cognitive needs: No Hearing needs: No Vision needs: Yes Physical Exam Vital Signs: Last Vital Signs Pulse 96 05/04/25 13:36 BP 120/76 05/04/25 13:36 Pulse Ox 94 05/04/25 13:36 Oxygen Delivery Method Room Air 05/04/25 13:36 BMI result Body Mass Index 33.2 Const General: cooperative and no acute distress Orientation/consciousness: patient oriented x3 Resp Effort & Inspection: normal respiratory effort and able to speak in complete sentences Neuro Other: Stands easily, unassisted General: patient oriented x3 Cranial nerves: Yes CN's II-XII intact bilaterally Cognition (Neuro): normal cognition Gait exam (Neuro): Normal gait present Psych Appearance: grossly normal Mental Status: mental status grossly normal Speech and movement: Normal speech and movement present Affect: normal affect Attitude: cooperative Assessment & Plan Assessment & Plan (1) Myopathy: Code(s): G72.9 - Myopathy, unspecified Category: Medical (2) Muscle weakness: Code(s): M62.81 - Muscle weakness (generalized) Category: Medical (3) Muscle twitching: Comment: cleared by neuro. follow up with rheumatology Code(s): R25.3 - Fasciculation Category: Medical (4) MELISSA on CPAP: Code(s): G47.33 - Obstructive sleep apnea (adult) (pediatric); Z99.89 - Dependence on other enabling machines and devices Category: Medical (5) Migraine without aura: Code(s): G43.009 - Migraine without aura, not intractable, without status migrainosus Category: Medical (6) MELISSA (obstructive sleep apnea): Code(s): G47.33 - Obstructive sleep apnea (adult) (pediatric) Category: Medical Plan For chronic muscle twitching, musculoskeletal and back pain symptoms: We will place lab orders, which patient can do at onset of generalized symptom exacerbation. Discussed that excess or significantly reduced electrolyte and mineral intake, even through diet, can have systemic effects, such as increased peripheral swelling with increased sodium intake. Follow-up with [facility] spine clinic as scheduled Continue local PT Monitor muscle twitching, musculoskeletal and back pain symptoms Follow-up with endocrinology as scheduled Specifically for right medial eyebrow into right medial maxillary facial twitching and shooting sensation: When this occurs, ask patient to palpate directly over the right supra orbital and supra trochlear notches, and to let us know if these are tender or painful. Future considerations: SO/TN block For migraines, vision changes, blurry vision, photophobia: Patient states he is not sure if the headache symptoms are actually migraine, however they have improved of late. If migraine like headaches return: May take Ubrogepant (Ubrelvy)- to see if these s/s are CGRP responsive.Ubrogepant 100mg tab instructions: 1/2 - 1 tab (50-100mg) at onset of headache, may repeat in 2 hours. Max of 2 tabs (200mg) per 24 hours. May adjunct with OTC Tylenol 650mg q 4 hours, Ibuprofen 600mg q 6 hours, or Naproxen 440mg q 12 hrs prn. Migraine tx contraindications- all triptans d/t h/o DC. For preventative migraine therapy: Continue metoprolol ER 25 mg daily- ordered for history of DC. For MELISSA: ENT consultation as ordered, to discuss alternate MELISSA treatment options, including Inspire therapy. For now, continue APAP 6-20 cmH2O nightly > 4 hrs, as the patient has had a significant reduction in residual AHI with PAP therapy usage. Patient to follow up in 6 months or sooner as needed. Orders: Orders PAULINA Reflex Titer and Pattern Today D69.6 - Thrombocytopenia, unspecified, M25.50 - Pain in unspecified joint, R76.8 - Other specified abnormal immunological findings in serum, R79.89 - Other specified abnormal findings of blood chemistry Erythrocyte Sedimentation Rate Today D69.6 - Thrombocytopenia, unspecified, M25.50 - Pain in unspecified joint, R76.8 - Other specified abnormal immunological findings in serum, R79.89 - Other specified abnormal findings of blood chemistry Comprehensive [place]. Panel Fast Today D69.6 - Thrombocytopenia, unspecified, M25.50 - Pain in unspecified joint, R76.8 - Other specified abnormal immunological findings in serum, R79.89 - Other specified abnormal findings of blood chemistry C Reactive Protein Today D69.6 - Thrombocytopenia, unspecified, M25.50 - Pain in unspecified joint, R76.8 - Other specified abnormal immunological findings in serum, R79.89 - Other specified abnormal findings of blood chemistry Magnesium Today D69.6 - Thrombocytopenia, unspecified, M25.50 - Pain in unspecified joint, R76.8 - Other specified abnormal immunological findings in serum, R79.89 - Other specified abnormal findings of blood chemistry Vitamin B12 and Folate Today D69.6 - Thrombocytopenia, unspecified, M25.50 - Pain in unspecified joint, R76.8 - Other specified abnormal immunological findings in serum, R79.89 - Other specified abnormal findings of blood chemistry Complement C3 Today D69.6 - Thrombocytopenia, unspecified, M25.50 - Pain in unspecified joint, R76.8 - Other specified abnormal immunological findings in serum, R79.89 - Other specified abnormal findings of blood chemistry Complement C4 Today D69.6 - Thrombocytopenia, unspecified, M25.50 - Pain in unspecified joint, R76.8 - Other specified abnormal immunological findings in serum, R79.89 - Other specified abnormal findings of blood chemistry Anti DNA DS Antibody Today D69.6 - Thrombocytopenia, unspecified, M25.50 - Pain in unspecified joint, R76.8 - Other specified abnormal immunological findings in serum, R7.89 - Other specified abnormal findings of blood chemistry Rheumatoid Factor Today D69.6 - Thrombocytopenia, unspecified, M25.50 - Pain in unspecified joint, R76.8 - Other specified abnormal immunological findings in serum, R7.89 - Other specified abnormal findings of blood chemistry Complete Blood Count Auto Diff Today D69.6 - Thrombocytopenia, unspecified, M25.50 - Pain in unspecified joint, R76.8 - Other specified abnormal immunological findings in serum, R7.89 - Other specified abnormal findings of blood chemistry Creatine Kinase Total Today D69.6 - Thrombocytopenia, unspecified, M25.50 - Pain in unspecified joint, R76.8 - Other specified abnormal immunological findings in serum, R7.89 - Other specified abnormal findings of blood chemistry Vitamin B1 Today D69.6 - Thrombocytopenia, unspecified, E51.9 - Thiamine deficiency, unspecified, M25.50 - Pain in unspecified joint, R76.8 - Other specified abnormal immunological findings in serum, R7.89 - Other specified abnormal findings of blood chemistry Vitamin B6 Today D64.9 - Anemia, unspecified, D69.6 - Thrombocytopenia, unspecified, M25.50 - Pain in unspecified joint, R76.8 - Other specified abnormal immunological findings in serum, R7.89 - Other specified abnormal findings of blood chemistry Coding Level of Care Code Est Pt Level 4 (82476) Diagnoses Myopathy G72.9 Muscle weakness M62.81 Muscle twitching R25.3 MELISSA on CPAP G47.33; Z99.89 Migraine without aura G43.009 MELISSA (obstructive sleep apnea) G47.33
== END 2025-05-04 14:42 | disposition home or self-care (01) ==
PROVIDERS: PCP Nurse Practitioner Family; Visit Provider Nurse Practitioner Family
DX: G72.9 Myopathy, unspecified (principal); M62.81 Muscle weakness (generalized); R25.3 Fasciculation; G47.33 Obstructive sleep apnea (adult) (pediatric); Z99.89 Dependence on other enabling machines and devices; G43.009 Migraine without aura, not intractable, without status migrainosus
CPT/HCPCS: 99214

== ENCOUNTER 2025-05-12 09:18 | Outpatient (REF) | payer BC, SELFPAY ==
--- OUTSIDE RECORDS SUMMARY | 2024-01-14 04:00 | XMS_ITS ---
Author Organization [facility] Address [address] [place] [phone] Care Team Providers Care Pcb Designer Name Role Phone Marlon Giang Primary Care Provider Unav ailBrent Aguillon [facility] [phone] Encounters Encounter Location Date Provider Diagnosis [address] [address] 01/14/2024 Brent Irizarry Plan Of Treatment No Information Progress Notes * Jeff CLIFFORDDOB: [birth year] (54 yo M)Acc No.[id number]:01/14/2024 Progress Note Patient: Jeff CANNON Provider: Michael Irizarry DPM :1970 A ge:53 Y S ex:Male Date:01/14/2024 Address:[address] [place], [place] [id number] Pcp:YEISON Hurst Subjective: * Chief Complaints: * [...] DPM Date: 0 01/14/2024 Generated for Edin canchola/Erica/eTransmitting on: 0 05/12/2025 10:05 AM EDT
--- OUTSIDE RECORDS SUMMARY | 2025-05-12 10:05 | XMS_ITS | Encounter Summary ---
Author Organization [facility] Address [address] [place] [phone] Phone Care Team Providers Care Repair Specialist Name Role Phone Unknown, Unknown Primary Care Provider Marlon Shields NP Primary Care Provider + Marlon Hirsch NP Primary Care Provider + Reason for Referral * MRI/CAT Scan - Canceled Specialty Diagnoses / Procedures Referred By Raissa boston Referred To Contact Radiology Diagnoses Coronary artery disease involving lumbee coronary artery of lumbee heart without angina pectoris Procedures NC Myocardial Perfusion Pharmacologic Stress Multiple Dasia Wood MD Phone: tel: fax: [email or web address] Referral ID Status Reason Start Date Expiration Date V isits Requested Visits Authorized [id number] Canceled 12/27/2018 1 1 Encounter Details Date Type Department Care Team (Latest Contact Info) Description 12/27/2018 Transcribe Orders [facility] [address], [address] [place] [address] Dasia Wood MD [address] [place] [id number] [email or web address] Coronary artery disease involving lumbee coronary artery of lumbee heart without angina pectoris (Primary Dx) Social [...] Care Team (Late st Contact Info) Description 05/12/2025 12:00 PM EDT Hospital Encounter Non-Invasive Cardiology [address] [place] [address] Mikel Santiago DO [address] [place] [phone] 05/15/2025 3:00 PM EDT Office Visit [facility] [address] [place] [address] Stacy Smith PA-C [address] [place] [address] 05/29/2025 1:40 PM EDT Procedure visit [facility] [address] [place] [address] Christine Granados MD [address] [place] [phone] [email or web address] 06/29/2025 1:[address] [facility] Department of Neurosurgery [address] [place] [address] Stacy Smith PA-C [address] [place] [address] 07/06/2025 1:20 PM EST Nurse Only [facility] [address] [place] [address] Christine Granados MD [address] [place] [address] [email or web address] 09/22/2025 11:00 AM EST Office Visit [facility] Neuromuscular [address] [place] [address] Luis Negrete MD [address] [facility] - [place] [address] Scheduled Orders Name Type Priority Associated Diagnoses Order Schedule NC Myocardial Perfusion Pharmacologic Stress Multiple Nuclear Cardiology Routine Coronary artery disease involving lumbee coronary artery of lumbee heart without angina pectoris Ordered: 12/27/2018 documented as of this encounter Visit Diagnoses Diagnosis Coronary artery disease involving lumbee coronary artery of lumbee heart without angina pectoris- Primary documented in this encounter Care Teams Repair Specialist Relationship Specialty Start Date End Date Unknown, Unknown, MD PCP - General 11/10/18 03/05/19 Marlon Hirsch NP [address] [place] [address] PCP - General Family Medicine 03/06/19 03/20/22 Marlon Hirsch NP [facility] [place] [place] [address] PCP - General Family Medicine 03/21/22 documented as of this encounter Additional Source Comments The information contained in this document represents components of the legal health record. It is not the complete legal health record.[facility]
--- OUTSIDE RECORDS SUMMARY | 2025-05-12 10:06 | XMS_ITS | Patient Health Record ---
Author Organization [facility] Address [address] [facility] [place] [address] Care Team Providers Care Restaurant Host Name Role Phone Marlon Giang Primary Care Provider Unav tuyet IrizarryBrent Unavailable [phone] Allergies No Known Allergies Reason For Referral [...] Status Risk Notes Problem Tarsal tunnel syndrome (23155242) Tarsal tunnel syndrome of right side (G57.51) Active confirmed Plan Of Treatment Pending Test Test Name Order Date *Liver Function Test (LFT) 02/20/2014 X ray : Foot, left 3V 11/08/2022 X ray : Foot, left 3V 12/04/2023 X ray : Foot, right 3V 12/04/2023 X ray : Foot, right 3V 11/08/2022 [id number] NAIL, 6 OR MORE 02/20/2014 [id number] NAIL, 6 OR MORE 09/18/2014 [id number] NAIL, 6 OR MORE 11/27/2014 [id number] NAIL, 1-5 12/03/2015 [id number] Plate 12/09/2014 [id number]-Njynntyt Plate 03/17/2015 [id number]-[id number] Plate 07/01/2015 [id number] Plate Each Additional 90374- Debride <25 sq cm 12/24/2014 33472 I&D ABSCESS- SIMPLE,SINGLE 015 [id number] I&D ABSCESS- SIMPLE,SINGLE 015 [id number] I&D ABSCESS- SIMPLE,SINGLE 022 Insurance Providers Payer Name Payer Address Payer Phone Subscriber Number Group Number Insured Name Patient Relationship to Insured Coverage Start Date Coverage End Date [facility] [address] [place] [address] [phone] [id number] Jeff Clifford Self - patient is the insured Medical (General) History Medical History History ICD Code Attention deficit hyperactivity disorder Back,Hip,and Knee pain Chicken pox Angina Diverticulosis Heart disease Peripheral Demilination Surgical History Surgery Date(Month/Year) umbilical hernia repair 2009 Stent Surgery 11/29
--- OUTSIDE RECORDS SUMMARY | 2025-05-12 10:06 | XMS_ITS | Encounter Summary ---
Author Organization [facility] Address [address] [place] [address] Phone Care Team Providers Care Pattern Marker Name Role Phone Marlon Hirsch REGISTRATION REP Primary Care Provider + Encounter Details Date Type Department Care Team (Latest Contact Info) Description 09/09/2024 Ancillary Orders [facility] [place] [address] [place] [address] Nimo Miguel MD [address] [place] [address] [email or web address] Primary osteoarthritis of both first carpometacarpal joints (Primary Dx) Social History Tobacco Use Types Packs/Day Years Used Date Smoking Tobacco: Never Smokeless Tobacco: Never Alcohol Use Standard Drinks/Week Comments Not Currently 0 (1 standard drink = 0.6 oz pur e alcohol) RARE Education Answer Date Recorded Are you interested in more education? Not on alexandra e 12/08/2022 Are you concerned about learning? Not on file 12/08/2022 No 12/08/2022 No 12/08/2022 Digital Access Answer Date Recorded No 01/06/2023 No 01/06/2023 Reliable internet access at home? Not on file 01/06/2023 Device with a working camera? Not on file Intimate Partner Violence Answer Date R ecorded Are you denied basic needs s uch as food, clothing, or medical care? No 05/04/2023 In the past 12 months have y ou been in a relationship with a person who hurts, threatens, or tries to control you? No 05/04/2023 Are you denied basic needs s uch as food, clothing, or medical care? No 05/04/2023 In the past 12 months have y ou been in a relationship with a person who hurts, threatens, or tries to control you? No 05/04/2023 Sex and Gender Information Value Date Recorded [...] PM EDT Hospital Encounter Non-Invasive Cardiology [address] [place] [address] Mikel Santiago, DO [address] [place] [address] 05/15/2025 3:00 PM EDT Office Visit [facility] [address] [place] [address] Stacy Smith PA-C [address] [place] [address] 05/29/2025 1:40 PM EDT Procedure visit [facility] [address] [place] [address] Christine Granados MD [address] [place] [phone] [email or web address] 06/29/2025 1:00 PM EST Telemedicine [facility] Department of Neurosurgery [address] [place] [address] Stacy Smith PA-C [address] [place] [address] 07/06/2025 1:20 PM EST Nurse Only [facility]ty [address] [place] [address] Christine Granados MD [address] [place] [phone] [email or web address] 09/22/2025 11:00 AM EST Office Visit [facility] Neuromuscular [address] [place] [address] Luis Negrete MD [address] [facility] - [place] [address] [email or web address] documented as of this encounter Results * XR HAND 3 OR MORE VIEWS (LEFT) (09/09/2024 11:57 AM EST) Anatomical Region Laterality Modality Hand Left Computed Radiogr aphy 09/09/2024 1:22 PM EST Impressions 09/09/2024 1:24 PM EST No fracture or dislocation. Mild degenerative changes in the bilateral hands. Narrative 09/09/2024 1:24 PM EST XR HAND 3 OR MORE VIEWS (RIGHT), XR HAND 3 OR MORE VIEWS (LEFT) Referring clinician's provided indication for this examination in Epic: Osteoarthritis COMPARISON: None FINDINGS: Left hand: Small osteophytes and mild joint space narrowing in the first CMC, first IP, and second through fifth DIP joints. No acute fracture or dislocation or osseous erosions. Right hand: Mild joint space narrowing and small marginal osteophytes in the second through fifth DIP joints. Tiny osteophytes in the second PIP joint. No acute fracture or dislocation or osseous erosions. Procedure Note Sebastian Parker MD - 09/09/2024 XR HAND 3 OR MORE VIEWS (RIGHT), XR HAND 3 OR MORE VIEWS (LEFT) Referring clinician's provided indication for this examination in Epic:Osteoarthritis COMPARISON: None FINDINGS: Left hand: Small osteophytes and mild joint space narrowing in the firstCMC, first IP, and second through fifth DIP joints. No acute fracture ordislocation or osseous erosions. Right hand: Mild joint space narrowing and small marginal osteophytes inthe second through fifth DIP joints. Tiny osteophytes in the second PIPjoint. No acute fracture or dislocation or osseous erosions. IMPRESSION: No fracture or dislocation. Mild degenerative changes in the bilateral hands. us Nimo Miguel MD IMG XR UPPER EXTREMITY Fin al Result documented in this encounter Visit Diagnoses Diagnosis Primary osteoarthritis of both first carpometacarpal joints Primary osteoarthritis of both first carpometacarpal joints- Primary documented in this encounter Care Teams Pattern Marker Relationship Specialty Start Date End Date Marlon Hirsch NP [facility] [place] [address] PCP - General Family Medicine 03/21/22 documented as of this encounter Additional Source Comments The information contained in this document represents components of the legal health record. It is not the complete legal health record.[facility]
--- OUTSIDE RECORDS SUMMARY | 2025-05-12 10:06 | XMS_ITS | Encounter Summary ---
Author Organization [facility] Address [address] [place] [address] Phone Care Team Providers Care Clergy Member Name Role Phone Marlon Hirsch PARAFFIN PLANT OPERATOR Primary Care Provider + Encounter Details Date Type Department Care Team (Late st Contact Info) Description 04/22/2025 Telephone [facility] Department of Neurosurgery [address] [place] [address] [email or web address] Social History Tobacco Use Types Packs/Day Years [...] as food, clothing, or medical care? No 11/25/2024 In the past 12 months have y ou been in a relationship with a person who hurts, threatens, or tries to control you? No 11/25/2024 Are you denied basic needs s uch as food, clothing, or medical care? No 11/25/2024 In the past 12 months have y ou been in a relationship with a person who hurts, threatens, or tries to control you? No 11/25/2024 Sex and Gender Information Value Date Recorded [...] PM EDT Hospital Encounter Non-Invasive Cardiology [address] [place] [address] Mikel Santiago DO [address] [place] [address] 05/15/2025 3:00 PM EDT Office Visit [facility] [address] [place] [address] Stacy Smith PA-C [address] [place] [address] 05/29/2025 1:40 PM EDT Procedure visit [facility] [address] [place] [address] Christine Granados MD [address] [place] [phone] [email or web address] 06/29/2025 1:00 PM EST Telemedicine [facility] Department of Neurosurgery [address] [place] [address] Stacy Smith PA-C [address] [place] [address] 07/06/2025 1:20 PM EST Nurse Only [facility] [address] [place] [address] Christine Granados MD [address] [place] [phone] [email or web address] 09/22/2025 11:00 AM EST Office Visit [facility] Neuromuscular [address] [place] [address] Luis Negrete MD [address] BTM - [place] [address] [email or web address] documented as of this encounter Visit Diagnoses Not on filedocumented in this encounter Additional Health Concerns Assessment Noted Time PHQ-2 Depression Total Score: 0 11/26/19 25 1:35 PM EDT documented as of this encounter Care Teams Clergy Member Relationship Specialty Start Date End Date Marlon Hirsch NP [facility] [place] [address] PCP - General Family Medicine 03/21/22 documented as of this encounter Additional Source Comments The information contained in this document represents components of the legal health record. It is not the complete legal health record.[facility]
--- OUTSIDE RECORDS SUMMARY | 2025-05-12 10:06 | XMS_ITS | Clinical Summary ---
Author Organization [facility] Address [address] [place] [address] Phone Care Team Providers Care Legal Nurse Consultant Name Role Phone Marlon Hirsch NP Primary Care Provider + Allergies Active Allergy Reactions Criticality Noted Date Comments Fenofibrate Micronized 10/07/2020 Medications omeprazole (PRILOSEC) 40 MG capsule Take 20 mg by mouth daily. Active metoprolol succinate (TOPROL-XL) 25 MG 24 hr tablet Take 25 mg by mouth daily. Active icosapent ethyl (VASCEPA) 1 gram capsule Take 2 g by mouth 2 (two) times a day. Active cyclobenzaprine (FLEXERIL) 10 MG tablet Take 1 tablet (10 mg total) by mouth 3 (three) times a day as needed. 20 tablet 9 Active aspirin 81 MG EC tablet Take 81 mg by mouth daily. Active rosuvastatin (CRESTOR) 20 MG tablet Take 20 mg by mouth daily. Active montelukast (SINGULAIR) 10 mg tablet montelukast 10 mg tablet Active amLODIPine (NORVASC) 5 MG tablet Take 5 mg by mouth daily. Active WELLBUTRIN XL 300 mg ER 24 hr tablet 150 mg daily. Active dextroamphetami ne-amphetamine (ADDERALL XR) 5 MG 24 hr capsule Take 20 mg by mouth every morning. Active OXcarbazepine (TRILEPTAL) 300 MG IMMEDIATE release tablet Take 1 tablet (300 mg total) by mouth 2 (two) times a day. 180 tablet 3 5 03/11/20 26 Active Additional Information Patient not taking.Reported on 04/20/2025 ibuprofen (ADVIL,MOTRIN) 800 MG tablet Take 800 mg by mouth. 4 Active nitroglycerin (NITROSTAT) 0.4 MG SL tablet 5 Active Active Problems Problem Noted Date Diagnosed Date Chest pain 12/11/2019 Encounters Date Type Department Care Team Description 05/12/2025 12:00 PM EDT Hospital Encounter Non-Invasive Cardiology [address] [place] [address] Mikel Santiago DO 04/22/2025 Transcribe Orders [facility] [address], [address] [place] [address] Jair Reich PVC (premature ventricular contraction) (Primary Dx) 04/22/2025 Telephone [facility] Department of Neurosurgery [address] [place] [address] Bhumika Lloyd 04/22/2025 Orders Only [facility] [address] [place] [address] Stacy Smith PA-C Spondylosis of lumbar region without myelopathy or radiculopathy (Primary Dx); Myofascial pain syndrome of lumbar spine; Lumbar radiculopathy; Sacroiliac joint dysfunction of both sides 04/20/2025 11:59 AM EDT - 04/20/2025 11:59 PM EDT Hospital Encounter [facility] [address] [place] [address] Stacy Smith PA-C Discharge Disposition: Home or Self Care 04/20/2025 11:20 AM EDT Office Visit [facility] [address] [place] [address] Stacy Smith PA-C Right lumbar radiculitis (Primary Dx); Left lumbar radiculitis; Sacroiliac joint dysfunction of both sides; Lumbosacral spondylosis without myelopathy; Facet arthropathy, lumbosacral; Sacroiliac joint dysfunction of right side; Sacroiliac joint dysfunction of left side; Myofascial pain syndrome of lumbar spine; Myofascial pain syndrome, cervical; Myofascial pain syndrome of thoracic spine; Spondylosis of cervical region without myelopathy or radiculopathy; Sprain of ligaments of lumbar spine, subsequent encounter 04/20/2025 Telephone [facility] [address] [place] [address] Julia Suazo 04/03/2025 Telephone [facility] Department of Neurosurgery [address] [place] [address] Bhumika Lloyd 04/03/2025 Orders Only [facility] [address] [place] [address] Stacy Smith PA-C Spondylosis of lumbar region without myelopathy or radiculopathy (Primary Dx); Myofascial pain syndrome of lumbar spine; Sacroiliac joint dysfunction of both sides; Lumbar radiculopathy 03/24/2025 9:30 AM EDT Office Visit [facility] Neuromuscular [address] [place] [address] Luis Negrete MD Weakness (Primary Dx) 03/04/2025 3:40 PM EDT Procedure visit [facility] [address] [place] [address] Christine Granados MD Right lumbar radiculitis (Primary Dx); Left lumbar radiculitis 03/04/2025 3:19 PM EDT - 03/04/2025 11:59 PM EDT Hospital Encounter [facility] [address] [place] [address] Stacy Smith PA-C Discharge Disposition: Home or Self Care from Last 3 Months Social History Tobacco Use Types Packs/Day Years Used Date Smoking Tobacco: Never Smokeless Tobacco: Never Tobacco Cessation:Counseling Given: Not Answered Alcohol Use Standard Drinks/Week Comments Not Currently [...] Orientation Straight 11/10/2018 10 :01 PM EDT Last Filed Vital Signs Vital Sign Reading Time Taken Comments Blood Pressure 139/88 04/20/2025 11:16 AM EDT Pulse 71 04/20/2025 11:16 AM EDT Temperature 36.6 C (97.9 F) 03/24/2025 9:08 AM EDT Respiratory Rate 16 03/24/2025 9:06 AM EDT Oxygen Saturation 97% 04/20/2025 11:16 AM EDT Inhaled Oxygen Concentration - - Weight 108 kg (238 lb) 04/20/2025 11:16 AM EDT Height 180.3 cm (5' 10.98 ) 04/20/2025 11:16 AM EDT Body Mass Index 33.21 04/20/2025 11:16 AM EDT Plan of Treatment Upcoming Encounters Date Type Department Care Team (Late st Contact Info) Description 05/12/2025 12:00 PM EDT Hospital Encounter Non-Invasive Cardiology [address] [place] [id number] Mikel Santiago DO [address] [place] [address] 05/15/2025 3:00 PM EDT Office Visit [facility] [address] [place] [address] Stacy Smith PA-C [address] [place] [address] 05/29/2025 1:40 PM EDT Procedure visit [facility] [address] [place] [address] Christine Granados MD [address] [place] [phone] [email or web address] 06/29/2025 1:00 PM EST Telemedicine [facility] Department of Neurosurgery [address] [place] [address] Stacy Smith PA-C [address] [place] [address] 07/06/2025 1:20 PM EST Nurse Only [facility] [address] [place] [address] Christine Granados MD [address] [place] [phone] [email or web address] 09/22/2025 11:00 AM EST Office Visit [facility] Neuromuscular [address] [place] [address] Luis Negrete MD 60 [facility] - [place] [address] [email or web address] Health Maintenance Due Date Last Done Comments HEPATITIS C SCREENING 1990 HIV ONE-TIME SCREENING (18-65 YEARS) 1990 COLOGUARD 2017 COLONOSCOPY 2017 COLORECTAL CANCER SCREENING 2017 FIT TEST 2017 FOBT 2017 SIGMOIDOSCOPY 2017 VIRTUAL COLONOSCOPY 2017 PNEUMOCOCCAL VACCINES (50+ years) (2 of 2 - PCV) 2022 12/26/2021 ZOSTER VACCINES (1 of 2) 2022 INFLUENZA VACCINE (#1) 2025 , 06/14/2021, 07/27/2020 COVID-19 VACCINE (2024- season) 2025 05/23/2022, 05/14/2021, 10/20/2020, Additional history exists DEPRESSION SCREENING 11/25/2025 11/25/2024 Adult Td,Tdap Booster 04/05/2027 04/05/2017 SCREENING FOR DIABETES 04/16/2027 04/16/2024 HEPATITIS A VACCINES Aged Out 06/06/2021, 12/06/19 21 No longer eligible based on patient's age to complete this topic SMOKING STATUS SCREENING (Once After 26 Yrs) Completed 03/04/2025 HIB VACCINES Aged Out No longer eligi ble based on patient's age to complete this topic MENINGOCOCCAL VACCINES (ACWY) Aged Out No longer eligible based on patient's age to complete this topic MENINGOCOCCAL VACCINES (B) Aged Out N o longer eligible based on patient's age to complete this topic Medical Devices Not on file Procedures Procedure Name Priority Date/Time Associated Diagnosis Comments MRI LUMBAR SPINE Routine 04/22/2025 9:38 AM EDT Spondylosis of lumbar region without myelopathy or radiculopathy Myofascial pain syndrome of lumbar spine Lumbar radiculopathy Sacroiliac joint dysfunction of both sides XR CERVICAL SPINE 2-3 VIEWS Routine 04/20/2025 12:03 PM EDT Myofascial pain syndrome, cervical Myofascial pain syndrome of thoracic spine Spondylosis of cervical region without myelopathy or radiculopathy FL FLUOROSCOPY Routine 03/04/2025 5:03 PM EDT Left lumbar radiculitis Right lumbar radiculitis from Last 3 Months Results * XR CERVICAL SPINE 2-3 VIEWS (04/20/2025 12:03 PM EDT) Anatomical Region Laterality Modality C-spine Computed Radiogr aphy 04/20/2025 1:44 PM EDT Impressions 04/20/2025 1:45 PM EDT No displaced fracture. Narrative 04/20/2025 1:45 PM EDT XR CERVICAL SPINE 2-3 VIEWS Referring clinician's provided indication for this examination in Epic: Pain COMPARISON: None FINDINGS: Normal alignment. Normal vertebral body heights. Normal intervertebral disc spaces. No prevertebral soft tissue swelling. Procedure Note Blanca Proctor MD - 04/20/2025 XR CERVICAL SPINE 2-3 VIEWS Referring clinician's provided indication for this examination in Epic:Pain COMPARISON: None FINDINGS: Normal alignment. Normal vertebral body heights. Normal intervertebraldisc spaces. No prevertebral soft tissue swelling. IMPRESSION: No displaced fracture. Stacy Smith PA-C [facility] XR SPINE Fin al Result * FL Fluoroscopy (03/04/2025 5:03 PM EDT) Narrative AMANDA - 03/04/2025 5:03 PM EDT Fluoroscopy was provided during this procedure. Stacy Smith PA-C IMG FL MISC Fin al Result [facility] from Last 3 Months Insurance [facility] OUT OF STATE PPO [employer]UE [place]OSS OUT OF STATE PPO [employer]UE [place]OSS OUT OF STATE PPO BLUE [place]OSS OUT OF STATE PPO [place]UE [place] OUT OF STATE PPO [place]UE [place] OUT OF STATE PPO BLUE [place]OSS OUT OF STATE PPO [place] OUT OF STATE PPO [employer] [place] OUT OF STATE PPO Care Teams Legal Nurse Consultant Relationship Specialty Start Date End Date Marlon Hirsch NP [address] [place] [address] PCP - General Family Medicine 03/21/22 Additional Source Comments The information contained in this document represents components of the legal health record. It is not the complete legal health record.[facility]
--- OUTSIDE RECORDS SUMMARY | 2025-05-12 10:06 | XMS_ITS | Encounter Summary ---
Author Organization [facility] Address [address] [place] [address] Phone Care Team Providers Care Location And Measurement Technician Name Role Phone Marlon Hirsch HOUSE CALLS NURSE Primary Care Provider + Encounter Details Date Type Department Care Team (Late st Contact Info) Description 04/03/2025 Telephone [facility] Department of Neurosurgery [address] [place] [address] [email or web address] Social History Tobacco Use Types Packs/Day [...] PM EDT Hospital Encounter Non-Invasive Cardiology [address] [place] [address] Mikel Santiago DO [address] [place] [address] 05/15/2025 3:00 PM EDT Office Visit [facility] [address] [place] [address] Stacy Smith PA-C [address] [place] [address] 05/29/2025 1:40 PM EDT Procedure visit [facility] [address] [place] [address] Christine Granados MD [address] [place] [phone] [email or web address] 06/29/2025 1:00 PM EST Telemedicine [facility] Department of Neurosurgery [address] [place] [address] Stacy Smith PA-C [address] [place] [address] 07/06/2025 1:20 PM EST Nurse Only [facility] [address] [place] [address] Christine Granados MD [address] [place] [phone] [email or web address] 09/22/2025 11:00 AM EST Office Visit [facility] Neuromuscular [address] [place] [address] Luis Negrete MD [address] BTM - [place] [address] [email or web address] documented as of this encounter Visit Diagnoses Not on filedocumented in this encounter Additional Health Concerns Assessment Noted Time PHQ-2 Depression Total Score: 0 11/26/19 25 1:35 PM EDT documented as of this encounter Care Teams Location And Measurement Technician Relationship Specialty Start Date End Date Marlon Hirsch NP [facility] [place] [address] PCP - General Family Medicine 03/21/22 documented as of this encounter Additional Source Comments The information contained in this document represents components of the legal health record. It is not the complete legal health record.[facility]
--- OUTSIDE RECORDS SUMMARY | 2025-05-12 10:06 | XMS_ITS | Clinical Summary ---
Author Organization [facility] [address] [facility] Address [address] [place] [address] Phone Care Team Providers Care Fitting Room Attendant Name Role Phone Marlon Hirsch FUR MATCHER Primary Care Provider Allergies No known active [...] Health Maintenance Due Date Last Done Comments Colorectal Cancer Screening: Colonoscopy 1972 Cholesterol Screening (Lipid Panel) 07/12/2022 HIV Screening 07/12/2022 Hepatitis C Screening 07/12/2022 Social Influencers of Health Screening 07/12/2022 Pneumococcal Vaccine: 50+ Years (2 of 2 - PCV) 12/26/2022 12/26/2021 Zoster Vaccines (1 of 2) 2022 Hypertension/CHF/CAD Annual BMP Blood Test 06/16/2024 Depression Screening 08/13/2024 COVID-19 Vaccine ( season) 2025 05/23/2022, 05/14/2021, 10/20/2020, Additional history exists Influenza Vaccine (#1) 2025 2, 06/14/2021, 07/27/2020 DTaP,Tdap,and Td Vaccines (3 - Td or Tdap) 04/05/2027 04/05/2017, 04/05/2017 RSV Immunization Adult Patients (1 - 1-dose 75+ series) 12/31/2047 Hepatitis B Vaccines Completed 03/30/2020, 11/28/2019, 10/29/2019 [...] patient's age to complete this topic Insurance [facility]) Care Teams Fitting Room Attendant Relationship Specialty Start Date End Date Marlon Hirsch NP [address] [place], [place] PCP - General Family Medicine 06/09/24
[2025-05-12 10:49] LABS: MANUAL DIFF FLAG NO
[2025-05-12 11:16] LABS: Hematocrit 43.9 % (42.0-52.0); Hemoglobin 15.0 g/dl (14.0-18.0); Imm Gran Abs Auto 0.01 X10*3/uL (0.00-0.03); Imm Gran Pct Auto 0.3 % (0.0-0.4); Lymphocytes Absolute Auto 1.1 X10*3/uL (1.2-4.9); Mean Corpuscular HGB Conc 34.2 g/dl (31.0-36.0); Mean Corpuscular Hemoglobin 29.6 pg (27.0-33.0); Mean Corpuscular Volume 86.8 fL (80.0-98.0); NRBC Abs Auto 0.000 X10*3/uL (0.0-0.012); NRBC Pct Auto 0.0 /100WBC (0.0-0.2); Platelet Count 154 X10*3/uL (160-400); Red Blood Count 5.06 X10*6/uL (4.60-5.80); White Blood Count 3.9 X10*3/uL (4.8-10.8)
[2025-05-12 11:55] LABS: Alanine Aminotransferase 97 U/L (0-40); Albumin Level 4.6 g/dL (3.5-5.0); Alkaline Phosphatase 61 U/L (39-117); Anion Gap 13 (12-20); Aspartate Amino Transferase 47 U/L (5-37); Blood Urea Nitrogen 17 mg/dL (9-16); Calcium 9.1 mg/dL (8.4-10.2); Carbon Dioxide 29 mmol/L (22-29); Chloride 106 mmol/L (96-108); Estimated Glomerular Filt Rate > 60; Magnesium 2.3 mg/dL (1.6-2.6); Potassium 4.5 mmol/L (3.3-5.1); Sodium 143 mmol/L (135-145); Total Protein 7.3 g/dL (6.5-8.0)
--- OUTSIDE RECORDS SUMMARY | 2025-05-12 12:00 | XMS_ITS | Encounter Summary ---
Author Organization [facility] Address [address] [place] [address] Phone Care Team Providers Care Wardrobe Technician Name Role Phone Marlon Hirsch AUTOMATIC BUFFER Primary Care Provider + Reason for Visit * MRI/CAT Scan - New Request Specialty Diagnoses / Procedures Referred By Raissa t Referred To Contact Radiology Diagnoses PVC (premature ventricular contraction) Procedures NC Myocardial Perfusion Exercise Multiple Mikel Santiago DO [address] [place] [address] Phone: tel: fax: Referral ID Status Reason Start Date Expiration Date V isits Requested Visits Authorized [id number] New Request 04/22/2025 1 1 Encounter Details Date Type Department Care Team (Late st Contact Info) Description 05/12/2025 12:00 PM EDT Hospital Encounter Non-Invasive Cardiology [address] [place] [address] Mikel Santiago DO [address] [place] [phone] Social History Tobacco Use Types Packs/Day Years [...] Care Team (Late st Contact Info) Description 05/15/2025 3:00 PM EDT Office Visit [facility] [address] [place] [address] Stacy Smith PA-C [address] [place] [address] 05/29/2025 1:40 PM EDT Procedure visit [facility] [address] [place] [address] Christine Granados MD [address] [place] [phone] [email or web address] 06/29/2025 1:00 PM EST Telemedicine [facility] Department of Neurosurgery [address] [place] [address] Stacy Smith PA-C [address] [place] [address] 07/06/2025 1:20 PM EST Nurse Only [facility] [address] [place] [address] Christine Granados MD [address] [place] [phone] [email or web address] 09/22/2025 11:00 AM EST Office Visit [facility] Neuromuscular [address] [place] [address] Luis Negrete MD [address] BT - [place] [address] [email or web address] Scheduled Orders Name Type Priority Associated Diagnoses Orde r Schedule NC Myocardial Perfusion Exercise Multiple Nuclear Cardiology Routine PVC (premature ventricular contraction) Expected: 04/22/2025, Expires: 04/22/2026 documented as of this encounter Visit Diagnoses Not on filedocumented in this encounter Additional Health Concerns Assessment Noted Time PHQ-2 Depression Total Score: 0 11/26/19 25 1:35 PM EDT documented as of this encounter Care Teams Wardrobe Technician Relationship Specialty Start Date End Date Marlon Hirsch NP [address] [place] [address] PCP - General Family Medicine 03/21/22 documented as of this encounter Additional Source Comments The information contained in this document represents components of the legal health record. It is not the complete legal health record.[facility]
[2025-05-12 12:07] LABS: Folate 12.6 ng/mL (> or = 4.0); Vitamin B12 428 pg/mL (200-900)
[2025-05-15 13:14] LABS: Anti Nuclear Antibody Pattern Nuclear, Speckled; Anti Nuclear Antibody Screen POSITIVE (NEGATIVE); Anti Nuclear Antibody Titer 1:40 titer
== END 2025-05-12 09:19 | disposition home or self-care (01) ==
LOC: HO.HMGCLDS 09:18
PROVIDERS: PCP Nurse Practitioner Family; Visit Provider Nurse Practitioner Family
DX: M75.101 Unspecified rotator cuff tear or rupture of right shoulder, not specified as traumatic (principal); R76.8 Other specified abnormal immunological findings in serum; R79.89 Other specified abnormal findings of blood chemistry; D69.6 Thrombocytopenia, unspecified; E51.9 Thiamine deficiency, unspecified; D64.9 Anemia, unspecified
CPT/HCPCS: 20610; 36415; 80053; 82550; 82607; 82746; 83735; 84207; 84425; 85025; 85652; 86038; 86039; 86140; 86160; 86225; 86431; J0665; J1100; J2003

== ENCOUNTER 2025-05-12 14:22 | Outpatient (AMB) | payer BC, SELFPAY ==
--- NOTE | 2025-05-12 14:27 | A.OFFVIS_ITS ---
Intake Visit Reasons: New Prob -?right shoulder pain Intake Note: Jeff is a 54 year old right hand dominant male who presents today as a new patient for a evaluation of his right shoulder pain. Patient was seen at the walk in center on 02/23/25 were he was recommended a sling which pain declined at the moment. Patient reports ongoing for about a year. He notices that his pain is on the anterior aspect of the shoulder. No previous treatment. He notices that his ROM is limited due to his pain. Allergies fenofibrate (From TRICOR) Allergy (Unknown, Verified 05/12/25 14:31) ITCHING HPI HPI New Prob -?right shoulder pain: Details: Mr. Clifford is a 54-year-old right-hand dominant male who presents to the office today for evaluation of right shoulder pain x1 yea he does not note any specific injury or trauma. He reports that over the past few months his pain has been increasing. He is also noted that pain with overhead motion has increased and range of motion is decreased. He was seen at the walk-in clinic on 02/23/2025 where he was given a sling and allowed the shoulder to rest. His pain subsided for a short period of time and then returned. He does also report that while taking ileg-lbm-ziznqwu anti-inflammatories for his lower back he has noticed that this has also helped with his right shoulder some. He denies any involvement with physical therapy or past cortisone injections in the shoulder. [facility] Medical History (Updated 05/12/25 @ 15:38 by Ritika Friend PA-C) Low vitamin B12 level CAD (coronary artery disease) Pulmonary HTN Esophageal dysmotility BPH (benign prostatic hyperplasia) MELISSA on CPAP Muscle weakness Bilateral inguinal hernia Fatty liver Non-STEMI (non-ST elevated myocardial infarction) ADHD Myocardial infarction Surgical History History of heart artery stent History of coronary angiogram History of umbilical hernia Family History Father CVD (cardiovascular disease) Myocardial infarction Unknown family medical history HTN (hypertension) Mother CVD (cardiovascular disease) Maternal Grandmother Stroke Paternal Grandfather Diabetes mellitus Paternal Aunt Aneurysm Social History Household Members: None Housing: House Are you a primary career guidance counselor to a significant other at home: No Do you presently have visiting nurse or other home services: No Alcohol intake: current Alcohol intake frequency: does not drink Patient Tobacco Use Status: Never used Tobacco e-Cigarette/Vaping Use: Never Used Second Hand Smoke Exposure: No service: No Current occupational status: employed Cognitive needs: No Hearing needs: No Vision needs: Yes Review of Systems Const All systems reviewed & are unremarkable except as noted in HPI and below Physical Exam Const General: cooperative, healthy appearing and no acute distress Resp Effort & Inspection: normal respiratory effort and able to speak in complete sentences Extrem Other: Right shoulder: Normal to inspection. No ecchymosis, erythema, or edema. Full shoulder ROM in all planes. Negative cross-body reach. Pain along the impingement arc. 4-5 strength with empty can. Negative drop arm. NVI. Psych Appearance: grossly normal Mental Status: mental status grossly normal Attitude: cooperative Office Procedures AMB Joint Injection/Aspiration Joint Injection/Aspiration Primary Site: right shoulder Prep: site was prepped using aseptic technique, ethochloride spray was applied and injection warnings given Injected: 40 mg of, with 3 mL of, 1% plain lidocaine, 0.25% bupivacaine, in the subcromial space and decadron Approach Used: posterolateral Procedure: The patient tolerated the procedure well, but had some pain with the injection and there was some relief with the local anesthesia Coding 81884 - Large joint Procedure code (CPT) selection complete Assessment & Plan Assessment & Plan (1) Painful arc syndrome of right shoulder: Code(s): M75.101 - Unspecified rotator cuff tear or rupture of right shoulder, not specified as traumatic Category: Medical Plan Mr. Clifford is a 54-year-old right-hand dominant male who presents to the office today for evaluation of right shoulder pain x1 yea he does not note any specific injury or trauma. He reports that over the past few months his pain has been increasing. He is also noted that pain with overhead motion has increased and range of motion is decreased. He was seen at the walk-in clinic on 02/23/2025 where he was given a sling and allowed the shoulder to rest. His pain subsided for a short period of time and then returned. He does also report that while taking nssu-hjo-tcwexru anti-inflammatories for his lower back he has noticed that this has also helped with his right shoulder some. He denies any involvement with physical therapy or past cortisone injections in the shoulder. On the office today, we discussed conservative treatment options. The patient has not tried physical therapy nor cortisone injections and therefore this is what I have recommended at this time. The patient was offered a cortisone injection in the right shoulder. The patient was explained the risks, benefits, and alternatives to receiving this injection. After receiving consent for the injection, the patient had the procedure done while in the office today. The patient tolerated the procedure well with no complications. Additionally, we discussed physical therapy. However, the patient is currently in physical therapy for low back pain. As insurance will only cover for 1 body part being worked at a time, he will contact me after he finishes his course of physical therapy for his low back and I am happy to place an order for his right shoulder. Should the patient continue to have right shoulder pain after cortisone injection and physical therapy the next step would be an MRI to further evaluate the integrity of the right shoulder and surrounding structures. Follow-up will be after completion of physical therapy for the right shoulder, or sooner if needed. X-rays x-rays of the right shoulder obtained on 02/23/2025 or negative for any acute fracture or dislocation. There was nzbt-xc-hxzazrtk spurring of the AC joint. Coding Level of Care Code New Pt Level 3 (01258) Diagnoses Painful arc syndrome of right shoulder M75.101 CPT Codes Coding - 77323 Large joint: 34398 - Large joint ([id number])
== END 2025-05-12 15:31 | disposition home or self-care (01) ==
LOC: HO.HOS 14:22
PROVIDERS: PCP Nurse Practitioner Family; Visit Provider Physician Assistant
DX: M75.101 Unspecified rotator cuff tear or rupture of right shoulder, not specified as traumatic (principal)
CPT/HCPCS: 20610; 99203

== ENCOUNTER 2025-08-10 06:30 | Outpatient (AMB) | payer BC, SELFPAY ==
--- OUTSIDE RECORDS SUMMARY | 2025-08-09 23:59 | XMS_ITS | Continuity of Care Document ---
Author Organization [facility] Address [address] [place] [phone]- Care Team Providers Care Water Supply Engineer Name Role Phone Torrey PETERS, Marlon Hammer Primary Care Physician [phone] Encounter [facility] Date(s): 07/10/25 - 08/09/25 [facility] [address] [place] [address] Encounter Type: Triage Allergies, Adverse Reactions, Alerts [...] opioid drug. Start Date: 12/23/24 Status: Ordered Medication Dispense Status: Completed Total Allowed Fills: 1 Fills Dispensed: 0 amLODIPine 5 mg oral tablet 5 mg, 1, tablet, By Mouth, Daily, Refills 0, Maintenance, 06/13/21 7:46:00 AM EDT, Partial fill uponpatient request if the prescription is for a schedule II opioid drug. Start Date: 06/13/21 Status: Ordered Medication Dispense Status: Completed Total Allowed Fills: 1 Fills Dispensed: 0 Crestor 20 mg oral tablet 1 tablet = 20 mg, By Mouth, Daily, # 30 tablet, 0 Refills, Maintenance, 11/12/18 11:00:18 AM EDT, Tablet, [facility] Start Date: 11/12/18 Stop Date: 12/12/18 Status: Ordered Medication Dispense Status: Completed Quantity: 30.0 Unit: tablet Total Allowed Fills: 1 Fills Dispensed: 0 dexamethasone 1 mg oral tablet 1 tablet = 1 mg, By Mouth, Once, to be taken at 11pm then go for labs at 8 AM the next morning., # 1 tablet, 0 Refills, Soft Stop, 01/26/25 10:03:00 PM EDT, [facility], Partial fill uponpatient request if the prescription is for a schedule II opioid drug., 180, cm, 12/23/24 9:09:00 EDT, Height Start Date: 01/26/25 Status: Ordered Medication Dispense Status: Completed Quantity: 1.0 Unit: tablet Total Allowed Fills: 1 Fills Dispensed: 0 metoprolol 25 mg oral tablet, extended release 25 mg, 1, tablet, By Mouth, Daily, # 30 tablet, Refills 0, Tot. Refills 0, Maintenance, 11/12/18 10:59:41 AM EDT, Route to Pharmacy Electronically, [facility] 3 Start Date: 11/12/18 Stop Date: 12/12/18 Status: Ordered Medication Dispense Status: Completed Quantity: 30.0 Unit: tablet Total Allowed Fills: 1 Fills Dispensed: 0 Multivitamin Daily, 0 Refills, Maintenance, 06/13/21 7:45:00 AM EDT, Partial fill upon patient request if the prescription is for a schedule II opioid drug. Start Date: 06/13/21 Status: Ordered Medication Dispense Status: Completed Total Allowed Fills: 1 Fills Dispensed: 0 omeprazole 20 mg oral delayed release tablet 1 tablet = 20 mg, By Mouth, Daily, 0 Refills, Maintenance, 12/23/24 9:09:00 AM EDT, Partial fill upon patient request if the prescription is for a schedule II opioid drug. Start Date: 12/23/24 Status: Ordered Medication Dispense Status: Completed Total Allowed Fills: 1 Fills Dispensed: 0 omeprazole 20 mg oral delayed release tablet 2 tablet = 40 mg, By Mouth, 2 times a day, 0 Refills, Maintenance, 11/11/18 6:03:13 AM EDT Start Date: 11/11/18 Status: Ordered Medication Dispense Status: Completed Total Allowed Fills: 1 Fills Dispensed: 0 OXcarbazepine 300 mg oral tablet 300 mg, 1, tablet, By Mouth, 2 times a day, Refills 0, Maintenance, 12/23/24 9:08:00 AM EDT, Partialfill upon patient request if the prescription is for a schedule II opioid drug. Start Date: 12/23/24 Status: Ordered Medication Dispense Status: Completed Total Allowed Fills: 1 Fills Dispensed: 0 ticagrelor 90 mg oral tablet 1 tablet = 90 mg, By Mouth, 2 times a day, # 60 tablet, 0 Refills, Maintenance, 11/12/18 10:58:57 AM EDT, Tablet, [facility] Start Date: 11/12/18 Stop Date: 12/12/18 Status: Ordered Medication Dispense Status: Completed Quantity: 60.0 Unit: tablet Total Allowed Fills: 1 Fills Dispensed: 0 Vascepa 0.5 g oral capsule 4 capsule = 2 Gm, By Mouth, 2 times a day, # 240 capsule, 0 Refills, Maintenance, 11/12/18 11:00:49 AM EDT, Capsule, [facility] Start Date: 11/12/18 Stop Date: 12/12/18 Status: Ordered Medication Dispense Status: Completed Quantity: 240.0 Unit: capsule Total Allowed Fills: 1 Fills Dispensed: 0 Problem List Condition Confirmation Course Effective Dates Status H ealth Status Informant CAD in jamul artery Confirmed Active 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 Hyperhidrosis Confirmed Active Hyperlipidemia Confirmed Active Obese class I Confirmed Active Social History Social History Type Response Smoking Status Never (less than 100 in lifetime) entered on: 12/05/18 Sex Sex Representation Male (finding) Patient Care team information Care Team Personnel Name: Effie Yeung RN Position: Sonia MORA RN Member Role: Primary Care Nurse Name: Marlon Hirsch NP Position: Reference Physician Member Role: PCP Address: [address] [place] [address]- Telecom: Care Team Related Persons Name: JOE MOON Name: ROBIN MOON Name: ROBIN SHEPHERD Insurance Providers Guarantor name: MARIZA MOON Health Plan Information #: 1 Payer: [facility] Payer Identifier: NA Member Number: [id number] Group Number: [id number] Subscriber Identifier: NA Relationship to Subscriber: self Coverage Type: NA Coverage Verification Date: NA Telecom: NA Address: NA
--- OUTSIDE RECORDS SUMMARY | 2025-08-10 06:33 | XMS_ITS | Encounter Summary ---
Author Organization 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 Procedures NC Myocardial Perfusion Pharmacologic Stress Multiple Dasia Wood MD Phone: tel: fax: [email or web address] Referral ID Status Reason Start Date Expiration Date V isits Requested Visits Authorized [id number] Canceled 12/27/2018 1 1 Encounter Details Date Type Department Care Team (Latest Contact Info) Description 12/27/2018 Transcribe Orders [facility] [address] [facility] [address], [address] [place] [address] Dasia Wood MD [address] [place] [address] [email or web address] 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 (Primary Dx) Social [...] Care Team (Late st Contact Info) Description 08/19/2025 1:00 PM EST Telemedicine [facility] [address] [place] [address] Stacy Smith PA-C [address] [place] [address] [email or web address] 09/22/2025 11:00 AM EST Office Visit [facility] [address] [place] [address] Luis Negrete MD 60 [facility] BT - [place] [address] [email or web address] 01/12/2026 1:00 PM EDT Office Visit [facility] [address] [place] [address] Nimo Miguel MD [address] [address] julio [email or web address] Scheduled Orders Name Type Priority Associated Diagnoses Order Schedule NC Myocardial Perfusion Pharmacologic Stress Multiple Nuclear Cardiology Routine 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 Ordered: 12/27/2018 documented as of this encounter Visit Diagnoses Diagnosis 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 It is not the complete legal health record.[facility]
--- OUTSIDE RECORDS SUMMARY | 2025-08-10 06:34 | XMS_ITS | Encounter Summary ---
Author Organization [facility] Address [address] [place] [phone] Phone Care Team Providers Care Recruiter Manager Name Role Phone Marlon Hirsch SCOOP MACHINE OPERATOR Primary Care Provider + Encounter Details Date Type Department Care Team (Late st Contact Info) Description 04/22/2025 Telephone [facility] [address] [place] [address] [email or web address] Social [email or web address] Tobacco Use Types Packs/Day Years [...] Info) Description 08/19/2025 1:00 PM EST Telemedicine [facility] [address] [place] [address] Stacy Smith PA-C [address] [place] [address] [email or web address] 09/22/2025 11:00 AM EST Office Visit [facility] [address] [place] [address] Luis Negrete MD 60 [facility]. BT [place] [address] [email or web address] 01/12/2026 1:00 PM EDT Office Visit [facility] [address] [place] [address] Nimo Miguel MD [address] [address] julio [email or web address] as of this encounter Visit Diagnoses Not on filedocumented in this encounter Additional Health Concerns Assessment Noted Time PHQ-2 Depression Total Score: 0 11/26/19 25 1:35 PM EDT documented as of this encounter Care Teams Recruiter Manager Relationship Specialty Start Date End Date Marlon Hisrch NP [address] [facility] [place] [address] PCP - General Family Medicine 03/21/22 documented as of this encounter Additional Source Comments The information contained in this document represents components of the legal health record. It is not the complete legal health record.[facility]
--- OUTSIDE RECORDS SUMMARY | 2025-08-10 06:34 | XMS_ITS | Clinical Summary ---
Author Organization [facility] Address [address] [place] [address] Phone Care Team Providers Care [employer] Teacher Name Role Phone Marlon Hirsch NP Primary [...] Active Additional Information Patient not taking.Reported on 07/03/2025 ibuprofen (ADVIL,MOTRIN) 800 MG tablet Take 800 mg by mouth. 4 Active nitroglycerin (NITROSTAT) 0.4 MG SL tablet 5 Active Hospital, Clinic, or Other Facility Administered Medication Ordered Dose Route Frequency Start Date End Date Status methylPREDNISolone acetate (DEPO-Medrol) injection 40 mg 40 mg See Adm Inst Once 06/24/2025 09/22/2025 Active Active Problems Problem Noted Date Diagnosed Date Chest pain 12/11/2019 Encounters Date Type Department Care Team Description 07/03/2025 10:40 AM EST Nurse Only [facility] [address] [place] [address] Christine Granados MD Myofascial pain syndrome of thoracic spine (Primary Dx); Myofascial pain syndrome, cervical; Myofascial pain syndrome of lumbar spine 06/30/2025 3:00 PM EST Office Visit [facility] [address] [place] [address] Nimo Miguel MD Pain in joints (Primary Dx) 06/24/2025 3:40 PM EST Procedure visit [facility] [address] [place] [address] Christine Granados MD Lumbosacral spondylosis without myelopathy; Facet arthropathy, lumbosacral; Sacroiliac joint dysfunction of right side; Sacroiliac joint dysfunction of left side; Sprain of ligaments of lumbar spine, subsequent encounter 06/24/2025 3:37 PM EST - 06/24/2025 11:59 PM EST Hospital Encounter [facility] [address] [place] [address] Stacy Smith PA-C Discharge Disposition: Home or Self Care 06/10/2025 1:30 PM EDT Telemedicine [facility] Neurosurgery [facility] [address] [place] [address] Stacy Smith PA-C Lumbar facet joint pain (Primary Dx); Lumbar spondylosis; Sacroiliac joint dysfunction of left side; Sacroiliac joint dysfunction of right side; Osteoarthritis of left hip, unspecified osteoarthritis type; Left lumbar radiculitis 06/02/2025 1:31 PM EDT - 06/02/2025 11:59 PM EDT Hospital Encounter [facility] Neurology EMG Lab [facility] [address] [address] Stacy Smith PA-C Tetreault, Lindsay Anne, MD Discharge Disposition: Home or Self Care 05/15/2025 3:00 PM EDT Office Visit [facility] [address] [place] [address] Stacy Smith PA-C Right lumbar radiculitis (Primary Dx); Left lumbar radiculitis; Sacroiliac joint dysfunction of both sides; Lumbosacral spondylosis without myelopathy; Facet arthropathy, lumbosacral; Sacroiliac joint dysfunction of right side; Sacroiliac joint dysfunction of left side; Myofascial pain syndrome of lumbar spine; Myofascial pain syndrome, cervical; Myofascial pain syndrome of thoracic spine; Radiculitis of right cervical region; Radiculitis of left cervical region 05/12/2025 11:38 AM EDT - 05/12/2025 11:59 PM EDT Hospital Encounter [facility] [address] [place] [address] Mikel Santiago DO Discharge Disposition: Home or Self Care from [...] Sign Reading Time Taken Comments Blood Pressure 149/90 07/03/2025 11:13 AM EST Pulse 77 07/03/2025 11:13 AM EST Temperature 36.4 C (97.5 F) 07/03/2025 10:35 AM EST Respiratory Rate 16 03/24/2025 9:06 AM EDT Oxygen Saturation 99% 07/03/2025 11:13 AM EST Inhaled Oxygen Concentration - - Weight 104.3 kg (230 lb) 07/03/2025 10:35 AM EST Height 180.3 cm (5' 11 ) 07/03/2025 10:35 AM EST Body Mass Index 32.08 07/03/2025 10:35 AM EST Plan of Treatment Upcoming Encounters Date Type Department Care Team (Late st Contact Info) Description 08/19/2025 1:00 PM EST Telemedicine [facility] [address] [place] [address] Stacy Smith PA-C [address] [place] [address] 09/22/2025 11:00 AM EST [facility] [address] [place] [address] Luis Negrete MD [address] BTM - [place] [address] [email or web address] 01/12/2026 1:00 PM EDT Office Visit [facility] [address] [place] [address] Nimo Miguel MD [address] [place] [address] julio [email or web address] Health Maintenance Due Date Last Done Comments LIPID PANEL 1970 HEPATITIS C SCREENING 1990 HIV ONE-TIME SCREENING (18-65 YEARS) 1990 COLOGUARD 2017 COLONOSCOPY 2017 COLORECTAL CANCER SCREENING 2017 FIT TEST 2017 FOBT 2017 SIGMOIDOSCOPY 2017 VIRTUAL COLONOSCOPY 2017 PNEUMOCOCCAL VACCINES (50+ years) (2 of 2 - PCV) 2022 12/26/2021 ZOSTER VACCINES (1 of 2) 2022 INFLUENZA VACCINE (#1) 2025 , 06/14/2021, 07/27/2020 COVID-19 VACCINE ( season) 2025 05/23/2022, 05/14/2021, 10/20/2020, Additional history exists DEPRESSION SCREENING 11/25/2025 11/25/2024 Adult Td,Tdap Booster 04/05/2027 04/05/2017 SCREENING FOR DIABETES 04/16/2027 04/16/2024 RSV VACCINE (1 - 1-dose 75+ series) 12/31/2047 HEPATITIS A VACCINES Aged Out 06/06/2021, 12/06/19 21 No longer eligible based on patient's age to complete this topic SMOKING STATUS SCREENING (Once After 26 Yrs) Completed 07/03/2025 HIB VACCINES Aged Out No longer eligi ble based on patient's age to complete this topic MENINGOCOCCAL VACCINES (ACWY) Aged Out No longer eligible based on patient's age to complete this topic MENINGOCOCCAL VACCINES (B) Aged Out N o longer eligible based on patient's age to complete this topic Medical Devices Not on file Procedures Procedure Name Priority Date/Time Associated Diagnosis Comments RHEUMATOID FACTOR Routine 06/30/2025 4:0 8 PM EST Pain in joints CCP IGG ANTIBODIES Routine 06/30/2025 4: 08 PM EST Pain in joints CREATINE KINASE (CK) Routine 06/30/2025 4:08 PM EST Pain in joints FL FLUOROSCOPY Routine 06/24/2025 4:46 PM EST Sacroiliac joint dysfunction of both sides Lumbosacral spondylosis without myelopathy Facet arthropathy, lumbosacral Sacroiliac joint dysfunction of right side Sacroiliac joint dysfunction of left side EMG Routine 06/02/2025 2:00 PM EDT Right lumbar radiculitis Left lumbar radiculitis Radiculitis of right cervical region Radiculitis of left cervical region OUTSIDE LAB 05/19/2025 NC MYOCARDIAL PERFUSION EXERCISE, MULTI Routine 05/12/2025 1:32 PM EDT PVC (premature ventricular contraction) from Last 3 Months Results * CCP Antibody, IgG (06/30/2025 4:08 PM EST) CCP Antibody, IgG 1 0 - 7 U/mL 07/02/2025 5:44 PM EST [facility] Comment:Interpretation: Nega tive Blood (Blood) Venipuncture / Unknown 06/30/2025 4:08 PM EST 06/30/2025 4:51 PM EST Narrative [facility] - 07/02/2025 5:44 PM EST Test performed by [employer] semiquantitative fluoroenzymeimmunoassay. us Nimo Miguel MD LAB BLOOD BKR ORDERABLES F inal Result Performing Organization Address City/State/[facility] Co de Phone Number [facility] [address] [place] [address] * (ABNORMAL) Rheumatoid Factor (06/30/2025 4:08 PM EST) Rheumatoid Factor (RF) 16(H) <13 IU/ml 07/01/2025 11:25 AM EST [facility] Blood (Blood) Venipuncture / Unknown 06/30/2025 4:08 PM EST 06/30/2025 4:51 PM EST Nimo Miguel MD LAB BLOOD BKR ORDERABLES F inal Result Performing Organization Address [facility] de Phone Number [facility] [address] [place] [address] * Creatine Kinase (CK) (06/30/2025 4:08 PM EST) Pathologist [facility] Creatine Kinase (CK) 106 39 - 308 U/L 06/30/2025 5:28 PM EST [facility] Blood (Blood) Venipuncture / Unknown 06/30/2025 4:08 PM EST 06/30/2025 4:52 PM EST Nimo Miguel MD LAB BLOOD BKR ORDERABLES F inal Result Performing Organization Address [facility] de Phone Number [facility] [address] [place] [address] * FL Fluoroscopy (06/24/2025 4:46 PM EST) Narrative [facility] - 06/24/2025 4:46 PM EST Fluoroscopy was provided during this procedure. us Stacy Smith PA-C IMG FL MISC Fin al Result Performing Organization Address [facility] Co de Phone Number [facility] * EMG (06/02/2025 2:00 PM EDT) Anatomical Region Laterality Modality EMG Narrative 06/02/2025 2:00 PM EDT Carolina Hodges MD 06/02/2025 4:53 PM Clinical Neurophysiology Laboratory [facility] [employer] [address] [place] [address] ELECTROMYOGRAPHY AND NERVE CONDUCTION REPORT Patient: Darrin Aguilar Date of : 1970 Referring DX: Bilateral cervical and lumbosacral radiculopathy Sex: Male Visit Date: 06/02/2025 14:10 Patient Age On Visit Date: 54 Years Referring Physician: Stacy Smith Current Height: 5 feet 11 inch Sensory NCS Nerve / Sites Rec. Site Onset Lat Peak Lat SANITATION ASSOCIATE Amp Distance Velocity Temp ms ms V cm m/s C R Median - Dig II Wrist Dig II 2.4 3.19 21.5 13 53.3 31.3 L Median - Dig II Wrist Dig II 2.3 3.15 26.9 13 55.7 31.9 R Ulnar - Dig V Wrist Dig V 2.3 2.98 12.1 11 48.4 31.5 L Ulnar - Dig V Wrist Dig V 3.5 4.79 8.6 11 31.4 32 R Radial - -Snuff Forearm Snuff 1.9 2.38 17.7 10 53.9 31.3 L Ulnar - Dorsal Wrist Dorsum 1.6 2.23 15.0 10 62.3 31.2 R Sural - Lat Mall Calf Lat Mall 3.6 4.25 5.3 14 39.1 30.1 L Sural - Lat Mall Calf Lat Mall 4.1 5.10 6.2 14 34.1 29.3 Motor NCS Nerve / Sites Distance Segments Latency Amplitude Velocity Temp. d Lat. cm ms mV m/s C ms R Median - APB Wrist 7 Wrist - APB 3.06 18.6 29.8 Elbow 24 Elbow - Wrist 7.92 17.8 49.4 30.1 4.85 L Median - APB Wrist 7 Wrist - APB 2.98 13.6 32.2 Elbow 23 Elbow - Wrist 7.69 13.6 48.8 32.4 4.71 R Ulnar - ADM Wrist 7 Wrist - ADM 2.73 10.8 31.5 B.Elbow 20 B.Elbow - Wrist 6.52 10.3 52.7 31.5 3.79 A.Elbow 10 A.Elbow - B.Elbow 8.67 10.2 46.6 31.5 2.15 L Ulnar - ADM Wrist 7 Wrist - ADM 2.71 11.3 32.1 B.Elbow 20 B.Elbow - Wrist 6.44 10.8 53.6 32 3.73 A.Elbow 10 A.Elbow - B.Elbow 8.67 10.0 44.9 31.9 2.23 R Ulnar - FDI Wrist Wrist - FDI 3.81 14.9 31.3 B.Elbow 20 B.Elbow - Wrist 7.79 14.0 50.3 31.3 3.98 A.Elbow 10 A.Elbow - B.Elbow 9.81 13.7 49.5 31.2 2.02 L Ulnar - FDI Wrist Wrist - FDI 3.92 14.5 31.7 B.Elbow 20 B.Elbow - Wrist 7.92 14.3 50.0 31.7 4.00 A.Elbow 10 A.Elbow - B.Elbow 10.02 14.3 47.5 31.6 2.10 R Peroneal - EDB Ankle 8 Ankle - EDB 4.90 9.8 31.2 Fib Head 30 Fib Head - Ankle 12.79 7.4 38.0 31.1 7.90 Knee 10 Knee - Fib Head 15.15 7.2 42.5 31.1 2.35 L Peroneal - EDB Ankle 8 Ankle - EDB 6.67 3.4 30.4 Fib Head 33.5 Fib Head - Ankle 15.96 2.6 36.1 30.2 9.29 Knee 10 Knee - Fib Head 18.60 2.5 37.8 30.1 2.65 R TIBIAL - AH Ankle 8 Ankle - AH 5.13 13.7 30.8 Knee 41 Knee - Ankle 14.17 7.9 45.3 30.7 9.04 L TIBIAL - AH Ankle 8 Ankle - AH 6.33 17.8 27.5 Knee 42 Knee - Ankle 16.21 12.4 42.5 27.8 9.88 EMG Summary Table IA Fib Fasc Other Amp Dur PolyP Activation Recr Muscle - - - - MUs - MUs - MUs . Pattern L. Deltoid Nl 0 0 0 Nl - Nl - Nl Full Nl L. Biceps Nl 0 1+ 0 Nl - Nl - Nl Full Nl L. Triceps Incr 0 3+ 0 Nl - Nl - Nl Full Nl L. Pron Teres Nl 0 0 0 Nl - Nl - Nl Full Nl L. First D Int Nl 0 0 0 Nl - Nl - Nl Full Nl R. Deltoid Nl 0 0 0 Nl - Nl - Nl Full Nl R. Biceps Nl 0 0 0 Nl - Nl - Nl Full Nl R. Triceps Incr 0 2+ 0 Nl - Nl - Nl Full Nl R. Pron Teres Nl 0 0 0 Nl - Nl - Nl Full Nl R. First D Int Nl 0 0 0 Nl - Nl - Nl Full Nl R. Vast Lat Nl 0 0 0 Nl - Nl - Nl Full Nl R. Tib Ant Nl 0 1+ 0 Nl - Nl - Nl Full Nl R. Gastroc (M) Nl 0 2+ 0 Nl - Nl - Nl Full Nl L. T Fas Lat Nl 0 0 0 Nl - Nl - Nl Full Nl L. Vast Lat Nl 0 0 0 Few Incr Few Incr Few Full Claudia L. Tib Ant Incr 2+ 0 0 Many Incr Many Incr Nl Full SevRed L. Tib Post Nl 0 0 0 Many Incr Many Incr Nl Full ModRed L. Gastroc (M) Nl 0 0 0 Few Incr Nl - Nl Full Nl Results: Nerve Conduction Studies: Left ulnar-D5 sensory nerve action potential (SNAP) with moderately prolonged peak latency and mildly reduced amplitude. Normal bilateral median-D2, right ulnar-D5, right radial-snuff box, left ulnar-TAIWO, and bilateral sural SNAPs. Left peroneal-EDB compound muscle action potential (CMAP) with markedly reduced amplitude compared to the right peroneal-EDB CMAP and mild slowing of conduction velocity. Right peroneal-EDB with normal distal latency and amplitude but mild slowing of conduction velocity. Normal bilateral median-APB, ulnar-ADM, ulnar-FDI and tibial-AH CMAPs. Electromyography: Concentric needle examination was performed in selected muscles of the bilateral upper and lower extremities, as tabulated above. There was increased insertional and spontaneous activity, in the form of positive sharp waves and fibrillation potentials, in the left tibialis anterior muscle. There were fasciculation potentials seen in the left biceps, left triceps, right triceps, right tibialis anterior and right medial gastrocnemius muscles. Motor unit action potentials (MUAPs) of long duration and large amplitude +/- polyphasia were seen in the left vastus lateralis, tibialis anterior and tibialis posterior. There were rare MUAPs of large amplitude in the medial gastrocnemius muscle. There was reduced recruitment upon activation of the left vastus lateralis, tibialis anterior and tibialis posterior. Normal needle EMG in the other muscles studied as depicted in the table above. Impression: This is an abnormal study. Specifically, there is electrodiagnostic evidence of: Chronic left L4-S1 lumbosacral radiculopathy with ongoing denervation/incomplete reinnervation of the left tibialis anterior. Compared to his previous study dated 05/23/2024, the neurogenic changes are more pronounced in the left tibialis anterior (many MUAPs of large amplitude and long duration, severely reduced recruitment). There were fasciculation potentials seen in several muscles of the bilateral upper and lower extremities. These fasciculations were not accompanied by changes in motor unit morphology or recruitment and are likely benign in nature. 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 The mild slowing of conduction velocity seen on the bilateral peroneal-EDB CMAPs are likely secondary to cold limb temperature given normal results on previous EMG study. Carolina Hodges MD PhD Neuromuscular Attending [facility] The attending physician was present for the cantu portions of the study, reviewed all the waveforms, and agreed with the impression above us Stacy Smith PA-C NEUROLOGY ORDERABLE S Edited Result - Final * Outside Lab (05/19/2025) us Scanning Interface Provider LAB BLOOD BKR ORDERA BLES Final Result * NC Myocardial Perfusion Exercise Multiple (05/12/2025 1:32 PM EDT) [facility] Max Predicted Heart Rate 168 bpm Stress/rest perfusion ratio 0.89 Nuc Stress EF 65 % SNMDIAVOL 129.0 mL SNMSYSVOL 45.0 mL Nuc Rest EF 60 % RNMDIAVOL 139.0 mL RNMSYSVOL 56.0 mL Anatomical Region Laterality Modality Heart, Vascular Ultrasound Narrative 05/13/2025 8:21 AM EDT Normal study. There is no evidence of myocardial infarction or ischemia. Normal LV size and function with no regional wall motion abnormalities. Very low likelihood of hemodynamically significant coronary artery disease. Low risk study for myocardial events or cardiac in the next two years. Compared to prior study, no change ECG STRESS REPORT: BMI: 33.2 Jeff Clifford exercised for 10:43 min on a RALF protocol achieving 13.70 METS. Test terminated due to fatigue. Baseline resting HR was 75 bpm. Max heart rate achieved was 153 bpm (91% MPHR). 1. EKG - Baseline EKG showed normal sinus rhythm. During exercise, there were no EKG changes that met strict criteria for ischemia. 2. SYMPTOMS - The patient was asymptomatic at baseline. He then reported 2/10 centralized to slightly left-sided chest pressure during stage III of exercise which spontaneously resolved by stage IV of exercise. He reported significant dyspnea during stage IV of exercise which spontaneously resolved by 2 to 3 minutes into the recovery period. He also reported a left sided sensation behind his eye/left side of his head, difficult to describe, but made him feel somewhat lightheaded/foggy. This symptom spontaneously resolved by 5 to 6 minutes into the recovery period. 3. EXERCISE PHYSIOLOGY - Good functional capacity for age. Normal blood pressure response to exercise. 4. ARRHYTHMIAS - None noted. Conclusion - Abnormal stress test. There were no ischemic EKG changes. There were symptoms concerning for angina, although somewhat atypical as described above. Recommend clinical correlation. Nuclear images pending and will be reported separately. See attached stress report for full details. Hien Delacruz PA-C NUCLEAR REPORT: TYPE OF STUDY: Myocardial Perfusion Imaging after exercise utilizing a standard Ralf protocol with gated SPECT. PROTOCOL USED: One day rest- stress protocol in the supine and prone position. Images were obtained in gated tomographic technique. Images were processed in SPECT format, reconstructed tomographically and compared [id number] in short axis, horizontal long axis and vertical long axis. DOSE: Technetium 99m Sestamibi 7.0 mCi injected intravenously in the left antecubital vein at rest on 05/12/2025 with post injection scan time of 60 minutes. Technetium 99m Sestamibi 21.3 mCi injected intravenously in the left arm antecubital vein during stress on 05/12/2025 with post injection scan time of 20 minutes. Overall image quality is good. Diaphragmatic attenuation is present. No motion artifact is present. Stress Function Defect Left ventricular global function is normal during stress. Stress ejection fraction is 65%. The stress end diastolic cavity size is normal. Stress end diastolic size: 129.0 mL. The stress end systolic cavity size is normal. Stress end systolic size: 45.0 mL. Rest Function Defect Left ventricular global function is normal at rest. Resting ejection fraction was 60%. The rest end diastolic cavity size is normal. Rest end diastolic size: 139.0 ml. The rest end systolic cavity size is normal. Rest end systolic size: 56.0 mL. Nuclear Prior Study There is a prior study available for comparison that was performed on 07/02/2024. Nuclear Ancillary Finding There is no evidence of transient ischemic dilation (TID). The TID ratio is 0.89, which is normal. Perfusion Scoring Resting Summed Score: 0 Percent Normal: 0.00% The left ventricular perfusion is normal. Perfusion Scoring Stress Summed Score: 0 Percent Normal: 0.00% The left ventricular perfusion is normal. PRONE IMAGING STRESS Perfusion Scores: SRS Score: 0 Percentage Abnormal: 0.00% Perfusion Scores: SSS Score: 0 Percentage Abnormal: 0.00% Perfusion Scores: SDS Score: 0 Percentage Abnormal: 0.00% Procedure Note Jeff Ventura MD - 05/13/2025 Normal study. There is no evidence of myocardial infarction or ischemia. Normal LV size and function with no regional wall motion abnormalities. Very low likelihood of hemodynamically significant coronary arterydisease. Low risk study for myocardial events or cardiac in the next twoyears. Compared to prior study, no change Mikel Santiago DO CV NM CARDIAC Final Result from Last 3 Months Insurance BLUE CROSS OUT OF STATE PPO BLUE CROSS OUT OF STATE PPO BLUE CROSS OUT OF STATE PPO BLUE CROSS OUT OF STATE PPO BLUE CROSS OUT OF STATE PPO BLUE CROSS OUT OF STATE PPO BLUE CROSS OUT OF STATE PPO BLUE CROSS OUT OF STATE PPO BLUE CROSS OUT OF STATE PPO Care Teams Secondary School Special Ed Teacher Relationship Specialty Start Date End Date Marlon Hirsch NP [address] [place] [address] PCP - General Family Medicine 03/21/22 Additional Source Comments The information contained in this document represents components of the legal health record. It is not the complete legal health record.[facility]
--- OUTSIDE RECORDS SUMMARY | 2025-08-10 06:34 | XMS_ITS | Encounter Summary ---
Author Organization [facility] Address [address] [place] [address] Phone Care Team Providers Care Car Stereo Installer Name Role Phone Marlon Hirsch MINE EXPERT Primary Care Provider + Encounter Details Date Type Department Care Team (Late st Contact Info) Description 04/03/2025 Telephone [facility] [address] [place] [address] [email or web address] Social [email or web address] Tobacco Use Types Packs/Day [...] Info) Description 08/19/2025 1:00 PM EST Telemedicine [facility] [address] [place] [address] Stacy Smith PA-C [address] [place] [address] [email or web address] 09/22/2025 11:00 AM EST Office Visit [facility] [address] [place] [address] Luis Negrete MD [address] [facility]. BT - [place] [address] [email or web address] 01/12/2026 1:00 PM EDT Office Visit [facility] [address] [place] [address] Nimo Miguel MD [address] [address] julio [email or web address] documented as of this encounter Visit Diagnoses Not on filedocumented in this encounter Additional Health Concerns Assessment Noted Time PHQ-2 Depression Total Score: 0 11/26/19 25 1:35 PM EDT documented as of this encounter Care Teams Car Stereo Installer Relationship Specialty Start Date End Date Marlon Hirsch NP [address] [place] [address] PCP - General Family Medicine 03/21/22 documented as of this encounter Additional Source Comments The information contained in this document represents components of the legal health record. It is not the complete legal health record.[facility]
--- OUTSIDE RECORDS SUMMARY | 2025-08-10 06:34 | XMS_ITS | Patient Health Record ---
Author [facility] Address [address] [place] [address] Care Team Providers Care Product Safety Technical Assistant Name Role Phone Marlon Giang Primary Care Provider Unav ailable Brent Harmon Unavailable [phone] Allergies No Known Allergies Reason For Referral [...] Status Risk Notes Problem Tarsal tunnel syndrome (95270961) Tarsal tunnel syndrome of right side (G57.51) Active confirmed Plan Of Treatment Pending Test Test Name Order Date *Liver Function Test (LFT) 02/20/2014 X ray : Foot, left 3V 11/08/2022 X ray : Foot, left 3V 12/04/2023 X ray : Foot, right 3V 12/04/2023 X ray : Foot, right 3V 11/08/2022 [id number] NAIL, 6 OR MORE 02/20/2014 [id number] NAIL, 6 OR MORE 09/18/2014 [id number] NAIL, 6 OR MORE 11/27/2014 [id number] NAIL, 1-5 12/03/2015 [id number] Plate 12/09/2014 [id number] Plate 03/17/2015 [id number] Plate 07/01/2015 [id number] Plate Each Additional 76497- Debride <25 sq cm 12/24/2014 11995 I&D ABSCESS- SIMPLE,SINGLE 015 [id number] I&D ABSCESS- SIMPLE,SINGLE 015 [id number] I&D ABSCESS- SIMPLE,SINGLE 022 Insurance Providers Payer Name Payer Address Payer Phone Subscriber Number Group Number Insured Name Patient Relationship to Insured Coverage Start Date Coverage End Date [facility] [employer] Others [address] [place] [address] [phone] [id number] Jeff Clifford Self - patient is the insured Medical (General) History Medical History History ICD Code Attention deficit hyperactivity disorder Back,Hip,and Knee pain Chicken pox Angina Diverticulosis Heart disease Peripheral Demilination Surgical History Surgery Date(Month/Year) umbilical hernia repair 2009 Stent Surgery 11/29
--- OUTSIDE RECORDS SUMMARY | 2025-08-10 06:34 | XMS_ITS | Clinical Summary ---
Author Organization [facility] [address] [facility] Address [address] [place] [address] Phone Care Team Providers Care Cake Froster Name Role Phone Marlon Hirsch NP Primary Care Provider Allergies No known active allergies Medications cyclobenzaprine (FLEXERIL) 5 mg tablet TAKE 1 TABLET BY MOUTH BEDTIME NEEDED FOR MUSCLE SPASM FOR 30 DAYS 4 Active ibuprofen (ADVIL,MOTRIN) 800 mg tablet Take 1 tablet (800 mg total) by mouth. 4 Active icosapent ethyL (VASCEPA) 1 gram capsule 4 Active metoprolol succinate (TOPROL-XL) 25 mg 24 hr tablet 4 Active OXcarbazepine (TRILEPTAL) 150 mg tablet 4 Active rosuvastatin (CRESTOR) 20 mg tablet 4 Active omeprazole (PriLOSEC) [address] capsuleIndicati ons:gastroesoph ageal reflux disease Take 1 capsule (20 mg total) by mouth 2 (two) times a day. Do not crush or chew. 180 each 3 5 07/30/20 26 Active omeprazole (PriLOSEC) [address] capsuleIndicati ons:gastroesoph ageal reflux disease Take 1 capsule (20 mg total) by mouth 2 (two) times a day. Do not crush or chew. 180 each 2 5 07/30/20 25 Discontinu ed(Reorder ) Active Problems Problem Noted Date Diagnosed Date Other constipation 11/12/2024 Fatty liver 06/16/2024 Overview (06/16/2024): Liver biopsy 02/2024: Mild macrosteatosis; minimal inflammation; rare fibrosis. GERD (gastroesophageal reflux disease) Esophageal dysmotility 06/16/2024 Encounters Date Type Department Care Team Description 07/01/2025 Telephone Gastroenterology - 299 Jan 299 [facility] [address] [place] [phone] Joseph Zambrano MD from Last 3 Months Social History Tobacco Use Types Packs/Day Years Used Date Smoking Tobacco: Never Assessed Sex and Gender Information Value Date Recorded Sex Assigned at Male 06/23/2024 11:52 AM EST Legal Sex Male 3:48 PM EST Gender Identity Male 06/23/2024 11:52 AM EST Sexual Orientation Straight 06/23/2024 11 :52 AM EST Last Filed Vital Signs Vital Sign Reading Time Taken Comments Blood Pressure - - Pulse - - Temperature - - Respiratory Rate - - Oxygen Saturation - - Inhaled Oxygen Concentration - - Weight 103 kg (226 lb) 11/12/2024 8:04 AM EDT Height 180.3 cm (5' 11 ) 11/12/2024 8:04 AM EDT Body Mass Index 31.52 11/12/2024 8:04 AM EDT Plan of Treatment Upcoming Encounters Date Type Department Care Team (Late st Contact Info) Description 11/26/2025 11:20 AM EDT Office Visit Gastroenterology - 299 Jan 299 [facility] [address] [place] [phone] Adilia Castro NP [address] [address] Health Maintenance Due Date Last Done Comments Colorectal Cancer Screening: Colonoscopy 1970 Cholesterol Screening (Lipid Panel) 07/12/2022 HIV Screening 07/12/2022 Hepatitis C Screening 07/12/2022 Social Influencers of Health Screening 07/12/2022 Pneumococcal Vaccine: 50+ Years (2 of 2 - PCV) 2022 12/26/2021 Zoster Vaccines (1 of 2) 2022 Hypertension/CHF/CAD Annual BMP Blood Test 06/16/2024 Depression Screening 08/13/2024 COVID-19 Vaccine (5 - season) 2025 05/23/2022, 05/14/2021, 10/20/2020, Additional history [...] patient's age to complete this topic Insurance [facility] ([facility]) Care Teams Cake Froster Relationship Specialty Start Date End Date Marlon Hirsch NP [address] [place], [place] PCP - General Family Medicine 06/09/24
--- OUTSIDE RECORDS SUMMARY | 2025-08-10 06:34 | XMS_ITS | Encounter Summary ---
Author Organization [facility] Address [address] [place] [phone] Phone Care Team Providers Care Quotation Checker Name Role Phone Marlon Hirsch LEATHER DRIER Primary Care Provider + Encounter Details Date Type Department Care Team (Latest Contact Info) Description 09/09/2024 Ancillary Orders [facility] [address] [place] [address] Nimo Miguel MD [address] [place] [address] julio [email or web address] Primary osteoarthritis of both first carpometacarpal joints [...] Info) Description 08/19/2025 1:00 PM EST Telemedicine [facility] [address] [place] [address] Stacy Smith PA-C [address] [place] [address] [email or web address] 09/22/2025 11:00 AM EST Office Visit [facility] [address] [place] [address] Luis Negrete MD [address] [place] [address] - [place] [address] [email or web address] 01/12/2026 1:00 PM EDT Office Visit [facility] [address] [place] [address] Nimo Migule MD [address] [address] julio [email or web address] documented as of this encounter Results * [...] Mild degenerative changes in the bilateral hands. Nimo Miguel MD IMG XR UPPER EXTREMITY Fin al Result documented in this encounter Visit Diagnoses Diagnosis Primary osteoarthritis of both first carpometacarpal joints Primary osteoarthritis of both first carpometacarpal joints- Primary documented in this encounter Care Teams Quotation Checker Relationship Specialty Start Date End Date Marlon Hirsch NP [facility] [place] [address] PCP - General Family Medicine 03/21/22 documented as of this encounter Additional Source Comments The information contained in this document represents components of the legal health record. It is not the complete legal health record.[facility]
--- NOTE | 2025-08-10 07:25 | MHC.PC.OV ---
Intake Visit Reasons: EP Follow Up Allergies fenofibrate (From TRICOR) Allergy (Unknown, Verified 05/12/25 14:31) ITCHING Medication List - Last Reconciled 08/10/25 by BERYL Mendieta-NOEL [aspirin 1 tab PO DAILY] cyclobenzaprine 5 mg PO BEDTIME PRN 30 days icosapent ethyl (Vascepa) 2 grams PO BID metoprolol succinate ER 25 mg PO DAILY omeprazole 20 mg PO DAILY rosuvastatin 20 mg PO BEDTIME ubrogepant (Ubrelvy) 50 - 100 mg (0.5 - 1 x 100 mg) PO ONCE PRN 30 days Tobacco use date assessed: 03/25/25 Dental Screening Dental Screen Date: 03/25/25 HPI EP Follow Up HPI Details History of Present Illness The patient is a 54 year old male presenting for a telehealth follow-up visit for hyperhidrosis. He reports persistent sweating, which is particularly pronounced in the morning. He has been evaluated by an warehouse foreman for this issue, who ruled out multiple conditions. His medical history includes slight hypothyroidism, not hyperthyroidism, and a known history of slightly low but normal testosterone levels. He also has a history of a fatty liver. He is currently consulting with his respiratory therapy instructor to determine if he can tolerate testosterone replacement therapy (TRT). Overall, the patient reports doing quite well and denies any chest pain or shortness of breath. Review of Systems - General: Reports doing well overall. - Cardiovascular: Denies chest pain. - Respiratory: Denies shortness of breath. - Integumentary/Endocrine: Reports hyperhidrosis, especially in the morning. Plan 1. Hyperhidrosis The patient continues to experience hyperhidrosis, mainly in the morning, and has had a prior endocrinology workup. Lab work will be ordered to recheck testosterone, thyroid function, lipids, and a CBC to further investigate potential underlying causes and establish a baseline. 2. Low Testosterone Given his history of slightly low but normal testosterone, this is being considered as a potential factor for his hyperhidrosis. Testosterone levels will be rechecked. The patient is appropriately consulting with his respiratory therapy instructor to determine his candidacy for testosterone replacement therapy (TRT) from a cardiovascular standpoint. 3. Hypothyroidism, Unspecified In light of his history of slight hypothyroidism, thyroid function tests will be rechecked as part of the laboratory workup. 4. Hepatic Steatosis, Not Elsewhere Classified Due to the patient's history of a fatty liver, his liver enzymes will be rechecked. Discussion Notes I discussed with the patient his ongoing hyperhidrosis, which is most prominent in the mornings. I acknowledged his previous endocrinology consultation and his history of slight hypothyroidism and low-normal testosterone. I informed him that I will be ordering labs to recheck his testosterone, thyroid, lipids, a CBC, and liver enzymes. We discussed testosterone replacement therapy (TRT) as a potential option, and I affirmed his plan to consult with his respiratory therapy instructor to ensure he is a suitable candidate for this treatment. I will continue to monitor his laboratory results. Patient Instructions - We will be doing some blood tests to check your hormone levels (thyroid and testosterone), cholesterol, liver, and blood counts to investigate your morning sweats. - Continue to talk with your heart doctor (respiratory therapy instructor) to see if testosterone replacement therapy is a safe option for you. - Please seek immediate medical attention for any new chest pain or shortness of breath. [facility] Medical History (Updated 08/10/25 @ 07:26 by BERYL Mendieta-NOEL) Low vitamin B12 level CAD (coronary artery disease) Pulmonary HTN Esophageal dysmotility BPH (benign prostatic hyperplasia) MELISSA on CPAP Muscle weakness Bilateral inguinal hernia Fatty liver Non-STEMI (non-ST elevated myocardial infarction) ADHD Myocardial infarction Surgical History History of heart artery stent History of coronary angiogram History of umbilical hernia Family History Father CVD (cardiovascular disease) Myocardial infarction Unknown family medical history HTN (hypertension) Mother CVD (cardiovascular disease) Maternal Grandmother Stroke Paternal Grandfather Diabetes mellitus Paternal Aunt Aneurysm Social History Household Members: None Housing: House Are you a primary account executive healthcare to a significant other at home: No Do you presently have visiting nurse or other home services: No Alcohol intake: current Alcohol intake frequency: does not drink Patient Tobacco Use Status: Never used Tobacco e-Cigarette/Vaping Use: Never Used Second Hand Smoke Exposure: No service: No Current occupational status: employed Cognitive needs: No Hearing needs: No Vision needs: Yes Questionnaire Thrive Questionnaire Date Thrive assessed: 08/26/24 I am a: Patient What is your living situation today?: I choose not to answer this question Within the past 12 months, did the food you bought not last and you didn't have the money to get more?: I choose not to answer this question Within the past 12 months, did you worry whether your food would run out before you got money to buy more?: I choose not to answer this question Do you have trouble paying for medicines?: I choose not to answer this question Do you have trouble getting transportation to medical appointments?: I choose not to answer this question Do you have trouble paying your heating and electricity bill?: I choose not to answer this question Do you have trouble taking care of your child, family member or friend?: I choose not to answer this question Do you have trouble with day-to-day activities such as bathing, preparing meals, shopping, managing finances, etc.?: I choose not to answer this question Are you currently unemployed and looking for a job?: I choose not to answer this question Are you interested in more education?: I choose not to answer this question Currently or been in a relationship where the following occur: I choose not to answer THRIVE Score: 0 CHRIS-7 AMB Questionnaire CHRIS-7 Date CHRIS - 7 assessed: 03/25/25 (Patient declined to complete. ) Source: Developed by Drs. Anoop Hackett, Francesca Fu, Eliceo Escobar and colleagues, with an educational josi from [employer]. Physical exam (Primary Care) Tobacco/Smoking Status: Tobacco use Status Tobacco use date assessed 03/25/25 03/25/25 08:13 Patient Tobacco Use Status Never used Tobacco 03/25/25 08:13 e-Cigarette/Vaping Use Never Used 03/25/25 08:13 Thrive Assessment: Date of Thrive Assessment Date Thrive assessed 08/26/24 03/25/25 08:13 Currently or been in a relationship where the following occur: I choose not to answer Telehealth Telehealth Telehealth Platform: [facility] Location of provider rendering services: practice address Location of patient: address on file Patient Identification confirmed using: Name, : Yes Telehealth method: video Patient verbally consented to treatment: Yes Patient verbally consented to billing insurance company: Yes Patient informed of any privacy concerns related to visit: Yes Minutes spent on Phone/Video with Pt.: 15 Coding Level of Care Code Tele Est Pt Level 3 (63212) Diagnoses Hyperhidrosis R61 Low testosterone R7. Elevated TSH Fatty liver K76.0 Assessment & Plan Assessment & Plan (1) Hyperhidrosis: Comment: ? secondary component Code(s): R61 - Generalized hyperhidrosis Category: Medical (2) Low testosterone: Code(s): . - Other specified abnormal findings of blood chemistry Category: Medical (3) Elevated TSH: Code(s): R7. - Other specified abnormal findings of blood chemistry Category: Medical (4) Fatty liver: Code(s): K76.0 - Fatty (change of) liver, not elsewhere classified Category: Medical Plan . Orders: Orders UA CC w/rflx Micro + Cult Today - Other specified abnormal findings of blood chemistry Lipid Panel Today - Other specified abnormal findings of blood chemistry Complete Blood Count Auto Diff Today - Other specified abnormal findings of blood chemistry Comprehensive [place]. Panel Fast Today - Other specified abnormal findings of blood chemistry TSH reflex Free T4 Today - Other specified abnormal findings of blood chemistry Testosterone, Free/Total Today - Other specified abnormal findings of blood chemistry Thyroid Peroxidase Antibodies Today R61 - Generalized hyperhidrosis, - Other specified abnormal findings of blood chemistry
== END 2025-08-10 07:44 | disposition home or self-care (01) ==
LOC: HO.HMCC 06:31
PROVIDERS: PCP Nurse Practitioner Family; Visit Provider Nurse Practitioner Family
DX: R61 Generalized hyperhidrosis (principal); R79.89 Other specified abnormal findings of blood chemistry; K76.0 Fatty (change of) liver, not elsewhere classified